=== PATIENT | female | born 1965 | race Caucasian/White ===

== ENCOUNTER 2020-01-22 01:19 | Emergency (ER) | payer MEDICARE, MEDICAID, SELFPAY ==
--- NOTE | 2020-01-22 01:47 | ED_ITS ---
HPI - Abdominal Pain General Chief Complaint: Abdominal Pain Stated Complaint: bowel pain Time Seen by Provider: 01/22/20 01:47 Source: patient Mode of arrival: EMS Limitations: no limitations History of Present Illness HPI narrative: patient with epigastric pain, she is concerned that it is bowel obstruction or acid MD elicited complaint: abdominal pain Onset (ago): hour(s) Pain Consistency: constant Location: epigastric Severity: moderate Quality: cramping and burning Radiation: back Associated symptoms: nausea Related Data Allergies Allergy/AdvReac Type Severity Reaction Status Date / Time ibuprofen Allergy Severe RASH, Verified 01/22/20 01:54 SWELLING, anaphylaxis, swelling Review of Systems Constitutional: Reports no additional constitutional complaints Eyes: Reports no additional eye complaints Denies dizziness Cardiovascular: Reports no additional cardiovascular complaints Respiratory: Reports as per HPI Gastrointestinal: Reports no additional gastrointestinal complaints Genitourinary: Reports no additional female genitourinary complaints Musculoskeletal: Reports no additional musculoskeletal complaints Skin/Breast: Denies rash Reports system reviewed and no additional complaints, except as documented, Denies dizziness and Denies Sensory deficit (Neuro) Psychiatric: Denies anxiety Physical Exam Vital Signs: Vital Signs: Last Vital Signs Temp 97.5 F 01/22/20 01:55 Pulse 62 01/22/20 02:58 Resp 16 01/22/20 02:58 BP 126/67 01/22/20 02:58 Pulse Ox 96 01/22/20 02:58 Body Mass Index 30.2 Const: General: healthy appearing Nutritional Appearance: average body habitus Orientation/consciousness: oriented to person and patient oriented x3 Limitations: no limitations HENMT: Head: Yes normal to inspection Ears: external ears normal General nose exam: Normal external nose present Mouth: Normal oral and palatal mucosa present and oropharynx normal Throat: Yes posterior oropharynx normal Eyes: General: appearance normal, both eyes and all related structures Neck: Other: supple Neck: Yes normal visual inspection Chest: Chest palpation & inspection: normal inspection of the chest Resp: Auscultation: clear to auscultation bilaterally Cardio: Jugular venous distension: no JVD Rate: regular rate Rhythm: regular rhythm Heart sounds: S1 normal heart sound present and S2 normal heart sound present GI: Other: multiple surgical wounds, epigastric pain to palpation Palpation (GI): No hepatosplenomegaly present Auscultation: normal bowel sounds : General: Yes no CVA tenderness Back/Spine/Pelvis: Back: no CVA tenderness Skin: General skin exam: no rashes or lesions noted Neuro: General: oriented to person and patient oriented x3 Cranial nerves: Yes CN's II-XII intact bilaterally Motor exam (neuro): 5/5 motor strength present throughout Sensory Exam: No Sensory deficit (Neuro) Extrem: General: Yes normal to inspection Psych: Appearance: grossly normal Course Course Course Narrative: patient improved no evidence of bowel obstruction MDM - Abdominal Pain MDM Narrative Medical decision making narrative: patient with multiple surgeries no evidence of obstruction on xray, prior visits for gastritis Differential Diagnosis Differential diagnosis: Likely abdominal pain, gastritis, pancreatitis, peptic ulcer disease and small bowel obstruction Medical Records Attestation: I reviewed the patient's medical records. Lab Data Attestation: I reviewed the patient's lab results. Result diagrams: 01/22/20 02:07 01/22/20 02:07 Labs: Lab Results 01/22/20 01/22/20 01/22/20 Range/Units 02:07 02:07 02:07 WBC 8.6 (4.8-10.8) X10*3/uL RBC 4.63 (4.20-5.50) X10*6/uL Hgb 13.6 (12.0-16.0) g/dl Hct 40.5 (37-47) % MCV 87.5 (80-98) fL MCH 29.4 (27.0-33.0) pg MCHC 33.6 (31.0-35.0) g/dl RDW 12.8 (11.0-16.0) % Plt Count 321 (160-400) X10*3/uL MPV 9.7 (9.4-12.3) fL Immature Gran % (Auto) 0.2 (0.0-0.4) % Neut % (Auto) 55.8 (45-73) % Lymph % (Auto) 35.0 (20-40) % [place] % (Auto) 7.4 (2-11) % Eos % (Auto) 1.1 (0-4) % Baso % (Auto) 0.5 (0-2) % Lymph # (Auto) 3.0 (1.2-4.9) X10*3/uL [place] # (Auto) 0.6 (0.1-1.2) X10*3/uL Eos # (Auto) 0.1 (0.0-0.4) X10*3/uL Baso # (Auto) 0.0 (0.0-0.2) X10*3/uL Abs Immat Gran (auto) 0.02 (0.00-0.03) X10*3/uL Absolute Neuts (auto) 4.8 (2.0-8.3) X10*3/uL Absolute Nucleated RBC 0.000 (0.0-0.012) X10*3/uL Nucleated RBC % (auto) 0.0 (0.0-0.2) /100WBC Sodium 138 (135-145) mmol/L Potassium 4.1 (3.3-5.1) mmol/l Chloride 102 (96-108) mmol/L Carbon Dioxide 29 (22-29) mmol/L Anion Gap 11 L (12-20) BUN 11 (9-16) mg/dL Creatinine 0.77 (0.5-1.4) mg/dL Estim Creat Clear Calc 68.4 Estimated GFR > 60 Random Glucose 121 H (60-115) mg/dL Calcium 9.2 (8.4-10.2) mg/dL Total Bilirubin 0.3 (0.0-1.0) mg/dL Direct Bilirubin 0.2 (0.0-0.5) mg/dL AST 16 (5-31) U/L ALT 26 (0-31) U/L Alkaline Phosphatase 98 (39-117) U/L Total Protein 7.0 (6.5-8.0) g/dL Albumin 4.2 (3.5-5.0) g/dL Lipase 32 (8-78) U/L Discharge Plan Discharge Clinical Impression: Gastritis Qualifiers: Gastritis type: unspecified gastritis Chronicity: acute Gastritis bleeding: without bleeding Qualified Code(s): K29.00 - Acute gastritis without bleeding Patient Disposition: Home, Self-Care Instructions: Gastritis (ED) Referrals: Physician,Unknown [Primary Care Provider] - 2 days [facility] Past Medical History Medical History (Updated 01/22/20 @ 03:32 by Ashutosh Avilez MD) Hypertension Pyloric stenosis SBO (small bowel obstruction) Surgical History (Updated 01/22/20 @ 01:59 by Ginna Steen) H/O: hysterectomy History of appendectomy Hx of cholecystectomy Social History Social History Advance Directives: No Advance Directives Information Provided: Yes
[2020-01-22 01:55] VITALS: BP 130/73; PULSE 59; RESP 18; TEMP 36.4; O2SAT 98; BMI 30.2
--- NOTE | 2020-01-22 02:05 | XR_ITS ---
EXAMINATION: ABDOMEN 2 VIEWS CLINICAL INFORMATION: Concern for obstruction. COMPARISON: 04/26/2019. TECHNIQUE: Supine and upright views of the abdomen are provided. FINDINGS: There are no dilated loops of small bowel. There are no air-fluid levels. There is no appendicolith. The visualized lung bases are clear. The osseous structures are stable. Surgical clips are identified within the right upper quadrant. XR/XR abdomen min 2V IMPRESSION: Unremarkable bowel gas pattern.
[2020-01-22 02:13] LABS: Basophils Percent Auto 0.5 % (0-2); Eosinophils Absolute Auto 0.1 X10*3/uL (0.0-0.4); Eosinophils Percent Auto 1.1 % (0-4); Hematocrit 40.5 % (37-47); Hemoglobin 13.6 g/dl (12.0-16.0); Imm Gran Abs Auto 0.02 X10*3/uL (0.00-0.03); Imm Gran Pct Auto 0.2 % (0.0-0.4); MANUAL DIFF FLAG NO; Mean Corpuscular HGB Conc 33.6 g/dl (31.0-35.0); Mean Corpuscular Hemoglobin 29.4 pg (27.0-33.0); Mean Corpuscular Volume 87.5 fL (80-98); Mean Platelet Volume 9.7 fL (9.4-12.3); Monocytes Absolute Auto 0.6 X10*3/uL (0.1-1.2); Monocytes Percent Auto 7.4 % (2-11); Neutrophils Absolute Auto 4.8 X10*3/uL (2.0-8.3); Neutrophils Percent Auto 55.8 % (45-73); Platelet Count 321 X10*3/uL (160-400); Red Blood Count 4.63 X10*6/uL (4.20-5.50); Red Cell Distribution Width 12.8 % (11.0-16.0); White Blood Count 8.6 X10*3/uL (4.8-10.8)
[2020-01-22] MEDS: ondansetron HCL 4 MG/2 ML VIAL IVPUSH (02:42)
[2020-01-22] MEDS: Pantoprazole Sodium 40 MG/10 ML VIAL IVPUSH (02:42)
[2020-01-22] MEDS: Morphine Sulfate 4 MG/ML CARTRIDGE IVPUSH (02:42)
[2020-01-22] MEDS: 0.9 % Sodium Chloride 500 ML 999 ML IVCONT (02:42)
[2020-01-22 02:43] VITALS: BP 126/71; PULSE 70; O2SAT 98
[2020-01-22 02:44] LABS: Anion Gap 11 (12-20); Blood Urea Nitrogen 11 mg/dL (9-16); Calcium 9.2 mg/dL (8.4-10.2); Carbon Dioxide 29 mmol/L (22-29); Chloride 102 mmol/L (96-108); Creatinine Clr Calc Pharmacy 68.4; Estimated Glomerular Filt Rate > 60; Glucose Random 121 mg/dL (60-115); Potassium 4.1 mmol/l (3.3-5.1); Sodium 138 mmol/L (135-145)
[2020-01-22 02:45] LABS: Alanine Aminotransferase 26 U/L (0-31); Albumin Level 4.2 g/dL (3.5-5.0); Alkaline Phosphatase 98 U/L (39-117); Aspartate Amino Transferase 16 U/L (5-31); Bilirubin Direct 0.2 mg/dL (0.0-0.5); Bilirubin Total 0.3 mg/dL (0.0-1.0); Lipase 32 U/L (8-78)
[2020-01-22 02:58] VITALS: BP 126/67; PULSE 62; RESP 16; O2SAT 96
== END 2020-01-22 04:09 | disposition home or self-care (01) ==
PROVIDERS: Emergency Provider Emergency Medicine
DX: K29.00 Acute gastritis without bleeding (principal)
CPT/HCPCS: 36415; 74019; 80048; 80076; 83690; 85025; 96374; 96375; 99283; 99284; J2270; J2405

== ENCOUNTER 2020-01-25 15:16 | Outpatient (REF) | payer MEDICARE, MEDICAID, SELFPAY ==
[2020-01-26 09:36] LABS: CT PCR NOT DETECTED (Not Detect.); NG PCR NOT DETECTED (Not Detect.)
[2020-01-26 13:04] LABS: BV Int Neg Control Negative (Negative); BV Int Pos Control Positive (Positive)
== END 2020-01-25 15:17 | disposition home or self-care (01) ==
LOC: HO.LAB 15:16
PROVIDERS: Visit Provider Obstetrics & Gynecology
DX: B37.3 Candidiasis of vulva and vagina (principal); R32 Unspecified urinary incontinence
CPT/HCPCS: 87480; 87491; 87510; 87591; 87660; 99212

== ENCOUNTER → 2020-03-01 09:27 | Outpatient (BNVA) | payer MEDICARE, MEDICAID, SELFPAY | PROVIDERS: Visit Provider Internal Medicine Gastroenterology | DX: Z13.89 Encounter for screening for other disorder (principal) | CPT/HCPCS: Q3014 ==

== ENCOUNTER 2020-03-25 08:06 | Outpatient (REF) | payer MEDICARE, MEDICAID, SELFPAY ==
--- NOTE | 2020-03-25 08:14 | US_ITS ---
EXAMINATION: US ABDOMEN LIMITED WITH ELASTOGRAPHY CLINICAL INFORMATION: WALKER. COMPARISON: Ultrasound abdomen 04/26/2019. TECHNIQUE: Limited imaging through the upper abdomen was performed. FINDINGS: Visualized body and head of the pancreas is homogeneous in echotexture. The tail of the pancreas is obscured by overlying gas. The pancreatic duct measures 0.2 cm. The liver is normal shape and contour with increased echogenicity. There is anechoic cyst with calcified ferreira and posterior acoustic enhancement in the right lower lobe. It measures 0.6 x 0.5 x 0.6 cm. Previously measured 0.8 x 0.6 x 0.7 cm. No other lesions seen. The right hepatic lobe measures 14.8 cm in length and the left lobe measures 11.6 cm in length. There is normal hepatopedal flow seen in the portal vein on Doppler exam. On Elastography, the median value is 1.68 m/s with IQR/median of 0.40. Gallbladder has been surgically removed. CBD measures 0.5 cm. Right kidney measures 10.3 cm. US/US abdomen martinez w elastography IMPRESSION: Diffusely echogenic liver with small cyst and calcified wall. The size of the cyst is unchanged from previous ultrasound 04/26/2019. The gallbladder has been surgically removed. The right kidney, CBD and visualized pancreas are unremarkable. [id number] fibrosis stage F2-F3.
== END 2020-03-25 08:07 | disposition home or self-care (01) ==
LOC: HO.US 08:06
PROVIDERS: PCP Internal Medicine; Visit Provider Internal Medicine Gastroenterology
DX: K75.81 Nonalcoholic steatohepatitis (NASH) (principal)
CPT/HCPCS: 76705; 76981

== ENCOUNTER 2020-04-04 09:58 | Outpatient (REF) | payer MEDICARE, MEDICAID, SELFPAY | END 2020-04-04 09:59 | disposition home or self-care (01) | LOC: HO.LAB 09:58 | PROVIDERS: Visit Provider Internal Medicine | DX: N39.41 Urge incontinence (principal); Z20.822 Contact with and (suspected) exposure to COVID-19 | CPT/HCPCS: 36415; 51798; 81002; 99202; C9803; U0003 ==

== ENCOUNTER 2020-04-15 08:13 | Outpatient (REF) | payer MEDICARE, MEDICAID, SELFPAY ==
[2020-04-16 08:47] LABS: BV Int Neg Control Negative (Negative); BV Int Pos Control Positive (Positive)
[2020-04-16 19:27] LABS: C. trachomatis RNA TMA NOT DETECTED (NOT DETECTED); N. gonorrhoeae RNA TMA NOT DETECTED (NOT DETECTED)
== END 2020-04-15 08:14 | disposition home or self-care (01) ==
LOC: HO.LAB 08:13
PROVIDERS: Visit Provider Obstetrics & Gynecology
DX: Z01.419 Encounter for gynecological examination (general) (routine) without abnormal findings (principal); Z90.710 Acquired absence of both cervix and uterus
CPT/HCPCS: 87480; 87491; 87510; 87591; 87660

== ENCOUNTER 2020-04-17 19:59 | Emergency (ER) | payer MEDICARE, MEDICAID, SELFPAY ==
--- NOTE | 2020-04-17 | ECG_ITS ---
Test Reason : JAW PAIN Blood Pressure : / mmHG Vent. Rate : 074 BPM Atrial Rate : 074 BPM P-R Int : 140 ms QRS Dur : 076 ms QT Int : 398 ms P-R-T Axes : 064 025 024 degrees QTc Int : 441 ms Normal sinus rhythm Normal ECG When compared with ECG of 26-APR-2019 13:19, No significant change was found Referred By: Generic ED Physician Electronically Signed By:KASSIE ESTEBAN
[2020-04-17 21:08] VITALS: BP 148/67; PULSE 71; RESP 18; TEMP 35.8; O2SAT 95; BMI 31.3
[2020-04-18 00:37] VITALS: BP 123/73
--- NOTE | 2020-04-18 00:53 | ED_ITS ---
HPI - General Adult General Chief complaint: Headache Stated complaint: high bp Time Seen by Provider: 04/18/20 00:32 Source: patient Mode of arrival: ambulatory Limitations: no limitations History of Present Illness HPI narrative: 54-year-old female who presents emergency department for evaluation high blood pressure and headache. Patient states that around 2:00 p.m. she ate a barbecue ribs. She states that shortly after that she developed a headache. She states that the headache came on gradually and was located in the septal region of her head and in her jaw bilaterally. She states that the headache was a constant, pounding sensation which was initially mild and is now 8/10 at its worst. She is also complaining of pain in her left shoulder but denied chest pain, dyspnea on exertion, shortness of breath, diaphoresis, nausea, vomiting, lightheadedness or dizziness. She states she has had similar headaches in the past and she does have a history of migraines. She states she has had to come to the emergency department 2 times in the past and was treated with IV medications. The patient does have a history of hypertension and she is compliant with her medications. She denied fever, chills, cough, abdominal pain, loss of sense of taste or smell, diarrhea. Related Data Home Medications Medication Instructions Recorded Confirmed lorazepam 0.5 mg tablet mg PO 04/04/20 04/04/20 Previous Rx's Medication Instructions Recorded clotrimazole-betamethasone 1 1 applic TOPICAL BID 5 Days #45 g 01/25/20 %-0.05 % topical cream fluconazole 150 mg tablet 150 mg PO ONCE 1 Days #1 tab 01/25/20 oxybutynin chloride 5 mg 5 mg PO DAILY #30 tab 04/04/20 tablet,extended release 24 hr metoclopramide HCl [Reglan] 10 mg PO Q6H PRN #14 tab 04/18/20 Allergies Allergy/AdvReac Type Severity Reaction Status Date / Time ibuprofen Allergy Severe RASH, Verified 04/17/20 21:07 SWELLING, anaphylaxis, swelling Review of Systems Review of Systems: Yes all other systems are reviewed and are negative Neurologic: Reports Abnormal speech present [facility] Past Medical History Medical History Hypertension Pyloric stenosis SBO (small bowel obstruction) Urge incontinence Urgency of micturition Surgical History H/O: hysterectomy History of appendectomy History of endometrial ablation History of tubal ligation Hx of cholecystectomy Family History Family History Father No problems noted. Mother No problems noted. Social History Social History Alcohol intake: never Smoking Status: Never smoker Advance Directives: No Sexual orientation: Straight/Heterosexual Gender identity: female Physical Exam Vital Signs: Vital Signs: Last Vital Signs Temp 98.0 F 04/18/20 02:00 Pulse 70 04/18/20 02:00 Resp 16 04/18/20 02:00 BP 91/54 L 04/18/20 02:00 Pulse Ox 95 04/18/20 02:00 Body Mass Index 31.3 Const: General: cooperative and healthy appearing Orientation/consciou sness: oriented to person and oriented to place Limitations: no limitations HENMT: Head: Yes normal to inspection, Yes normocephalic and Yes atraumatic Ears: external ears normal General nose exam: Normal external nose present Face and sinus: Yes normal facial exam Mouth: Normal oral and palatal mucosa present Throat: Yes posterior oropharynx normal Eyes: Periorbital: periorbital findings normal Eyelids: Yes eyelids normal Conjunctivae: conjunctivae normal Sclerae: sclerae normal Corneas: corneas normal Pupils: Equal, round and reactive pupils present Direct Ophthalmoscopy: normal light reflex Neck: Neck: Yes full ROM, Yes no lymphadenopathy, Yes no meningeal signs, Yes trachea midline and Yes supple Chest: Chest palpation & inspection: normal inspection of the chest and normal palpation of entire chest wall Resp: Effort & Inspection: normal respiratory effort and able to speak in complete sentences Auscultation: clear to auscultation bilaterally Cardio: Rate: regular rate Rhythm: regular rhythm Heart sounds: S1 normal heart sound present, S2 normal heart sound present and no murmurs GI: Inspection: Yes normal to inspection Palpation (GI): Soft to palpation, nontender, no guarding, not rigid and No hepatosplenomegaly present : General: Yes no CVA tenderness Back/Spine/Pelvis: Back: no CVA tenderness Cervical Spine: normal cervical lordosis Thoracic/Lumbar Spine: thoracic and lumbar spine normal to inspection Skin: Lesions: no lesions Rashes: no rashes Wounds: no wounds Neuro: General: oriented to person, oriented to place and no meningeal signs Cranial nerves: Yes CN's II-XII intact bilaterally and Yes Equal, round and reactive pupils present Cognition (Neuro): normal cognition Speech: Abnormal speech present Motor exam (neuro): 5/5 motor strength present throughout Extrem: General: Yes normal to inspection and Yes full ROM Psych: Appearance: well kempt Mental Status: mental status grossly normal Speech and movement: Normal speech and movement present Affect: normal affect Attitude: cooperative Thought process: Normal thought process present Thought content: Normal thought content present Course Course Course Narrative: 54-year-old female who presents emergency department for evaluation of headache which came on gradually at around 2:00 p.m. and is now moderate to severe intensity/10/22. The patient states she had similar headaches in the past. Her examination was unremarkable and a suspect that she is having a migraine headache. Patient was ordered to get Tylenol 975 mg orally, Benadryl 50 mg IV and Reglan 10 mg IV. I will check a 12 lead EKG on this patient as well. 0229: The patient got complete relief of her headache with the above medications. Twelve lead EKG was unremarkable. The patient was discharged home with printed instructions and verbal instructions on migraines. She was advised to take the following regimen every 6 hours as needed for headache: Benadryl 50 mg, extra-strength Tylenol 1000 mg and Reglan 10 mg orally. Medical Decision Making ECG Data Attestation: I personally reviewed and interpreted this ECG as follows: Interpretation: 2113: Normal sinus rhythm with a rate of 74, normal LA, QRS and QTC intervals, small Q-wave in 2, 3 and AVF, inverted T-wave V1, no old EKG for comparison, this is a nonacute EKG with no evidence of ischemia or cardiac injury. Discharge Plan Discharge Clinical Impression: Headache, migraine Patient Disposition: Home, Self-Care Instructions: Acute Headache (ED) Additional Instructions: Your EKG was unremarkable. Your symptoms are consistent with a migraine headache. Your blood pressure improved without any treatment. Take the following medications together every 6 hours as needed for headache: Benadryl 25 mg pills, 2 pills Extra-strength Tylenol 500 mg pills, 2 pills Reglan (metoclopramide) 10 mg pills, 1 pill These medications will make you sleepy. After you take these medications you cannot drive. You should lie down in a dark quiet room and try to fall asleep and this will often break the migraine headache. Follow-up with your doctor in 2 days. Please return to the emergency department if your symptoms get worse or if you develop any symptoms that are concerning to you. Prescriptions: New metoclopramide HCl [Reglan] 10 mg tablet 10 mg PO Q6H PRN (Reason: nausea and vomiting) Qty: 14 RF: 0 No Action fluconazole 150 mg tablet 150 mg PO ONCE 1 Days Qty: 1 RF: 0 clotrimazole-betamethasone 1-0.05 % cream 1 applic topical BID 5 Days Qty: 45 RF: 0 lorazepam 0.5 mg tablet PO RF: 0 oxybutynin chloride 5 mg tablet extended release 24hr 5 mg PO DAILY Qty: 30 RF: 6
[2020-04-18] MEDS: Acetaminophen 325 MG TABLET 975 MG PO (01:18)
[2020-04-18] MEDS: 0.9 % Sodium Chloride 1,000 ML 999 ML IV (01:18)
[2020-04-18] MEDS: diphenhydrAMINE HCL 50 MG/ML VIAL IVPUSH (01:19)
[2020-04-18 02:00] VITALS: BP 91/54; PULSE 70; RESP 16; TEMP 36.7; O2SAT 95
== END 2020-04-18 03:08 | disposition home or self-care (01) ==
PROVIDERS: Emergency Provider Emergency Medicine Emergency Medical Services
DX: G43.909 Migraine, unspecified, not intractable, without status migrainosus (principal); Z79.899 Other long term (current) drug therapy
CPT/HCPCS: 93005; 96361; 96374; 96375; 99284; J1200; J2765

== ENCOUNTER 2020-05-11 20:05 | Emergency (ER) | payer MEDICARE, MEDICAID, SELFPAY ==
--- NOTE | 2020-05-11 20:27 | ECG_ITS ---
Test Reason : ANXIETY/BACK PAIN Blood Pressure : / mmHG Vent. Rate : 071 BPM Atrial Rate : 071 BPM P-R Int : 144 ms QRS Dur : 086 ms QT Int : 414 ms P-R-T Axes : 057 025 015 degrees QTc Int : 449 ms Normal sinus rhythm Normal ECG When compared with ECG of 17-APR-2020 21:14, No significant change was found Referred By: Savannah Pineda Electronically Signed By:KASSIE ESTEBAN
--- NOTE | 2020-05-11 20:28 | ED_ITS ---
HPI - General Adult General Chief complaint: Back Pain/Injury Stated complaint: ANXIETY ATTACK Time Seen by Provider: 05/11/20 20:21 Source: patient Mode of arrival: EMS Limitations: no limitations History of Present Illness HPI narrative: Constitutional : No Weight loss, No Fever, No Chills, No Night Sweats, No Fatigue, No Malaise ENT/Mouth : No Hearing loss, No Ear Pain, No Nasal Congestion, No Sinus Pain, No Hoarseness, No sore throat, No Rhinorrhea, No Swallowing Difficulty Eyes: No Eye Pain, No Swelling, No Redness, No Foreign Body, No Discharge, No Vision Changes Cardiovascular : No Chest Pain, No SOB, No Dyspnea on Exertion, No Orthopnea, No Edema, No Palpitations Respiratory : No Cough, No Sputum, No Wheezing, No Smoke Exposure, No Dyspnea Gastrointestinal : No Nausea, No Vomiting, No Diarrhea, No Constipation, No abdominal Pain, No Hematochezia, No Melena Genitourinary : no irregular bleeding, No Dysuria, No Urinary Frequency, No Hematuria, No Urinary Incontinence, No Urgency, No Flank Pain, No Urinary Flow Changes, No Hesitancy Musculoskeletal : No joint pain, No Myalgias, No Joint Swelling Skin : No Skin Lesions, No rash Neuro : No Weakness, No Numbness, No Paresthesias, No Loss of Consciousness, No Dizziness, No Headache Psych : No Anxiety/Panic, No Depression, No SI/HI/AH/VH, No Social Issues, Heme/Lymph: No Bruising, No Bleeding,No Lymphadenopathy Endocrine : No Polyuria, No Polydipsia, No Temperature Intolerance Patient comes to the emergency room complaining of a panic attack, back pain. Patient states that earlier today, patient took her amlodipine, very soon after she started feeling lightheaded, started feeling very anxious, palpitations, she thought she was going to pass out but did not. Patient's called 911. Patient states she has history of panic attacks, felt similar, but she has not had 1 for multiple years and she does not have any reason why she had a panic attack this time. Patient also complaining of back pain for the last 3 days, right upper back pain, worse with movement Related Data Home Medications Medication Instructions Recorded Confirmed lorazepam 0.5 mg tablet mg PO 04/04/20 04/04/20 Previous Rx's Medication Instructions Recorded clotrimazole-betamethasone 1 1 applic TOPICAL BID 5 Days #45 g 01/25/20 %-0.05 % topical cream fluconazole 150 mg tablet 150 mg PO ONCE 1 Days #1 tab 01/25/20 oxybutynin chloride 5 mg 5 mg PO DAILY #30 tab 04/04/20 tablet,extended release 24 hr metoclopramide HCl [Reglan] 10 mg PO Q6H PRN #14 tab 04/18/20 metronidazole 0.75 % vaginal gel 1 appful VAGINAL BEDTIME 5 Days 04/24/20 #70 g omeprazole 40 mg capsule,delayed 40 mg PO DAILY 30 Days #30 cap 05/10/20 release Allergies Allergy/AdvReac Type Severity Reaction Status Date / Time ibuprofen Allergy Severe RASH, Verified 04/17/20 21:07 SWELLING, anaphylaxis, swelling Review of Systems Review of Systems: Constitutional : No Weight loss, No Fever, No Chills, No Night Sweats, No Fatigue, No Malaise ENT/Mouth : No Hearing loss, No Ear Pain, No Nasal Congestion, No Sinus Pain, No Hoarseness, No sore throat, No Rhinorrhea, No Swallowing Difficulty Eyes: No Eye Pain, No Swelling, No Redness, No Foreign Body, No Discharge, No Vision Changes Cardiovascular : No Chest Pain, No SOB, No Dyspnea on Exertion, No Orthopnea, No Edema, No Palpitations Respiratory : No Cough, No Sputum, No Wheezing, No Smoke Exposure, No Dyspnea Gastrointestinal : No Nausea, No Vomiting, No Diarrhea, No Constipation, No abdominal Pain, No Hematochezia, No Melena Genitourinary : no irregular bleeding, No Dysuria, No Urinary Frequency, No Hematuria, No Urinary Incontinence, No Urgency, No Flank Pain, No Urinary Flow Changes, No Hesitancy Musculoskeletal : Complaining of left upper back pain for 2 days, worse with movement, nonradiating No joint pain, No Myalgias, No Joint Swelling Skin : No Skin Lesions, No rash Neuro : No Weakness, No Numbness, No Paresthesias, No Loss of Consciousness, No Dizziness, No Headache Psych : Feeling anxious, possibly had a panic attack, No Depression, No SI/HI /AH/VH, No Social Issues, Heme/Lymph: No Bruising, No Bleeding,No Lymphadenopathy Endocrine : No Polyuria, No Polydipsia, No Temperature Intolerance [facility] Past Medical History Medical History Hypertension Pyloric stenosis SBO (small bowel obstruction) Urge incontinence Urgency of micturition Surgical History H/O: hysterectomy History of appendectomy History of endometrial ablation History of tubal ligation Hx of cholecystectomy Family History Family History Father No problems noted. Mother No problems noted. Social History Social History Alcohol intake: current Alcohol intake frequency: holidays/special occasions only Smoking Status: Never smoker Smoked in Last 30 Days: No Use of substances other than those prescribed or required for medical reasons: No Advance Directives: No Advance Directives Information Provided: Yes Sexual orientation: Straight/Heterosexual Gender identity: female Physical Exam Vital Signs: Vital Signs: Last Vital Signs Temp 98.5 F 05/11/20 20:52 Pulse 69 05/11/20 21:31 Resp 16 05/12/20 01:20 BP 123/57 L 05/11/20 21:31 Pulse Ox 97 05/11/20 21:31 Body Mass Index 31.3 Appearance: Alert. Oriented X3. No acute distress. Anxious Eyes: Pupils equal, round and reactive to light. ENT: Pharynx normal. Neck: Normal inspection. Neck supple. No lymph nodes noted. No crepitus CVS: Normal heart rate and rhythm. Pulses normal. Normal S1 and S2 Respiratory: No respiratory distress. Breath sounds normal. No Wheezing. No rales Abdomen: Soft and nontender. No rigidity. No distention. Back: Mild to moderate tenderness to palpation with superficial palpation to the left upper back Skin: Skin warm and dry. Normal skin color. Normal skin turgor. Extremities: No lower extremity edema. No lower extremity edema. No Lacerations. No Rash Neuro: Oriented X 3. No motor deficit. No sensory deficit. Moving all extermities. No slurred speech. Course Course Course Narrative: Troponin 2. Is less than the 1st troponin. Patient remains asymptomatic. Patient's discomfort likely secondary to a panic attack. Medical Decision Making Lab Data Result diagrams: 05/11/20 20:49 05/11/20 20:49 Labs: Lab Results 05/11/20 05/11/20 05/11/20 Range/Units 20:49 20:49 20:49 WBC 8.8 (4.8-10.8) X10*3/uL RBC 4.73 (4.20-5.50) X10*6/uL Hgb 14.1 (12.0-16.0) g/dl Hct 40.7 (37-47) % MCV 86.0 (80-98) fL MCH 29.8 (27.0-33.0) pg MCHC 34.6 (31.0-35.0) g/dl RDW 12.4 (11.0-16.0) % Plt Count 339 (160-400) X10*3/uL MPV 9.9 (9.4-12.3) fL Immature Gran % (Auto) 0.2 (0.0-0.4) % Neut % (Auto) 63.2 (45-73) % Lymph % (Auto) 29.2 (20-40) % [place] % (Auto) 6.3 (2-11) % Eos % (Auto) 0.6 (0-4) % Baso % (Auto) 0.5 (0-2) % Lymph # (Auto) 2.6 (1.2-4.9) X10*3/uL [place] # (Auto) 0.6 (0.1-1.2) X10*3/uL Eos # (Auto) 0.1 (0.0-0.4) X10*3/uL Baso # (Auto) 0.0 (0.0-0.2) X10*3/uL Abs Immat Gran (auto) 0.02 (0.00-0.03) X10*3/uL Absolute Neuts (auto) 5.6 (2.0-8.3) X10*3/uL Absolute Nucleated RBC 0.000 (0.0-0.012) X10*3/uL Nucleated RBC % (auto) 0.0 (0.0-0.2) /100WBC Sodium 140 (135-145) mmol/L Potassium 3.5 (3.3-5.1) mmol/L Chloride 105 (96-108) mmol/L Carbon Dioxide 24 (22-29) mmol/L Anion Gap 15 (12-20) BUN 10 (9-16) mg/dL Creatinine 0.72 (0.5-1.4) mg/dL Estim Creat Clear Calc 74.4 Estimated GFR > 60 Random Glucose 111 (60-115) mg/dL Calcium 9.4 (8.4-10.2) mg/dL Troponin I High Sens 6.0 (<3.5-17.0) ng/L 05/12/20 Range/Units 01:06 WBC (4.8-10.8) X10*3/uL RBC (4.20-5.50) X10*6/uL Hgb (12.0-16.0) g/dl Hct (37-47) % MCV (80-98) fL MCH (27.0-33.0) pg MCHC (31.0-35.0) g/dl RDW (11.0-16.0) % Plt Count (160-400) X10*3/uL MPV (9.4-12.3) fL Immature Gran % (Auto) (0.0-0.4) % Neut % (Auto) (45-73) % Lymph % (Auto) (20-40) % [place] % (Auto) (2-11) % Eos % (Auto) (0-4) % Baso % (Auto) (0-2) % Lymph # (Auto) (1.2-4.9) X10*3/uL [place] # (Auto) (0.1-1.2) X10*3/uL Eos # (Auto) (0.0-0.4) X10*3/uL Baso # (Auto) (0.0-0.2) X10*3/uL Abs Immat Gran (auto) (0.00-0.03) X10*3/uL Absolute Neuts (auto) (2.0-8.3) X10*3/uL Absolute Nucleated RBC (0.0-0.012) X10*3/uL Nucleated RBC % (auto) (0.0-0.2) /100WBC Sodium (135-145) mmol/L Potassium (3.3-5.1) mmol/L Chloride (96-108) mmol/L Carbon Dioxide (22-29) mmol/L Anion Gap (12-20) BUN (9-16) mg/dL Creatinine (0.5-1.4) mg/dL Estim Creat Clear Calc Estimated GFR Random Glucose (60-115) mg/dL Calcium (8.4-10.2) mg/dL Troponin I High Sens 5.6 (<3.5-17.0) ng/L ECG Data Attestation: I personally reviewed and interpreted this ECG as follows: (Heart rate 71, QTC 449, no ST segment depressions or elevations, nonspecific T-wave inversion in lead III) Discharge Plan Discharge Clinical Impression: Anxiety Back pain Qualifiers: Back pain location: back pain in unspecified location Chronicity: unspecified Back pain laterality: left Qualified Code(s): M54.9 - Dorsalgia, unspecified Patient Disposition: Home, Self-Care Instructions: Anxiety (ED), Back Pain (ED) Additional Instructions: Please follow-up with your primary care physician tomorrow. If you have any worsening or new symptoms, please return to the emergency room or call 911 Prescriptions: No Action metronidazole [Metrogel Vaginal] 0.75 % gel 1 appful vaginal BEDTIME 5 Days Qty: 70 RF: 0 omeprazole 40 mg capsule,delayed release(DR/EC) 40 mg PO DAILY 30 Days Qty: 30 RF: 2 metoclopramide HCl [Reglan] 10 mg tablet 10 mg PO Q6H PRN (Reason: nausea and vomiting) Qty: 14 RF: 0 fluconazole 150 mg tablet 150 mg PO ONCE 1 Days Qty: 1 RF: 0 clotrimazole-betamethasone 1-0.05 % cream 1 applic topical BID 5 Days Qty: 45 RF: 0 lorazepam 0.5 mg tablet PO RF: 0 oxybutynin chloride 5 mg tablet extended release 24hr 5 mg PO DAILY Qty: 30 RF: 6
[2020-05-11 20:52] VITALS: BP 152/62; PULSE 83; RESP 16; TEMP 36.9; O2SAT 99; BMI 31.3
[2020-05-11 20:54] LABS: MANUAL DIFF FLAG NO
[2020-05-11 20:56] LABS: Basophils Percent Auto 0.5 % (0-2); Eosinophils Absolute Auto 0.1 X10*3/uL (0.0-0.4); Eosinophils Percent Auto 0.6 % (0-4); Hematocrit 40.7 % (37-47); Hemoglobin 14.1 g/dl (12.0-16.0); Imm Gran Abs Auto 0.02 X10*3/uL (0.00-0.03); Imm Gran Pct Auto 0.2 % (0.0-0.4); Lymphocytes Absolute Auto 2.6 X10*3/uL (1.2-4.9); Lymphocytes Percent Auto 29.2 % (20-40); Mean Corpuscular HGB Conc 34.6 g/dl (31.0-35.0); Mean Corpuscular Hemoglobin 29.8 pg (27.0-33.0); Mean Platelet Volume 9.9 fL (9.4-12.3); Monocytes Absolute Auto 0.6 X10*3/uL (0.1-1.2); Monocytes Percent Auto 6.3 % (2-11); Neutrophils Absolute Auto 5.6 X10*3/uL (2.0-8.3); Neutrophils Percent Auto 63.2 % (45-73); Platelet Count 339 X10*3/uL (160-400); Red Blood Count 4.73 X10*6/uL (4.20-5.50); Red Cell Distribution Width 12.4 % (11.0-16.0); White Blood Count 8.8 X10*3/uL (4.8-10.8)
[2020-05-11 21:21] LABS: Anion Gap 15 (12-20); Blood Urea Nitrogen 10 mg/dL (9-16); Calcium 9.4 mg/dL (8.4-10.2); Carbon Dioxide 24 mmol/L (22-29); Chloride 105 mmol/L (96-108); Creatinine Clr Calc Pharmacy 74.4; Estimated Glomerular Filt Rate > 60; Glucose Random 111 mg/dL (60-115); Potassium 3.5 mmol/L (3.3-5.1); Sodium 140 mmol/L (135-145)
[2020-05-11 21:31] VITALS: BP 123/57; PULSE 69; RESP 16; O2SAT 97
[2020-05-12 01:20] VITALS: RESP 16
[2020-05-12 01:41] LABS: Troponin-I High Sensitivity 5.6 ng/L (<3.5-17.0)
== END 2020-05-12 02:13 | disposition home or self-care (01) ==
PROVIDERS: Emergency Provider Emergency Medicine
DX: F41.9 Anxiety disorder, unspecified (principal); M54.9 Dorsalgia, unspecified; I10 Essential (primary) hypertension
CPT/HCPCS: 36415; 80048; 84484; 85025; 93005; 99283; 99285

== ENCOUNTER 2020-05-28 10:38 | Outpatient (REF) | payer MEDICARE, MEDICAID, SELFPAY ==
--- NOTE | ~2020-05-28 | MM_ITS ---
EXAMINATION: MM SCREENING DIGITAL BREAST TOMOSYNTHESIS, BILATERAL CLINICAL INFORMATION: Screening. Asymptomatic. The lifetime risk of breast cancer based on the Tyrer-Cuzick Model is 7%. COMPARISON: Mammography: 05/23/2019, 09/07/2017, 06/01/2016 TECHNIQUE: Digital breast tomosynthesis is performed in both the craniocaudal and mediolateral oblique views along with computer-aided detection (CAD). Synthesized 2D images are generated from the tomosynthesis. FINDINGS: There are scattered areas of fibroglandular density (ACR BI-RADS breast composition Category b). There are no significant masses, abnormal calcifications, or other abnormalities. Parenchymal pattern is similar to prior exams. Small calcifications anterior left breast are similar to prior exam, possibly dermal, residing near skin on tomography. The axilla and skin contours are unremarkable. MM/MM tomosynthesis screening BI IMPRESSION: No significant changes from prior exams. ASSESSMENT: BI-RADS 2: Benign RECOMMENDATION: Routine annual mammography screening. This patient's information was entered into a reminder system with a target due date for their next mammogram.
== END 2020-05-28 10:39 | disposition home or self-care (01) ==
LOC: HO.MAMMO 10:38
DX: Z12.31 Encounter for screening mammogram for malignant neoplasm of breast (principal)
CPT/HCPCS: 77063; 77067

== ENCOUNTER → 2020-06-14 09:09 | Outpatient (BNVA) | payer MEDICARE, MEDICAID, SELFPAY | PROVIDERS: PCP Internal Medicine; Visit Provider Internal Medicine Gastroenterology | DX: K75.81 Nonalcoholic steatohepatitis (NASH) (principal) ==

== ENCOUNTER 2020-07-28 13:58 | Inpatient (IN) | payer MEDICARE, MEDICAID, SELFPAY ==
--- NOTE | ~2020-07-28 | XR_ITS ---
EXAMINATION: XR ABDOMEN WITH DECUBITUS VIEWS CLINICAL INDICATION: Follow-up small bowel obstruction COMPARISON: Previous CT of the abdomen and pelvis 07/28/2020 TECHNIQUE: One view of the chest and supine and upright views of the abdomen and pelvis FINDINGS: Chest: There is a nasogastric tube that projects over the stomach. The cardiac and mediastinal contours are normal. The lung volumes are low. There is subsegmental atelectasis at the lung bases. There is no pleural effusion. There is no evidence of free air. There are degenerative changes of the spine. Abdominal series: There is a nasogastric tube projects over the stomach. There are no dilated loops of bowel or air-fluid levels seen. There is no evidence of free air. There are postsurgical changes from cholecystectomy. There are degenerative changes of the spine and hip joints. XR/XR abdomen w decubitus IMPRESSION: Abdomen: Nasogastric tube in the stomach. No dilated loops of bowel or air fluid levels seen. CHEST: Low lung volumes and atelectasis at the lung bases.
--- NOTE | ~2020-07-28 | CT_ITS ---
EXAMINATION: CT ABDOMEN AND PELVIS WITH CONTRAST CLINICAL INFORMATION: Periumbilical abdominal pain, suspected bowel obstruction. COMPARISON: CT of the abdomen and pelvis done on 02/27/2019. TECHNIQUE: Multidetector volumetric images were obtained from the superior aspect of the liver through the pubic symphysis following administration 85 mL of Omnipaque 350 intravenous contrast. Sagittal and coronal reformatted images were obtained on the technologist's workstation. Oral contrast: No This CT examination was performed using dose optimization techniques as appropriate, variously including the following: *Automated exposure control *Adjustment of mA and/or kV according to patient size (this includes techniques or standardized protocols for targeted exams where dose is matched to indication/reason for exam; i.e. extremities or head) *Use of iterative reconstruction technique DLP: 550.34 mGy-cm FINDINGS: LUNG BASES: The visualized lung bases are unremarkable. LIVER, GALLBLADDER, AND BILIARY TREE: Mild diffuse hepatic hypodensity consistent with hepatic steatosis is present. Superimposed 6 mm hypodense lesion within the right lobe of the liver (image #168 series 4) appear unchanged. No other focal liver lesion, unchanged. The gallbladder is surgically absent. No evidence of any intrahepatic or extrahepatic biliary ductal dilatation. PANCREAS: Unremarkable. SPLEEN: Unremarkable. ADRENAL GLANDS: Unremarkable. KIDNEYS AND URETERS: The kidneys are normal in size, shape, and attenuation. No hydronephrosis, hydroureter, or calculi seen. No perinephric stranding. BLADDER: Unremarkable. GASTROINTESTINAL TRACT: Isolated mid small bowel loops are slightly distended with fluid, and measures between 3.32 maximum diameter of 4.5, seen in the periumbilical region anteriorly (image #349 series 4). There is suggestion of small bowel feces sign present within the most dilated part of the bowel loop. There is no evidence of any definite transition point present. The findings are suspicious for partial/low grade small bowel obstruction. However, when compared to the prior study, the appearance is similar to the study dated 02/27/2019. The remainder of the small bowel loops are ABDOMINAL WALL: No significant hernia is appreciated. LYMPH NODES: Normal. VASCULAR: Unremarkable. PELVIC VISCERA: There is no pelvic mass present. There is no free fluid and/or free air. OSSEOUS STRUCTURES: Moderate diffuse osteopenia and multilevel degenerative spondylosis related changes are noted at lower thoracic and upper lumbar spine. CT/CT abdomen pelvis w con IMPRESSION: Abnormal CT scan of the abdomen and pelvis showing evidence of chronic low-grade mid to distal small bowel obstruction, without any definite transitional point and evidence of an isolated distended small bowel loops seen at the level of the umbilicus measuring 4.5 cm at its maximum dimension, similar to prior study dated 02/27/2019.
[2020-07-28 14:09] VITALS: BP 133/78; PULSE 75; RESP 17; TEMP 37; O2SAT 97; BMI 31.9
[2020-07-28 15:21] LABS: MANUAL DIFF FLAG NO
[2020-07-28 15:22] LABS: Basophils Percent Auto 0.4 % (0-2); Eosinophils Absolute Auto 0.1 X10*3/uL (0.0-0.4); Hematocrit 43.2 % (37-47); Hemoglobin 14.6 g/dl (12.0-16.0); Imm Gran Abs Auto 0.03 X10*3/uL (0.00-0.03); Imm Gran Pct Auto 0.4 % (0.0-0.4); Lymphocytes Absolute Auto 2.2 X10*3/uL (1.2-4.9); Lymphocytes Percent Auto 27.5 % (20-40); Mean Corpuscular HGB Conc 33.8 g/dl (31.0-35.0); Mean Corpuscular Hemoglobin 29.5 pg (27.0-33.0); Mean Corpuscular Volume 87.3 fL (80-98); Mean Platelet Volume 9.8 fL (9.4-12.3); Monocytes Absolute Auto 0.8 X10*3/uL (0.1-1.2); Monocytes Percent Auto 9.5 % (2-11); Neutrophils Absolute Auto 4.9 X10*3/uL (2.0-8.3); Neutrophils Percent Auto 61.2 % (45-73); Platelet Count 347 X10*3/uL (160-400); Red Blood Count 4.95 X10*6/uL (4.20-5.50); Red Cell Distribution Width 12.6 % (11.0-16.0); White Blood Count 7.9 X10*3/uL (4.8-10.8)
[2020-07-28 15:28] LABS: Prothrombin Time 12.1 SEC (10.8-13.0)
--- NOTE | 2020-07-28 15:34 | ED_ITS ---
HPI - Abdominal Pain General Chief Complaint: Abdominal Pain Stated Complaint: ABD PAIN Time Seen by Provider: 07/28/20 14:42 Source: patient Mode of arrival: ambulatory Limitations: no limitations History of Present Illness HPI narrative: 54-year-old female with a past medical history of small-bowel obstructions, hernia repair, non alcoholic steatohepatitis, incontinence of urine, urge incontinence, urgency of micturition, pyloric stenosis and hypertension presenting to the ED with complaints of periumbilical abdominal pain with associated bloating after she ate a whole bunch of sharp iris and banana prior to arrival. Denies any fevers, nausea/vomiting, chest pain, shortness of breath, palpitations, dyspnea exertion, orthopnea, lower extremity edema, diarrhea, constipation, black or bloody stools or any other symptoms complaints or concerns at this time. MD elicited complaint: abdominal pain Pertinent past history: other (Small-bowel obstructions/hernia repair) Onset (ago): hour(s) (1 hour prior to arrival) Pain Consistency: constant Location: periumbilical Severity: moderate Quality: fullness Radiation: none Migration to: no migration Exacerbating factors: eating Relieving factors: nothing Associated symptoms: denies other symptoms Related Data Home Medications Medication Instructions Recorded Confirmed lorazepam 0.5 mg tablet mg PO 04/04/20 04/04/20 amlodipine 5 mg tablet mg PO 06/14/20 Previous Rx's Medication Instructions Recorded clotrimazole-betamethasone 1 1 applic TOPICAL BID 5 Days #45 g 01/25/20 %-0.05 % topical cream fluconazole 150 mg tablet 150 mg PO ONCE 1 Days #1 tab 01/25/20 oxybutynin chloride 5 mg 5 mg PO DAILY #30 tab 04/04/20 tablet,extended release 24 hr metoclopramide HCl [Reglan] 10 mg PO Q6H PRN #14 tab 04/18/20 metronidazole 0.75 % vaginal gel 1 appful VAGINAL BEDTIME 5 Days 04/24/20 #70 g omeprazole 40 mg capsule,delayed 40 mg PO DAILY 30 Days #30 cap 05/10/20 release Allergies Allergy/AdvReac Type Severity Reaction Status Date / Time ibuprofen Allergy Severe RASH, Verified 06/14/20 09:09 SWELLING, anaphylaxis, swelling Review of Systems Review of Systems Constitutional : No Weight loss, No Fever, No Chills, No Night Sweats, No Fatigue, NoMalaise ENT/Mouth: No ear pain, No sore throat, No Difficulty swallowing Cardiovascular : No Chest Pain, No SOB, No Dyspnea on Exertion, No Orthopnea, NoEdema, No Palpitations Respiratory : No Cough, No Sputum, No Wheezing, No Dyspnea Gastrointestinal : Positive abdominal pain, No Nausea, No Vomiting, No Diarrhea, No blood streaked emesis, No coffee-ground emesis, No gross hematemesis, No blood streak stool, No gross hematochezia, No Melena Genitourinary : No irregular bleeding, No Dysuria, No Urinary Frequency, No Hematuria,No Urinary Incontinence, No Urgency, No Flank Pain Musculoskeletal : No joint pain, No Myalgias, No Joint Swelling Skin : No Skin Lesions, No rash Neuro : No Weakness, No Numbness, No Paresthesias, No Loss of Consciousness, NoDizziness, No Headache Psych : No Social Issues, Heme/Lymph: No Bruising, No Bleeding,No Lymphadenopathy Endocrine : No Polyuria, No Polydipsia, No Temperature Intolerance Yes all other systems are reviewed and are negative Physical Exam Vital Signs: Vital Signs: Last Vital Signs Temp 98.6 F 07/28/20 14:09 Pulse 75 07/28/20 14:09 Resp 17 07/28/20 14:09 BP 133/78 07/28/20 14:09 Pulse Ox 97 07/28/20 14:09 Body Mass Index 31.9 vital signs have been reviewed as normal and appeared to be correct. Blood pressure normal. Heart rate normal. Respiration rate normal. Temperature normal. Oxygen saturation normal. Appearance: Alert. Oriented X3. No acute distress. Head: Normal external exam. Normocephalic. Eyes: PERRLA. EOMI. Conjunctiva and sclera normal. Eyelids normal. ENT: Pharynx normal. Uvula midline. Moist mucous membranes. No trismus noted. No drooling noted. No muffled voice noted. Neck: Normal inspection. Neck supple. FROM. No adenopathy. No meningeal signs. CVS: Normal heart rate and rhythm. Heart sound normal. No murmurs noted. Pulses normal throughout. Respiratory: No respiratory distress. Painless inspiration. Breath sounds normal. No wheezes/rales/rhonchi noted. Chest nontender. No accessory muscle usage noted or decreased air movement noted. Abdomen: Soft and moderate tenderness to palpation to periumbilical aspect with guarding. Nondistended. No rigidity. Bowel sounds normal in all 4 quadrants. No distention noted. No organomegaly noted. No visible injury noted. No rebound tenderness. Negative Rovsing sign. Negative obturator's sign. Negative psoas sign. Negative Bailey sign. Back: No CVA tenderness. Full range of motion noted. Skin: Skin warm and dry. Normal skin color. Normal skin turgor. No rashes/lesions/lacerations noted. Extremities: Extremities exhibit normal range of motion. Extremities nontender. Neuro: Oriented X 3. No motor deficit. No sensory deficit. Reflexes normal. Normal steady gait. Course Course Course Narrative: 15pm - labs obtained and all within normal limits. UA revealed 5 ketones otherwise no evidence of UTI. CT scan of abdomen and pelvis revealed chronic low-grade mid to distal small-bowel obstruction without any definite transitional point and evidence of an isolated distended small bowel loops seen at the level of the umbilicus measuring 4.5 cm at its maximum dimension similar to prior study dated 02/27/2019. Therefore consulted with Dr. Wellington at this time for possible admission. MDM - Abdominal Pain MDM Narrative Medical decision making narrative: 14:45pm - 54-year-old female with a past medical history of small-bowel obstructions, hernia repair, non alcoholic steatohepatitis, incontinence of urine, urge incontinence, urgency of micturition, pyloric stenosis and hypertension p resenting to the ED with complaints of periumbilical abdominal pain with associated bloating after she ate a whole bunch of sharp iris and banana prior to arrival. - Plan: Labs, CT scan of abd/pelvis with IV contrast, UA. Provide a L of IV fluids with 4 mg of Zofran and 4 mg of IV morphine then re-evaluate. Medical Records Attestation: I reviewed the patient's medical records. Lab Data Attestation: I reviewed the patient's lab results. Result diagrams: 07/28/20 15:14 07/28/20 15:14 Labs: Lab Results 07/28/20 07/28/20 07/28/20 Range/Units 15:14 15:14 15:14 WBC 7.9 (4.8-10.8) X10*3/uL RBC 4.95 (4.20-5.50) X10*6/uL Hgb 14.6 (12.0-16.0) g/dl Hct 43.2 (37-47) % MCV 87.3 (80-98) fL MCH 29.5 (27.0-33.0) pg MCHC 33.8 (31.0-35.0) g/dl RDW 12.6 (11.0-16.0) % Plt Count 347 (160-400) X10*3/uL MPV 9.8 (9.4-12.3) fL Immature Gran % (Auto) 0.4 (0.0-0.4) % Neut % (Auto) 61.2 (45-73) % Lymph % (Auto) 27.5 (20-40) % [place] % (Auto) 9.5 (2-11) % Eos % (Auto) 1.0 (0-4) % Baso % (Auto) 0.4 (0-2) % Lymph # (Auto) 2.2 (1.2-4.9) X10*3/uL [place] # (Auto) 0.8 (0.1-1.2) X10*3/uL Eos # (Auto) 0.1 (0.0-0.4) X10*3/uL Baso # (Auto) 0.0 (0.0-0.2) X10*3/uL Abs Immat Gran (auto) 0.03 (0.00-0.03) X10*3/uL Absolute Neuts (auto) 4.9 (2.0-8.3) X10*3/uL Absolute Nucleated RBC 0.000 (0.0-0.012) X10*3/uL Nucleated RBC % (auto) 0.0 (0.0-0.2) /100WBC PT 12.1 (10.8-13.0) SEC INR 1.0 (0.9-1.1) Sodium 143 (135-145) mmol/L Potassium 3.9 (3.3-5.1) mmol/L Chloride 105 (96-108) mmol/L Carbon Dioxide 28 (22-29) mmol/L Anion Gap 14 (12-20) BUN 9 (9-16) mg/dL Creatinine 0.77 (0.5-1.4) mg/dL Estim Creat Clear Calc 70.3 Estimated GFR > 60 Random Glucose 107 (60-115) mg/dL Calcium 9.4 (8.4-10.2) mg/dL Magnesium 2.2 (1.6-2.6) mg/dL Total Bilirubin 0.6 (0.0-1.0) mg/dL AST 20 (5-31) U/L ALT 31 (0-31) U/L Alkaline Phosphatase 103 (39-117) U/L Total Protein 7.6 (6.5-8.0) g/dL Albumin 4.4 (3.5-5.0) g/dL Lipase 28 (8-78) U/L Urine Color Urine Appearance Urine pH (5.0-8.0) Ur Specific [place] (1.005-1.025) Urine Protein (NEG-TRACE) MG/DL Urine Glucose (UA) (NEG) MG/DL Urine Ketones (NEG) MG/DL Urine Blood (NEG) Urine Nitrite (NEG) Ur Leukocyte Esterase (NEG) 07/28/20 Range/Units 15:56 WBC (4.8-10.8) X10*3/uL RBC (4.20-5.50) X10*6/uL Hgb (12.0-16.0) g/dl Hct (37-47) % MCV (80-98) fL MCH (27.0-33.0) pg MCHC (31.0-35.0) g/dl RDW (11.0-16.0) % Plt Count (160-400) X10*3/uL MPV (9.4-12.3) fL Immature Gran % (Auto) (0.0-0.4) % Neut % (Auto) (45-73) % Lymph % (Auto) (20-40) % [place] % (Auto) (2-11) % Eos % (Auto) (0-4) % Baso % (Auto) (0-2) % Lymph # (Auto) (1.2-4.9) X10*3/uL [place] # (Auto) (0.1-1.2) X10*3/uL Eos # (Auto) (0.0-0.4) X10*3/uL Baso # (Auto) (0.0-0.2) X10*3/uL Abs Immat Gran (auto) (0.00-0.03) X10*3/uL Absolute Neuts (auto) (2.0-8.3) X10*3/uL Absolute Nucleated RBC (0.0-0.012) X10*3/uL Nucleated RBC % (auto) (0.0-0.2) /100WBC PT (10.8-13.0) SEC INR (0.9-1.1) Sodium (135-145) mmol/L Potassium (3.3-5.1) mmol/L Chloride (96-108) mmol/L Carbon Dioxide (22-29) mmol/L Anion Gap (12-20) BUN (9-16) mg/dL Creatinine (0.5-1.4) mg/dL Estim Creat Clear Calc Estimated GFR Random Glucose (60-115) mg/dL Calcium (8.4-10.2) mg/dL Magnesium (1.6-2.6) mg/dL Total Bilirubin (0.0-1.0) mg/dL AST (5-31) U/L ALT (0-31) U/L Alkaline Phosphatase (39-117) U/L Total Protein (6.5-8.0) g/dL Albumin (3.5-5.0) g/dL Lipase (8-78) U/L Urine Color YELLOW Urine Appearance CLEAR Urine pH 7.5 (5.0-8.0) Ur Specific [place] 1.015 (1.005-1.025) Urine Protein NEG (NEG-TRACE) MG/DL Urine Glucose (UA) NEG (NEG) MG/DL Urine Ketones 5 (NEG) MG/DL Urine Blood NEG (NEG) Urine Nitrite NEG (NEG) Ur Leukocyte Esterase NEG (NEG) Imaging Data CT scan of abdomen pelvis with IV contrast: Attestation: I personally reviewed and interpreted this imaging study as follows: Radiologist's impression: FINDINGS: LUNG BASES: The visualized lung bases are unremarkable. LIVER, GALLBLADDER, AND BILIARY TREE: Mild diffuse hepatic hypodensity consistent with hepatic steatosis is present. Superimposed 6 mm hypodense lesion within the right lobe of the liver (image #168 series 4) appear unchanged. No other focal liver lesion, unchanged. The gallbladder is surgically absent. No evidence of any intrahepatic or extrahepatic biliary ductal dilatation. PANCREAS: Unremarkable. SPLEEN: Unremarkable. ADRENAL GLANDS: Unremarkable. KIDNEYS AND URETERS: The kidneys are normal in size, shape, and attenuation. No hydronephrosis, hydroureter, or calculi seen. No perinephric stranding. BLADDER: Unremarkable. GASTROINTESTINAL TRACT: Isolated mid small bowel loops are slightly distended with fluid, and measures between 3.32 maximum diameter of 4.5, seen in the periumbilical region anteriorly (image #349 series 4). There is suggestion of small bowel feces sign present within the most dilated part of the bowel loop. There is no evidence of any definite transition point present. The findings are suspicious for partial/low grade small bowel obstruction. However, when compared to the prior study, the appearance is similar to the study dated 02/27/2019. The remainder of the small bowel loops are ABDOMINAL WALL: No significant hernia is appreciated. LYMPH NODES: Normal. VASCULAR: Unremarkable. PELVIC VISCERA: There is no pelvic mass present. There is no free fluid and/or free air. OSSEOUS STRUCTURES: Moderate diffuse osteopenia and multilevel degenerative spondylosis related changes are noted at lower thoracic and upper lumbar spine. CT/CT abdomen pelvis w con IMPRESSION: Abnormal CT scan of the abdomen and pelvis showing evidence of chronic low-grade mid to distal small bowel obstruction, without any definite transitional point and evidence of an isolated distended small bowel loops seen at the level of the umbilicus measuring 4.5 cm at its maximum dimension, similar to prior study dated 02/27/2019. Critical Care Time Critical Care Time Critical Care Time: Yes Total Critical Care Time: 60 Attestation: I personally attest to this time spent taking care of the patient Discharge Plan Discharge Clinical Impression: Small bowel obstruction, partial Patient Disposition: Admitted As Inpatient Prescriptions: No Action metronidazole [Metrogel Vaginal] 0.75 % gel 1 appful vaginal BEDTIME 5 Days Qty: 70 RF: 0 omeprazole 40 mg capsule,delayed release(DR/EC) 40 mg PO DAILY 30 Days Qty: 30 RF: 2 metoclopramide HCl [Reglan] 10 mg tablet 10 mg PO Q6H PRN (Reason: nausea and vomiting) Qty: 14 RF: 0 fluconazole 150 mg tablet 150 mg PO ONCE 1 Days Qty: 1 RF: 0 clotrimazole-betamethasone 1-0.05 % cream 1 applic topical BID 5 Days Qty: 45 RF: 0 lorazepam 0.5 mg tablet PO RF: 0 oxybutynin chloride 5 mg tablet extended release 24hr 5 mg PO DAILY Qty: 30 RF: 6 amlodipine 5 mg tablet PO RF: 0 PMFSH Past Medical History Attestation statement: The following information was validated with the patient. Medical History Hypertension Pyloric stenosis SBO (small bowel obstruction) Urge incontinence Urgency of micturition Surgical History H/O colonoscopy H/O: hysterectomy History of appendectomy History of endometrial ablation History of esophagogastroduodenoscopy (EGD) History of tubal ligation Hx of cholecystectomy Family History Family History Father No problems noted. Mother No problems noted. Social History Social History Household Members: Family Alcohol intake: current Alcohol intake frequency: holidays/special occasions only Smoking Status: Never smoker Advance Directives: No Advance Directives Information Provided: Yes Sexual orientation: Straight/Heterosexual Gender identity: female
[2020-07-28] MEDS: ondansetron HCL 4 MG/2 ML VIAL IVPUSH ×2 (15:45→23:49)
[2020-07-28] MEDS: Morphine Sulfate 4 MG/ML CARTRIDGE IVPUSH (15:45)
[2020-07-28] MEDS: 0.9 % Sodium Chloride 1,000 ML 999 ML IVCONT (15:47)
[2020-07-28 15:54] LABS: Alanine Aminotransferase 31 U/L (0-31); Albumin Level 4.4 g/dL (3.5-5.0); Alkaline Phosphatase 103 U/L (39-117); Anion Gap 14 (12-20); Aspartate Amino Transferase 20 U/L (5-31); Bilirubin Total 0.6 mg/dL (0.0-1.0); Blood Urea Nitrogen 9 mg/dL (9-16); Calcium 9.4 mg/dL (8.4-10.2); Carbon Dioxide 28 mmol/L (22-29); Chloride 105 mmol/L (96-108); Creatinine Clr Calc Pharmacy 70.3; Estimated Glomerular Filt Rate > 60; Glucose Random 107 mg/dL (60-115); Lipase 28 U/L (8-78); Magnesium 2.2 mg/dL (1.6-2.6); Potassium 3.9 mmol/L (3.3-5.1); Sodium 143 mmol/L (135-145); Total Protein 7.6 g/dL (6.5-8.0)
[2020-07-28 16:03] LABS: Appearance Urine CLEAR; Color Urine YELLOW; Glucose Urine UA NEG (NEG); Leukocyte Esterase Urine NEG (NEG); Nitrite Urine NEG (NEG); PH 7.5 (5.0-8.0); Specific Gravity - Urine 1.015 (1.005-1.025); Urine Blood NEG (NEG); Urine Ketones 5 MG/DL (NEG); Urine Protein NEG (NEG-TRACE)
[2020-07-28] MEDS: iohexoL 350 MG/ML 100 ML INFUS..BTL IV (16:19)
[2020-07-28] MEDS: LORazepam 2 MG/ML VIAL 0.5 MG IVPUSH (17:19)
[2020-07-28] MEDS: Lidocaine HCl 4 % Laryng-O-Jet 4 ML 1 APPL TOPICAL (18:28)
[2020-07-28 19:05] VITALS: BP 131/70; PULSE 72; RESP 18; TEMP 37.4; O2SAT 95
[2020-07-28 19:16] VITALS: BP 125/72; PULSE 66; RESP 18; TEMP 37.2; O2SAT 95
--- NOTE | 2020-07-28 19:18 | PC.NURSE ---
Pt resting on stretcher in NAD, breathing with ease on RA. Pt aao4 reports abd pain. Pt NG tube placed by Dr Olson in L n[place], draining orange substance. Pt aware and agreeable to plan for admission, is awaiting bed assignment. Stretcher in lowest locked position, rails raised, call skelton within reach.
[2020-07-28 19:26] LABS: COVID-19 Test Negative (Negative); IDNOW Serial# 9DD0AD1C
[2020-07-28] MEDS: Heparin Sodium,Porcine 5,000 UNIT/ML VIAL 5000 UNIT SUBCUT (19:31)
[2020-07-28 19:36] VITALS: RESP 17
[2020-07-28] MEDS: HYDROmorphone HCl 0.5 MG/0.5 ML SYRINGE IVPUSH ×2 (19:36→23:49)
[2020-07-28] MEDS: Dextrose 5 % and Lactated Ring 1,000 ML 125 ML IVCONT (19:38)
[2020-07-28 20:35] VITALS: BP 125/63; PULSE 62; RESP 16; O2SAT 95
--- NOTE | 2020-07-28 22:27 | PC.NURSE ---
This RN notes ~300mL of orange drainage from NG tube
[2020-07-29] VITALS: BP 120/61; PULSE 65; RESP 16; TEMP 36.4; O2SAT 96
[2020-07-29] MEDS: Dextrose 5 % and Lactated Ring 1,000 ML 125 ML IVCONT ×3 (03:48→23:09)
[2020-07-29 04:00] VITALS: BP 117/69; PULSE 63; RESP 17; TEMP 36.7; O2SAT 97
[2020-07-29] MEDS: HYDROmorphone HCl 0.5 MG/0.5 ML SYRINGE IVPUSH ×6 (05:20→23:09)
[2020-07-29 06:28] LABS: MANUAL DIFF FLAG NO
[2020-07-29 06:54] LABS: Basophils Percent Auto 0.3 % (0-2); Eosinophils Absolute Auto 0.1 X10*3/uL (0.0-0.4); Eosinophils Percent Auto 1.5 % (0-4); Hemoglobin 12.9 g/dl (12.0-16.0); Imm Gran Abs Auto 0.03 X10*3/uL (0.00-0.03); Imm Gran Pct Auto 0.3 % (0.0-0.4); Lymphocytes Absolute Auto 1.8 X10*3/uL (1.2-4.9); Lymphocytes Percent Auto 19.9 % (20-40); Mean Corpuscular HGB Conc 33.1 g/dl (31.0-35.0); Mean Corpuscular Hemoglobin 29.5 pg (27.0-33.0); Mean Platelet Volume 10.1 fL (9.4-12.3); Monocytes Absolute Auto 0.8 X10*3/uL (0.1-1.2); Monocytes Percent Auto 8.5 % (2-11); Neutrophils Absolute Auto 6.2 X10*3/uL (2.0-8.3); Neutrophils Percent Auto 69.5 % (45-73); Platelet Count 306 X10*3/uL (160-400); Red Blood Count 4.38 X10*6/uL (4.20-5.50); Red Cell Distribution Width 12.7 % (11.0-16.0); White Blood Count 8.9 X10*3/uL (4.8-10.8)
[2020-07-29 07:05] LABS: Anion Gap 11 (12-20); Blood Urea Nitrogen 7 mg/dL (9-16); Calcium 8.9 mg/dL (8.4-10.2); Carbon Dioxide 29 mmol/L (22-29); Chloride 105 mmol/L (96-108); Creatinine Clr Calc Pharmacy 79.6; Estimated Glomerular Filt Rate > 60; Glucose Random 135 mg/dL (60-115); Potassium 4.3 mmol/L (3.3-5.1); Sodium 141 mmol/L (135-145)
[2020-07-29 07:14] VITALS: BP 121/66; PULSE 73; RESP 18; TEMP 36.6; O2SAT 95
[2020-07-29] MEDS: ondansetron HCL 4 MG/2 ML VIAL IVPUSH ×2 (07:19→15:34)
[2020-07-29] MEDS: Heparin Sodium,Porcine 5,000 UNIT/ML VIAL 5000 UNIT SUBCUT ×2 (07:19→20:31)
[2020-07-29] MEDS: 0.9 % Sodium Chloride Flush 3 ML SYRINGE IVFLUSH (07:19)
--- NOTE | 2020-07-29 10:35 | PM.HPGS ---
History of Present Illness History of Present Illness Date of Service: 07/29/20 Chief complaint: Small bowel obstruction Narrative: Darlyn Villarreal is a 54 year old female presenting with complaints of abdominal pain, distension nausea and vomiting found to have a small-bowel obstruction. She reports a history of numerous abdominal procedures including cholecystectomy, appendectomy, pyloric stenosis repair and has had previous history is of small-bowel obstructions. She reports these usually resolve with nasogastric tube decompression after several days. Current episode began approximately 2 days ago and has persisted necessitating a visit to the emergency department. Workup in the ED with CT of the abdomen and pelvis confirmed multiple loops of proximal small bowel which were dilated with air-fluid level suggestive of a small-bowel obstruction. A nasogastric tube was placed with production of bilious and feculent material. She does report somewhat improved this morning. Review of Systems Constitutional: Constitutional: Denies chills, Denies fever(s), Denies headache(s) and Reports poor appetite ENT: Denies dizziness and Denies headache(s) Cardiovascular: Cardiovascular: Denies chest pain, Denies rapid heart rate, Denies palpitations and Denies slow heart rate Respiratory: Respiratory: Denies chest congestion, Denies cough, Denies pain on inspiration and Denies wheezing Gastrointestinal: Gastrointestinal: Reports abdominal pain, Reports bloating, Reports change in stool character, Reports constipation, Denies diarrhea, Reports nausea, Reports vomiting and Denies hematemesis Musculoskeletal: Musculoskeletal: Denies back pain, Denies arthralgias, Denies joint swelling and Denies numbness Integumentary/Breasts: Skin/Breast: Denies change in pigmentation, Denies erythema and Denies rash Neurologic: Denies dizziness, Denies headache(s) and Denies numbness Psychiatric: Psychiatric: Denies anxiety and Denies depression Endocrine: Endocrine: Denies palpitations Hematologic/Lymphatic: Hematologic/Lymphatic: Denies easy bleeding, Denies easy bruising and Denies lymphadenopathy Allergic/Immunologic: Allergic/Immunologic: Denies wheezing PMFSH Past Medical History Medical History Hypertension Pyloric stenosis SBO (small bowel obstruction) Urge incontinence Urgency of micturition Family History Family History Father No problems noted. Mother No problems noted. Surgical History Surgical History H/O colonoscopy H/O: hysterectomy History of appendectomy History of endometrial ablation History of esophagogastroduodenoscopy (EGD) History of tubal ligation Hx of cholecystectomy Social History Social History Household Members: Family Housing: Apartment Do you presently have visiting nurse or other home services: Yes (classifier) Alcohol intake: never Smoking Status: Never smoker Second Hand Smoke Exposure: No Use of substances other than those prescribed or required for medical reasons: No Currently Displaying Signs/Symptoms of Drug Intoxication Withdrawal: No Have you been hit, kicked, punched, or otherwise hurt by someone within the past year? If so, by whom?: No Do you feel safe in your current relationship?: Yes Is there a partner from a previous relationship who is making you feel unsafe now?: No Are you made to feel afraid or neglected: No Advance Directives: No Advance Directives Information Provided: Yes Do you have thoughts of harming others: None Do you have a plan to hurt others: No Plan Recently lost weight without trying: No Nutrition Risks: No Nutritional Risk Sexual orientation: Straight/Heterosexual Gender identity: female Meds Allergies Allergy/AdvReac Type Severity Reaction Status Date / Time ibuprofen Allergy Severe RASH, Verified 06/14/20 09:09 SWELLING, anaphylaxis, swelling Active Medications: Current Medications Generic Name Dose Route Start Last Admin Trade Name Freq PRN Reason Stop Dose Admin Acetaminophen 650 mg 07/28/20 19:18 Acetaminophen 325 Mg Tablet PO Q6H PRN Pain, Mild (Pain Scale 1-3) Amlodipine Besylate 5 mg 07/29/20 09:00 07/29/20 07:31 Amlodipine Besylate 5 Mg Tablet PO Not Given DAILY [facility] Protocol Heparin Sodium (Porcine) 5,000 unit 07/28/20 19:18 07/29/20 07:19 Heparin Sodium,Porcine 5,000 Unit/Ml Vial SUBCUT 5,000 unit Q12H [facility] Administration Hydromorphone HCl 0.5 mg 07/28/20 19:18 07/29/20 09:08 Hydromorphone Hcl 0.5 Mg/0.5 Ml Syringe IVPUSH 0.5 mg Q3H PRN Administration Pain, Severe (Pain Scale 7-10) Dextrose/Lactated Ringer's 1,000 mls @ 125 mls/hr 07/28/20 19:18 07/29/20 03:48 D5lr IVCONT 125 mls/hr .Q8H [facility] Administration Lorazepam 0.5 mg 07/28/20 22:40 Lorazepam 0.5 Mg Tablet PO BID PRN Anxiety Omeprazole 40 mg 07/29/20 06:30 07/29/20 07:09 Omeprazole 40 Mg Capsule.Dr PO Not Given DAILY@0630 [facility] Ondansetron HCl 4 mg 07/28/20 19:18 07/29/20 07:19 Ondansetron Hcl 4 Mg/2 Ml Vial IVPUSH 4 mg Q8H PRN Administration Nausea and Vomiting Oxycodone HCl 5 mg 07/28/20 19:18 Oxycodone Hcl Immed Release 5 Mg Tablet PO Q6H PRN Pain, Moderate (Pain Scale 4-6 Sodium Chloride 3 ml 07/29/20 00:00 07/29/20 07:19 0.9 % Sodium Chloride Flush 3 Ml Syringe IVFLUSH 3 ml QSHIFT [facility] Administration Zolpidem Tartrate 5 mg 07/28/20 19:18 Zolpidem Tartrate 5 Mg Tablet PO BEDTIME PRN Insomnia Home Medications Medication Instructions Recorded Confirmed Last Taken Type lorazepam 0.5 mg tablet 0.5 mg PO BID PRN 04/04/20 07/28/20 Unknown History amlodipine 5 mg tablet 5 mg PO DAILY 06/14/20 07/28/20 Unknown History Physical Exam Vital Signs: Vital Signs: Last Vital Signs Temp 98 F 07/29/20 07:14 Pulse 73 07/29/20 07:14 Resp 18 07/29/20 07:14 BP 121/66 07/29/20 07:14 Pulse Ox 95 07/29/20 07:14 Body Mass Index 31.9 Const: General: cooperative, comfortable and well developed Nutritional Appearance: well nourished Orientation/consciousness: patient oriented x3 Eyes: Sclerae: sclerae normal EOM: EOMs intact bilaterally Neck: Neck: Yes normal visual inspection Resp: Effort & Inspection: normal respiratory effort, no cough, no respiratory distress and no stridor Cardio: Jugular venous distension: no JVD GI: Inspection: Yes normal to inspection Palpation (GI): Soft to palpation, Tenderness to palpation present (GI), no guarding and not rigid Percussion: Yes dullness to percussion Auscultation: normal bowel sounds Skin: General skin exam: dry skin Rashes: no rashes Neuro: General: patient oriented x3 and no focal motor deficits Extrem: General: Yes full ROM and Yes no clubbing, cyanosis or edema Psych: Appearance: grossly normal Results Results Labs: Short CBC 07/28/20 07/29/20 Range/Units 15:14 05:56 WBC 7.9 8.9 (4.8-10.8) X10*3/uL Hgb 14.6 12.9 (12.0-16.0) g/dl Hct 43.2 39.0 (37-47) % Plt Count 347 306 (160-400) X10*3/uL BMP 07/28/20 07/29/20 15:14 05:56 Sodium 143 141 Potassium 3.9 4.3 Chloride 105 105 Carbon Dioxide 28 29 BUN 9 7 L Creatinine 0.77 0.68 Calcium 9.4 8.9 Liver Function 07/28/20 Range/Units 15:14 Total Bilirubin 0.6 (0.0-1.0) mg/dL AST 20 (5-31) U/L ALT 31 (0-31) U/L Alkaline Phosphatase 103 (39-117) U/L Albumin 4.4 (3.5-5.0) g/dL Urine 07/28/20 Range/Units 15:56 Urine Color YELLOW Urine Appearance CLEAR Urine pH 7.5 (5.0-8.0) Ur Specific [place] 1.015 (1.005-1.025) Urine Protein NEG (NEG-TRACE) MG/DL Urine Glucose (UA) NEG (NEG) MG/DL [address] [id number] Scan ReportSigned Patient: Darlyn VillarrealMR#: [id number]: [id number]:[id number]/Sex: 54 / FADM Date: 07/28/20Loc: Amy Dr: Ordering Physician: HUNG DAVEY Date of Service: 07/28/20 Procedure(s): CT abdomen pelvis w con Accession Number(s): [id number] cc: HUNG DAVEY~ EXAMINATION: CT ABDOMEN AND PELVIS WITH CONTRAST CLINICAL INFORMATION: Periumbilical abdominal pain, suspected bowel obstruction. COMPARISON: CT of the abdomen and pelvis done on 02/27/2019. TECHNIQUE: Multidetector volumetric images were obtained from the superior aspect of the liver through the pubic symphysis following administration 85 mL of Omnipaque 350 intravenous contrast. Sagittal and coronal reformatted images were obtained on the technologist's workstation. Oral contrast: No This CT examination was performed using dose optimization techniques as appropriate, variously including the following: *Automated exposure control *Adjustment of mA and/or kV according to patient size (this includes techniques or standardized protocols for targeted exams where dose is matched to indication/reason for exam; i.e. extremities or head) *Use of iterative reconstruction technique DLP: 550.34 mGy-cm FINDINGS: LUNG BASES: The visualized lung bases are unremarkable. LIVER, GALLBLADDER, AND BILIARY TREE: Mild diffuse hepatic hypodensity consistent with hepatic steatosis is present. Superimposed 6 mm hypodense lesion within the right lobe of the liver (image #168 series 4) appear unchanged. No other focal liver lesion, unchanged. The gallbladder is surgically absent. No evidence of any intrahepatic or extrahepatic biliary ductal dilatation. PANCREAS: Unremarkable. SPLEEN: Unremarkable. ADRENAL GLANDS: Unremarkable. KIDNEYS AND URETERS: The kidneys are normal in size, shape, and attenuation. No hydronephrosis, hydroureter, or calculi seen. No perinephric stranding. BLADDER: Unremarkable. GASTROINTESTINAL TRACT: Isolated mid small bowel loops are slightly distended with fluid, and measures between 3.32 maximum diameter of 4.5, seen in the periumbilical region anteriorly (image #349 series 4). There is suggestion of small bowel feces sign present within the most dilated part of the bowel loop. There is no evidence of any definite transition point present. The findings are suspicious for partial/low grade small bowel obstruction. However, when compared to the prior study, the appearance is similar to the study dated 02/27/2019. The remainder of the small bowel loops are ABDOMINAL WALL: No significant hernia is appreciated. LYMPH NODES: Normal. VASCULAR: Unremarkable. PELVIC VISCERA: There is no pelvic mass present. There is no free fluid and/or free air. OSSEOUS STRUCTURES: Moderate diffuse osteopenia and multilevel degenerative spondylosis related changes are noted at lower thoracic and upper lumbar spine. CT/CT abdomen pelvis w con IMPRESSION: Abnormal CT scan of the abdomen and pelvis showing evidence of chronic low-grade mid to distal small bowel obstruction, without any definite transitional point and evidence of an isolated distended small bowel loops seen at the level of the umbilicus measuring 4.5 cm at its maximum dimension, similar to prior study dated 02/27/2019. Dictated By:ROSALVA BULLARD MDSigned By:<Electronically signed by ROSALVA BULLARD MD in OV>07/28/20 1770 Assessment and Plan (1) Small bowel obstruction, partial: Status: Acute 54-year-old female patient with a previous history of multiple abdominal surgeries presenting with abdominal distension nausea and vomiting, found to have a recurrence small-bowel obstruction. Examination today reveals her abdomen to be slightly distended but not tympanitic. She does feel improved with minimal abdominal pain but no flatus or BM as of yet. She is comfortable with continuing nasogastric tube decompression and watchful waiting. Patient is encouraged to ambulate today. She expressed understanding and agrees with the plan. Procedures Date of Service Date of Service: 07/29/20
[2020-07-29 10:58] VITALS: BP 107/65; PULSE 59; RESP 18; TEMP 36.1; O2SAT 96
--- NOTE | 2020-07-29 13:50 | MHC.CM.NN ---
NURSE MACHINE SET UP OPERATOR PAPER GOODS NOTE ELECTRONIC MEDICAL RECORD REVIEWED ALONG WITH CASE DISCUSSED WITH LEESA FIELDS AND THE HOSPITALIST, MET WITH PATIENT SHE REPORTED SHE LIVES WITH HER GRANDSON , WHOM HER EX IS CARING FOR WHILE SHE IS IN THE HOSPITLA , PATIENT IS ACTIVE AT HER OWN PACE [facility] HAS A ORTHODONTIC ASSISTANT TO HELP WITH SOME OF HER ADLS AND HOUSEKEEPING ,HER BROTHER NICHOL JENSEN [phone] SHE REPORTS SHE HAS NO VNA NO DME SERVICES IN THE HOME , EDUCATED ABOUT THE IMPORTANCE OF HAVING A HEALTH CARE PROXY SHE WAS ADMITTED INPATIENT WITH DIAGNOSIS OF SMALL BOWEL OBSTRUCTION , CURRENTLY SHE IS NPO ON IV FLIUIDS SHE HAS A NG-TUBE IN PLACE DISCHARGE PLAN HOME WITH SELF RESUMPTION OF HER MENTAL HEALTH COUNSELING AT [facility], SELF RESUMPTION OF HER SERVICES WITH HER ORTHODONTIC ASSISTANT PCP WALE CABALLERO PATIENT TO CALL FOR POST HOSPITAL DISCHARGE FOLLOW UP TRANSPORTATION FAMILY
[2020-07-29 15:57] VITALS: BP 125/60; PULSE 59; RESP 20; TEMP 36.2; O2SAT 96
[2020-07-29 20:00] VITALS: BP 125/69; PULSE 62; RESP 12; TEMP 37.1; O2SAT 97
[2020-07-30] VITALS (8 sets, daily range): BP systolic 118–146; BP diastolic 52–73; PULSE 56–66; RESP 16–19; TEMP 36.1–36.8; O2SAT 91–95
[2020-07-30] MEDS: HYDROmorphone HCl 0.5 MG/0.5 ML SYRINGE IVPUSH ×5 (02:24→16:50)
[2020-07-30] MEDS: Heparin Sodium,Porcine 5,000 UNIT/ML VIAL 5000 UNIT SUBCUT ×2 (06:13→20:17)
[2020-07-30] MEDS: Dextrose 5 % and Lactated Ring 1,000 ML 125 ML IVCONT ×2 (06:14→16:42)
--- NOTE | 2020-07-30 08:43 | P.PNGS_ITS ---
Subjective Subjective Date of Service: 07/30/20 Interval history: Patient reports continued improvement in her pain. Nasogastric tube continued to produce bilious fluid. She denies flatus or BM. Physical Exam Vital Signs: Vital Signs: Last Vital Signs Temp 97.6 F 07/30/20 07:44 Pulse 60 07/30/20 07:44 Resp 19 07/30/20 07:44 BP 127/67 07/30/20 07:44 Pulse Ox 95 07/30/20 07:44 Body Mass Index 31.9 Const: General: cooperative, comfortable and no acute distress Resp: Effort & Inspection: normal respiratory effort GI: Other: Soft, nondistended, mild tenderness in the lower abdomen. No rebound guarding or rigidity. No tympany to percussion Skin: Other: Warm, dry, no rash Extrem: Other: No edema, normal capillary refill Progress Note: A&P Assessment and plan (1) Small bowel obstruction, partial: Status: Acute Assessment and Plan: Patient with recurrence small-bowel obstruction due to adhesions from numerous previous abdominal surgeries. She continues to have a high nasogastric tube output which appears to be thick bile. No flatus or BM is reported as of yet. I will check an abdominal series today, continue NPO IV fluids and bowel rest. Fall Risk Details Current Medications: Current Medications Generic Name Dose Route Start Last Admin Trade Name Freq PRN Reason Stop Dose Admin Acetaminophen 650 mg 07/28/20 19:18 Acetaminophen 325 Mg Tablet PO Q6H PRN Pain, Mild (Pain Scale 1-3) Amlodipine Besylate 5 mg 07/29/20 09:00 07/30/20 08:24 Amlodipine Besylate 5 Mg Tablet PO Not Given DAILY [facility] Protocol Heparin Sodium (Porcine) 5,000 unit 07/28/20 19:18 07/30/20 06:13 Heparin Sodium,Porcine 5,000 Unit/Ml Vial SUBCUT 5,000 unit Q12H [facility] Administration Hydromorphone HCl 0.5 mg 07/28/20 19:18 07/30/20 06:13 Hydromorphone Hcl 0.5 Mg/0.5 Ml Syringe IVPUSH 0.5 mg Q3H PRN Administration Pain, Severe (Pain Scale 7-10) Dextrose/Lactated Ringer's 1,000 mls @ 80 mls/hr 07/28/20 19:18 07/30/20 06:14 D5lr IVCONT 125 mls/hr .[id number] [facility] Administration Lorazepam 0.5 mg 07/28/20 22:40 Lorazepam 0.5 Mg Tablet PO BID PRN Anxiety Omeprazole 40 mg 07/29/20 06:30 07/30/20 06:11 Omeprazole 40 Mg Capsule.Dr PO Not Given DAILY@0630 [facility] Ondansetron HCl 4 mg 07/28/20 19:18 07/29/20 15:34 Ondansetron Hcl 4 Mg/2 Ml Vial IVPUSH 4 mg Q8H PRN Administration Nausea and Vomiting Oxycodone HCl 5 mg 07/28/20 19:18 Oxycodone Hcl Immed Release 5 Mg Tablet PO Q6H PRN Pain, Moderate (Pain Scale 4-6 Sodium Chloride 3 ml 07/29/20 00:00 07/30/20 08:24 0.9 % Sodium Chloride Flush 3 Ml Syringe IVFLUSH Not Given QSHIFT [facility] Zolpidem Tartrate 5 mg 07/28/20 19:18 Zolpidem Tartrate 5 Mg Tablet PO BEDTIME PRN Insomnia Time Spent With Patient Time: Total time spent is greater than 50% in coordination of care (as documented) at patient's floor/unit and/or counseling patient: Time with patient: 15 - 24 minutes Procedures Date of Service Date of Service: 07/30/20
--- NOTE | 2020-07-30 13:31 | MHC.CM.PN ---
NURSE FINISHING MANAGER NOTE ELECTRONIC MEDICAL RECORD REVIEWED ALONG WITH CASE DISCUSSED WITH STAFF NURSE AND ON MULTIPLE DISCIPLIANRY ROUNDS, PER DOCUMENTATION PATIENT WITH RECURRENCE SMALL BOWEL OBSTRUCTION FROM NURMEROUS PREVIOUS ABDOMINAL SURGERIES. MET WITH PATIENT STILL DRAINING LARGE AMOUNT OF FLUID FROM NG-TUBE , PATIENT REPORTED FEELING BETTER TODAY AND HAS BEEN UP OUT OF BED TO BATHROOM, SHE CONITNUES TO BE ON IV FLUIDS, IV ANALGEICS WITH TRANSITION TO ORALS, SHE HAS NOT PASSED ANY FLATUS OR HAD A BOWEL MOVEMENT DISCHARGE PLAN RETUNR HOME RESUMPTION OF CARE GIVERS REUSMPITON OF HER LABORATORY IMMUNOLOGIST
[2020-07-30] MEDS: ondansetron HCL 4 MG/2 ML VIAL IVPUSH (13:46)
[2020-07-30] MEDS: 0.9 % Sodium Chloride Flush 3 ML SYRINGE IVFLUSH (20:19)
[2020-07-31] MEDS: Dextrose 5 % and Lactated Ring 1,000 ML 125 ML IVCONT ×3 (01:07→20:46)
[2020-07-31] MEDS: HYDROmorphone HCl 0.5 MG/0.5 ML SYRINGE IVPUSH ×2 (01:12→20:43)
[2020-07-31] MEDS: ondansetron HCL 4 MG/2 ML VIAL IVPUSH ×2 (01:12→20:43)
[2020-07-31 03:41] VITALS: BP 120/63; PULSE 60; RESP 18; TEMP 37; O2SAT 92
[2020-07-31] MEDS: Heparin Sodium,Porcine 5,000 UNIT/ML VIAL 5000 UNIT SUBCUT ×2 (06:20→20:43)
[2020-07-31 08:00] VITALS: BP 135/69; PULSE 67; RESP 19; TEMP 36.4; O2SAT 92
[2020-07-31 11:48] VITALS: BP 133/68; PULSE 65; RESP 15; TEMP 36.1; O2SAT 95
[2020-07-31 15:17] VITALS: BP 151/67; PULSE 65; RESP 18; TEMP 36.6; O2SAT 95
--- NOTE | 2020-07-31 16:21 | MHC.CM.PN ---
NURSE BUSINESS ANALYSIS ANALYST NOTE ELECTRONIC MEDICAL RECORD REVIEWED ALONG WITH CASE DISCUSSED WITH STAFF NRUSE AND HOSPITALIST AND SURGEON . MET WITH PATIWNT SHE IS STILL HAVING SOME PAIN NG TUBE REMOVED AND STARTED ON CLEAR LIQUIDS. PATIENT IS CONTINUING ON IV FLUIDS AND IV ANALGEICS TRYING TO CONVERT TO ALL ORAL , IV ANTIEMETIC , MONITORING FEEDING ADVANCEMENT AND MONITORING ALL LABS DISCHARGE PLAN HOME WITH SELF RESUMPTION OF HER MENTAL HEALTH COUNSELING AT [facility] SELF RESUMPTION OF HER SERVICES FOR HER BRUSH FILLER HAND PCP DR WALE [facility]WS [facility] F
--- NOTE | 2020-07-31 16:24 | P.PNGS_ITS ---
Subjective Subjective Date of Service: 07/31/20 Interval history: Patient feels improved, passing flatus. Abdominal xray from yesterday looks improved as well. Physical Exam Vital Signs: Vital Signs: Last Vital Signs Temp 98 F 07/31/20 15:17 Pulse 65 07/31/20 15:17 Resp 18 07/31/20 15:17 BP 151/67 H 07/31/20 15:17 Pulse Ox 95 07/31/20 15:17 Body Mass Index 31.9 Const: General: cooperative Resp: Effort & Inspection: normal respiratory effort GI: Inspection: Yes normal to inspection Palpation (GI): Soft to palpation, nontender and no guarding Percussion: Yes normal to percussion Extrem: General: Yes normal to inspection and Yes no clubbing, cyanosis or edema Progress Note: A&P Assessment and plan (1) Small bowel obstruction, partial: Status: Acute Assessment and Plan: Patient is much improved with resolving SBO symptoms. Will remove the NGT and start on clear liquids, advance if tolerated. Patient expressed understanding and agrees with the plan. Fall Risk Details Current Medications: Current Medications Generic Name Dose Route Start Last Admin Trade Name Freq PRN Reason Stop Dose Admin Acetaminophen 650 mg 07/28/20 19:18 Acetaminophen 325 Mg Tablet PO Q6H PRN Pain, Mild (Pain Scale 1-3) Amlodipine Besylate 5 mg 07/29/20 09:00 07/31/20 08:54 Amlodipine Besylate 5 Mg Tablet PO Not Given DAILY [facility] Protocol Heparin Sodium (Porcine) 5,000 unit 07/28/20 19:18 07/31/20 06:20 Heparin Sodium,Porcine 5,000 Unit/Ml Vial SUBCUT 5,000 unit Q12H [facility] Administration Hydromorphone HCl 0.5 mg 07/28/20 19:18 07/31/20 01:12 Hydromorphone Hcl 0.5 Mg/0.5 Ml Syringe IVPUSH 0.5 mg Q3H PRN Administration Pain, Severe (Pain Scale 7-10) Dextrose/Lactated Ringer's 1,000 mls @ 80 mls/hr 07/28/20 19:18 07/31/20 08:52 D5lr IVCONT 125 mls/hr .[id number] [facility] Administration Lorazepam 0.5 mg 07/28/20 22:40 Lorazepam 0.5 Mg Tablet PO BID PRN Anxiety Omeprazole 40 mg 07/29/20 06:30 07/31/20 06:15 Omeprazole 40 Mg Capsule.Dr PO Not Given DAILY@0630 [facility] Ondansetron HCl 4 mg 07/28/20 19:18 07/31/20 01:12 Ondansetron Hcl 4 Mg/2 Ml Vial IVPUSH 4 mg Q8H PRN Administration Nausea and Vomiting Oxycodone HCl 5 mg 07/28/20 19:18 Oxycodone Hcl Immed Release 5 Mg Tablet PO Q6H PRN Pain, Moderate (Pain Scale 4-6 Sodium Chloride 3 ml 07/29/20 00:00 07/31/20 08:56 0.9 % Sodium Chloride Flush 3 Ml Syringe IVFLUSH Not Given QSHIFT [facility] Zolpidem Tartrate 5 mg 07/28/20 19:18 Zolpidem Tartrate 5 Mg Tablet PO BEDTIME PRN Insomnia Time Spent With Patient Time: Total time spent is greater than 50% in coordination of care (as documented) at patient's floor/unit and/or counseling patient: Time with patient: 15 - 24 minutes Procedures Date of Service Date of Service: 07/31/20
[2020-07-31 19:55] VITALS: BP 167/82; PULSE 74; RESP 18; TEMP 36.9; O2SAT 96
[2020-08-01] VITALS (7 sets, daily range): BP systolic 113–133; BP diastolic 56–71; PULSE 57–76; RESP 16–18; TEMP 36.4–37.8; O2SAT 93–97
[2020-08-01] MEDS: Omeprazole 40 MG CAPSULE.DR PO (06:02)
[2020-08-01] MEDS: Dextrose 5 % and Lactated Ring 1,000 ML 125 ML IVCONT ×2 (06:03→14:28)
[2020-08-01] MEDS: Heparin Sodium,Porcine 5,000 UNIT/ML VIAL 5000 UNIT SUBCUT ×2 (06:04→19:54)
[2020-08-01] MEDS: amLODIPine Besylate 5 MG TABLET PO (07:53)
--- NOTE | 2020-08-01 08:12 | P.PNGS_ITS ---
Subjective Subjective Date of Service: 08/01/20 Interval history: Patient feels improved today with no abdominal pain and a liquid bowel movement yesterday. She tolerated the clear liquid diet without nausea or vomiting. She feels ready for a regular diet today. Physical Exam Vital Signs: Vital Signs: Last Vital Signs Temp 97.8 F 08/01/20 07:40 Pulse 57 08/01/20 07:40 Resp 18 08/01/20 07:40 BP 122/61 08/01/20 07:40 Pulse Ox 93 08/01/20 07:40 Body Mass Index 31.9 Const: General: cooperative, comfortable and no acute distress Resp: Effort & Inspection: normal respiratory effort, no audible wheezes, no cough, no stridor and not tachypneic GI: Inspection: Yes normal to inspection Palpation (GI): Soft to palpation, nontender, no guarding and not rigid Percussion: Yes normal to percussion Skin: General skin exam: no rashes or lesions noted Extrem: General: Yes no clubbing, cyanosis or edema Progress Note: A&P Assessment and plan (1) Small bowel obstruction, partial: Status: Acute Assessment and Plan: Patient continues to improve with bowel rest, now passing liquid stool. I will advance her to a regular diet today observed over the next 24 hours. If she tolerates is regular diet will plan on discharge tomorrow morning. Patient expressed understanding and agrees with the plan. Fall Risk Details Current Medications: Current Medications Generic Name Dose Route Start Last Admin Trade Name Freq PRN Reason Stop Dose Admin Acetaminophen 650 mg 07/28/20 19:18 Acetaminophen 325 Mg Tablet PO Q6H PRN Pain, Mild (Pain Scale 1-3) Amlodipine Besylate 5 mg 07/29/20 09:00 08/01/20 07:53 Amlodipine Besylate 5 Mg Tablet PO 5 mg DAILY [facility] Administration Protocol Heparin Sodium (Porcine) 5,000 unit 07/28/20 19:18 08/01/20 06:04 Heparin Sodium,Porcine 5,000 Unit/Ml Vial SUBCUT 5,000 unit Q12H [facility] Administration Hydromorphone HCl 0.5 mg 07/28/20 19:18 07/31/20 20:43 Hydromorphone Hcl 0.5 Mg/0.5 Ml Syringe IVPUSH 0.5 mg Q3H PRN Administration Pain, Severe (Pain Scale 7-10) Dextrose/Lactated Ringer's 1,000 mls @ 80 mls/hr 07/28/20 19:18 08/01/20 06:03 D5lr IVCONT 125 mls/hr .[id number] [facility] Administration Lorazepam 0.5 mg 07/28/20 22:40 Lorazepam 0.5 Mg Tablet PO BID PRN Anxiety Omeprazole 40 mg 07/29/20 06:30 08/01/20 06:02 Omeprazole 40 Mg Capsule.Dr PO 40 mg DAILY@0630 [facility] Administration Ondansetron HCl 4 mg 07/28/20 19:18 07/31/20 20:43 Ondansetron Hcl 4 Mg/2 Ml Vial IVPUSH 4 mg Q8H PRN Administration Nausea and Vomiting Oxycodone HCl 5 mg 07/28/20 19:18 Oxycodone Hcl Immed Release 5 Mg Tablet PO Q6H PRN Pain, Moderate (Pain Scale 4-6 Sodium Chloride 3 ml 07/29/20 00:00 08/01/20 07:53 0.9 % Sodium Chloride Flush 3 Ml Syringe IVFLUSH Not Given QSHIFT [facility] Zolpidem Tartrate 5 mg 07/28/20 19:18 Zolpidem Tartrate 5 Mg Tablet PO BEDTIME PRN Insomnia Time Spent With Patient Time: Total time spent is greater than 50% in coordination of care (as documented) at patient's floor/unit and/or counseling patient: Time with patient: 15 - 24 minutes Procedures Date of Service Date of Service: 08/01/20
[2020-08-01] MEDS: ondansetron HCL 4 MG/2 ML VIAL IVPUSH (18:37)
[2020-08-01] MEDS: HYDROmorphone HCl 0.5 MG/0.5 ML SYRINGE IVPUSH (18:37)
[2020-08-01] MEDS: 0.9 % Sodium Chloride Flush 3 ML SYRINGE IVFLUSH (19:57)
[2020-08-02 03:53] VITALS: BP 119/61; PULSE 63; RESP 14; TEMP 36; O2SAT 95
[2020-08-02] MEDS: Heparin Sodium,Porcine 5,000 UNIT/ML VIAL 5000 UNIT SUBCUT (05:56)
[2020-08-02] MEDS: Omeprazole 40 MG CAPSULE.DR PO (05:56)
[2020-08-02 07:06] VITALS: BP 115/66; PULSE 62; RESP 18; TEMP 36; O2SAT 95
[2020-08-02] MEDS: Dextrose 5 % and Lactated Ring 1,000 ML 80 ML IVCONT (07:07)
[2020-08-02 08:03] VITALS: BP 115/66; PULSE 62
[2020-08-02] MEDS: amLODIPine Besylate 5 MG TABLET PO (08:03)
--- NOTE | 2020-08-02 08:24 | PM.PNGS ---
Subjective Subjective Date of Service: 08/02/20 Interval history: Patient feels great, denies any abdominal pain, nausea or vomiting; she is tolerating a regular diet x 24 hours Physical Exam Vital Signs: Vital Signs: Last Vital Signs Temp 96.8 F 08/02/20 07:06 Pulse 62 08/02/20 08:03 Resp 18 08/02/20 07:06 BP 115/66 08/02/20 08:03 Pulse Ox 95 08/02/20 07:06 Body Mass Index 31.9 Const: General: cooperative, healthy appearing, comfortable and no acute distress Resp: Effort & Inspection: normal respiratory effort GI: Palpation (GI): Soft to palpation, nontender, no guarding, not rigid, no hepatosplenomegaly and No Rebound tenderness present Skin: General skin exam: no rashes or lesions noted and dry skin Extrem: General: Yes no clubbing, cyanosis or edema Progress Note: A&P Assessment and plan (1) Small bowel obstruction, partial: Status: Acute Assessment and Plan: Small bowel obstruction is now resolved with no further nausea or vomiting. She reports several BMs which were normal. She feels great and is ready for discharge to home. Fall Risk Details Current Medications: Current Medications Generic Name Dose Route Start Last Admin Trade Name Freq PRN Reason Stop Dose Admin Acetaminophen 650 mg 07/28/20 19:18 Acetaminophen 325 Mg Tablet PO Q6H PRN Pain, Mild (Pain Scale 1-3) Amlodipine Besylate 5 mg 07/29/20 09:00 08/02/20 08:03 Amlodipine Besylate 5 Mg Tablet PO 5 mg DAILY OMARI Administration Protocol Heparin Sodium (Porcine) 5,000 unit 07/28/20 19:18 08/02/20 05:56 Heparin Sodium,Porcine 5,000 Unit/Ml Vial SUBCUT 5,000 unit Q12H OMARI Administration Hydromorphone HCl 0.5 mg 07/28/20 19:18 08/01/20 18:37 Hydromorphone Hcl 0.5 Mg/0.5 Ml Syringe IVPUSH 0.5 mg Q3H PRN Administration Pain, Severe (Pain Scale 7-10) Dextrose/Lactated Ringer's 1,000 mls @ 80 mls/hr 07/28/20 19:18 08/02/20 07:07 D5lr IVCONT 80 mls/hr .[id number] OMARI Administration Lorazepam 0.5 mg 07/28/20 22:40 Lorazepam 0.5 Mg Tablet PO BID PRN Anxiety Omeprazole 40 mg 07/29/20 06:30 08/02/20 05:56 Omeprazole 40 Mg Capsule.Dr PO 40 mg DAILY@0630 OMARI Administration Ondansetron HCl 4 mg 07/28/20 19:18 08/01/20 18:37 Ondansetron Hcl 4 Mg/2 Ml Vial IVPUSH 4 mg Q8H PRN Administration Nausea and Vomiting Oxycodone HCl 5 mg 07/28/20 19:18 Oxycodone Hcl Immed Release 5 Mg Tablet PO Q6H PRN Pain, Moderate (Pain Scale 4-6 Sodium Chloride 3 ml 07/29/20 00:00 08/02/20 07:06 0.9 % Sodium Chloride Flush 3 Ml Syringe IVFLUSH Not Given [facility]SHIFT [facility] Zolpidem Tartrate 5 mg 07/28/20 19:18 Zolpidem Tartrate 5 Mg Tablet PO BEDTIME PRN Insomnia Time Spent With Patient Time: Total time spent is greater than 50% in coordination of care (as documented) at patient's floor/unit and/or counseling patient: Time with patient: 15 - 24 minutes Procedures Date of Service Date of Service: 08/02/20
--- NOTE | 2020-08-02 08:27 | PM.DS ---
DS: Providers Provider Date of Service: 08/02/20 Date of admission: 07/28/20 17:21 Primary care physician: Shiloh Hyatt MD Admitting clinician: Pilo Wellington Discharging clinician: Pilo Wellington DS: Diagnosis Discharge Diagnosis (1) Small bowel obstruction, partial: Status: Acute DS: Medications Discharge Medications Home Medications: Home Medications Medication Instructions Recorded Confirmed lorazepam 0.5 mg tablet 0.5 mg PO BID PRN 04/04/20 07/28/20 amlodipine 5 mg tablet 5 mg PO DAILY 06/14/20 07/28/20 Previous Rx's Medication Instructions Recorded omeprazole 40 mg capsule,delayed 40 mg PO DAILY 30 Days #30 cap 05/10/20 release DS: Summary Hospital Course Hospital Course: Darlyn Villarreal is a 54 year old female presenting with complaints of abdominal pain, distension nausea and vomiting found to have a small-bowel obstruction. She reports a history of numerous abdominal procedures including cholecystectomy, appendectomy, pyloric stenosis repair and has had previous history is of small-bowel obstructions. She reports these usually resolve with nasogastric tube decompression after several days. Current episode began approximately 2 days prior to presentation and has persisted necessitating a visit to the emergency department. Workup in the ED with CT of the abdomen and pelvis confirmed multiple loops of proximal small bowel which were dilated with air-fluid level suggestive of a small-bowel obstruction. A nasogastric tube was placed with production of bilious and feculent material. Over the next two days, patient made slow improvement with decreased abdominal pain, and no further nausea or vomiting. An abdominal x-ray obtained on HD 3 revealed a decrease in distended bowel loops. The NGT was removed and she was started on clear liquids. This was tolerated and after 24 hours she reported liquid BMs. She was advanced to a regular low residue diet and tolerated this well. Her BMs became more solid and normal consistency. On examination, she was soft, non distended, and nontender. She is discharged to home and will follow up in the office in 2 weeks. She should call for increased abdominal pain, nausea, vomiting. Time Spent with Patient Time attestation: Total time spent providing and/or coordinating discharge services: Discharge coordination time: Less than 30 minutes Quality: Stroke Does the patient have a stroke diagnosis?: No Physical Exam Vital Signs: Vital Signs: Last Vital Signs Temp 96.8 F 08/02/20 07:06 Pulse 62 08/02/20 08:03 Resp 18 08/02/20 07:06 BP 115/66 08/02/20 08:03 Pulse Ox 95 08/02/20 07:06 Body Mass Index 31.9 Discharge Plan Discharge Patient Disposition: Home, Self-Care Discharge Diagnosis: Small bowel obstruction Referrals: Shiloh Hyatt MD [Primary Care Provider] - 1 Week Pilo Wellington MD [Physician] - 2 Weeks Discharge Medications: Continued omeprazole 40 mg capsule,delayed release(DR/EC) 40 mg PO DAILY 30 Days Qty: 30 RF: 2 lorazepam 0.5 mg tablet 0.5 mg PO BID PRN (Reason: Anxiety) RF: 0 amlodipine 5 mg tablet 5 mg PO DAILY RF: 0 Discharge Orders: Discharge Order (Routine); Ordered 08/02/20 Ordered By: Pilo Wellington Diet: advance to usual diet Activity on Discharge: As tolerated Stand Alone Forms: Patient Portal Discharge page Care Plan Goals: Return to normal diet and activity Health Concerns: Partial small bowel obstruction Plan of Treatment: Bowel rest, NGT decompression, IVFs Assessment: Small bowel obstruction, partial due to adhesions
--- NOTE | 2020-08-02 09:14 | MHC.CM.PN ---
nurse care ,manager search note electronic medical record reviewed along with case discussed with staff nurse . patient is aware that she will be dis harged home today she lives with her brother , and grandson under [facility] (foster program) self resumption of her services with the [facility] counseling pcp PCP-dr nicky chung transportation -famil;y medicare imm updated
== END 2020-08-02 10:47 | disposition home or self-care (01) | DRG 390 ==
LOC: HO.ED 17:04 → HO.EDOVER 17:48 → HO.S3 21:54
PROVIDERS: Physician Assistant Medical; Admitting Provider Surgery; Emergency Provider Emergency Medicine; PCP Internal Medicine; Visit Provider Surgery
DX: K56.51 Intestinal adhesions [bands], with partial obstruction (principal); Z88.6 Allergy status to analgesic agent; Z20.822 Contact with and (suspected) exposure to COVID-19; Z79.899 Other long term (current) drug therapy
CPT/HCPCS: 36415; 74021; 74177; 80048; 80053; 81003; 83690; 83735; 85025; 85610; 87635; 96374; 96375; 99285; 99291; J1170; J2060; J2270; J2405; Q9967

== ENCOUNTER → 2020-10-18 09:43 | Outpatient (BNVA) | payer MEDICARE, MEDICAID, SELFPAY | PROVIDERS: Visit Provider Internal Medicine Gastroenterology | DX: K75.81 Nonalcoholic steatohepatitis (NASH) (principal) | CPT/HCPCS: Q3014 ==

== ENCOUNTER 2020-12-19 16:44 | Emergency (ER) | payer MEDICARE, MEDICAID, SELFPAY ==
--- NOTE | ~2020-12-19 | XR_ITS ---
EXAMINATION: XR CHEST CLINICAL INFORMATION: Shortness of breath. COMPARISON: Chest radiograph dated from 04/26/2019. TECHNIQUE: PA view of the chest was obtained. FINDINGS: Normal appearance of the cardiomediastinal silhouette. Clear lungs. No pleural effusion or pneumothorax. Right upper quadrant surgical clips. No acute osseous findings. XR/XR chest 1V IMPRESSION: No acute cardiopulmonary findings.
[2020-12-19 17:06] VITALS: BP 147/76; PULSE 70; RESP 18; TEMP 36.8; O2SAT 97; BMI 30.2
[2020-12-19 17:39] LABS: IDNOW Serial# 08D9AD1C; Strep A Nucleic Acid Negative (Negative)
[2020-12-19 17:42] LABS: COVID-19 Test Negative (Negative)
--- NOTE | 2020-12-19 18:12 | ED.URI ---
HPI - URI/Sore Throat General Chief Complaint: Upper Respiratory Symptoms Stated Complaint: lungs hurt, throat feels like closing Source: patient Mode of arrival: ambulatory Limitations: no limitations History of Present Illness HPI Narrative: 55-year-old female presents with upper respiratory symptoms that occurred after cleaning her bathroom. Stated that she used Mr. sinha, and started to feel mild lung burning, sore throat and shortness of breath. She reports taking her 's Amy which alleviated her symptoms. MD elicited complaint: sore throat and nasal congestion Pertinent past history: seasonal allergies Onset (ago): hour(s) (Few hours prior to arrival) Consistency: now resolved Severity: mild Description of mucous: clear and watery Able to tolerate fluids by mouth: Yes Exacerbating factors: nothing Relieving factors: other (Allergy medication) Associated symptoms: nasal congestion, sore throat and shortness of breath Treatments prior to arrival: other (Allergy medication) Related Data Home Medications Medication Instructions Recorded Confirmed lorazepam 0.5 mg tablet 0.5 mg PO BID PRN 04/04/20 07/28/20 amlodipine 5 mg tablet 5 mg PO DAILY 06/14/20 07/28/20 Previous Rx's Medication Instructions Recorded omeprazole 40 mg capsule,delayed 40 mg PO DAILY 30 Days #30 cap 10/30/20 release Allergies Allergy/AdvReac Type Severity Reaction Status Date / Time ibuprofen Allergy Severe RASH, Verified 12/19/20 17:06 SWELLING, anaphylaxis, swelling Review of Systems Review of Systems: Constitutional: No Fever, No Chills ENT/Mouth: No Ear Pain, No Hoarseness, positive sore throat Eyes: No Eye Pain, No Swelling, No Redness, No Foreign Body Cardiovascular: No Chest Pain, positive SOB Respiratory: No Cough, No Dyspnea Gastrointestinal: No Nausea, No Vomiting, No Diarrhea, No abdominal Pain Genitourinary: No Dysuria, No Hematuria Musculoskeletal: positive joint pain, No Myalgias, No Joint Swelling Skin: No Skin lacerations, No rash Neuro: No Weakness, No Numbness, No Paresthesias, No Loss of Consciousness, No Dizziness, No Headache Psych: No Anxiety/Panic, No Depression Heme/Lymph: no easy bruising, no Lymphadenopathy Endocrine: No Polyuria, No Polydipsia Yes all other systems are reviewed and are negative [facility] Past Medical History Attestation statement: The following information was validated with the patient. Source: old records reviewed Medical History Hypertension Pyloric stenosis SBO (small bowel obstruction) Urge incontinence Urgency of micturition Surgical History H/O colonoscopy H/O: hysterectomy History of appendectomy History of endometrial ablation History of esophagogastroduodenoscopy (EGD) History of tubal ligation Hx of cholecystectomy Family History Family History Father No problems noted. Mother No problems noted. 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 Oriented X3. No acute distress. Eyes: Pupils equal, round and reactive to light. Sclera nonicteric. ENT: Pharynx normal. Moist mucous membranes. No tracheal stridor noted. Neck: Normal inspection. Neck supple. Range of motion within normal limits. CVS: Normal heart rate and rhythm. Pulses normal. Respiratory: No respiratory distress. Lung sounds clear to auscultation all lobes. Even unlabored respirations. Abdomen: Soft and nontender. Skin: Skin warm and dry. Normal skin color. Normal skin turgor. Extremities: No lower extremity edema. Gait well balanced well coordinated. Neuro: No motor deficit. No sensory deficit. Cranial nerves 2-12 intact. Course Course Course Narrative: 55-year-old patient presents with upper respiratory symptoms after chemical exposure. Patient appears nontoxic, afebrile, O2 sat 97% on room air, even unlabored respirations, no tracheal stridor or pharyngeal edema noted. Lung sounds clear to auscultation all lobes. COVID, strep, and chest x-ray are all negative for acute findings requiring emergent intervention. Chemical exposure prophylaxis discussed in detail with patient. Patient verbalized understanding of and agrees to plan of care discharge home. MDM - URI/Sore Throat Differential Diagnosis Differential diagnosis: Likely upper respiratory infection, otitis media, sinusitis, viral infection, bronchitis, influenza and pharyngitis Medical Records Attestation: I reviewed the patient's medical records. Lab Data Attestation: I reviewed the patient's lab results. Labs: Lab Results 12/19/20 12/19/20 Range/Units 17:14 17:14 COVID-19 (BETO) Negative (Negative) COVID-19 Clin Com See Note S. pyogenes GrpA NICHOL Negative (Negative) Imaging Data Chest x-ray: Attestation: I personally reviewed and interpreted this imaging study as follows: Radiologist's impression: EXAMINATION: XR CHEST CLINICAL INFORMATION: Shortness of breath. COMPARISON: Chest radiograph dated from 04/26/2019. TECHNIQUE: PA view of the chest was obtained. FINDINGS: Normal appearance of the cardiomediastinal silhouette. Clear lungs. No pleural effusion or pneumothorax. Right upper quadrant surgical clips. No acute osseous findings. XR/XR chest 1V IMPRESSION: No acute cardiopulmonary findings. Discharge Plan Discharge Clinical Impression: Exposure to chemical inhalation, Viral infection Patient Disposition: Home, Self-Care Instructions: Viral Syndrome (ED) Additional Instructions: You were evaluated for upper respiratory symptoms after chemical exposure. Please open windows, and wear a mask while using cleaning products. Your COVID test is negative, strep test is negative, and chest x-ray are negative for acute findings requiring emergent intervention. Thank you for choosing this emergency department for evaluation. Please follow-up with primary care physician as needed. Return to the emergency department for any new, concerning, or worsening symptoms. Prescriptions: No Action omeprazole 40 mg capsule,delayed release(DR/EC) 40 mg PO DAILY 30 Days Qty: 30 RF: 2 lorazepam 0.5 mg tablet 0.5 mg PO BID PRN (Reason: Anxiety) RF: 0 amlodipine 5 mg tablet 5 mg PO DAILY RF: 0
== END 2020-12-19 18:53 | disposition home or self-care (01) ==
PROVIDERS: Emergency Provider Emergency Medicine; PCP Internal Medicine
DX: B34.9 Viral infection, unspecified (principal); I10 Essential (primary) hypertension; Z77.098 Contact with and (suspected) exposure to other hazardous, chiefly nonmedicinal, chemicals; Z20.822 Contact with and (suspected) exposure to COVID-19
CPT/HCPCS: 36415; 71045; 87635; 87651; 99283

== ENCOUNTER 2021-01-30 13:34 | Outpatient (REF) | payer MEDICARE, MEDICAID, SELFPAY ==
[2021-01-31 08:42] LABS: BV Int Neg Control Negative (Negative); BV Int Pos Control Positive (Positive)
== END 2021-01-30 13:35 | disposition home or self-care (01) ==
LOC: HO.LAB 13:34
PROVIDERS: Visit Provider Physician Assistant Medical
DX: N76.0 Acute vaginitis (principal)
CPT/HCPCS: 87086; 87480; 87510; 87660

== ENCOUNTER 2021-02-15 11:25 | Emergency (ER) | payer MEDICARE, MEDICAID, SELFPAY ==
--- NOTE | ~2021-02-15 | XR_ITS ---
EXAMINATION: XR CHEST CLINICAL INFORMATION: Shortness of breath COMPARISON: December 19, 2020 TECHNIQUE: AP portable view of the chest was obtained. FINDINGS: No significant abnormality is noted involving the heart, lungs, mediastinum, bony thorax or soft tissues. XR/XR chest 1V IMPRESSION: No acute disease.
[2021-02-15 12:04] VITALS: BP 136/66; PULSE 71; RESP 16; TEMP 36.8; O2SAT 99; BMI 30.2
[2021-02-15 12:35] LABS: COVID-19 Test Positive (Negative)
--- NOTE | 2021-02-15 13:02 | ED.URI ---
HPI - URI/Sore Throat General Chief Complaint: Upper Respiratory Symptoms Stated Complaint: Coughing Bodyaches Sore Throat Esxposed to COVID Time Seen by Provider: 02/15/21 13:02 Source: patient Mode of arrival: ambulatory Limitations: no limitations History of Present Illness HPI Narrative: 55-year-old female past medical history significant for hypertension, pyloric stenosis, non alcoholic steatohepatitis presenting to the emergency department with complaints of sore throat, cough, fevers, chills times 3 days progressively worsening. Patient tells me it feels like her throat becerra, and is scratchy. She tells me that her cough has a little bit of sputum. She also reports associated shortness of breath worse with exertion. She reports subjective fevers, and reports chills that are intermittent in nature. She tells me she has body aches from head to toes. She also reports her son is COVID positive who she has been around. She is not currently vaccinated against COVID-19. MD elicited complaint: fever, cough, sore throat and other (body aches ) Onset (ago): day(s) (3) Consistency: constant Severity: moderate Description of mucous: clear Able to tolerate fluids by mouth: Yes Exacerbating factors: nothing Relieving factors: nothing Context: sick contacts (son is sick ) Associated symptoms: fever (subjective ), chills, sore throat, cough and shortness of breath (on exertion ) Treatments prior to arrival: none Related Data Home Medications Medication Instructions Recorded Confirmed lorazepam 0.5 mg tablet 0.5 mg PO BID PRN 04/04/20 07/28/20 amlodipine 5 mg tablet 5 mg PO DAILY 06/14/20 07/28/20 Previous Rx's Medication Instructions Recorded omeprazole 40 mg capsule,delayed 40 mg PO DAILY 30 Days #30 cap 10/30/20 release fluconazole 150 mg tablet 150 mg PO DAILY #2 tab 01/30/21 (Diflucan) metronidazole 0.75 % vaginal gel 1 appful VAGINAL DAILY 5 Days #70 g 01/31/21 (Metrogel Vaginal) benzonatate 100 mg capsule 100 mg PO Q6H PRN #14 cap 02/15/21 Allergies Allergy/AdvReac Type Severity Reaction Status Date / Time ibuprofen Allergy Severe RASH, Verified 02/15/21 12:04 SWELLING, anaphylaxis, swelling Review of Systems Review of Systems: Constitutional : No Weight loss, + Fever, + Chills, + Fatigue, + Malaise ENT/Mouth : + sore throat, No Rhinorrhea Eyes: No Eye Pain, No Swelling, No Redness Cardiovascular : No Chest Pain, + SOB, + Dyspnea on Exertion, No Orthopnea, No Edema, No Palpitations Respiratory : + Cough, + Sputum, No Wheezing Gastrointestinal : No Nausea, No Vomiting, No Diarrhea, No Constipation, No abdominal Pain, No Hematochezia, No Melena Genitourinary : No Dysuria, No Urinary Frequency, No Hematuria, Musculoskeletal : No joint pain, + Myalgias, No Joint Swelling Skin : No Skin Lesions, No rash Neuro : No Weakness, No Numbness, No Dizziness, No Headache All other systems reviewed and are negative [facility] Past Medical History Attestation statement: The following information was validated with the patient. Source: old records reviewed and nursing notes reviewed Medical History Hypertension Pyloric stenosis SBO (small bowel obstruction) Urge incontinence Urgency of micturition Surgical History H/O colonoscopy H/O: hysterectomy History of appendectomy History of endometrial ablation History of esophagogastroduodenoscopy (EGD) History of tubal ligation Hx of cholecystectomy Family History Family History Father No problems noted. Mother No problems noted. 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 Oriented X3.? No acute distress.? Head: Normocephalic, atraumatic, no step-offs or deformities Eyes: Pupils equal, round and reactive to light.? ENT: Pharynx normal.? No erythema or exudates. Neck: Normal inspection.? Neck supple.? CVS: Normal heart rate and rhythm.? Pulses normal.? Respiratory: No respiratory distress.? Breath sounds normal.? Abdomen: Soft and nontender.? Skin: Skin warm and dry.? Normal skin color.? Normal skin turgor.? Extremities: No lower extremity edema.? No calf ttp. 5/5 strength to bilateral upper and lower extremities Back: No midline tenderness, no C-spine tenderness, full range of motion Neuro: Oriented X 3.? No motor deficit.? No sensory deficit. Course Reevaluation(s) Reevaluation #1: Patient noted to be COVID positive however she is saturating well on room air, normal respiratory rate, and pulse. Unlikley that this is a PE. PERC 1- due to age however I do not suspect PE. Time: 13:10 Reevaluation #2: Patient's ambulatory O2 98%. Patient saturating well on room air, x-ray negative. Patient is safe for discharge home with PCP follow-up. Has been given strict return precautions. Time: 15:01 MDM - URI/Sore Throat MDM Narrative Medical decision making narrative: 1305 55 yo F pmhx htn, pyloric stenosis and WALKER presents to the ED with productive cough, body aches, dyspnea on exertion, subjective fevers, chills and sore throat X3 days. Son is covid +. She is not vaccinated Physical examination is benign. Vital signs are stable. Patient saturating 99% on room air. In no acute distress. Lungs are clear. Plan at this time is to obtain COVID, a chest x-ray to rule out pneumonia as patient is reporting a productive cough. I will also obtain a strep test. And I will do an ambulatory pulse oximetry to ensure that patient is not desaturating, to ensure she is safe for discharge home. Medical Records Attestation: I reviewed the patient's medical records. Lab Data Attestation: I reviewed the patient's lab results. Labs: Lab Results 02/15/21 02/15/21 Range/Units 12:08 13:18 COVID-19 (BETO) Positive A (Negative) COVID-19 Clin Com See Note S. pyogenes GrpA NICHOL Negative (Negative) Imaging Data Chest x-ray: Attestation: I personally reviewed and interpreted this imaging study as follows: Radiologist's impression: FINDINGS: No significant abnormality is noted involving the heart, lungs, mediastinum, bony thorax or soft tissues. XR/XR chest 1V IMPRESSION: No acute disease. Critical Care Time Critical Care Time Critical Care Time: No Discharge Plan Discharge Clinical Impression: COVID-19 Patient Disposition: Home, Self-Care Instructions: COVID-19 (Coronavirus Disease 2019) (ED) Additional Instructions: Take your medications as prescribed. Today you tested positive for COVID-19. Take Ibuprofen or Tylenol as needed for fevers or body aches. Quarantine for 14 days if you are not vaccinated or for 10 days if you are vaccinated. Drink plenty of fluids. Tessalon pears were sent to your pharmacy for cough. Follow-up with your primary care provider this week. Return to the emergency department with new or worsening symptoms. In case of emergency call 911 You can purchase a pulse oximeter which is a device that will measure oxygen saturation, if your oxygen goes below 95 it is important that you return to the emergency department. Prescriptions: New benzonatate 100 mg capsule 100 mg PO Q6H PRN (Reason: cough) Qty: 14 RF: 0 No Action omeprazole 40 mg capsule,delayed release(DR/EC) 40 mg PO DAILY 30 Days Qty: 30 RF: 2 metronidazole [Metrogel Vaginal] 0.75 % gel 1 appful vaginal DAILY 5 Days Qty: 70 RF: 0 fluconazole [Diflucan] 150 mg tablet 150 mg PO DAILY Qty: 2 RF: 0 lorazepam 0.5 mg tablet 0.5 mg PO BID PRN (Reason: Anxiety) RF: 0 amlodipine 5 mg tablet 5 mg PO DAILY RF: 0 Referrals: Shiloh Hyatt MD [Primary Care Provider] - 2 days Stand Alone Forms: Work/School Release
[2021-02-15 13:29] LABS: IDNOW Serial# 9DD0AD1C; Strep A Nucleic Acid Negative (Negative)
== END 2021-02-15 15:40 | disposition home or self-care (01) ==
PROVIDERS: Physician Assistant; Emergency Provider Emergency Medicine; PCP Internal Medicine
DX: U07.1 COVID-19 (principal); I10 Essential (primary) hypertension
CPT/HCPCS: 36415; 71045; 87635; 87651; 99283

== ENCOUNTER 2021-03-08 04:32 | Emergency (ER) | payer MEDICARE, MEDICAID, SELFPAY ==
--- NOTE | ~2021-03-08 | XR_ITS ---
EXAMINATION: XR WRIST, LEFT CLINICAL INFORMATION: Left wrist pain and swelling. COMPARISON: None TECHNIQUE: PA, lateral, and oblique views of the left wrist. FINDINGS: Images are obtained with a marker referencing the radial aspect of the wrist. No fractures or definitive soft tissue inflammatory changes are identified. No dystrophic soft tissue calcifications visualized. No gross arthropathic changes. Minimal ulnar variance. Minimal subchondral sclerosis and osteophytosis of the first carpometacarpal joint. Intact scaphoid. XR/XR wrist LT min 3V IMPRESSION: *No acute abnormalities identified. *Mild osteoarthritis of the first carpometacarpal joint.
[2021-03-08 05:34] VITALS: BP 119/69; PULSE 67; RESP 16; TEMP 36.8; O2SAT 98; BMI 28.3
--- NOTE | 2021-03-08 07:02 | ED_ITS ---
HPI - Extremity Problem General Chief complaint: Extremity Injury, Upper Stated complaint: L wrist swollen & in pain Time Seen by Provider: 03/08/21 06:47 Source: patient Mode of arrival: ambulatory Limitations: no limitations History of Present Illness HPI Narrative: 55-year-old female who presents emergency department for evaluation of swelling and pain of her left wrist. The patient states that the symptoms came on gradually yesterday but got progressively worse. She states that she now has swelling of her left wrist with pain at rest and with active movement of the wrist. She states the pain is a constant, sharp pain which is 10/10 at its worse and is significantly worse if she tries to move her wrist. She denied any injury to the wrist. She states that she has had swelling in her left knee multiple times in the past and she is a gets it once a year. She states that they have drain fluid from the knee in the past but she has not been told that she has gout. She denied fever, chills, chest pain, shortness of breath, nausea, vomiting, abdominal pain, frequency, urgency or dysuria. The patient states that she is not vaccinated for COVID-19 but she got a COVID- 19 infection on 02/15/2021. She states she was only sick for 3 days and has no symptoms at this time. Related Data Home Medications Medication Instructions Recorded Confirmed lorazepam 0.5 mg tablet 0.5 mg PO BID PRN 04/04/20 07/28/20 amlodipine 5 mg tablet 5 mg PO DAILY 06/14/20 07/28/20 Previous Rx's Medication Instructions Recorded omeprazole 40 mg capsule,delayed 40 mg PO DAILY 30 Days #30 cap 10/30/20 release fluconazole 150 mg tablet 150 mg PO DAILY #2 tab 01/30/21 (Diflucan) metronidazole 0.75 % vaginal gel 1 appful VAGINAL DAILY 5 Days #70 g 01/31/21 (Metrogel Vaginal) benzonatate 100 mg capsule 100 mg PO Q6H PRN #14 cap 02/15/21 ondansetron 4 mg disintegrating 4 mg PO Q6-8H PRN #14 tab 03/08/21 tablet oxycodone 5 mg tablet 5 mg PO Q4H PRN #10 tab 03/08/21 prednisone 20 mg tablet 60 mg PO DAILY 5 Days #15 tab 03/08/21 Allergies Allergy/AdvReac Type Severity Reaction Status Date / Time ibuprofen Allergy Severe RASH, Verified 02/15/21 12:04 SWELLING, anaphylaxis, swelling Review of Systems Review of Systems: Yes all other systems are reviewed and are negative [facility] Past Medical History [facility] Narrative: Social history: She denies tobacco, alcohol and drug use. Medical History Hypertension Pyloric stenosis SBO (small bowel obstruction) Urge incontinence Urgency of micturition Surgical History H/O colonoscopy H/O: hysterectomy History of appendectomy History of endometrial ablation History of esophagogastroduodenoscopy (EGD) History of tubal ligation Hx of cholecystectomy Family History Family History Father No problems noted. Mother No problems noted. 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) Alcohol intake: never Patient Tobacco Use Status: Former Tobacco user Second Hand Smoke Exposure: No Advance Directives: No Advance Directives Information Provided: No Patient : No service: No Current occupational status: unemployed Sexual orientation: Straight/Heterosexual Gender identity: Female Physical Exam Vital Signs: Vital Signs: Last Vital Signs Temp 98.2 F 03/08/21 05:34 Pulse 67 03/08/21 05:34 Resp 16 03/08/21 05:34 BP 119/69 03/08/21 05:34 Pulse Ox 98 03/08/21 05:34 BMI result Body Mass Index 28.3 Const: General: cooperative and no acute distress Orientation/consciousness: oriented to person and oriented to place Limitations: no limitations HENMT: Head: Yes normal to inspection, Yes normocephalic and Yes atraumatic Ears: external ears normal General nose exam: Normal external nose present Face and sinus: Yes normal facial exam Mouth: Normal oral and palatal mucosa present Throat: Yes posterior oropharynx normal Eyes: General: appearance normal, both eyes and all related structures Pupils: Equal, round and reactive pupils present Neck: Neck: Yes normal visual inspection, Yes no lymphadenopathy, Yes trachea midline and Yes supple Chest: Chest palpation & inspection: normal inspection of the chest and normal palpation of entire chest wall Resp: Effort & Inspection: normal respiratory effort and able to speak in complete sentences Auscultation: clear to auscultation bilaterally Cardio: Rate: regular rate Rhythm: regular rhythm Heart sounds: S1 normal heart sound present, S2 normal heart sound present and no murmurs GI: Inspection: Yes normal to inspection Palpation (GI): Soft to palpation, nontender and no guarding Auscultation: normal bowel sounds : General: Yes no CVA tenderness Back/Spine/Pelvis: Back: no CVA tenderness Skin: General skin exam: no rashes or lesions noted Neuro: General: oriented to person and oriented to place Cranial nerves: Yes CN's II-XII intact bilaterally and Yes Equal, round and reactive pupils present Cognition (Neuro): normal cognition Motor exam (neuro): 5/5 motor strength present throughout Extrem: Other: Left wrist exam: The patient has soft tissue swelling and possible joint effusion over the radial aspect of the wrist with significant tenderness with palpation of this area as well as increased pain with movement of the wrist. Her extremity is neurovascular intact. There is no increased warmth or erythema over the wrist joint. The other large joints of her extremities are unremarkable with no increased warmth, inflammation or erythema. Psych: Appearance: grossly normal Speech and movement: Normal speech and movement present Affect: normal affect Attitude: cooperative Thought process: Normal thought process present Thought content: Normal thought content present Course Course Course Narrative: 55-year-old female who presents emergency department for evaluation of left wrist pain x2 days. She does not have any known injury. Her examination did reveal soft tissue swelling and possibly joint effusion over the radial aspect of her left wrist with increased tenderness with palpation of this area. There is no increased warmth or erythema noted. X-rays were obtained and the patient has no acute fracture. 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 The differential includes was not limited to gout, pseudogout, inflammatory arthritis, septic joint. Given the fact that she has had swelling in her left knee once a year I suspect that she has undiagnosed gout but she may also have inflammatory arthritis. I do not think that she has a septic joint at this time. The patient cannot take NSAID since this causes throat swelling and tongue swelling. She was prescribed prednisone 60 mg once a day for 7 days. She was given her 1st dose here in the emergency department. She states that prednisone does make her nauseous so she was also given Zofran 4 mg orally. She was also given Tylenol 975 mg orally. Patient will be prescribed prednisone, Zofran and and oxycodone for pain not relieved by these 2 medications. Patient does have significant pain with moving her wrist therefore she was also given a wrist splint. She was given printed and verbal instructions and discharged home. Discharge Plan Discharge Clinical Impression: Inflammatory arthritis, Wrist pain, left Patient Disposition: Home, Self-Care Additional Instructions: Your examination is consistent with inflammation of your left wrist joint, this can be caused by gout, pseudogout or degenerative arthritis. At this time I do not think that you have an infection of the joint. The x-rays of your wrist did reveal some very mild arthritis but no broken bones/fractures. I am going to treat you for an inflammatory arthritis with the following medications: Take prednisone 20 mg pills, 3 pills once a day for 5 days. Take Tylenol (acetaminophen) 500 mg pills, 2 pills every 6 hours as needed for pain. For pain not relieved by ibuprofen or Tylenol take oxycodone 5 mg pills, 1 pill every 4 hours as needed for pain. Do not drive or work while taking this medication since they can cause sleepiness. Oxycodone is a narcotic medication that can be addicting. If you are concerned about addiction you can ask the pharmacist for less pills or do not get this prescription filled. Wear the wrist splint for 3-7 days. You can stop wearing this once the pain is improved. Apply ice for 15 minutes 4 to 6 times a day for the next 2-3 days to help reduce the swelling in your joint. Watch for signs of infection which would include redness, red streaks going away from the wrist up your arm, increased warmth of the wrist, fever, chills, weakness, fatigue. Follow-up with your doctor in 2 days. Please return to the emergency department if your symptoms get worse or if you develop any symptoms that are concerning to you. Prescriptions: New prednisone 20 mg tablet 60 mg PO DAILY 5 Days Qty: 15 RF: 0 ondansetron 4 mg tablet,disintegrating 4 mg PO Q6-8H PRN (Reason: nausea and vomiting) Qty: 14 RF: 0 oxycodone 5 mg tablet 5 mg PO Q4H PRN (Reason: pain) Qty: 10 RF: 0 No Action omeprazole 40 mg capsule,delayed release(DR/EC) 40 mg PO DAILY 30 Days Qty: 30 RF: 2 metronidazole [Metrogel Vaginal] 0.75 % gel 1 appful vaginal DAILY 5 Days Qty: 70 RF: 0 benzonatate 100 mg capsule 100 mg PO Q6H PRN (Reason: cough) Qty: 14 RF: 0 fluconazole [Diflucan] 150 mg tablet 150 mg PO DAILY Qty: 2 RF: 0 lorazepam 0.5 mg tablet 0.5 mg PO BID PRN (Reason: Anxiety) RF: 0 amlodipine 5 mg tablet 5 mg PO DAILY RF: 0
[2021-03-08] MEDS: predniSONE 20 MG TABLET 60 MG PO (07:39)
[2021-03-08] MEDS: Ondansetron ODT 4 MG TAB.RAPDIS TRANSLINGU (07:39)
[2021-03-08] MEDS: Acetaminophen 325 MG TABLET 975 MG PO (07:40)
== END 2021-03-08 08:40 | disposition home or self-care (01) ==
PROVIDERS: Emergency Provider Emergency Medicine Emergency Medical Services; PCP Internal Medicine
DX: M19.032 Primary osteoarthritis, left wrist (principal); I10 Essential (primary) hypertension
CPT/HCPCS: 73110; 99283; 99284

== ENCOUNTER → 2021-04-14 09:54 | Outpatient (BNVA) | payer MEDICARE, MEDICAID, SELFPAY | PROVIDERS: PCP Internal Medicine; Visit Provider Internal Medicine Gastroenterology | DX: K75.81 Nonalcoholic steatohepatitis (NASH) (principal) | CPT/HCPCS: Q3014 ==

== ENCOUNTER → 2021-04-18 08:37 | Outpatient (BNVA) | payer MEDICARE, MEDICAID, SELFPAY | PROVIDERS: PCP Internal Medicine; Visit Provider Advanced Practice Midwife | DX: Z13.89 Encounter for screening for other disorder (principal) ==

== ENCOUNTER 2021-07-06 06:55 | Inpatient (IN) | payer MEDICARE, SELFPAY ==
--- NOTE | ~2021-07-06 | CT_ITS ---
EXAMINATION: CT ABDOMEN AND PELVIS WITH CONTRAST CLINICAL INFORMATION: Small bowel obstruction. COMPARISON: Previous CT July 2020. TECHNIQUE: Multidetector volumetric images were obtained from the superior aspect of the liver through the pubic symphysis following administration 85 mL of Omnipaque 350 intravenous contrast. Sagittal and coronal reformatted images were obtained on the technologist's workstation. Oral contrast: Yes. This CT examination was performed using dose optimization techniques as appropriate, variously including the following: *Automated exposure control *Adjustment of mA and/or kV according to patient size (this includes techniques or standardized protocols for targeted exams where dose is matched to indication/reason for exam; i.e. extremities or head) *Use of iterative reconstruction technique DLP: 680 mGy-cm FINDINGS: LUNG BASES: The visualized lung bases are unremarkable. LIVER, GALLBLADDER, AND BILIARY TREE: The liver is upper normal in size. There are several small low-attenuation liver lesions that are stable. Largest measures 5 mm in the right lobe of the liver. Stable appearance suggests a benign etiology. The gallbladder has been removed. There is no biliary duct dilatation. PANCREAS: Unremarkable. SPLEEN: Unremarkable. ADRENAL GLANDS: Unremarkable. KIDNEYS AND URETERS: The kidneys are normal in size, shape, and attenuation. No hydronephrosis, hydroureter, or calculi seen. No perinephric stranding. BLADDER: Unremarkable. GASTROINTESTINAL TRACT: There is a focal dilated loop of small bowel seen in the mid abdomen. This measures up to 3.8 cm in diameter axial image 47 series 3. The small bowel is otherwise normal. The terminal ileum is underdistended and difficult to evaluate. There is a saccular appearance to the colon, particularly the transverse colon. The left colon and left colon is undistended. It is difficult to exclude mild colitis. The large bowel is otherwise unremarkable. The appendix is not seen. ABDOMINAL WALL: No significant hernia is appreciated. LYMPH NODES: Normal. VASCULAR: Unremarkable. PELVIC VISCERA: Unremarkable. OSSEOUS STRUCTURES: Unremarkable. CT/CT abdomen pelvis w con IMPRESSION: Short segment dilated loop of small bowel in the mid abdomen measuring up to 3.8 cm. Ileus and partial obstruction should be considered. The small bowel is otherwise normal. Increased sacculations in the colon, particularly the transverse colon. Underdistended left colon and sigmoid colon. It is difficult to exclude mild colitis. Fleischner guidelines were followed.
[2021-07-06 07:09] VITALS: BP 131/67; PULSE 65; RESP 12; TEMP 36.9; O2SAT 96; BMI 30.2
--- NOTE | 2021-07-06 07:11 | ED.ABDPAIN ---
HPI - Abdominal Pain General Chief Complaint: Abdominal Pain Stated Complaint: Abd Pain Time Seen by Provider: 07/06/21 07:06 Source: patient Mode of arrival: EMS Limitations: no limitations History of Present Illness HPI narrative: This is a 55 years old of female with history of bowel obstruction, presented to the ED with chief complaint of nausea vomiting abdominal pain and diarrhea since 02:00 o'clock in the morning. She states that she has some history of recurrent SBO she had abdominal surgery as a child for repair of pyloric stenosis, she had an appendectomy and a cholecystectomy in the past. MD elicited complaint: abdominal pain Pertinent past history: none Onset (ago): hour(s) (5) Pain Consistency: constant Location: diffuse Severity: moderate Quality: cramping Radiation: none Migration to: no migration Exacerbating factors: nothing Associated symptoms: nausea, vomiting and diarrhea Related Data Home Medications Medication Instructions Recorded Confirmed lorazepam 0.5 mg tablet 0.5 mg PO BID PRN 04/04/20 07/28/20 amlodipine 5 mg tablet 5 mg PO DAILY 06/14/20 07/28/20 Previous Rx's Medication Instructions Recorded fluconazole 150 mg tablet 150 mg PO DAILY #2 tab 01/30/21 (Diflucan) metronidazole 0.75 % vaginal gel 1 appful VAGINAL DAILY 5 Days #70 g 01/31/21 (Metrogel Vaginal) benzonatate 100 mg capsule 100 mg PO Q6H PRN #14 cap 02/15/21 ondansetron 4 mg disintegrating 4 mg PO Q6-8H PRN #14 tab 03/08/21 tablet oxycodone 5 mg tablet 5 mg PO Q4H PRN #10 tab 03/08/21 prednisone 20 mg tablet 60 mg PO DAILY 5 Days #15 tab 03/08/21 omeprazole 20 mg capsule,delayed 20 mg PO DAILY #30 cap 04/14/21 release Allergies Allergy/AdvReac Type Severity Reaction Status Date / Time ibuprofen Allergy Severe RASH, Verified 04/18/21 08:53 SWELLING, anaphylaxis, swelling Review of Systems Review of Systems Yes all other systems are reviewed and are negative Constitutional: Reports no additional constitutional complaints Cardiovascular: Reports no additional cardiovascular complaints Gastrointestinal: Reports abdominal pain Reports system reviewed and no additional complaints, except as documented Psychiatric: Reports no additional psychiatric complaints PMFSH Past Medical History Medical History Hypertension Pyloric stenosis SBO (small bowel obstruction) Urge incontinence Urgency of micturition Surgical History H/O colonoscopy H/O: hysterectomy History of appendectomy History of endometrial ablation History of esophagogastroduodenoscopy (EGD) History of tubal ligation Hx of cholecystectomy Family History Family History Father No problems noted. Mother No problems noted. 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) Alcohol intake: never Patient Tobacco Use Status: Former Tobacco user Second Hand Smoke Exposure: No Advance Directives: No Advance Directives Information Provided: No service: No Current occupational status: unemployed Sexual orientation: Straight/Heterosexual Gender identity: Female Physical Exam ED Vital Signs: Vital Signs - 24 hr 07/06/21 07:09 07/06/21 09:44 Temperature 98.5 F 98.5 F Pulse Rate 65 74 Respiratory Rate 12 18 Blood Pressure 131/67 108/48 L Pulse Oximetry 96 95 BMI result Body Mass Index 30.2 Const General: cooperative, well developed, alert, awake and Physically active [facility] Head: Yes normal to inspection General nose exam: Normal external nose present Face and sinus: Yes normal facial exam Mouth: Normal oral and palatal mucosa present Throat: Yes posterior oropharynx normal Neck Neck: Yes normal visual inspection and Yes full ROM Chest Chest palpation & inspection: normal inspection of the chest Resp Effort & Inspection: normal respiratory effort and able to speak in complete sentences Auscultation: clear to auscultation bilaterally Cardio Jugular venous distension: no JVD Rate: regular rate Rhythm: regular rhythm GI Inspection: Yes normal to inspection and Yes scar Palpation (GI): Soft to palpation and Tenderness to palpation present (GI) (mid abdomen) Skin General skin exam: no rashes or lesions noted Procedures EJ/Peripheral Line Arm L: Time Out Performed: Yes Skin Cleansed in Sterile Fashion: Yes Size (gauge): 20 IV Secured and Dressing Applied: Yes Patient Tolerated Procedure: well Additional Comments: Difficult IV acccess I was asked by RN to place IV line. Under US guided linear probe cannulated cephalic vein left arm with 20 samuel long catheter 1 3/4 Inch. good blood return good flash,lab obtained Course Reevaluation(s) Reevaluation #1: She is feeling much better at time a CT scan reviewed and discussed with the surgeon on-call Dr Sena unlikely small bowel obstruction because actually passing gas and having diarrhea.Her abdomen at this time is soft she is feeliong better MDM - Abdominal Pain MDM Narrative Medical decision making narrative: This is a 55 years old the female with history of small-bowel obstruction we are going to get the labs antiemetic and analgesia CT scan and reassess Lab Data Result diagrams: 07/06/21 07:58 07/06/21 07:25 Labs: Lab Results 07/06/21 07/06/21 Range/Units 07:25 07:58 WBC 19.3 H (4.8-10.8) X10*3/uL RBC 5.54 H (4.20-5.50) X10*6/uL Hgb 16.3 H (12.0-16.0) g/dl Hct 48.1 H (37.0-47.0) % MCV 86.8 (80.0-98.0) fL MCH 29.4 (27.0-33.0) pg MCHC 33.9 (31.0-35.0) g/dl RDW 13.0 (11.0-16.0) % Plt Count 298 (160-400) X10*3/uL MPV 10.0 (9.4-12.3) fL Immature Gran % (Auto) 0.4 (0.0-0.4) % Neut % (Auto) 89.1 H (45-73) % Lymph % (Auto) 4.6 L (20-40) % [place] % (Auto) 5.3 (2-11) % Eos % (Auto) 0.3 (0-4) % Baso % (Auto) 0.3 (0-2) % Lymph # (Auto) 0.9 L (1.2-4.9) X10*3/uL [place] # (Auto) 1.0 (0.1-1.2) X10*3/uL Eos # (Auto) 0.1 (0.0-0.4) X10*3/uL Baso # (Auto) 0.1 (0.0-0.2) X10*3/uL Abs Immat Gran (auto) 0.08 H (0.00-0.03) X10*3/uL Absolute Neuts (auto) 17.2 H (2.0-8.3) x10*3/uL Absolute Nucleated RBC 0.000 (0.0-0.012) X10*3/uL Nucleated RBC % (auto) 0.0 (0.0-0.2) /100WBC Sodium 140 (135-145) mmol/L Potassium 4.2 (3.3-5.1) mmol/L Chloride 107 (96-108) mmol/L Carbon Dioxide 24 (22-29) mmol/L Anion Gap 13 (12-20) BUN 11 (9-16) mg/dL Creatinine 0.68 (0.5-1.4) mg/dL Estim Creat Clear Calc 76.5 Estimated GFR > 60 Random Glucose 132 H (60-115) mg/dL Calcium 9.0 (8.4-10.2) mg/dL Total Bilirubin 0.7 (0.0-1.0) mg/dL AST 39 H D (5-31) U/L ALT 39 H (0-31) U/L Alkaline Phosphatase 98 (39-117) U/L Total Protein 7.3 (6.5-8.0) g/dL Albumin 4.0 (3.5-5.0) g/dL Lipase 31 (8-78) U/L Imaging Data ct abdomen: Radiologist's impression: None TECHNIQUE: Contiguous axial imaging was performed from the skull base to vertex without intravenous administration of contrast. This CT examination was performed using dose optimization techniques as appropriate, variously including the following: *Automated exposure control *Adjustment of mA and/or kV according to patient size (this includes techniques or standardized protocols for targeted exams where dose is matched to indication/reason for exam; i.e. extremities or head) *Use of iterative reconstruction technique DLP: 738 mGy-cm FINDINGS: There is no evidence of acute intracranial hemorrhage or territorial infarction. No abnormal mass effect or midline shift is seen. Pringle to white matter differentiation is well preserved. No extra-axial fluid collections are identified. The ventricles are normal in size. There is no abnormal attenuation within the brain parenchyma. The osseous structures and soft tissues are normal. The mastoid air cells and visualized portions of the paranasal sinuses are well aerated. ? CT/CT head/brain wo con IMPRESSION: Unremarkable exam. Dictated By: Nicole Villalobos Discharge Plan Discharge Clinical Impression: Vomiting, Abdominal pain Prescriptions: No Action metronidazole [Metrogel Vaginal] 0.75 % gel 1 appful vaginal DAILY 5 Days Qty: 70 0RF benzonatate 100 mg capsule 100 mg PO Q6H PRN (Reason: cough) Qty: 14 0RF prednisone 20 mg tablet 60 mg PO DAILY 5 Days Qty: 15 0RF ondansetron 4 mg tablet,disintegrating 4 mg PO Q6-8H PRN (Reason: nausea and vomiting) Qty: 14 0RF oxycodone 5 mg tablet 5 mg PO Q4H PRN (Reason: pain) Qty: 10 0RF Rx Instructions: Patient may request partial fill fluconazole [Diflucan] 150 mg tablet 150 mg PO DAILY Qty: 2 0RF Rx Instructions: may repeat in 3 days if symptoms persist lorazepam 0.5 mg tablet 0.5 mg PO BID PRN (Reason: Anxiety) 0RF amlodipine 5 mg tablet 5 mg PO DAILY 0RF omeprazole 20 mg capsule,delayed release(DR/EC) 20 mg PO DAILY Qty: 30 2RF
[2021-07-06] MEDS: HYDROmorphone HCl 0.5 MG/0.5 ML SYRINGE IVPUSH (08:00)
[2021-07-06] MEDS: ondansetron HCL 4 MG/2 ML VIAL IVPUSH ×2 (08:00→14:49)
[2021-07-06] MEDS: 0.9 % Sodium Chloride 1,000 ML 999 ML IVCONT (08:08)
[2021-07-06 08:28] LABS: Alanine Aminotransferase 39 U/L (0-31); Alkaline Phosphatase 98 U/L (39-117); Anion Gap 13 (12-20); Aspartate Amino Transferase 39 U/L (5-31); Bilirubin Total 0.7 mg/dL (0.0-1.0); Blood Urea Nitrogen 11 mg/dL (9-16); Carbon Dioxide 24 mmol/L (22-29); Chloride 107 mmol/L (96-108); Creatinine Clr Calc Pharmacy 76.5; Estimated Glomerular Filt Rate > 60; Glucose Random 132 mg/dL (60-115); Lipase 31 U/L (8-78); Potassium 4.2 mmol/L (3.3-5.1); Sodium 140 mmol/L (135-145); Total Protein 7.3 g/dL (6.5-8.0)
[2021-07-06 08:28] LABS: Basophils Absolute Auto 0.1 X10*3/uL (0.0-0.2); Basophils Percent Auto 0.3 % (0-2); Eosinophils Absolute Auto 0.1 X10*3/uL (0.0-0.4); Eosinophils Percent Auto 0.3 % (0-4); Hematocrit 48.1 % (37.0-47.0); Hemoglobin 16.3 g/dl (12.0-16.0); Imm Gran Abs Auto 0.08 X10*3/uL (0.00-0.03); Imm Gran Pct Auto 0.4 % (0.0-0.4); Lymphocytes Absolute Auto 0.9 X10*3/uL (1.2-4.9); Lymphocytes Percent Auto 4.6 % (20-40); Mean Corpuscular HGB Conc 33.9 g/dl (31.0-35.0); Mean Corpuscular Hemoglobin 29.4 pg (27.0-33.0); Mean Corpuscular Volume 86.8 fL (80.0-98.0); Monocytes Percent Auto 5.3 % (2-11); Neutrophils Absolute Auto 17.2 x10*3/uL (2.0-8.3); Neutrophils Percent Auto 89.1 % (45-73); Platelet Count 298 X10*3/uL (160-400); Red Blood Count 5.54 X10*6/uL (4.20-5.50); White Blood Count 19.3 X10*3/uL (4.8-10.8)
[2021-07-06 08:30] LABS: MANUAL DIFF FLAG NO
[2021-07-06] MEDS: iohexoL 350 MG/ML 100 ML INFUS..BTL IV (08:52)
[2021-07-06 09:44] VITALS: BP 108/48; PULSE 74; RESP 18; TEMP 36.9; O2SAT 95
[2021-07-06] MEDS: Magnesium Hydrox/Alum Hydrox 30 ML ORAL.SUSP PO (10:26)
--- NOTE | 2021-07-06 11:00 | PC.NURSE ---
pt reported that at around 0300 she started experiencing n/v/d and severe abdominal pain. she did. abd CT positive for SBO. 20g iv placed via US, labs drawn, meds given as documented.
--- NOTE | 2021-07-06 11:23 | P.HPHOSP_ITS ---
History of Present Illness Date of Service: 07/06/21 Attending physician on admission: Aury Solis Chief Complaint: abdominal pain This is a 55-year-old female who presents to the emergency department today with complaints of abdominal pain. She was in her usual state of health yesterday and had sudden onset of abdominal pain at 03:00 this morning. She reports primarily mid abdominal pain with associated nausea and vomiting as well as increased acidity. She has had multiple bouts of non-bloody diarrhea. she denies any recent overseas travel. She ordered take out pizza 2 days ago but had no GI upset yesterday. she denies any recent sick contacts. In the emergency department she underwent a CT scan of the abdomen which showed concern over ileus versus partial small-bowel obstruction. she has remained afebrile, lab work was significant for leukocytosis of 19.3, AST 39, ALT 39. She was treated with IV fluid, pain medication antiemetics. Her abdominal pain has persisted and the decision was made to admit her to the hospital for further management. Review of Systems Review of Systems: Yes all other systems are reviewed and are negative Constitutional: Constitutional: Denies chills and Denies fever(s) Cardiovascular: Cardiovascular: Denies chest pain, Denies palpitations and Denies dyspnea Respiratory: Respiratory: Denies cough and Denies dyspnea Gastrointestinal: Gastrointestinal: Reports abdominal pain, Reports dyspepsia, Reports diarrhea, Reports nausea and Reports vomiting Genitourinary: Genitourinary: Denies dysuria Endocrine: Endocrine: Denies palpitations [facility] Medical History (Updated 07/06/21 @ 11:31 by ED Aponte) Fibromyalgia Hypertension Nonalcoholic steatohepatitis (BUCKLEY) Pyloric stenosis SBO (small bowel obstruction) Urge incontinence Urgency of micturition Functional capacity: independent ambulation Family History Father No problems noted. Mother No problems noted. 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) Alcohol intake: never Patient Tobacco Use Status: Former Tobacco user Second Hand Smoke Exposure: No Advance Directives: No Advance Directives Information Provided: No service: No Current occupational status: unemployed Sexual orientation: Straight/Heterosexual Gender identity: Female Meds Allergies Allergy/AdvReac Type Severity Reaction Status Date / Time ibuprofen Allergy Severe RASH, Verified 04/18/21 08:53 SWELLING, anaphylaxis, swelling Active Medications: Current Medications Acetaminophen (Acetaminophen 325 Mg Tablet) 650 mg PO Q6H PRN PRN Reason: Pain, Mild (Pain Scale 1-3) Famotidine (Famotidine/Pf 20 Mg/2 Ml Vial) 20 mg IVPUSH ONCE ONE Stop: 07/06/21 11:19 Heparin Sodium (Porcine) (Heparin Sodium,Porcine 5,000 Unit/Ml Vial) 5,000 unit SUBCUT Q12H OMARI Lactated Ringer's (Lr) 1,000 mls @ 125 mls/hr IVCONT .Q8H OMARI Morphine Sulfate (Morphine Sulfate 4 Mg/Ml Cartridge) 2 mg IVPUSH Q4H PRN; Protocol PRN Reason: Pain, Severe (Pain Scale 7-10) Ondansetron HCl (Ondansetron Hcl 4 Mg/2 Ml Vial) 4 mg IVPUSH Q8H PRN PRN Reason: Nausea and Vomiting Pharmacy Consult (Consult Rx Perform Med Rec) 1 each MISCELLANE ONCE PRN PRN Reason: Consult order Sodium Chloride (0.9 % Sodium Chloride Flush 3 Ml Syringe) 3 ml IVFLUSH QSHIFT [facility] Home Medications Medication Instructions Recorded Confirmed Last Taken Type amlodipine 5 mg tablet 5 mg PO DAILY 06/14/20 07/06/21 07/04/21 History ascorbic acid (vitamin C) 1,000 mg 1,000 mg PO DAILY 07/06/21 07/06/21 Unknown History tablet (Vitamin C) cholecalciferol (vitamin D3) 25 25 mcg PO DAILY 07/06/21 07/06/21 Unknown History mcg (1,000 unit) tablet (Vitamin D3) omeprazole 20 mg capsule,delayed 20 mg PO DAILY PRN 07/06/21 07/06/21 Unknown History release Physical Exam Vital Signs and Narrative: Vital Signs: Last Vital Signs Temp 98.5 F 07/06/21 09:44 Pulse 74 07/06/21 09:44 Resp 18 07/06/21 09:44 BP 108/48 L 07/06/21 09:44 Pulse Ox 95 07/06/21 09:44 BMI result Body Mass Index 30.2 Const: General: cooperative, alert and awake Nutritional Appearance: overweight Orientation/consciousness: patient oriented x3 Eyes: Pupils: Equal, round and reactive pupils present EOM: EOMs intact bilaterally Resp: Effort & Inspection: normal respiratory effort and able to speak in complete sentences Auscultation: clear to auscultation bilaterally Cardio: Rate: regular rate Heart sounds: S1 normal heart sound present and S2 normal heart sound present GI: Other: soft, non-distended, tender primarily mid-abdomen; +BS Neuro: General: patient oriented x3 Cranial nerves: Yes Equal, round and reactive pupils present Extrem: General: Yes no pedal edema Results Labs CBC and Chem 7: 07/06/21 07:58 07/06/21 07:25 Labs: Laboratory Results - last 24 hr 07/06/21 07/06/21 07:25 07:58 MCV 86.8 MCH 29.4 MCHC 33.9 RDW 13.0 Plt Count 298 MPV 10.0 Immature Gran % (Auto) 0.4 Neut % (Auto) 89.1 H Lymph % (Auto) 4.6 L [place] % (Auto) 5.3 Eos % (Auto) 0.3 Baso % (Auto) 0.3 Lymph # (Auto) 0.9 L [place] # (Auto) 1.0 Eos # (Auto) 0.1 Baso # (Auto) 0.1 Abs Immat Gran (auto) 0.08 H Absolute Neuts (auto) 17.2 H Absolute Nucleated RBC 0.000 Nucleated RBC % (auto) 0.0 Anion Gap 13 Estim Creat Clear Calc 76.5 Estimated GFR > 60 Random Glucose 132 H Calcium 9.0 Total Bilirubin 0.7 AST 39 H D ALT 39 H Alkaline Phosphatase 98 Total Protein 7.3 Albumin 4.0 Lipase 31 Imaging Radiologist's Impressions: Impressions Abdomen/Pelvis CT 07/06/21 08:50 IMPRESSION: Short segment dilated loop of small bowel in the mid abdomen measuring up to 3.8 cm. Ileus and partial obstruction should be considered. The small bowel is otherwise normal. Increased sacculations in the colon, particularly the transverse colon. Underdistended left colon and sigmoid colon. It is difficult to exclude mild colitis. Fleischner guidelines were followed. Assessment and Plan (1) Abdominal pain: Status: Acute Plan This is a 55-year-old female with history of hypertension, GERD, fibromyalgia, Buckley, history of SBO secondary to multiple abdominal surgeries who presents to the emergency department with abdominal pain, nausea, vomiting, diarrhea found to have partial small-bowel obstruction abdominal pain CT scan showing partial small bowel obstruction/ileus NPO, IVF, antiemetics and IV analgesia IV levaquin for possible colitis surgical consult monitor abdominal exam check stool studies Mild tranamitnitis likely secondary to BUCKLEY HTN BP soft will hold norvasc follow BP DVt ppx - heparin code status - full code attending - dr. gonzales requires 2 midnight stay in hospital due to evaluation for possible sbo and colitis; IV abx and bowel rest Quality Stroke Does the patient have a stroke diagnosis?: No VTE Prior VTE?: No VTE Risk Level:: Medical - moderate - high VTE Device Contraindication: N/A - Device Ordered VTE Drug Contraindication: N/A - Med Ordered
--- NOTE | 2021-07-06 11:32 | PHA.MEDREC ---
MED REC COMPLETE, NO ISSUES Pharmacy Consult ? Medication Reconciliation Pharmacy has completed the medication reconciliation.
[2021-07-06 11:49] LABS: COVID-19 Test Negative (Negative)
[2021-07-06] MEDS: Lactated Ringers 1,000 ML 125 ML IVCONT ×2 (13:30→20:57)
--- NOTE | 2021-07-06 14:25 | MHC.CM.PN ---
IMM 07/06/21, EMR REVIEWED, PT ADMITTED W/ABD PAIN, CM ME W/PT WHO IS A&O, PT REPORTS SHE LIVES ALONE, USES [employer]UTCHES/WALKER AND DENIES ANY OTHER DME, PT DENIES HAVING HOME SERVICES AT THIS TIME AND REPORTS A [facility] NURSE IS COMING TO HER APT THIS WEDNESDAY TO ASSESS HER FOR A SOLE INKER PT REPORTS SHE USED TO HAVE A SOLE INKER HOWEVER WHEN SHE CHANGED INSURANCE HER SOLE INKER HRS WERE CANCELLED, PT REPORTING SHE HAS OCCASIONAL INCONTINENCE AND IS REQUESTING SCRIPTS FOR BED PAD HOWEVER PT INFORMED SHE WOULD NEED TO GO THROUGH HER PCP, PT IS OPEN TO VNA SERVICES IF RECOMMENDED ON D/C. PT VERIFIES PCP DR WALE MATTHEWS AT [facility] IN [facility], PT REPORTS SHE IS NOT VACCINATED FOR COVID 19, PT DENIES HAVING A HCP, EDUCATION PROVIDED AND PT WILL CONSIDER COMPLETING ONE PRIOR TO D/C. D/C PLAN: HOME VS HOME W/NEW VNA, PT WILL ARRANGE HER OWN TRANPSORT
[2021-07-06] MEDS: Famotidine/PF 20 MG/2 ML VIAL IVPUSH (14:49)
[2021-07-06] MEDS: Heparin Sodium,Porcine 5,000 UNIT/ML VIAL 5000 UNIT SUBCUT (14:49)
[2021-07-06] MEDS: Morphine Sulfate 2 MG/ML CARTRIDGE IVPUSH ×2 (14:50→20:56)
[2021-07-06] MEDS: levoFLOXacin/D5W 750 MG/150 ML PIGGYBACK 100 MG IV (14:50)
[2021-07-06 16:00] VITALS: BP 117/54; PULSE 64; RESP 16; TEMP 36.9; O2SAT 95
[2021-07-06] MEDS: 0.9 % Sodium Chloride Flush 3 ML SYRINGE IVFLUSH (17:12)
[2021-07-06 18:00] VITALS: BP 127/49; PULSE 65; RESP 16; TEMP 37.2; O2SAT 96
[2021-07-06 19:32] LABS: Appearance Urine CLEAR; Color Urine YELLOW; Glucose Urine UA NEG (NEG); Leukocyte Esterase Urine NEG (NEG); Nitrite Urine NEG (NEG); Specific Gravity - Urine >= 1.030 (1.005-1.025); Urine Blood NEG (NEG); Urine Ketones NEG (NEG); Urine Protein NEG (NEG-TRACE)
[2021-07-06 20:34] LABS: Bacteria Urine 1+ /LPF; Squamous Epithelial Cell Urine 1+ /LPF; WBC Urine 0-2 /HPF (0-4)
[2021-07-06 21:03] VITALS: BP 131/42; PULSE 66; RESP 18; TEMP 37.1; O2SAT 97
[2021-07-06 21:58] LABS: CDiff Gene PCR NEGATIVE (Negative)
[2021-07-06 22:17] LABS: Leukocytes Stool Qualitative NEGATIVE (NEGATIVE)
--- NOTE | 2021-07-06 22:32 | P.CONGS_ITS ---
History of Present Illness Consult details Consult date: 07/06/21 Requesting physician: Kandy Michelle Narrative: The pt is a 55 year old female who has had multiple previous surgeries, pyloric stenosis, appendectomy and cholecystectomy and has been admitted for partial small bowel obstruction. She comes in now complaining of abdo pain and nausea nd vomiting adn diarrhea yesterday - passing gas and stool. no sick contacts. wbc elevated and ct scan showing one mildly dialted small bowel loop. Review of Systems Review of Systems: Yes all other systems are reviewed and are negative [facility] Past Medical History Medical History (Updated 07/06/21 @ 11:31 by ED Aponte) Fibromyalgia Hypertension Nonalcoholic steatohepatitis (WALKER) Pyloric stenosis SBO (small bowel obstruction) Urge incontinence Urgency of micturition Family History Family History Father No problems noted. Mother No problems noted. 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) Alcohol intake: never Patient Tobacco Use Status: Former Tobacco user Second Hand Smoke Exposure: No Use of substances other than those prescribed or required for medical reasons: No Advance Directives: No Advance Directives Information Provided: No service: No Current occupational status: unemployed Sexual orientation: Straight/Heterosexual Gender identity: Female Meds Allergies Allergy/AdvReac Type Severity Reaction Status Date / Time ibuprofen Allergy Severe RASH, Verified 04/18/21 08:53 SWELLING, anaphylaxis, swelling Active Medications: Current Medications Acetaminophen (Acetaminophen 325 Mg Tablet) 650 mg PO Q6H PRN PRN Reason: Pain, Mild (Pain Scale 1-3) Heparin Sodium (Porcine) (Heparin Sodium,Porcine 5,000 Unit/Ml Vial) 5,000 unit SUBCUT Q12H OMARI Last Admin: 07/06/21 14:49 Dose: 5,000 unit Documented by: Lactated Ringer's (Lr) 1,000 mls @ 125 mls/hr IVCONT .Q8H [facility] Last Admin: 07/06/21 20:57 Dose: 125 mls/hr Documented by: Levofloxacin (Levaquin) 750 mg in 150 mls @ 100 mls/hr IV Q24H [facility] Last Infusion: 07/06/21 17:10 Dose: Infused Documented by: Morphine Sulfate (Morphine Sulfate 2 Mg/Ml Cartridge) 2 mg IVPUSH Q4H PRN; Protocol PRN Reason: Pain, Severe (Pain Scale 7-10) Last Admin: 07/06/21 20:56 Dose: 2 mg Documented by: Ondansetron HCl (Ondansetron Hcl 4 Mg/2 Ml Vial) 4 mg IVPUSH Q8H PRN PRN Reason: Nausea and Vomiting Last Admin: 07/06/21 14:49 Dose: 4 mg Documented by: Pharmacy Consult (Consult Rx Perform Med Rec) 1 each MISCELLANE ONCE PRN PRN Reason: Consult order Sodium Chloride (0.9 % Sodium Chloride Flush 3 Ml Syringe) 3 ml IVFLUSH QSHIFT [facility] Last Admin: 07/06/21 17:12 Dose: 3 ml Documented by: Home Medications Medication Instructions Recorded Confirmed Last Taken Type amlodipine 5 mg tablet 5 mg PO DAILY 06/14/20 07/06/21 07/04/21 History ascorbic acid (vitamin C) 1,000 mg 1,000 mg PO DAILY 07/06/21 07/06/21 07/04/21 History tablet (Vitamin C) cholecalciferol (vitamin D3) 25 25 mcg PO DAILY 07/06/21 07/06/21 07/04/21 History mcg (1,000 unit) tablet (Vitamin D3) omeprazole 20 mg capsule,delayed 20 mg PO DAILY PRN 07/06/21 07/06/21 07/02/21 History release Physical Exam Vital Signs: Vital Signs: Last Vital Signs Temp 98.8 F 07/06/21 21:03 Pulse 66 07/06/21 21:03 Resp 18 07/06/21 21:03 BP 131/42 L 07/06/21 21:03 Pulse Ox 97 07/06/21 21:03 BMI result Body Mass Index 30.2 Const: Orientation/consciousness: oriented to person, oriented to place and oriented to time HEENT: Head: Yes normal to inspection Resp: Effort & Inspection: normal respiratory effort Auscultation: clear to auscultation bilaterally Cardio: Rate: regular rate Rhythm: regular rhythm GI: Other: soft mild tenderness mid abdomen no guarding or rebound or peritoneal signs Inspection: Yes normal to inspection Percussion: No tympanic to percussion Auscultation: normal bowel sounds Skin: General skin exam: no rashes or lesions noted Neuro: General: oriented to person, oriented to place and oriented to time Results Labs Result diagrams: 07/06/21 07:58 07/06/21 07:25 Labs: Abnormal lab results 07/06/21 07/06/21 07/06/21 Range/Units 07:25 07:58 19:26 WBC 19.3 H (4.8-10.8) X10*3/uL RBC 5.54 H (4.20-5.50) X10*6/uL Hgb 16.3 H (12.0-16.0) g/dl Hct 48.1 H (37.0-47.0) % Neut % (Auto) 89.1 H (45-73) % Lymph % (Auto) 4.6 L (20-40) % Lymph # (Auto) 0.9 L (1.2-4.9) X10*3/uL Abs Immat Gran (auto) 0.08 H (0.00-0.03) X10*3/uL Absolute Neuts (auto) 17.2 H (2.0-8.3) x10*3/uL Random Glucose 132 H (60-115) mg/dL AST 39 H D (5-31) U/L ALT 39 H (0-31) U/L Ur Specific [place] >= 1.030 H (1.005-1.025) Short CBC 07/06/21 Range/Units 07:58 WBC 19.3 H (4.8-10.8) X10*3/uL Hgb 16.3 H (12.0-16.0) g/dl Hct 48.1 H (37.0-47.0) % Plt Count 298 (160-400) X10*3/uL BMP 07/06/21 07:25 Sodium 140 Potassium 4.2 Chloride 107 Carbon Dioxide 24 BUN 11 Creatinine 0.68 Calcium 9.0 Liver Function 07/06/21 Range/Units 07:25 Total Bilirubin 0.7 (0.0-1.0) mg/dL AST 39 H D (5-31) U/L ALT 39 H (0-31) U/L Alkaline Phosphatase 98 (39-117) U/L Albumin 4.0 (3.5-5.0) g/dL Urine 07/06/21 Range/Units 19:26 Urine Color YELLOW Urine Appearance CLEAR Urine pH 6.0 (5.0-8.0) Ur Specific [place] >= 1.030 H (1.005-1.025) Urine Protein NEG (NEG-TRACE) MG/DL Urine Glucose (UA) NEG (NEG) MG/DL All other labs normal. Imaging Abdomen CT scan report/results: report reviewed and image reviewed CT scan - pelvis: report reviewed and image reviewed Assessment and Plan (1) Abdominal pain: Status: Acute Plan 55 year old female with previous history of sbo due to adhesions from previous abdo surgeries now with abdo pain, nausea and vomiting and diarrhea and elevated wbc and ct scan not specific for sbo and physical exam also not - ?gastroenteritis - ct scan findings different than previous if not improved by tomorrow consider small bowel follow through. Procedures Date of Service Date of Service: 07/06/21
[2021-07-07 00:34] VITALS: BP 102/38; PULSE 63; RESP 14; O2SAT 96
[2021-07-07] MEDS: Heparin Sodium,Porcine 5,000 UNIT/ML VIAL 5000 UNIT SUBCUT ×2 (00:35→12:19)
[2021-07-07] MEDS: 0.9 % Sodium Chloride Flush 3 ML SYRINGE IVFLUSH (00:36)
[2021-07-07] MEDS: Lactated Ringers 1,000 ML 125 ML IVCONT ×3 (02:30→20:00)
[2021-07-07 04:43] VITALS: BP 102/41; PULSE 61; RESP 20; O2SAT 95
[2021-07-07 06:35] LABS: Hematocrit 36.2 % (37.0-47.0); Hemoglobin 12.2 g/dl (12.0-16.0); Mean Corpuscular HGB Conc 33.7 g/dl (31.0-35.0); Mean Corpuscular Hemoglobin 30.1 pg (27.0-33.0); Mean Corpuscular Volume 89.4 fL (80.0-98.0); Mean Platelet Volume 10.2 fL (9.4-12.3); Platelet Count 206 X10*3/uL (160-400); Red Blood Count 4.05 X10*6/uL (4.20-5.50); Red Cell Distribution Width 13.2 % (11.0-16.0); White Blood Count 5.6 X10*3/uL (4.8-10.8)
[2021-07-07 06:51] LABS: Anion Gap 9 (12-20); Blood Urea Nitrogen 10 mg/dL (9-16); Calcium 8.3 mg/dL (8.4-10.2); Carbon Dioxide 29 mmol/L (22-29); Chloride 105 mmol/L (96-108); Creatinine Clr Calc Pharmacy 73.3; Estimated Glomerular Filt Rate > 60; Glucose Random 106 mg/dL (60-115); Potassium 3.9 mmol/L (3.3-5.1); Sodium 139 mmol/L (135-145)
--- NOTE | 2021-07-07 08:20 | PM.PNGS ---
Subjective Subjective Date of Service: 07/07/21 Interval history: Feels much better Denies abdominal pain Passing flatus Says she is hungry Physical Exam Vital Signs: Vital Signs: Last Vital Signs Temp 98.8 F 07/06/21 21:03 Pulse 61 07/07/21 04:43 Resp 20 07/07/21 04:43 BP 102/41 L 07/07/21 04:43 Pulse Ox 95 07/07/21 04:43 BMI result Body Mass Index 30.2 Const: General: comfortable and no acute distress Resp: Effort & Inspection: normal respiratory effort Cardio: Rate: regular rate GI: Inspection: No distended Palpation (GI): Soft to palpation, not firm, nontender and no guarding Objective Data Active Medications Acetaminophen (Acetaminophen 325 Mg Tablet) 650 mg PO Q6H PRN PRN Reason: Pain, Mild (Pain Scale 1-3) Heparin Sodium (Porcine) (Heparin Sodium,Porcine 5,000 Unit/Ml Vial) 5,000 unit SUBCUT Q12H [facility] Last Admin: 07/07/21 00:35 Dose: 5,000 unit Documented by: JONNIE Lactated Ringer's (Lr) 1,000 mls @ 125 mls/hr IVCONT .Q8H [facility] Last Admin: 07/07/21 02:30 Dose: 125 mls/hr Documented by: JONNIE Levofloxacin (Levaquin) 750 mg in 150 mls @ 100 mls/hr IV Q24H [facility] Last Infusion: 07/06/21 17:10 Dose: 0 mls/hr Documented by: PRETTY Morphine Sulfate (Morphine Sulfate 2 Mg/Ml Cartridge) 2 mg IVPUSH Q4H PRN; Protocol PRN Reason: Pain, Severe (Pain Scale 7-10) Last Admin: 07/06/21 20:56 Dose: 2 mg Documented by: JONNIE Ondansetron HCl (Ondansetron Hcl 4 Mg/2 Ml Vial) 4 mg IVPUSH Q8H PRN PRN Reason: Nausea and Vomiting Last Admin: 07/06/21 14:49 Dose: 4 mg Documented by: PRETTY Pharmacy Consult (Consult Rx Perform Med Rec) 1 each MISCELLANE ONCE PRN PRN Reason: Consult order Sodium Chloride (0.9 % Sodium Chloride Flush 3 Ml Syringe) 3 ml IVFLUSH QSHIFT [facility] Last Admin: 07/07/21 00:36 Dose: 3 ml Documented by: JONNIE Labs CBC & Chem 7: 07/07/21 06:28 07/07/21 06:28 Labs: Laboratory Results - last 24 hr 07/06/21 07/06/21 07/06/21 07:25 07:58 11:20 MCV 86.8 MCH 29.4 MCHC 33.9 RDW 13.0 Plt Count 298 MPV 10.0 Immature Gran % (Auto) 0.4 Neut % (Auto) 89.1 H Lymph % (Auto) 4.6 L [place] % (Auto) 5.3 Eos % (Auto) 0.3 Baso % (Auto) 0.3 Lymph # (Auto) 0.9 L [place] # (Auto) 1.0 Eos # (Auto) 0.1 Baso # (Auto) 0.1 Abs Immat Gran (auto) 0.08 H Absolute Neuts (auto) 17.2 H Absolute Nucleated RBC 0.000 Nucleated RBC % (auto) 0.0 Anion Gap 13 Estim Creat Clear Calc 76.5 Estimated GFR > 60 Random Glucose 132 H Calcium 9.0 Total Bilirubin 0.7 AST 39 H D ALT 39 H Alkaline Phosphatase 98 Total Protein 7.3 Albumin 4.0 Lipase 31 Urine Color Urine Appearance Urine pH Ur Specific [place] Urine Protein Urine Glucose (UA) Urine Ketones Urine Blood Urine Nitrite Ur Leukocyte Esterase Urine RBC Urine WBC Ur Squamous Epith Cells Urine Bacteria Stool Leukocytes, Qual C. difficile Tox B Gene COVID-19 (BETO) Negative COVID-19 Clin Com See Note 07/06/21 07/06/21 07/06/21 19:26 20:44 20:44 MCV MCH MCHC RDW Plt Count MPV Immature Gran % (Auto) Neut % (Auto) Lymph % (Auto) [place] % (Auto) Eos % (Auto) Baso % (Auto) Lymph # (Auto) [place] # (Auto) Eos # (Auto) Baso # (Auto) Abs Immat Gran (auto) Absolute Neuts (auto) Absolute Nucleated RBC Nucleated RBC % (auto) Anion Gap Estim Creat Clear Calc Estimated GFR Random Glucose Calcium Total Bilirubin AST ALT Alkaline Phosphatase Total Protein Albumin Lipase Urine Color YELLOW Urine Appearance CLEAR Urine pH 6.0 Ur Specific [place] >= 1.030 H Urine Protein NEG Urine Glucose (UA) NEG Urine Ketones NEG Urine Blood NEG Urine Nitrite NEG Ur Leukocyte Esterase NEG Urine RBC 1-4 Urine WBC 0-2 Ur Squamous Epith Cells 1+ Urine Bacteria 1+ Stool Leukocytes, Qual NEGATIVE C. difficile Tox B Gene NEGATIVE COVID-19 (BETO) COVID-19 [employer] 07/07/21 07/07/21 06:28 06:28 MCV 89.4 MCH 30.1 MCHC 33.7 RDW 13.2 Plt Count 206 D MPV 10.2 Immature Gran % (Auto) Neut % (Auto) Lymph % (Auto) [place] % (Auto) Eos % (Auto) Baso % (Auto) Lymph # (Auto) [place] # (Auto) Eos # (Auto) Baso # (Auto) Abs Immat Gran (auto) Absolute Neuts (auto) Absolute Nucleated RBC 0.000 Nucleated RBC % (auto) 0.0 Anion Gap 9 L Estim Creat Clear Calc 73.3 Estimated GFR > 60 Random Glucose 106 Calcium 8.3 L D Total Bilirubin AST ALT Alkaline Phosphatase Total Protein Albumin Lipase Urine Color Urine Appearance Urine pH Ur Specific [place] Urine Protein Urine Glucose (UA) Urine Ketones Urine Blood Urine Nitrite Ur Leukocyte Esterase Urine RBC Urine WBC Ur Squamous Epith Cells Urine Bacteria Stool Leukocytes, Qual C. difficile Tox B Gene COVID-19 (BETO) COVID-19 Clin Com Procedures Date of Service Date of Service: 07/07/21 Progress Note: A&P Assessment and plan (1) Abdominal pain: Status: Acute Assessment and Plan: Symptoms completely resolved Abdominal pain or tenderness Start clear liquids Plan advance diet as tolerated Clinically not obstructed Looks well and comfortable Fall Risk Details Current Medications: Current Medications Acetaminophen (Acetaminophen 325 Mg Tablet) 650 mg PO Q6H PRN PRN Reason: Pain, Mild (Pain Scale 1-3) Heparin Sodium (Porcine) (Heparin Sodium,Porcine 5,000 Unit/Ml Vial) 5,000 unit SUBCUT Q12H [facility] Last Admin: 07/07/21 00:35 Dose: 5,000 unit Documented by: Lactated Ringer's (Lr) 1,000 mls @ 125 mls/hr IVCONT .Q8H [facility] Last Admin: 07/07/21 02:30 Dose: 125 mls/hr Documented by: Levofloxacin (Levaquin) 750 mg in 150 mls @ 100 mls/hr IV Q24H [facility] Last Infusion: 07/06/21 17:10 Dose: Infused Documented by: Morphine Sulfate (Morphine Sulfate 2 Mg/Ml Cartridge) 2 mg IVPUSH Q4H PRN; Protocol PRN Reason: Pain, Severe (Pain Scale 7-10) Last Admin: 07/06/21 20:56 Dose: 2 mg Documented by: Ondansetron HCl (Ondansetron Hcl 4 Mg/2 Ml Vial) 4 mg IVPUSH Q8H PRN PRN Reason: Nausea and Vomiting Last Admin: 07/06/21 14:49 Dose: 4 mg Documented by: Pharmacy Consult (Consult Rx Perform Med Rec) 1 each MISCELLANE ONCE PRN PRN Reason: Consult order Sodium Chloride (0.9 % Sodium Chloride Flush 3 Ml Syringe) 3 ml IVFLUSH [facility] Last Admin: 07/07/21 00:36 Dose: 3 ml Documented by: Time Spent With Patient Time: Total time spent is greater than 50% in coordination of care (as documented) at patient's floor/unit and/or counseling patient: Quality Stroke Does the patient have a stroke diagnosis?: No VTE Prior VTE?: No VTE Risk Level:: Medical - moderate - high VTE Device Contraindication: N/A - Device Ordered VTE Drug Contraindication: N/A - Med Ordered
--- NOTE | 2021-07-07 09:30 | MHC.CM.PN ---
PT STATUS CHANGED FROM OBSERVATION TO INPATIENT PT INFORMED AND IMM DELIVERED. COPY SENT TO MEDICAL RECORDS, ORIGINAL TO PT
[2021-07-07 09:36] LABS: C Reactive Protein 2.95 mg/dL (< or = 0.50)
--- NOTE | 2021-07-07 11:15 | PC.NURSE ---
patient moved to overflow area at this time, no apparent distress. patient settled into bed and provide update on plan of care. patient denies any needs at this time.
[2021-07-07 12:27] VITALS: BP 121/45; PULSE 67; RESP 19; TEMP 36.6; O2SAT 97
[2021-07-07] MEDS: levoFLOXacin/D5W 750 MG/150 ML PIGGYBACK 100 MG IV (13:13)
--- NOTE | 2021-07-07 13:22 | P.PNIM_ITS ---
Subjective Subjective Date of Service: 07/07/21 Interval History: Abd pain improved, passing gas + small amount liquid stool. Review of Systems Review of Systems: Yes all other systems are reviewed and are negative Physical Exam Vital Signs: Vital Signs: Last Vital Signs Temp 97.8 F 07/07/21 12:27 Pulse 67 07/07/21 12:27 Resp 19 07/07/21 12:27 BP 121/45 L 07/07/21 12:27 Pulse Ox 97 07/07/21 12:27 BMI result Body Mass Index 30.2 Gen: in no acute distress HEENT: sclera anicteric, moist mucus membranes Neck: supple Lungs: clear to auscultation bilaterally Heart: regular rate and rhythm, no murmurs Abd: soft, non-tender, non-distended Ext: no edema Skin: warm/well-perfused Neuro: alert and oriented x3, no focal findings Psych: appropriate affect Objective Data Active Medications Acetaminophen (Acetaminophen 325 Mg Tablet) 650 mg PO Q6H PRN PRN Reason: Pain, Mild (Pain Scale 1-3) Heparin Sodium (Porcine) (Heparin Sodium,Porcine 5,000 Unit/Ml Vial) 5,000 unit SUBCUT Q12H [facility] Last Admin: 07/07/21 12:19 Dose: 5,000 unit Documented by: SAMMI Lactated Ringer's (Lr) 1,000 mls @ 125 mls/hr IVCONT .Q8H [facility] Last Admin: 07/07/21 11:00 Dose: 125 mls/hr Documented by: LUZ MARINA Levofloxacin (Levaquin) 750 mg in 150 mls @ 100 mls/hr IV Q24H [facility] [place] Last Admin: 07/07/21 13:13 Dose: 100 mls/hr Documented by: SAMMI Morphine Sulfate (Morphine Sulfate 2 Mg/Ml Cartridge) 2 mg IVPUSH Q4H PRN; Protocol PRN Reason: Pain, Severe (Pain Scale 7-10) Last Admin: 07/06/21 20:56 Dose: 2 mg Documented by: JONNIE Ondansetron HCl (Ondansetron Hcl 4 Mg/2 Ml Vial) 4 mg IVPUSH Q8H PRN PRN Reason: Nausea and Vomiting Last Admin: 07/06/21 14:49 Dose: 4 mg Documented by: PRETTY Pharmacy Consult (Consult Rx Perform Med Rec) 1 each MISCELLANE ONCE PRN PRN Reason: Consult order Sodium Chloride (0.9 % Sodium Chloride Flush 3 Ml Syringe) 3 ml IVFLUSH QSHIFT [facility] [place] Last Admin: 07/07/21 09:08 Dose: Not Given Documented by: LUZ MARINA Non-Admin Reason: IV Running Labs CBC & Chem 7: 07/07/21 06:28 07/07/21 06:28 Labs: Laboratory Results - last 24 hr 07/06/21 07/06/21 07/06/21 19:26 20:44 20:44 MCV MCH MCHC RDW Plt Count MPV Absolute Nucleated RBC Nucleated RBC % (auto) Anion Gap Estim Creat Clear Calc Estimated GFR Random Glucose Calcium C-Reactive Protein Urine Color YELLOW Urine Appearance CLEAR Urine pH 6.0 Ur Specific [place] >= 1.030 H Urine Protein NEG Urine Glucose (UA) NEG Urine Ketones NEG Urine Blood NEG Urine Nitrite NEG Ur Leukocyte Esterase NEG Urine RBC 1-4 Urine WBC 0-2 Ur Squamous Epith Cells 1+ Urine Bacteria 1+ Stool Leukocytes, Qual NEGATIVE C. difficile Tox B Gene NEGATIVE 07/07/21 07/07/21 06:28 06:28 MCV 89.4 MCH 30.1 MCHC 33.7 RDW 13.2 Plt Count 206 D MPV 10.2 Absolute Nucleated RBC 0.000 Nucleated RBC % (auto) 0.0 Anion Gap 9 L Estim Creat Clear Calc 73.3 Estimated GFR > 60 Random Glucose 106 Calcium 8.3 L D C-Reactive Protein 2.95 H Urine Color Urine Appearance Urine pH Ur Specific [place] Urine Protein Urine Glucose (UA) Urine Ketones Urine Blood Urine Nitrite Ur Leukocyte Esterase Urine RBC Urine WBC Ur Squamous Epith Cells Urine Bacteria Stool Leukocytes, Qual C. difficile Tox B Gene Microbiology Microbiology Results: Microbiology 07/06/21 20:44 Stool Culture - Preliminary Stool Culture in progress. Assessment and Plan (1) SBO (small bowel obstruction): Status: Acute Plan hospital d#2 55yo F with HTN, GERD, FM, WALKER, hx SBO 2/2 multiple abd surgeries p/w abd pain/N/V/D, admitted for pSBO # pSBO - resolving clinically, advance to [facility]D per Gen Surg - levofloxacin d#2 for possible colitis, follow stool studies - IV fluid hydration # transaminasemia - mild, reactive + underlying WALKER # HTN - hold amlodipine for soft BP # VTE ppx - UFH # dispo - home once tolerating solid diet In my clinical judgment, the patient requires continued hospitalization for the following reasons: IV fluids, bowel rest Quality Stroke Does the patient have a stroke diagnosis?: No VTE Prior VTE?: No VTE Risk Level:: Medical - moderate - high VTE Device Contraindication: N/A - Device Ordered VTE Drug Contraindication: N/A - Med Ordered
--- NOTE | 2021-07-07 14:04 | PM.EVENT ---
Event Note Date of Service: 07/07/21 Event Note: Continues to feel well Denies abdominal pain Tolerating liquids Abdomen soft and nontender Will advance to regular food Possible discharge tomorrow
[2021-07-07 14:06] LABS: Alanine Aminotransferase 293 U/L (0-31); Albumin Level 3.4 g/dL (3.5-5.0); Alkaline Phosphatase 102 U/L (39-117); Aspartate Amino Transferase 185 U/L (5-31); Bilirubin Direct 0.5 mg/dL (0.0-0.5); Bilirubin Total 1.2 mg/dL (0.0-1.0); Total Protein 5.6 g/dL (6.5-8.0)
[2021-07-07 16:00] VITALS: BP 149/79; PULSE 63; RESP 18; TEMP 37.1; O2SAT 96
[2021-07-08] VITALS: BP 141/71; PULSE 65; RESP 14; TEMP 36.7; O2SAT 96
[2021-07-08] MEDS: Morphine Sulfate 2 MG/ML CARTRIDGE IVPUSH ×2 (00:34→10:37)
[2021-07-08] MEDS: ondansetron HCL 4 MG/2 ML VIAL IVPUSH ×2 (00:39→10:34)
[2021-07-08] MEDS: Heparin Sodium,Porcine 5,000 UNIT/ML VIAL 5000 UNIT SUBCUT ×3 (00:50→23:34)
[2021-07-08] MEDS: Lactated Ringers 1,000 ML 125 ML IVCONT ×3 (04:35→20:35)
[2021-07-08 07:51] VITALS: BP 132/63; PULSE 58; RESP 18; TEMP 36.8; O2SAT 93
[2021-07-08 09:30] LABS: Alanine Aminotransferase 254 U/L (0-31); Albumin Level 3.7 g/dL (3.5-5.0); Alkaline Phosphatase 133 U/L (39-117); Anion Gap 10 (12-20); Aspartate Amino Transferase 115 U/L (5-31); Bilirubin Total 0.7 mg/dL (0.0-1.0); Blood Urea Nitrogen 7 mg/dL (9-16); Calcium 8.8 mg/dL (8.4-10.2); Carbon Dioxide 28 mmol/L (22-29); Chloride 107 mmol/L (96-108); Creatinine Clr Calc Pharmacy 65.9; Estimated Glomerular Filt Rate > 60; Glucose Random 95 mg/dL (60-115); Sodium 141 mmol/L (135-145); Total Protein 6.5 g/dL (6.5-8.0)
[2021-07-08 09:44] LABS: HBS Num1 100.78 mIU/mL (0-7.99); HBc Num1 0.15 S/CO (0.00-0.79); HBsAGNum1 0.23 S/CO (0.00-0.99); Hepatitis B Core Antibody Nonreactive (Nonreactive); Hepatitis B Surface Antigen Negative (Negative); ~HepC Num1 0.15 S/CO (0.00-0.79); ~Hepatitis B Surface Antibody REACTIVE (Nonreactive); ~Hepatitis C Antibody Nonreactive (Nonreactive)
--- NOTE | 2021-07-08 09:45 | PM.PNGS ---
Subjective Subjective Date of Service: 07/08/21 Interval history: c/o diarrhea now says she has burning around her buttocks because of diarrhea no vomiting Physical Exam Vital Signs: Vital Signs: Last Vital Signs Temp 98.3 F 07/08/21 07:51 Pulse 58 07/08/21 07:51 Resp 18 07/08/21 07:51 BP 132/63 07/08/21 07:51 Pulse Ox 93 07/08/21 07:51 BMI result Body Mass Index 30.2 Const: General: comfortable and no acute distress Resp: Effort & Inspection: normal respiratory effort Cardio: Rate: regular rate GI: Palpation (GI): Soft to palpation, not firm, nontender and no guarding Objective Data Active Medications Acetaminophen (Acetaminophen 325 Mg Tablet) 650 mg PO Q6H PRN PRN Reason: Pain, Mild (Pain Scale 1-3) Heparin Sodium (Porcine) (Heparin Sodium,Porcine 5,000 Unit/Ml Vial) 5,000 unit SUBCUT Q12H [facility] Last Admin: 07/08/21 00:50 Dose: 5,000 unit Documented by: RUBY Lactated Ringer's (Lr) 1,000 mls @ 125 mls/hr IVCONT .Q8H [facility] Last Admin: 07/08/21 04:35 Dose: 125 mls/hr Documented by: RUBY Morphine Sulfate (Morphine Sulfate 2 Mg/Ml Cartridge) 2 mg IVPUSH Q4H PRN; Protocol PRN Reason: Pain, Severe (Pain Scale 7-10) Last Admin: 07/08/21 00:34 Dose: 2 mg Documented by: RUBY Ondansetron HCl (Ondansetron Hcl 4 Mg/2 Ml Vial) 4 mg IVPUSH Q8H PRN PRN Reason: Nausea and Vomiting Last Admin: 07/08/21 00:39 Dose: 4 mg Documented by: RUBY Pharmacy Consult (Consult Rx Perform Med Rec) 1 each MISCELLANE ONCE PRN PRN Reason: Consult order Sodium Chloride (0.9 % Sodium Chloride Flush 3 Ml Syringe) 3 ml IVFLUSH QSHIFT [facility] Last Admin: 07/08/21 00:00 Dose: Not Given Documented by: RUBY Non-Admin Reason: IV Running Labs CBC & Chem 7: 07/07/21 06:28 07/08/21 08:23 Labs: Laboratory Results - last 24 hr 07/07/21 07/08/21 06:28 08:23 Anion Gap 10 L Estim Creat Clear Calc 65.9 Estimated GFR > 60 Random Glucose 95 Calcium 8.8 D Total Bilirubin 1.2 H 0.7 Direct Bilirubin 0.5 AST 185 H 115 H ALT 293 H 254 H Alkaline Phosphatase 102 133 H D Total Protein 5.6 L D 6.5 Albumin 3.4 L 3.7 Microbiology Microbiology Results: Microbiology 07/06/21 20:44 Stool Culture - Preliminary Stool Culture in progress. Procedures Date of Service Date of Service: 07/08/21 Progress Note: A&P Assessment and plan (1) Abdominal pain: Status: Acute Assessment and Plan: clinically not obstructed now has diarrhea check stools for C diff diet as tolerated abdominal exam remains benign Time Spent With Patient Time: Total time spent is greater than 50% in coordination of care (as documented) at patient's floor/unit and/or counseling patient: Quality Stroke Does the patient have a stroke diagnosis?: No VTE Prior VTE?: No VTE Risk Level:: Medical - moderate - high VTE Device Contraindication: N/A - Device Ordered VTE Drug Contraindication: N/A - Med Ordered
--- NOTE | 2021-07-08 11:00 | HO.PM.IMPN ---
Subjective Subjective Date of Service: 07/08/21 Interval History: C/o worsening abd pain and watery diarrhea + perianal irritation. Nauseous Review of Systems Review of Systems: Yes all other systems are reviewed and are negative Physical Exam Vital Signs: Vital Signs: Last Vital Signs Temp 98.3 F 07/08/21 07:51 Pulse 58 07/08/21 07:51 Resp 18 07/08/21 07:51 BP 132/63 07/08/21 07:51 Pulse Ox 93 07/08/21 07:51 BMI result Body Mass Index 30.2 Gen: in no acute distress HEENT: sclera anicteric, moist mucus membranes Neck: supple Lungs: clear to auscultation bilaterally Heart: regular rate and rhythm, no murmurs Abd: soft, non-tender, non-distended Ext: no edema Skin: warm/well-perfused Neuro: alert and oriented x3, no focal findings Psych: appropriate affect Objective Data Active Medications Acetaminophen (Acetaminophen 325 Mg Tablet) 650 mg PO Q6H PRN PRN Reason: Pain, Mild (Pain Scale 1-3) Heparin Sodium (Porcine) (Heparin Sodium,Porcine 5,000 Unit/Ml Vial) 5,000 unit SUBCUT Q12H [facility] Last Admin: 07/08/21 00:50 Dose: 5,000 unit Documented by: RUBY Lactated Ringer's (Lr) 1,000 mls @ 125 mls/hr IVCONT .Q8H [facility] Last Admin: 07/08/21 04:35 Dose: 125 mls/hr Documented by: RUBY Morphine Sulfate (Morphine Sulfate 2 Mg/Ml Cartridge) 2 mg IVPUSH Q4H PRN; Protocol PRN Reason: Pain, Severe (Pain Scale 7-10) Last Admin: 07/08/21 10:37 Dose: 2 mg Documented by: MARIANNE Ondansetron HCl (Ondansetron Hcl 4 Mg/2 Ml Vial) 4 mg IVPUSH Q8H PRN PRN Reason: Nausea and Vomiting Last Admin: 07/08/21 10:34 Dose: 4 mg Documented by: MARIANNE Pharmacy Consult (Consult Rx Perform Med Rec) 1 each MISCELLANE ONCE PRN PRN Reason: Consult order Pramoxine HCl (Pramoxine Hcl 1 % Rectal Foam 15 Gm) 1 appl ID TID [facility] Sodium Chloride (0.9 % Sodium Chloride Flush 3 Ml Syringe) 3 ml IVFLUSH QSHIFT [facility] Last Admin: 07/08/21 10:06 Dose: Not Given Documented by: MARIANNE Non-Admin Reason: IV Running Labs CBC & Chem 7: 07/07/21 06:28 07/08/21 08:23 Labs: Laboratory Results - last 24 hr 07/07/21 07/08/21 07/08/21 06:28 08:23 08:23 Anion Gap 10 L Estim Creat Clear Calc 65.9 Estimated GFR > 60 Random Glucose 95 Calcium 8.8 D Total Bilirubin 1.2 H 0.7 Direct Bilirubin 0.5 AST 185 H 115 H ALT 293 H 254 H Alkaline Phosphatase 102 133 H D Total Protein 5.6 L D 6.5 Albumin 3.4 L 3.7 Hep Bs Antigen Negative Hep Bs Antibody REACTIVE Hep B Core Total Ab Nonreactive Hepatitis C Ab (EIA) Nonreactive Microbiology Microbiology Results: Microbiology 07/06/21 20:44 Stool Culture - Preliminary Stool Culture in progress. Assessment and Plan (1) SBO (small bowel obstruction): Status: Acute Plan hospital d#3 55yo F with HTN, GERD, FM, WALKER, hx SBO 2/2 multiple abd surgeries p/w abd pain/N/V/D, admitted for pSBO # pSBO - resolved clinically # gastroenteritis - d/c levofloxacin, unlikely bacterial infection - Cdiff + stool WBCs neg, stool Cx pending - continue IV fluid hydration + antiemetic # transaminasemia - likely due to gastroenteritis; HBV immune + HCV negative; recheck LFTs in am # HTN - held amlodipine for soft BP # VTE ppx - UFH # dispo - home once tolerating solid diet In my clinical judgment, the patient requires continued hospitalization for the following reasons: IV fluids, bowel rest Quality Stroke Does the patient have a stroke diagnosis?: No VTE Prior VTE?: No VTE Risk Level:: Medical - moderate - high VTE Device Contraindication: N/A - Device Ordered VTE Drug Contraindication: N/A - Med Ordered
[2021-07-08] MEDS: Pramoxine HCl 1 % Rectal Foam 15 GM 1 APPL PR ×3 (13:02→20:34)
--- NOTE | 2021-07-08 14:06 | MHC.CM.PN ---
PATIENT CURRENTLY ON CLEARS. PLAN IS TO ADVANCE DIET AND DC HOME ON WEDNESDAY PATIENT AWARE AND IN AGREEMENT WITH PLAN.
[2021-07-08 15:18] VITALS: BP 131/72; PULSE 64; RESP 18; TEMP 36.7; O2SAT 96
[2021-07-08 19:16] VITALS: BP 137/70; PULSE 62; RESP 18; TEMP 36.8; O2SAT 97
[2021-07-08] MEDS: 0.9 % Sodium Chloride Flush 3 ML SYRINGE IVFLUSH (20:38)
[2021-07-08 23:42] VITALS: BP 126/54; PULSE 57; RESP 16; TEMP 36.9; O2SAT 95
[2021-07-09] MEDS: Lactated Ringers 1,000 ML 125 ML IVCONT ×3 (04:13→21:45)
[2021-07-09 07:01] LABS: Alanine Aminotransferase 170 U/L (0-31); Albumin Level 3.3 g/dL (3.5-5.0); Alkaline Phosphatase 120 U/L (39-117); Anion Gap 10 (12-20); Aspartate Amino Transferase 64 U/L (5-31); Bilirubin Total 0.7 mg/dL (0.0-1.0); Blood Urea Nitrogen 5 mg/dL (9-16); C Reactive Protein 1.04 mg/dL (< or = 0.50); Calcium 8.9 mg/dL (8.4-10.2); Carbon Dioxide 27 mmol/L (22-29); Chloride 108 mmol/L (96-108); Creatinine Clr Calc Pharmacy 72.3; Estimated Glomerular Filt Rate > 60; Glucose Random 100 mg/dL (60-115); Potassium 3.8 mmol/L (3.3-5.1); Sodium 141 mmol/L (135-145); Total Protein 5.7 g/dL (6.5-8.0)
[2021-07-09 07:41] VITALS: BP 135/58; PULSE 56; RESP 20; TEMP 36.5; O2SAT 96
--- NOTE | 2021-07-09 07:52 | P.PNGS_ITS ---
Subjective Subjective Date of Service: 07/09/21 Interval history: diarrhea resolved feels well this AM Physical Exam Vital Signs: Vital Signs: Last Vital Signs Temp 97.7 F 07/09/21 07:41 Pulse 56 07/09/21 07:41 Resp 20 07/09/21 07:41 BP 135/58 L 07/09/21 07:41 Pulse Ox 96 07/09/21 07:41 BMI result Body Mass Index 30.2 Const: General: comfortable and no acute distress Resp: Effort & Inspection: normal respiratory effort Cardio: Rate: regular rate GI: Palpation (GI): Soft to palpation, not firm, nontender and no guarding Objective Data Active Medications Acetaminophen (Acetaminophen 325 Mg Tablet) 650 mg PO Q6H PRN PRN Reason: Pain, Mild (Pain Scale 1-3) Heparin Sodium (Porcine) (Heparin Sodium,Porcine 5,000 Unit/Ml Vial) 5,000 unit SUBCUT Q12H [facility] Last Admin: 07/08/21 23:34 Dose: 5,000 unit Documented by: KENNEDY Lactated Ringer's (Lr) 1,000 mls @ 125 mls/hr IVCONT .Q8H [facility] Last Admin: 07/09/21 04:13 Dose: 125 mls/hr Documented by: KENNEDY Morphine Sulfate (Morphine Sulfate 2 Mg/Ml Cartridge) 2 mg IVPUSH Q4H PRN; Protocol PRN Reason: Pain, Severe (Pain Scale 7-10) Last Admin: 07/08/21 10:37 Dose: 2 mg Documented by: MARIANNE Ondansetron HCl (Ondansetron Hcl 4 Mg/2 Ml Vial) 4 mg IVPUSH Q8H PRN PRN Reason: Nausea and Vomiting Last Admin: 07/08/21 10:34 Dose: 4 mg Documented by: MARIANNE Pharmacy Consult (Consult Rx Perform Med Rec) 1 each MISCELLANE ONCE PRN PRN Reason: Consult order Pramoxine HCl (Pramoxine Hcl 1 % Rectal Foam 15 Gm) 1 appl CO TID [facility] Last Admin: 07/08/21 20:34 Dose: 1 appl Documented by: KENNEDY Sodium Chloride (0.9 % Sodium Chloride Flush 3 Ml Syringe) 3 ml IVFLUSH QSHIFT [facility] Last Admin: 07/08/21 20:38 Dose: 3 ml Documented by: KENNEDY Labs CBC & Chem 7: 07/07/21 06:28 07/09/21 05:57 Labs: Laboratory Results - last 24 hr 07/08/21 07/08/21 07/09/21 08:23 08:23 05:57 Anion Gap 10 L 10 L Estim Creat Clear Calc 65.9 72.3 Estimated GFR > 60 > 60 Random Glucose 95 100 Calcium 8.8 D 8.9 Total Bilirubin 0.7 0.7 AST 115 H 64 H ALT 254 H 170 H Alkaline Phosphatase 133 H D 120 H C-Reactive Protein 1.04 H Total Protein 6.5 5.7 L Albumin 3.7 3.3 L Hep Bs Antigen Negative Hep Bs Antibody REACTIVE Hep B Core Total Ab Nonreactive Hepatitis C Ab (EIA) Nonreactive Microbiology Microbiology Results: Microbiology 07/06/21 20:44 Stool Culture - Preliminary Stool Culture in progress. Procedures Date of Service Date of Service: 07/09/21 Progress Note: A&P Assessment and plan (1) Abdominal pain: Status: Acute Assessment and Plan: resolved not obstructed clinically likely gastroenteritis diet as tolerated looks ready to be discharged Time Spent With Patient Time: Total time spent is greater than 50% in coordination of care (as documented) at patient's floor/unit and/or counseling patient: Quality Stroke Does the patient have a stroke diagnosis?: No VTE Prior VTE?: No VTE Risk Level:: Medical - moderate - high VTE Device Contraindication: N/A - Device Ordered VTE Drug Contraindication: N/A - Med Ordered
[2021-07-09] MEDS: Pramoxine HCl 1 % Rectal Foam 15 GM 1 APPL PR ×2 (09:01→21:44)
--- NOTE | 2021-07-09 14:05 | P.PNIM_ITS ---
Subjective Subjective Date of Service: 07/09/21 Interval History: Diarrhea resolved Still having abd pain Nausea improved Review of Systems Review of Systems: Yes all other systems are reviewed and are negative Physical Exam Vital Signs: Vital Signs: Last Vital Signs Temp 97.7 F 07/09/21 07:41 Pulse 56 07/09/21 07:41 Resp 20 07/09/21 07:41 BP 135/58 L 07/09/21 07:41 Pulse Ox 96 07/09/21 07:41 BMI result Body Mass Index 30.2 Gen: in no acute distress HEENT: sclera anicteric, moist mucus membranes Neck: supple Lungs: clear to auscultation bilaterally Heart: regular rate and rhythm, no murmurs Abd: soft, non-tender, non-distended Ext: no edema Skin: warm/well-perfused Neuro: alert and oriented x3, no focal findings Psych: appropriate affect Objective Data Active Medications Acetaminophen (Acetaminophen 325 Mg Tablet) 650 mg PO Q6H PRN PRN Reason: Pain, Mild (Pain Scale 1-3) Heparin Sodium (Porcine) (Heparin Sodium,Porcine 5,000 Unit/Ml Vial) 5,000 unit SUBCUT Q12H [facility] Last Admin: 07/08/21 23:34 Dose: 5,000 unit Documented by: KENNEDY Lactated Ringer's (Lr) 1,000 mls @ 125 mls/hr IVCONT .Q8H [facility] Last Admin: 07/09/21 04:13 Dose: 125 mls/hr Documented by: KENNEDY Morphine Sulfate (Morphine Sulfate 2 Mg/Ml Cartridge) 2 mg IVPUSH Q4H PRN; Protocol PRN Reason: Pain, Severe (Pain Scale 7-10) Last Admin: 07/08/21 10:37 Dose: 2 mg Documented by: MARIANNE Ondansetron HCl (Ondansetron Hcl 4 Mg/2 Ml Vial) 4 mg IVPUSH Q8H PRN PRN Reason: Nausea and Vomiting Last Admin: 07/08/21 10:34 Dose: 4 mg Documented by: MARIANNE Pharmacy Consult (Consult Rx Perform Med Rec) 1 each MISCELLANE ONCE PRN PRN Reason: Consult order Pramoxine HCl (Pramoxine Hcl 1 % Rectal Foam 15 Gm) 1 appl NM TID [facility] Last Admin: 07/09/21 09:01 Dose: 1 appl Documented by: YELENA Sodium Chloride (0.9 % Sodium Chloride Flush 3 Ml Syringe) 3 ml IVFLUSH QSHIFT [facility] Last Admin: 07/09/21 09:03 Dose: Not Given Documented by: YELENA Non-Admin Reason: IV Running Labs CBC & Chem 7: 07/07/21 06:28 07/09/21 05:57 Labs: Laboratory Results - last 24 hr 07/09/21 05:57 Anion Gap 10 L Estim Creat Clear Calc 72.3 Estimated GFR > 60 Random Glucose 100 Calcium 8.9 Total Bilirubin 0.7 AST 64 H ALT 170 H Alkaline Phosphatase 120 H C-Reactive Protein 1.04 H Total Protein 5.7 L Albumin 3.3 L Microbiology Microbiology Results: Microbiology 07/06/21 20:44 Stool Culture - Preliminary Stool Normal so far. Assessment and Plan (1) SBO (small bowel obstruction): Status: Acute Plan hospital d#4 55yo F with HTN, GERD, FM, WALKER, hx SBO 2/2 multiple abd surgeries p/w abd pain/N/V/D, admitted for pSBO # pSBO - resolved clinically # gastroenteritis - d/c'ed levofloxacin, unlikely bacterial infection - Cdiff + stool WBCs neg, stool Cx normal - continue IV fluid hydration + antiemetic # transaminasemia - likely due to gastroenteritis; HBV immune + HCV negative; LFTs improved; recheck in 1 wk; HBV immune, HCV negative # HTN - held amlodipine for soft BP # VTE ppx - UFH # dispo - home once tolerating solid diet In my clinical judgment, the patient requires continued hospitalization for the following reasons: IV fluids, IV pain control Quality Stroke Does the patient have a stroke diagnosis?: No VTE Prior VTE?: No VTE Risk Level:: Medical - moderate - high VTE Device Contraindication: N/A - Device Ordered VTE Drug Contraindication: N/A - Med Ordered
[2021-07-09] MEDS: Heparin Sodium,Porcine 5,000 UNIT/ML VIAL 5000 UNIT SUBCUT ×2 (14:26→23:41)
[2021-07-09 15:44] VITALS: BP 137/57; PULSE 60; RESP 18; TEMP 36.6; O2SAT 97
[2021-07-09] MEDS: 0.9 % Sodium Chloride Flush 3 ML SYRINGE IVFLUSH (23:43)
[2021-07-10] VITALS: BP 112/66; PULSE 61; RESP 18; TEMP 36.6; O2SAT 97
[2021-07-10] MEDS: Lactated Ringers 1,000 ML 125 ML IVCONT (06:06)
[2021-07-10 07:51] VITALS: BP 135/73; PULSE 57; RESP 18; TEMP 36.2; O2SAT 97
[2021-07-10] MEDS: Pramoxine HCl 1 % Rectal Foam 15 GM 1 APPL PR (08:16)
--- NOTE | 2021-07-10 11:35 | P.DS_ITS ---
DS: Providers Provider Date of Service: 07/10/21 Date of admission: 07/06/21 11:18 Date of discharge: 07/10/21 Primary care physician: Shiloh Hyatt MD Consults: 07/06/21 11:18 Consult to General Surgery Routine Consulting Provider: Sima Marks Reason for consultation: partial SBO/ileus Has provider been notified: No DS: Diagnosis Discharge Diagnosis (1) SBO (small bowel obstruction): Status: Acute (2) Gastroenteritis: Status: Acute (3) Transaminitis: Status: Acute DS: Summary Hospital Course Hospital Course: from admission H+P by hospitalist ED Michelle, 07/06/21: This is a 55-year-old female who presents to the emergency department today with complaints of abdominal pain.? She was in her usual state of health yesterday and had sudden onset of abdominal pain at 03:00 this morning. ? She reports primarily mid abdominal pain with associated nausea and vomiting as well as increased acidity.? She has had multiple bouts of non-bloody diarrhea.? she denies any recent overseas travel.? She ordered take out pizza 2 days ago but had no GI upset yesterday.? she denies any recent sick contacts. ? In the emergency department she underwent a CT scan of the abdomen which showed concern over ileus versus partial small-bowel obstruction.? ? she has remained afebrile, lab work was significant for leukocytosis of 19.3,? AST 39, ALT 39.? She was treated with IV fluid, pain medication antiemetics. ? Her abdominal pain has persisted and the decision was made to admit her to the hospital for further management. This 55yo F with HTN, GERD, FM, WALKER, and hx SBO 2/2 multiple abd surgeries presented with abd pain/N/V/D and was admitted for pSBO. SBO resolved quickly. She developed diarrhea. Stool studies negative for C.diff or other inflammatory/infectious cause. Levofloxacin was discontinued. Diet was gradually advanced. She developed transaminasemia that improved; she was immune to HBV and HCV-engative. Repeat LFTs in 1 week should be done. She was discharged home with instructions to follow up with Primary Care in 1-2 weeks. Time Spent with Patient Time attestation: Total time spent providing and/or coordinating discharge services: Discharge coordination time: Greater than 30 minutes Quality: Safe Use of Opioids Does Pt have an Active Cancer Diagnosis on the Problem List?: No Quality: Stroke Does the patient have a stroke diagnosis?: No Physical Exam Vital Signs: Vital Signs: Last Vital Signs Temp 97.2 F 07/10/21 07:51 Pulse 57 07/10/21 07:51 Resp 18 07/10/21 07:51 BP 135/73 07/10/21 07:51 Pulse Ox 97 07/10/21 07:51 BMI result Body Mass Index 30.2 Gen: in no acute distress HEENT: sclera anicteric, moist mucus membranes Neck: supple Lungs: clear to auscultation bilaterally Heart: regular rate and rhythm, no murmurs Abd: soft, non-tender, non-distended Ext: no edema Skin: warm/well-perfused Neuro: alert and oriented x3, no focal findings Psych: appropriate affect DS: Data Data Completed and Pending Completed studies during hospitalization [Text1]: Laboratory Results WBC 5.6 X10*3/uL (4.8-10.8) 07/07/21 06:28 RBC 4.05 X10*6/uL (4.20-5.50) L D 07/07/21 06:28 Hgb 12.2 g/dl (12.0-16.0) D 07/07/21 06:28 Hct 36.2 % (37.0-47.0) L D 07/07/21 06:28 MCV 89.4 fL (80.0-98.0) 07/07/21 06:28 MCH 30.1 pg (27.0-33.0) 07/07/21 06:28 MCHC 33.7 g/dl (31.0-35.0) 07/07/21 06:28 RDW 13.2 % (11.0-16.0) 07/07/21 06:28 Plt Count 206 X10*3/uL (160-400) D 07/07/21 06:28 MPV 10.2 fL (9.4-12.3) 07/07/21 06:28 Immature Gran % (Auto) 0.4 % (0.0-0.4) 07/06/21 07:58 Neut % (Auto) 89.1 % (45-73) H 07/06/21 07:58 Lymph % (Auto) 4.6 % (20-40) L 07/06/21 07:58 [place] % (Auto) 5.3 % (2-11) 07/06/21 07:58 Eos % (Auto) 0.3 % (0-4) 07/06/21 07:58 Baso % (Auto) 0.3 % (0-2) 07/06/21 07:58 Lymph # (Auto) 0.9 X10*3/uL (1.2-4.9) L 07/06/21 07:58 [place] # (Auto) 1.0 X10*3/uL (0.1-1.2) 07/06/21 07:58 Eos # (Auto) 0.1 X10*3/uL (0.0-0.4) 07/06/21 07:58 Baso # (Auto) 0.1 X10*3/uL (0.0-0.2) 07/06/21 07:58 Abs Immat Gran (auto) 0.08 X10*3/uL (0.00-0.03) H 07/06/21 07:58 Absolute Neuts (auto) 17.2 x10*3/uL (2.0-8.3) H 07/06/21 07:58 Absolute Nucleated RBC 0.000 X10*3/uL (0.0-0.012) 07/07/21 06:28 Nucleated RBC % (auto) 0.0 /100WBC (0.0-0.2) 07/07/21 06:28 Sodium 141 mmol/L (135-145) 07/09/21 05:57 Potassium 3.8 mmol/L (3.3-5.1) 07/09/21 05:57 Chloride 108 mmol/L (96-108) 07/09/21 05:57 Carbon Dioxide 27 mmol/L (22-29) 07/09/21 05:57 Anion Gap 10 (12-20) L 07/09/21 05:57 BUN 5 mg/dL (9-16) L 07/09/21 05:57 Creatinine 0.72 mg/dL (0.5-1.4) 07/09/21 05:57 Estim Creat Clear Calc 72.3 07/09/21 05:57 Estimated GFR > 60 07/09/21 05:57 Random Glucose 100 mg/dL (60-115) 07/09/21 05:57 Calcium 8.9 mg/dL (8.4-10.2) 07/09/21 05:57 Total Bilirubin 0.7 mg/dL (0.0-1.0) 07/09/21 05:57 Direct Bilirubin 0.5 mg/dL (0.0-0.5) 07/07/21 06:28 AST 64 U/L (5-31) H 07/09/21 05:57 ALT 170 U/L (0-31) H 07/09/21 05:57 Alkaline Phosphatase 120 U/L (39-117) H 07/09/21 05:57 C-Reactive Protein 1.04 mg/dL (< or = 0.50) H 07/09/21 05:57 Total Protein 5.7 g/dL (6.5-8.0) L 07/09/21 05:57 Albumin 3.3 g/dL (3.5-5.0) L 07/09/21 05:57 Lipase 31 U/L (8-78) 07/06/21 07:25 Urine Color YELLOW 07/06/21 19:26 Urine Appearance CLEAR 07/06/21 19:26 Urine pH 6.0 (5.0-8.0) 07/06/21 19:26 Ur Specific [place] >= 1.030 (1.005-1.025) H 07/06/21 19:26 Urine Protein NEG MG/DL (NEG-TRACE) 07/06/21 19:26 Urine Glucose (UA) NEG MG/DL (NEG) 07/06/21 19:26 Urine Ketones NEG MG/DL (NEG) 07/06/21 19:26 Urine Blood NEG (NEG) 07/06/21 19:26 Urine Nitrite NEG (NEG) 07/06/21 19:26 Ur Leukocyte Esterase NEG (NEG) 07/06/21 19:26 Urine RBC 1-4 /HPF (0) 07/06/21 19:26 Urine WBC 0-2 /HPF (0-4) 07/06/21 19:26 Ur Squamous Epith Cells 1+ /LPF 07/06/21 19:26 Urine Bacteria 1+ /LPF 07/06/21 19:26 Stool Leukocytes, Qual NEGATIVE (NEGATIVE) 07/06/21 20:44 C. difficile Tox B Gene NEGATIVE (Negative) 07/06/21 20:44 COVID-19 (BETO) Negative (Negative) 07/06/21 11:20 COVID-19 Clin Com See Note 07/06/21 11:20 Hep Bs Antigen Negative (Negative) 07/08/21 08:23 Hep Bs Antibody REACTIVE (Nonreactive) 07/08/21 08:23 Hep B Core Total Ab Nonreactive (Nonreactive) 07/08/21 08:23 Hepatitis C Ab (EIA) Nonreactive (Nonreactive) 07/08/21 08:23 Impressions Abdomen/Pelvis CT 07/06/21 08:50 IMPRESSION: Short segment dilated loop of small bowel in the mid abdomen measuring up to 3.8 cm. Ileus and partial obstruction should be considered. The small bowel is otherwise normal. Increased sacculations in the colon, particularly the transverse colon. Underdistended left colon and sigmoid colon. It is difficult to exclude mild colitis. Fleischner guidelines were followed. Discharge Plan Discharge Patient Disposition: Home, Self-Care Discharge Diagnosis: gastroenteritis, partial small bowel obstruction Referrals: Shiloh Hyatt MD [Primary Care Provider] - 1 Week Discharge Medications: New ondansetron 4 mg tablet,disintegrating 4 mg PO Q6H PRN (Reason: nausea and vomiting) Qty: 10 0RF Continued omeprazole 20 mg capsule,delayed release(DR/EC) 20 mg PO DAILY PRN (Reason: Dyspepsia) 0RF cholecalciferol (vitamin D3) [Vitamin D3] 25 mcg (1,000 unit) Tablet 25 mcg PO DAILY 0RF ascorbic acid (vitamin C) [Vitamin C] 1,000 mg Tablet 1,000 mg PO DAILY 0RF amlodipine 5 mg tablet 5 mg PO DAILY 0RF Discharge Orders: Discharge Order (Routine); Ordered 07/10/21 Ordered By: Giulia Morales Diet: advance to usual diet Activity on Discharge: As tolerated Stand Alone Forms: Patient Portal Discharge page Other Ambulatory Orders: Liver Panel (Routine) Timeframe: 1 Week Facility: [facility] - Location: Laboratory Ordered By: Giulia Morales Care Plan Goals: GI health Health Concerns: gastroenteritis, partial small bowel obstruction Plan of Treatment: advance diet gradually ondansetron as needed for nausea/vomiting return to hospital if you have worsening abdominal pain see primary care doctor in 1 week Assessment: See Discharge Summary Patient Instructions: Gastroenteritis (DC)
--- NOTE | 2021-07-10 12:06 | MHC.CM.PN ---
HOME TODAY - SELF CARE RN AWARE OF PLAN. IMM 07/08 IN CHART
== END 2021-07-10 12:45 | disposition home or self-care (01) | DRG 390 ==
LOC: HO.ED 10:54 → HO.EDOVER 07-07 07:33 → HO.S3 07-07 16:04
PROVIDERS: Admitting Provider Physician Assistant Medical; Emergency Provider Emergency Medicine; PCP Internal Medicine; Visit Provider Family Medicine
DX: K91.31 Postprocedural partial intestinal obstruction (principal); M79.7 Fibromyalgia; I10 Essential (primary) hypertension; K52.9 Noninfective gastroenteritis and colitis, unspecified; K75.81 Nonalcoholic steatohepatitis (NASH); Z20.822 Contact with and (suspected) exposure to COVID-19; Z98.51 Tubal ligation status; Z90.49 Acquired absence of other specified parts of digestive tract; Z87.891 Personal history of nicotine dependence; Z87.892 Personal history of anaphylaxis; Z88.6 Allergy status to analgesic agent; Z79.899 Other long term (current) drug therapy
CPT/HCPCS: 36415; 74177; 80048; 80053; 80076; 81001; 83690; 85025; 85027; 86140; 86704; 86706; 86803; 87045; 87046; 87340; 87493; 87635; 89055; 96361; 96374; 96375; 99218; 99285; J1170; J1956; J2270; J2405; Q9967

== ENCOUNTER 2021-08-14 16:25 | Emergency (ER) | payer OTHER, MEDICAID, SELFPAY ==
--- NOTE | ~2021-08-14 | XR_ITS ---
EXAMINATION: XR CHEST CLINICAL INFORMATION: Cough COMPARISON: 02/15/2021 TECHNIQUE: Frontal view of the chest was obtained. FINDINGS: The lungs are well expanded. There is no focal consolidation, edema, or effusion. No pneumothorax. The cardiomediastinal silhouette is within normal limits. No acute osseous abnormality. XR/XR chest 1V IMPRESSION: Unremarkable examination.
[2021-08-14 16:35] VITALS: BP 173/63; PULSE 71; RESP 16; TEMP 36.6; O2SAT 98; BMI 30.2
[2021-08-14 18:02] LABS: Influenza A PCR NEGATIVE (Negative); Influenza B PCR NEGATIVE (Negative); Resp Syncy Virus RNA Qual PCR NEGATIVE (Negative); SARS COV2 PCR INHOUSE NEGATIVE (Negative)
--- NOTE | 2021-08-14 23:01 | PC.NURSE ---
ambulatory with no sob. unlabored. no cough.
--- NOTE | 2021-08-14 23:32 | ED.GENADULT ---
HPI - General Adult General Chief complaint: General Medical Stated complaint: diff breathing Time Seen by Provider: 08/14/21 23:32 Source: patient Limitations: no limitations History of Present Illness HPI narrative: This is a 55-year-old female who had COVID in January and since then has had a feeling of intermittent dyspnea, as well as the intermittent dry cough. The patient is she does have some allergy symptoms including itchy eyes, rhinorrhea. She did try Flonase today. She denies any pain or swelling in her legs. She denies any recent fever. She denies any chest pain. She has not tried any cough medicine, or allergy medicine except the Flonase Related Data Home Medications Medication Instructions Recorded Confirmed amlodipine 5 mg tablet 5 mg PO DAILY 06/14/20 07/06/21 ascorbic acid (vitamin C) 1,000 mg 1,000 mg PO DAILY 07/06/21 07/06/21 tablet (Vitamin C) cholecalciferol (vitamin D3) 25 25 mcg PO DAILY 07/06/21 07/06/21 mcg (1,000 unit) tablet (Vitamin D3) omeprazole 20 mg capsule,delayed 20 mg PO DAILY PRN 07/06/21 07/06/21 release Previous Rx's Medication Instructions Recorded ondansetron 4 mg disintegrating 4 mg PO Q6H PRN #10 tab 07/10/21 tablet dextromethorphan-guaifenesin 5 10 ml PO Q4-8H PRN #237 ml 08/14/21 mg-100 mg/5 mL oral liquid (Robitussin Cough-Chest Congestion DM) loratadine 10 mg tablet (Claritin) 10 mg PO DAILY #30 tab 08/14/21 prednisone 20 mg tablet 20 mg PO DAILY #5 tab 08/14/21 Allergies Allergy/AdvReac Type Severity Reaction Status Date / Time ibuprofen Allergy Severe RASH, Verified 04/18/21 08:53 SWELLING, anaphylaxis, swelling Review of Systems Constitutional: Constitutional: Denies fever(s) Eyes: Eyes: Reports itchy eyes ENT: Reports nasal congestion Cardiovascular: Cardiovascular: Reports no additional cardiovascular complaints and Reports dyspnea Respiratory: Respiratory: Reports cough and Reports dyspnea Gastrointestinal: Gastrointestinal: Reports no additional gastrointestinal complaints Allergic/Immunologic: Allergic/Immunologic: Reports itchy eyes PMFSH Past Medical History Medical History (Updated 08/14/21 @ 23:36 by Froilan Becerra MD) Fibromyalgia Hypertension Nonalcoholic steatohepatitis (WALKER) Pyloric stenosis SBO (small bowel obstruction) Urge incontinence Urgency of micturition Surgical History H/O colonoscopy H/O: hysterectomy History of appendectomy History of endometrial ablation History of esophagogastroduodenoscopy (EGD) History of tubal ligation Hx of cholecystectomy Family History Family History Father No problems noted. Mother No problems noted. Social History Social History Household Members: Spouse Housing: Apartment Do you presently have visiting nurse or other home services: Yes Alcohol intake: never Patient Tobacco Use Status: Former Tobacco user Second Hand Smoke Exposure: No Advance Directives: No service: No Current occupational status: unemployed Sexual orientation: Straight/Heterosexual Gender identity: Female Physical Exam ED Vital Signs: Vital Signs - 24 hr 08/14/21 16:35 Temperature 97.8 F Pulse Rate 71 Respiratory Rate 16 Blood Pressure 173/63 H Pulse Oximetry 98 BMI result Body Mass Index 30.2 Const General: no acute distress Orientation/consciousness: patient oriented x3 HENMT Head: Yes normal to inspection General nose exam: Normal external nose present Mouth: moist mucous membranes Throat: Yes posterior oropharynx normal, Yes tonsils normal and Yes uvula midline Eyes Eyelids: Yes eyelids normal Conjunctivae: conjunctivae normal Pupils: Equal, round and reactive pupils present Neck Neck: Yes supple Resp Effort & Inspection: normal respiratory effort Auscultation: clear to auscultation bilaterally Cardio Rate: regular rate Rhythm: regular rhythm Heart sounds: S1 normal heart sound present, S2 normal heart sound present, no gallops, no murmurs and no rubs GI Inspection: No distended Palpation (GI): Soft to palpation and nontender Auscultation: normal bowel sounds Skin General skin exam: other (Warm and dry) Neuro General: patient oriented x3 and CN's II-XI intact bilaterally Cranial nerves: Yes Equal, round and reactive pupils present Extrem General: Yes no pedal edema Psych Affect: normal affect Attitude: cooperative Medical Decision Making MDM Narrative Medical decision making narrative: Patient with chronic intermittent cough, some sense of dyspnea. Patient seems to have some allergy symptoms. Patient has had symptoms since she had COVID last January. Will trial prednisone, loratadine, Robitussin DM. Chest x-ray negative. COVID test negative Lab Data Labs: Lab Results 08/14/21 Range/Units 17:17 Influenza Type A (PCR) NEGATIVE (Negative) Influenza Type B (PCR) NEGATIVE (Negative) RSV RNA Qual (PCR) NEGATIVE (Negative) SARS-CoV-2 RNA (RT-PCR) NEGATIVE (Negative) Imaging Data Chest x-ray: Radiologist's impression: No acute disease Discharge Plan Discharge Clinical Impression: Chronic cough, Seasonal allergies Patient Disposition: Home, Self-Care Additional Instructions: Continue using Flonase daily for the next 2-3 weeks. Use the loratadine, prednisone, and Robitussin DM as prescribed. Follow up with your primary care physician as needed Prescriptions: New prednisone 20 mg tablet 20 mg PO DAILY Qty: 5 0RF loratadine [Claritin] 10 mg tablet 10 mg PO DAILY Qty: 30 0RF Robitussin Cough-Chest Steven DM 5-100 mg/5 mL liquid 10 ml PO Q4-8H PRN (Reason: cough) Qty: 237 0RF No Action omeprazole 20 mg capsule,delayed release(DR/EC) 20 mg PO DAILY PRN (Reason: Dyspepsia) 0RF cholecalciferol (vitamin D3) [Vitamin D3] 25 mcg (1,000 unit) Tablet 25 mcg PO DAILY 0RF ascorbic acid (vitamin C) [Vitamin C] 1,000 mg Tablet 1,000 mg PO DAILY 0RF ondansetron 4 mg tablet,disintegrating 4 mg PO Q6H PRN (Reason: nausea and vomiting) Qty: 10 0RF amlodipine 5 mg tablet 5 mg PO DAILY 0RF
[2021-08-15 00:22] VITALS: BP 135/68; PULSE 54; RESP 16; O2SAT 98
== END 2021-08-15 00:31 | disposition home or self-care (01) ==
PROVIDERS: Emergency Provider Emergency Medicine; PCP Internal Medicine
DX: R05.3 Chronic cough (principal); J30.2 Other seasonal allergic rhinitis; I10 Essential (primary) hypertension; Z20.822 Contact with and (suspected) exposure to COVID-19
CPT/HCPCS: 0241U; 71045; 99282; 99283

== ENCOUNTER 2021-10-11 19:18 | Emergency (ER) | payer OTHER, SELFPAY ==
[2021-10-11 19:30] VITALS: BP 142/65; BP 142/80; PULSE 67; PULSE 68; RESP 18; TEMP 36.6; O2SAT 98; O2SAT 99; BMI 29.9
--- NOTE | 2021-10-11 22:41 | ED.BACK ---
HPI - Back Pain/Injury General Chief Complaint: Back Pain/Injury Stated Complaint: Back Pain Time Seen by Provider: 10/11/21 22:41 Source: patient Mode of arrival: ambulatory Limitations: no limitations History of Present Illness MD elicited complaint: back pain and back injury Pertinent past history: prior back pain Onset (ago): hour(s) (9) Timing: constant Severity: moderate Similar Symptoms Previously: Yes Quality: spasming and throbbing Location: lumbar spine Radiation: none Exacerbating factors: movement, walking and coughing/sneezing Relieving factors: immobilization Context: bending Associated symptoms: denies other symptoms Treatments prior to arrival: heat therapy Work related injury: No Related Data Home Medications Medication Instructions Recorded Confirmed amlodipine 5 mg tablet 5 mg PO DAILY 06/14/20 07/06/21 ascorbic acid (vitamin C) 1,000 mg 1,000 mg PO DAILY 07/06/21 07/06/21 tablet (Vitamin C) cholecalciferol (vitamin D3) 25 25 mcg PO DAILY 07/06/21 07/06/21 mcg (1,000 unit) tablet (Vitamin D3) omeprazole 20 mg capsule,delayed 20 mg PO DAILY PRN Dyspepsia 07/06/21 07/06/21 release Previous Rx's Medication Instructions Recorded ondansetron 4 mg disintegrating 4 mg PO Q6H PRN nausea and 07/10/21 tablet vomiting #10 tabs dextromethorphan-guaifenesin 5 10 ml PO Q4-8H PRN cough #237 mL 08/14/21 mg-100 mg/5 mL oral liquid (Robitussin Cough-Chest Congestion DM) loratadine 10 mg tablet (Claritin) 10 mg PO DAILY #30 tabs 08/14/21 prednisone 20 mg tablet 20 mg PO DAILY #5 tabs 08/14/21 diazepam 5 mg tablet (Valium) 5 mg PO TID PRN muscle spasm #10 10/11/21 tabs lidocaine 5 % topical patch 1 patch topical DAILY #30 ea 10/11/21 Allergies Allergy/AdvReac Type Severity Reaction Status Date / Time ibuprofen Allergy Severe RASH, Verified 10/11/21 19:30 SWELLING, anaphylaxis, swelling Review of Systems Review of Systems: Constitutional : No Weight loss, No Fever, No Chills, ENT/Mouth : No Hearing loss, No Ear Pain, No Nasal Congestion, No Sinus Pain, No Hoarseness, No sore throat, No Rhinorrhea, No Swallowing Difficulty Cardiovascular : No Chest Pain, No SOB Respiratory : No Cough, No Dyspnea Gastrointestinal : No Nausea, No Vomiting, No Diarrhea, No abdominal Pain, No Hematochezia, No Melena Genitourinary : No Dysuria, No Urinary Frequency, No Hematuria, No Urinary Incontinence, Musculoskeletal : positive back pain Skin : No Skin Lesions, No rash Neuro : No Weakness, No Numbness, No Paresthesias, no loss of bowel or bladder incontinence, no saddle anesthesia [facility] Past Medical History Attestation statement: The following information was validated with the patient. Medical History Fibromyalgia Hypertension Nonalcoholic steatohepatitis (WALKER) Pyloric stenosis SBO (small bowel obstruction) Urge incontinence Urgency of micturition Surgical History H/O colonoscopy H/O: hysterectomy History of appendectomy History of endometrial ablation History of esophagogastroduodenoscopy (EGD) History of tubal ligation Hx of cholecystectomy Family History Family History Father No problems noted. Mother No problems noted. Social History Social History Household Members: Spouse Housing: Apartment Do you presently have visiting nurse or other home services: Yes Alcohol intake: never Patient Tobacco Use Status: Former Tobacco user Second Hand Smoke Exposure: No Advance Directives: No Advance Directives Information Provided: No service: No Current occupational status: unemployed Sexual orientation: Straight/Heterosexual Gender identity: Female Physical Exam Vital Signs: Vital Signs: Last Vital Signs Temp 97.9 F 10/11/21 19:30 Pulse 67 10/11/21 19:30 Resp 18 10/11/21 19:30 BP 142/65 H 10/11/21 19:30 Pulse Ox 99 10/11/21 19:30 O2 Del Method 10/11/21 19:30 BMI result Body Mass Index 29.9 Appearance: Alert. Oriented X3. No acute distress. Eyes: Pupils equal, round and reactive to light. ENT: Pharynx normal. Neck: Normal inspection. Neck supple. CVS: Normal heart rate and rhythm. Pulses normal. Respiratory: No respiratory distress. Breath sounds normal. Abdomen: Soft and nontender. Back: lower lumbar ttp no midline step offs Skin: Skin warm and dry. Normal skin color. Normal skin turgor. Extremities: No lower extremity edema. No calf ttp Neuro: Oriented X 3. No motor deficit. No sensory deficit. SILT inner thigh, no clonus, L5 5/5 bilaterally, reflexes intact, bounding DP pulses MDM - Back Pain/Injury MDM Narrative Medical decision making narrative: 56 yo female with hx of HTN, prior back injury in past was reaching for her cane around 2pm - felt a pull in lower back now in spasm. At this time she is having difficulty walking. No b/b incontinence, no saddle anesthesia, she is NV intact, no signs of CE syndrome. Will start on MRs, lidocaine and tylenol follow up with PCP. Discharge Plan Discharge Clinical Impression: Strain of lumbar region Patient Disposition: Home, Self-Care Instructions: Low Back Strain (ED), Acute Low Back Pain (ED) Additional Instructions: return to ED for any worsening symptoms or concerns take lidocaine patch off in 12 hours if this is not better in 5 days please follow up with your primary care doctor alternate heat and ice for comfort, do not apply heat or ice directly to the skin Prescriptions: New lidocaine 5 % adhesive patch,medicated 1 patch topical DAILY Qty: 30 0RF Rx Instructions: leave on most painful area for up to 12 hrs diazepam [Valium] 5 mg tablet 5 mg PO TID PRN (Reason: muscle spasm) Qty: 10 0RF Rx Instructions: partial fill is okay No Action omeprazole 20 mg capsule,delayed release(DR/EC) 20 mg PO DAILY PRN (Reason: Dyspepsia) cholecalciferol (vitamin D3) [Vitamin D3] 25 mcg (1,000 unit) Tablet 25 mcg PO DAILY ascorbic acid (vitamin C) [Vitamin C] 1,000 mg Tablet 1,000 mg PO DAILY ondansetron 4 mg tablet,disintegrating 4 mg PO Q6H PRN (Reason: nausea and vomiting) Qty: 10 0RF prednisone 20 mg tablet 20 mg PO DAILY Qty: 5 0RF loratadine [Claritin] 10 mg tablet 10 mg PO DAILY Qty: 30 0RF Robitussin Cough-Chest Steven DM 5-100 mg/5 mL liquid 10 ml PO Q4-8H PRN (Reason: cough) Qty: 237 0RF amlodipine 5 mg tablet 5 mg PO DAILY Referrals: Physician,Nonstaff [Primary Care Provider] - 5 days (Primary care doctor if not better)
[2021-10-11] MEDS: Lidocaine 4 % Patch ADH..PATCH 1 PATCH TRANSDERMA (23:09)
[2021-10-11] MEDS: Acetaminophen 325 MG TABLET 650 MG PO (23:10)
[2021-10-11] MEDS: diazePAM 2 MG TABLET 5 MG PO (23:10)
== END 2021-10-11 23:16 | disposition home or self-care (01) ==
PROVIDERS: Emergency Provider Emergency Medicine
DX: S39.012A Strain of muscle, fascia and tendon of lower back, initial encounter (principal); X58.XXXA Exposure to other specified factors, initial encounter; I10 Essential (primary) hypertension; Z87.891 Personal history of nicotine dependence; Y93.9 Activity, unspecified; Y92.9 Unspecified place or not applicable; Y99.9 Unspecified external cause status
CPT/HCPCS: 99283

== ENCOUNTER 2021-12-06 23:58 | Emergency (ER) | payer OTHER, SELFPAY ==
--- NOTE | ~2021-12-06 | XR_ITS ---
EXAMINATION: XR KNEE, LEFT XR KNEE, RIGHT CLINICAL INFORMATION: Pain. Fall. COMPARISON: 12/27/2017 TECHNIQUE: 2 views of each knee. FINDINGS: Left knee: No fracture or subluxation. Compartmental joint spaces are maintained. Moderate tricompartmental marginal osteophytes. Enthesophyte formation of the patella. No joint effusion. Right knee: No fracture or subluxation. Compartmental joint spaces are maintained. Mild to moderate tricompartmental marginal osteophytes. No joint effusion. Enthesophyte formation of the patella. XR/XR knee RT 2V IMPRESSION: Tricompartmental degenerative changes of both knees with marginal osteophytes present.
--- NOTE | ~2021-12-06 | CT_ITS ---
EXAMINATION: CT CHEST WITH CONTRAST CT ABDOMEN AND PELVIS WITH CONTRAST CLINICAL INFORMATION: Left chest wall pain. Fall. Abdominal pain. COMPARISON: CT 07/06/2021 TECHNIQUE: Multidetector volumetric imaging was performed through the chest, abdomen and pelvis following the administration of 85 mL of Omnipaque 350 intravenous contrast. Sagittal and coronal reformatted images were obtained on the technologist's workstation. Axial MIP volume rendering provided. This CT examination was performed using dose optimization techniques as appropriate, variously including the following: *Automated exposure control *Adjustment of mA and/or kV according to patient size (this includes techniques or standardized protocols for targeted exams where dose is matched to indication/reason for exam; i.e. extremities or head) *Use of iterative reconstruction technique DLP: 769 mGy-cm. FINDINGS: CHEST: Lungs: The central airways are patent. No dense consolidation. Mild dependent atelectasis bilaterally. No pleural effusion or pneumothorax. There are no pulmonary parenchymal nodules. Mediastinum: The heart is of normal size. There is no pericardial effusion. Central vascular structures are unremarkable. No hilar or mediastinal lymphadenopathy. Coronary Artery Calcification: None visualized on this study. Chest Wall/Axilla: No lymphadenopathy. No chest wall mass. ABDOMEN/PELVIS: Liver, Gallbladder, Biliary Tree: The liver is normal in size, shape, and attenuation. No biliary ductal dilatation. Hypoattenuating lesion in the right lobe is too small to fully characterize, unchanged from previous. Cholecystectomy. Pancreas: Unremarkable. Spleen: Unremarkable. Adrenal Glands: Unremarkable. Kidneys and Ureters: The kidneys are normal in size, shape, and attenuation. No hydronephrosis, hydroureter or calculi seen. No perinephric stranding. Bladder: Unremarkable. Gastrointestinal Tract: The stomach and small bowel appear unremarkable. No dilated loops of bowel or evidence of obstruction. No diverticulosis. No colonic wall thickening or adjacent inflammatory changes. No free air or free fluid. The appendix is not seen. There is no pericecal inflammation to suggest acute appendicitis. Abdominal Wall: No hernia is demonstrated. Lymphovascular Structures: Lymph nodes: Normal. Vascular: Unremarkable. Pelvic Viscera: The prostate and seminal vesicles are unremarkable. OSSEOUS STRUCTURES: No acute or suspicious osseous abnormality. T11 vertebral body height loss is chronic. Small endplate osteophytes throughout the spine. The ribs are intact. The pelvis is intact. CT/CT abdomen pelvis w IV con IMPRESSION: No acute traumatic finding in the chest, abdomen, or pelvis. No fractures are identified.
--- NOTE | ~2021-12-06 | CT_ITS ---
EXAMINATION: NONCONTRAST HEAD CT NONCONTRAST CERVICAL SPINE CT INDICATION INFORMATION: Fall with head strike COMPARISON: 10/07/2016 TECHNIQUE: Separate noncontrast CT examinations of the head and cervical spine were performed. Coronal and sagittal images were created for each examination at the technologist workstation. This CT examination was performed using dose optimization techniques as appropriate, variously including the following: *Automated exposure control *Adjustment of mA and/or kV according to patient size (this includes techniques or standardized protocols for targeted exams where dose is matched to indication/reason for exam; i.e. extremities or head) *Use of iterative reconstruction technique DLP: 1074 mGy-cm FINDINGS: Head: There is no evidence of acute intracranial hemorrhage or territorial infarction. No abnormal mass effect or midline shift is seen. Pringle to white matter differentiation is well preserved. No extra-axial fluid collections are identified. No hydrocephalus. No significant volume loss. There is no abnormal attenuation within the brain parenchyma. No acute osseous or soft tissue abnormality. The mastoid air cells and visualized portions of the paranasal sinuses are well aerated. Cervical spine: There is anatomic alignment of the vertebral bodies and posterior elements. The atlantoaxial and atlantooccipital articulations are intact. Vertebral body heights are maintained. There is multilevel intervertebral disc space narrowing with endplate osteophyte formation and facet arthropathy. Posterior disc osteophyte complexes at the mid cervical spine resulting in moderate spinal canal narrowing. No evidence of acute fracture. No prevertebral soft tissue swelling. Calcification of the ligamentum nuchae. Visualized portions of the lung apices are unremarkable. The thyroid gland is unremarkable. CT/CT cervical spine wo IV con IMPRESSION: 1. No acute intracranial findings. 2. No fracture or malalignment of the cervical spine. Moderate multilevel degenerative changes with multilevel spinal canal narrowing.
--- NOTE | ~2021-12-06 | XR_ITS ---
EXAMINATION: XR KNEE, LEFT XR KNEE, RIGHT CLINICAL INFORMATION: Pain. Fall. COMPARISON: 12/27/2017 TECHNIQUE: 2 views of each knee. FINDINGS: Left knee: No fracture or subluxation. Compartmental joint spaces are maintained. Moderate tricompartmental marginal osteophytes. Enthesophyte formation of the patella. No joint effusion. Right knee: No fracture or subluxation. Compartmental joint spaces are maintained. Mild to moderate tricompartmental marginal osteophytes. No joint effusion. Enthesophyte formation of the patella. XR/XR knee LT 2V IMPRESSION: Tricompartmental degenerative changes of both knees with marginal osteophytes present.
[2021-12-07 00:23] VITALS: BP 118/70; PULSE 86; BMI 27.4
--- NOTE | 2021-12-07 00:48 | ED_ITS ---
HPI - General Adult General Chief complaint: Fall <ED Loyd - Last Filed: 12/07/21 01:41> Stated complaint: FALL <ED Loyd Last Filed: 12/07/21 01:41> Time Seen by Provider: 12/07/21 00:41 <ED Loyd Last Filed: 12/07/21 01:41> Source: patient and EMS <ED Loyd Last Filed: 12/07/21 01:41> Mode of arrival: EMS <ED Loyd Last Filed: 12/07/21 01:41> Limitations: no limitations <ED Loyd Last Filed: 12/07/21 01:41> History of Present Illness HPI narrative: 56-year-old female with a PMHx of fatty liver, HTN presenting to the ED s/p fall. The patient tells me that she experienced a mechanical fall today, her walker got caught in a wire for a speaker causing her to fall to the ground. She tells me that she landed on both knees, struck the left side of her chest, and her head. She denies LOC. She is not on any blood thinners. She was able to take a few steps after being helped up by EMS on scene. At this time, she is reporting bilateral knee pain, worse on the left side, and left sided chest wall pain. She states that she was feeling a little dizzy prior to the fall, however, tells me that she was drinking this evening and attributes her symptoms to this, no other preceding symptoms. Currently. she denies any dizziness, headache, changes in vision, back pain, neck pain, abdominal pain, n/v/d, chest pain, or shortness of breath. Not on anticoagulation. <ED Loyd Last Filed: 12/07/21 01:41> Related Data Home medications: Home Medications Medication Instructions Recorded Confirmed amlodipine 5 mg tablet 5 mg PO DAILY 06/14/20 07/06/21 ascorbic acid (vitamin C) 1,000 mg 1,000 mg PO DAILY 07/06/21 07/06/21 tablet (Vitamin C) cholecalciferol (vitamin D3) 25 25 mcg PO DAILY 07/06/21 07/06/21 mcg (1,000 unit) tablet (Vitamin D3) omeprazole 20 mg capsule,delayed 20 mg PO DAILY PRN Dyspepsia 07/06/21 07/06/21 release Previous Rx's Medication Instructions Recorded ondansetron 4 mg disintegrating 4 mg PO Q6H PRN nausea and 07/10/21 tablet vomiting #10 tabs dextromethorphan-guaifenesin 5 10 ml PO Q4-8H PRN cough #237 mL 08/14/21 mg-100 mg/5 mL oral liquid (Robitussin Cough-Chest Congestion DM) loratadine 10 mg tablet (Claritin) 10 mg PO DAILY #30 tabs 08/14/21 prednisone 20 mg tablet 20 mg PO DAILY #5 tabs 08/14/21 diazepam 5 mg tablet (Valium) 5 mg PO TID PRN muscle spasm #10 10/11/21 tabs lidocaine 5 % topical patch 1 patch topical DAILY #30 ea 10/11/21 <ED Loyd - Last Filed: 12/07/21 01:41> Allergies/adverse reactions: Allergies Allergy/AdvReac Type Severity Reaction Status Date / Time ibuprofen Allergy Severe RASH, Verified 10/11/21 19:30 SWELLING, anaphylaxis, swelling <ED Loyd Last Filed: 12/07/21 01:41> Review of Systems Review of Systems: Constitutional : No Weight loss, No Fever, No Chills, No Fatigue, No Malaise ENT/Mouth : No sore throat, No Rhinorrhea Eyes: No Eye Pain, No Swelling, No Redness Cardiovascular : No Chest Pain, No SOB, No Dyspnea on Exertion, No Orthopnea, No Edema, No Palpitations Respiratory : No Cough, No Sputum, No Wheezing Gastrointestinal : No Nausea, No Vomiting, No Diarrhea, No Constipation, No abdominal Pain, No Hematochezia, No Melena Genitourinary : No Dysuria, No Urinary Frequency, No Hematuria, Musculoskeletal : + joint pain, + Myalgias, No Joint Swelling Skin : No Skin Lesions, No rash Neuro : No Weakness, No Numbness, No Dizziness, No Headache All other systems reviewed and are negative <ED Loyd Last Filed: 12/07/21 01:41> Yes all other systems are reviewed and are negative <ED Loyd - Last Filed: 12/07/21 01:41> COUNT INCLUDES THE [facility] Past Medical History Attestation statement: The following information was validated with the patient. <ED Loyd - Last Filed: 12/07/21 01:41> Source: old records reviewed and nursing notes reviewed <ED Loyd - Last Filed: 12/07/21 01:41> Medical History: Medical History Fibromyalgia Hypertension Nonalcoholic steatohepatitis (WALKER) Pyloric stenosis SBO (small bowel obstruction) Urge incontinence Urgency of micturition <ED Loyd - Last Filed: 12/07/21 01:41> Surgical History: Surgical History H/O colonoscopy H/O: hysterectomy History of appendectomy History of endometrial ablation History of esophagogastroduodenoscopy (EGD) History of tubal ligation Hx of cholecystectomy <ED Loyd - Last Filed: 12/07/21 01:41> Family History Family History: Family History Father No problems noted. Mother No problems noted. <ED Loyd - Last Filed: 12/07/21 01:41> Social History Social History: Social History Household Members: Spouse Housing: Apartment Do you presently have visiting nurse or other home services: Yes Alcohol intake: never Patient Tobacco Use Status: Former Tobacco user Second Hand Smoke Exposure: No Advance Directives: No Advance Directives Information Provided: No service: No Current occupational status: unemployed Sexual orientation: Straight/Heterosexual Gender identity: Female <ED Loyd - Last Filed: 12/07/21 01:41> Physical Exam ED Vital Signs: Vital Signs - 24 hr 12/07/21 02:31 Pulse Rate 68 Respiratory Rate 18 Blood Pressure 117/60 Pulse Oximetry 96 Oxygen Delivery Method Room Air BMI result Body Mass Index 27.4 VSS <ED Loyd - Last Filed: 12/07/21 01:41> Vital Signs - 24 hr 12/07/21 02:31 Pulse Rate 68 Respiratory Rate 18 Blood Pressure 117/60 Pulse Oximetry 96 Oxygen Delivery Method Room Air BMI result Body Mass Index 27.4 <Savannah Pineda MD - Last Filed: 12/07/21 03:36> Appearance: Alert.? Oriented X3.? No acute distress.? Head: Normocephalic, atraumatic, no step-offs or deformities. No wounds, bruising, or lacerations. Eyes: Pupils equal, round and reactive to light.?EOMI, no nystagmus. Neck: Normal inspection.? Neck supple.?In c-collar. CVS: Normal heart rate and rhythm.? Pulses normal.? Respiratory: No respiratory distress.? Breath sounds normal, equal bilaterally. Abdomen: Soft and nontender.? Skin: Skin warm and dry.? Normal skin color.? Normal skin turgor.?Abrasion to the left hand. Extremities: No lower extremity edema.? No calf ttp. 5/5 strength to bilateral upper and lower extremities. FROM. Pain with palpation of bilateral knees, exquisite pain with palpation of left knee, edema to lateral left knee. No pain with palpation of hips or upper extremities. Pelvis is stable. Back: No midline tenderness, no C-spine tenderness, full range of motion, no CVA tenderness bilaterally Neuro: Oriented X 3.? No motor deficit.? No sensory deficit. CN 2-12 intact. Normal finger to nose, heel to mensah, steady tandem gait w/ normal coordination. GCS 15. NIHSS 0. <ED Loyd - Last Filed: 12/07/21 01:41> Course Reevaluation(s) Reevaluation #1: CBC w/ normal limits. Chemistry without acute findings. . Coags wnl. Xray of b/l knees w. degenerative changes. No Fx or dislocations. Pending trop, EKG and imaging. Signout to Dr. Pineda. <ED Loyd - Last Filed: 12/07/21 01:41> Time: 01:30 <ED Loyd - Last Filed: 12/07/21 01:41> Reevaluation #2: Patient's head, cervical spine, chest and abdomen/pelvis CT scan do not show any acute abnormalities. Troponin negative, EKG shows normal sinus rhythm, heart rate 73, nonspecific T- wave inversion in lead 3, no ST segment depression or elevation, QTC 412 <Savannah Pineda MD - Last Filed: 12/07/21 03:36> Time: 03:32 <Savannah Pineda MD - Last Filed: 12/07/21 03:36> Medical Decision Making MDM Narrative Medical decision making narrative: 00:45 56 y/o F with a PMHx of fatty liver, HTN, presenting to the ED s/p fall. Struck head, bilateral knees. Complaining of bilateral knee pain worse on left, left chest wall tenderness. No thinners. +headstrike, no headache, dizziness. PE remarkable for left knee tenderness to palpation, left chest wall tenderness to palpation. GCS 15 Suspect contusions to knee and chest wall, will rule out acute fractures. Low suspiscion for ICH at this time, will obtain head CT. Unlikley flail chest, pneumothorax, internal bleeding, cervical fx/dislocations or traumatic subluxation. VSS hemodynamically stable. Unlikely stroke/posterior stroke Plan to obtain basic labs, CT head/CT spine, chest/abd/pelvis, bilateral knee x- rays. <ED Loyd - Last Filed: 12/07/21 01:41> Medical Records Medical records reviewed: Yes I reviewed the patient's medical records. <ED Loyd - Last Filed: 12/07/21 01:41> Lab Data Lab results reviewed: Yes I reviewed the patient's lab results. <ED Loyd - Last Filed: 12/07/21 01:41> Result diagrams: : 12/07/21 01:09 12/07/21 01:09 <ED Lyod - Last Filed: 12/07/21 01:41> Labs: Lab Results 12/07/21 12/07/21 12/07/21 Range/Units 01:09 01:09 01:09 WBC 7.1 (4.8-10.8) X10*3/uL RBC 4.56 (4.20-5.50) X10*6/uL Hgb 13.9 (12.0-16.0) g/dl Hct 39.7 (37.0-47.0) % MCV 87.1 (80.0-98.0) fL MCH 30.5 (27.0-33.0) pg MCHC 35.0 (31.0-35.0) g/dl RDW 12.9 (11.0-16.0) % Plt Count 297 D (160-400) X10*3/uL MPV 10.0 (9.4-12.3) fL Immature Gran % (Auto) 1.1 H (0.0-0.4) % Neut % (Auto) 66.4 (45-73) % Lymph % (Auto) 23.6 (20-40) % Whitley % (Auto) 7.9 (2-11) % Eos % (Auto) 0.6 (0-4) % Baso % (Auto) 0.4 (0-2) % Lymph # (Auto) 1.7 (1.2-4.9) X10*3/uL Whitley # (Auto) 0.6 (0.1-1.2) X10*3/uL Eos # (Auto) 0.0 (0.0-0.4) X10*3/uL Baso # (Auto) 0.0 (0.0-0.2) X10*3/uL Abs Immat Gran (auto) 0.08 H (0.00-0.03) X10*3/uL Absolute Neuts (auto) 4.7 (2.0-8.3) x10*3/uL Absolute Nucleated RBC 0.000 (0.0-0.012) X10*3/uL Nucleated RBC % (auto) 0.0 (0.0-0.2) /100WBC PT 10.7 (10.0-13.1) SEC INR 0.9 (0.9-1.1) Sodium Cancelled Potassium Cancelled Chloride Cancelled Carbon Dioxide Cancelled Anion Gap Cancelled BUN Cancelled Creatinine Cancelled Estim Creat Clear Calc Cancelled Estimated GFR Cancelled Random Glucose Cancelled Calcium Cancelled Magnesium Cancelled Total Bilirubin Cancelled AST Cancelled ALT Cancelled Alkaline Phosphatase Cancelled Total Creatine Kinase Cancelled Troponin I High Sens (<3.5-17.0) ng/L Total Protein Cancelled Albumin Cancelled Urine Color Urine Appearance Urine pH (5.0-9.0) Ur Specific [place] (1.005-1.025) Urine Protein (Neg-Trace) mg/dL Urine Glucose (UA) (Negative) mg/dL Urine Ketones (Negative) mg/dL Urine Blood (Negative) Urine Nitrite (Negative) Ur Leukocyte Esterase (Negative) Urine RBC (0-2) /HPF Urine WBC (0-5) /HPF Ur Squamous Epith Cells (0-2) /HPF Urine Bacteria (None Seen) Hyaline Casts (0-2) /LPF Ethyl Alcohol mg/dL COVID-19 (BETO) (Negative) COVID-19 Clin Com 12/07/21 12/07/21 12/07/21 Range/Units 01:09 01:09 01:09 WBC (4.8-10.8) X10*3/uL RBC (4.20-5.50) X10*6/uL Hgb (12.0-16.0) g/dl Hct (37.0-47.0) % MCV (80.0-98.0) fL MCH (27.0-33.0) pg MCHC (31.0-35.0) g/dl RDW (11.0-16.0) % Plt Count (160-400) X10*3/uL MPV (9.4-12.3) fL Immature Gran % (Auto) (0.0-0.4) % Neut % (Auto) (45-73) % Lymph % (Auto) (20-40) % Whitley % (Auto) (2-11) % Eos % (Auto) (0-4) % Baso % (Auto) (0-2) % Lymph # (Auto) (1.2-4.9) X10*3/uL Whitley # (Auto) (0.1-1.2) X10*3/uL Eos # (Auto) (0.0-0.4) X10*3/uL Baso # (Auto) (0.0-0.2) X10*3/uL Abs Immat Gran (auto) (0.00-0.03) X10*3/uL Absolute Neuts (auto) (2.0-8.3) x10*3/uL Absolute Nucleated RBC (0.0-0.012) X10*3/uL Nucleated RBC % (auto) (0.0-0.2) /100WBC PT (10.0-13.1) SEC INR (0.9-1.1) Sodium 144 Potassium 4.4 Chloride 107 Carbon Dioxide 23 Anion Gap 18 BUN 7 L Creatinine 0.70 Estim Creat Clear Calc 88.7 Estimated GFR > 60 Random Glucose 108 Calcium 9.5 D Magnesium 2.1 Total Bilirubin 0.5 AST 28 D ALT 27 Alkaline Phosphatase 103 Total Creatine Kinase 168 H Troponin I High Sens 8.8 (<3.5-17.0) ng/L Total Protein 7.4 D Albumin 4.4 D Urine Color Urine Appearance Urine pH (5.0-9.0) Ur Specific [place] (1.005-1.025) Urine Protein (Neg-Trace) mg/dL Urine Glucose (UA) (Negative) mg/dL Urine Ketones (Negative) mg/dL Urine Blood (Negative) Urine Nitrite (Negative) Ur Leukocyte Esterase (Negative) Urine RBC (0-2) /HPF Urine WBC (0-5) /HPF Ur Squamous Epith Cells (0-2) /HPF Urine Bacteria (None Seen) Hyaline Casts (0-2) /LPF Ethyl Alcohol 34 mg/dL COVID-19 (BETO) Negative (Negative) COVID-19 Clin Com See Note 12/07/21 Range/Units 02:10 WBC (4.8-10.8) X10*3/uL RBC (4.20-5.50) X10*6/uL Hgb (12.0-16.0) g/dl Hct (37.0-47.0) % MCV (80.0-98.0) fL MCH (27.0-33.0) pg MCHC (31.0-35.0) g/dl RDW (11.0-16.0) % Plt Count (160-400) X10*3/uL MPV (9.4-12.3) fL Immature Gran % (Auto) (0.0-0.4) % Neut % (Auto) (45-73) % Lymph % (Auto) (20-40) % Whitley % (Auto) (2-11) % Eos % (Auto) (0-4) % Baso % (Auto) (0-2) % Lymph # (Auto) (1.2-4.9) X10*3/uL Whitley # (Auto) (0.1-1.2) X10*3/uL Eos # (Auto) (0.0-0.4) X10*3/uL Baso # (Auto) (0.0-0.2) X10*3/uL Abs Immat Gran (auto) (0.00-0.03) X10*3/uL Absolute Neuts (auto) (2.0-8.3) x10*3/uL Absolute Nucleated RBC (0.0-0.012) X10*3/uL Nucleated RBC % (auto) (0.0-0.2) /100WBC PT (10.0-13.1) SEC INR (0.9-1.1) Sodium Potassium Chloride Carbon Dioxide Anion Gap BUN Creatinine Estim Creat Clear Calc Estimated GFR Random Glucose Calcium Magnesium Total Bilirubin AST ALT Alkaline Phosphatase Total Creatine Kinase Troponin I High Sens (<3.5-17.0) ng/L Total Protein Albumin Urine Color Yellow Urine Appearance Clear Urine pH 7.5 (5.0-9.0) Ur Specific [place] >= 1.030 H (1.005-1.025) Urine Protein Negative (Neg-Trace) mg/dL Urine Glucose (UA) Negative (Negative) mg/dL Urine Ketones Trace (Negative) mg/dL Urine Blood Negative (Negative) Urine Nitrite Negative (Negative) Ur Leukocyte Esterase Trace H (Negative) Urine RBC 0-2 (0-2) /HPF Urine WBC 0-5 (0-5) /HPF Ur Squamous Epith Cells 3-5 (0-2) /HPF Urine Bacteria None Seen (None Seen) Hyaline Casts 0-2 (0-2) /LPF Ethyl Alcohol mg/dL COVID-19 (BETO) (Negative) COVID-19 Clin Com <ED Loyd - Last Filed: 12/07/21 01:41> Lab Results 12/07/21 12/07/21 12/07/21 Range/Units 01:09 01:09 01:09 WBC 7.1 (4.8-10.8) X10*3/uL RBC 4.56 (4.20-5.50) X10*6/uL Hgb 13.9 (12.0-16.0) g/dl Hct 39.7 (37.0-47.0) % MCV 87.1 (80.0-98.0) fL MCH 30.5 (27.0-33.0) pg MCHC 35.0 (31.0-35.0) g/dl RDW 12.9 (11.0-16.0) % Plt Count 297 D (160-400) X10*3/uL MPV 10.0 (9.4-12.3) fL Immature Gran % (Auto) 1.1 H (0.0-0.4) % Neut % (Auto) 66.4 (45-73) % Lymph % (Auto) 23.6 (20-40) % Whitley % (Auto) 7.9 (2-11) % Eos % (Auto) 0.6 (0-4) % Baso % (Auto) 0.4 (0-2) % Lymph # (Auto) 1.7 (1.2-4.9) X10*3/uL Whitley # (Auto) 0.6 (0.1-1.2) X10*3/uL Eos # (Auto) 0.0 (0.0-0.4) X10*3/uL Baso # (Auto) 0.0 (0.0-0.2) X10*3/uL Abs Immat Gran (auto) 0.08 H (0.00-0.03) X10*3/uL Absolute Neuts (auto) 4.7 (2.0-8.3) x10*3/uL Absolute Nucleated RBC 0.000 (0.0-0.012) X10*3/uL Nucleated RBC % (auto) 0.0 (0.0-0.2) /100WBC PT 10.7 (10.0-13.1) SEC INR 0.9 (0.9-1.1) Sodium Cancelled Potassium Cancelled Chloride Cancelled Carbon Dioxide Cancelled Anion Gap Cancelled BUN Cancelled Creatinine Cancelled Estim Creat Clear Calc Cancelled Estimated GFR Cancelled Random Glucose Cancelled Calcium Cancelled Magnesium Cancelled Total Bilirubin Cancelled AST Cancelled ALT Cancelled Alkaline Phosphatase Cancelled Total Creatine Kinase Cancelled Troponin I High Sens (<3.5-17.0) ng/L Total Protein Cancelled Albumin Cancelled Urine Color Urine Appearance Urine pH (5.0-9.0) Ur Specific [place] (1.005-1.025) Urine Protein (Neg-Trace) mg/dL Urine Glucose (UA) (Negative) mg/dL Urine Ketones (Negative) mg/dL Urine Blood (Negative) Urine Nitrite (Negative) Ur Leukocyte Esterase (Negative) Urine RBC (0-2) /HPF Urine WBC (0-5) /HPF Ur Squamous Epith Cells (0-2) /HPF Urine Bacteria (None Seen) Hyaline Casts (0-2) /LPF Ethyl Alcohol mg/dL COVID-19 (BETO) (Negative) COVID-19 Clin Com 12/07/21 12/07/21 12/07/21 Range/Units 01:09 01:09 01:09 WBC (4.8-10.8) X10*3/uL RBC (4.20-5.50) X10*6/uL Hgb (12.0-16.0) g/dl Hct (37.0-47.0) % MCV (80.0-98.0) fL MCH (27.0-33.0) pg MCHC (31.0-35.0) g/dl RDW (11.0-16.0) % Plt Count (160-400) X10*3/uL MPV (9.4-12.3) fL Immature Gran % (Auto) (0.0-0.4) % Neut % (Auto) (45-73) % Lymph % (Auto) (20-40) % Whitley % (Auto) (2-11) % Eos % (Auto) (0-4) % Baso % (Auto) (0-2) % Lymph # (Auto) (1.2-4.9) X10*3/uL Whitley # (Auto) (0.1-1.2) X10*3/uL Eos # (Auto) (0.0-0.4) X10*3/uL Baso # (Auto) (0.0-0.2) X10*3/uL Abs Immat Gran (auto) (0.00-0.03) X10*3/uL Absolute Neuts (auto) (2.0-8.3) x10*3/uL Absolute Nucleated RBC (0.0-0.012) X10*3/uL Nucleated RBC % (auto) (0.0-0.2) /100WBC PT (10.0-13.1) SEC INR (0.9-1.1) Sodium 144 Potassium 4.4 Chloride 107 Carbon Dioxide 23 Anion Gap 18 BUN 7 L Creatinine 0.70 Estim Creat Clear Calc 88.7 Estimated GFR > 60 Random Glucose 108 Calcium 9.5 D Magnesium 2.1 Total Bilirubin 0.5 AST 28 D ALT 27 Alkaline Phosphatase 103 Total Creatine Kinase 168 H Troponin I High Sens 8.8 (<3.5-17.0) ng/L Total Protein 7.4 D Albumin 4.4 D Urine Color Urine Appearance Urine pH (5.0-9.0) Ur Specific [place] (1.005-1.025) Urine Protein (Neg-Trace) mg/dL Urine Glucose (UA) (Negative) mg/dL Urine Ketones (Negative) mg/dL Urine Blood (Negative) Urine Nitrite (Negative) Ur Leukocyte Esterase (Negative) Urine RBC (0-2) /HPF Urine WBC (0-5) /HPF Ur Squamous Epith Cells (0-2) /HPF Urine Bacteria (None Seen) Hyaline Casts (0-2) /LPF Ethyl Alcohol 34 mg/dL COVID-19 (BETO) Negative (Negative) COVID-19 Clin Com See Note 12/07/21 Range/Units 02:10 WBC (4.8-10.8) X10*3/uL RBC (4.20-5.50) X10*6/uL Hgb (12.0-16.0) g/dl Hct (37.0-47.0) % MCV (80.0-98.0) fL MCH (27.0-33.0) pg MCHC (31.0-35.0) g/dl RDW (11.0-16.0) % Plt Count (160-400) X10*3/uL MPV (9.4-12.3) fL Immature Gran % (Auto) (0.0-0.4) % Neut % (Auto) (45-73) % Lymph % (Auto) (20-40) % Whitley % (Auto) (2-11) % Eos % (Auto) (0-4) % Baso % (Auto) (0-2) % Lymph # (Auto) (1.2-4.9) X10*3/uL Whitley # (Auto) (0.1-1.2) X10*3/uL Eos # (Auto) (0.0-0.4) X10*3/uL Baso # (Auto) (0.0-0.2) X10*3/uL Abs Immat Gran (auto) (0.00-0.03) X10*3/uL Absolute Neuts (auto) (2.0-8.3) x10*3/uL Absolute Nucleated RBC (0.0-0.012) X10*3/uL Nucleated RBC % (auto) (0.0-0.2) /100WBC PT (10.0-13.1) SEC INR (0.9-1.1) Sodium Potassium Chloride Carbon Dioxide Anion Gap BUN Creatinine Estim Creat Clear Calc Estimated GFR Random Glucose Calcium Magnesium Total Bilirubin AST ALT Alkaline Phosphatase Total Creatine Kinase Troponin I High Sens (<3.5-17.0) ng/L Total Protein Albumin Urine Color Yellow Urine Appearance Clear Urine pH 7.5 (5.0-9.0) Ur Specific [place] >= 1.030 H (1.005-1.025) Urine Protein Negative (Neg-Trace) mg/dL Urine Glucose (UA) Negative (Negative) mg/dL Urine Ketones Trace (Negative) mg/dL Urine Blood Negative (Negative) Urine Nitrite Negative (Negative) Ur Leukocyte Esterase Trace H (Negative) Urine RBC 0-2 (0-2) /HPF Urine WBC 0-5 (0-5) /HPF Ur Squamous Epith Cells 3-5 (0-2) /HPF Urine Bacteria None Seen (None Seen) Hyaline Casts 0-2 (0-2) /LPF Ethyl Alcohol mg/dL COVID-19 (BETO) (Negative) COVID-19 Clin Com <Savannah Pineda MD - Last Filed: 12/07/21 03:36> Imaging Data Head and cervical spine CT: Radiologist's impression: FINDINGS: Head: There is no evidence of acute intracranial hemorrhage or territorial infarction. No abnormal mass effect or midline shift is seen. Pringle to white matter differentiation is well preserved. No extra-axial fluid collections are identified. No hydrocephalus. No significant volume loss. There is no abnormal attenuation within the brain parenchyma. No acute osseous or soft tissue abnormality. The mastoid air cells and visualized portions of the paranasal sinuses are well aerated. Cervical spine: There is anatomic alignment of the vertebral bodies and posterior elements. The atlantoaxial and atlantooccipital articulations are intact. Vertebral body heights are maintained. There is multilevel intervertebral disc space narrowing with endplate osteophyte formation and facet arthropathy. Posterior disc osteophyte complexes at the mid cervical spine resulting in moderate spinal canal narrowing. No evidence of acute fracture. No prevertebral soft tissue swelling. Calcification of the ligamentum nuchae. Visualized portions of the lung apices are unremarkable. The thyroid gland is unremarkable. CT/CT head/brain wo IV con IMPRESSION: ? 1. No acute intracranial findings. 2. No fracture or malalignment of the cervical spine. Moderate multilevel degenerative changes with multilevel spinal canal narrowing. <Savannah Pineda MD - Last Filed: 12/07/21 03:36> Chest and abdomen CT: Radiologist's impression: FINDINGS: CHEST: Lungs: The central airways are patent. No dense consolidation. Mild dependent atelectasis bilaterally. No pleural effusion or pneumothorax. There are no pulmonary parenchymal nodules.? Mediastinum: The heart is of normal size. There is no pericardial effusion. Central vascular structures are unremarkable. No hilar or mediastinal lymphadenopathy. ? Coronary Artery Calcification: None visualized on this study. Chest Wall/Axilla: No lymphadenopathy. No chest wall mass.? ABDOMEN/PELVIS: Liver, Gallbladder, Biliary Tree: The liver is normal in size, shape, and attenuation. No biliary ductal dilatation. Hypoattenuating lesion in the right lobe is too small to fully characterize, unchanged from previous. Cholecystectomy.? Pancreas: Unremarkable.? Spleen: Unremarkable.? Adrenal Glands: Unremarkable.? Kidneys and Ureters: The kidneys are normal in size, shape, and attenuation. No hydronephrosis, hydroureter or calculi seen. No perinephric stranding.? Bladder: Unremarkable.? Gastrointestinal Tract: The stomach and small bowel appear unremarkable. No dilated loops of bowel or evidence of obstruction. No diverticulosis. No colonic wall thickening or adjacent inflammatory changes. No free air or free fluid. The appendix is not seen. There is no pericecal inflammation to suggest acute appendicitis.? Abdominal Wall: No hernia is demonstrated.? Lymphovascular Structures:? Lymph nodes: Normal. Vascular: Unremarkable. Pelvic Viscera: The prostate and seminal vesicles are unremarkable.? OSSEOUS STRUCTURES: No acute or suspicious osseous abnormality. T11 vertebral body height loss is chronic. Small endplate osteophytes throughout the spine. The ribs are intact. The pelvis is intact. CT/CT chest w IV con IMPRESSION: No acute traumatic finding in the chest, abdomen, or pelvis. No fractures are identified.? <Savnanah Pineda MD - Last Filed: 12/07/21 03:36> Bilateral knee x-ray: Radiologist's impression: FINDINGS: Left knee: No fracture or subluxation. Compartmental joint spaces are maintained. Moderate tricompartmental marginal osteophytes. Enthesophyte formation of the patella. No joint effusion. Right knee: No fracture or subluxation. Compartmental joint spaces are maintained. Mild to moderate tricompartmental marginal osteophytes. No joint effusion. Enthesophyte formation of the patella.? XR/XR knee RT 2V IMPRESSION: Tricompartmental degenerative changes of both knees with marginal osteophytes present.? <Savannah Pineda MD - Last Filed: 12/07/21 03:36> Critical Care Time Critical Care Time Critical Care Time: No <ED Loyd - Last Filed: 12/07/21 01:41> Discharge Plan Discharge Clinical Impression: Fall, Acute knee pain, Anterior chest wall pain, Concussion, Arthritis <ED Loyd - Last Filed: 12/07/21 01:41> Patient Disposition: Home, Self-Care <ED Loyd - Last Filed: 12/07/21 01:41> Instructions: Knee Pain (ED), Post Concussion Syndrome (ED), Fall Prevention (ED), Chest Wall Pain (ED) <ED Loyd - Last Filed: 12/07/21 01:41> Additional Instructions: Take your medications as prescribed. If you were prescribed antibiotics today, it is important that you take your medication to their entirety, do not skip any doses, do not finish them early. Follow-up with your primary care provider this week. Return to the emergency department with new or worsening symptoms. 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 <ED Loyd - Last Filed: 12/07/21 01:41> Prescriptions: No Action omeprazole 20 mg capsule,delayed release(DR/EC) 20 mg PO DAILY PRN (Reason: Dyspepsia) cholecalciferol (vitamin D3) [Vitamin D3] 25 mcg (1,000 unit) Tablet 25 mcg PO DAILY ascorbic acid (vitamin C) [Vitamin C] 1,000 mg Tablet 1,000 mg PO DAILY ondansetron 4 mg tablet,disintegrating 4 mg PO Q6H PRN (Reason: nausea and vomiting) Qty: 10 0RF prednisone 20 mg tablet 20 mg PO DAILY Qty: 5 0RF loratadine [Claritin] 10 mg tablet 10 mg PO DAILY Qty: 30 0RF Robitussin Cough-Chest Steven DM 5-100 mg/5 mL liquid 10 ml PO Q4-8H PRN (Reason: cough) Qty: 237 0RF lidocaine 5 % adhesive patch,medicated 1 patch topical DAILY Qty: 30 0RF Rx Instructions: leave on most painful area for up to 12 hrs diazepam [Valium] 5 mg tablet 5 mg PO TID PRN (Reason: muscle spasm) Qty: 10 0RF Rx Instructions: partial fill is okay amlodipine 5 mg tablet 5 mg PO DAILY <ED Loyd - Last Filed: 12/07/21 01:41> Referrals: Shiloh Hyatt MD [Primary Care Provider] - 2 days <ED Loyd Last Filed: 12/07/21 01:41>
--- NOTE | 2021-12-07 01:15 | PC.NURSE ---
Pt. in room w/ c-collar in place. IV placed in right AC, labs drawn. Pt. resting in bed, states that as long as she doesn't move, she isn't in pain. Left knee has bruising during an earlier fall. Pt. pending CAT scan.
[2021-12-07 01:17] LABS: MANUAL DIFF FLAG NO
[2021-12-07 01:18] LABS: Basophils Percent Auto 0.4 % (0-2); Eosinophils Percent Auto 0.6 % (0-4); Hematocrit 39.7 % (37.0-47.0); Hemoglobin 13.9 g/dl (12.0-16.0); Imm Gran Abs Auto 0.08 X10*3/uL (0.00-0.03); Imm Gran Pct Auto 1.1 % (0.0-0.4); Lymphocytes Absolute Auto 1.7 X10*3/uL (1.2-4.9); Lymphocytes Percent Auto 23.6 % (20-40); Mean Corpuscular Hemoglobin 30.5 pg (27.0-33.0); Mean Corpuscular Volume 87.1 fL (80.0-98.0); Monocytes Absolute Auto 0.6 X10*3/uL (0.1-1.2); Monocytes Percent Auto 7.9 % (2-11); Neutrophils Absolute Auto 4.7 x10*3/uL (2.0-8.3); Neutrophils Percent Auto 66.4 % (45-73); Platelet Count 297 X10*3/uL (160-400); Red Blood Count 4.56 X10*6/uL (4.20-5.50); Red Cell Distribution Width 12.9 % (11.0-16.0); White Blood Count 7.1 X10*3/uL (4.8-10.8)
[2021-12-07 01:24] LABS: INTERNATIONAL NORM RATIO 0.9 (0.9-1.1); Prothrombin Time 10.7 SEC (10.0-13.1)
--- NOTE | 2021-12-07 01:24 | ECG_ITS ---
Test Reason : FALL Blood Pressure : / mmHG Vent. Rate : 073 BPM Atrial Rate : 073 BPM P-R Int : 142 ms QRS Dur : 076 ms QT Int : 374 ms P-R-T Axes : 052 016 010 degrees QTc Int : 412 ms Normal sinus rhythm Normal ECG When compared with ECG of 11-MAY-2020 20:45, No significant change was found Referred By: Nikolas Ledbetter Electronically Signed By:ANAIS CHAIDEZ
[2021-12-07 01:29] LABS: COVID-19 Test Negative (Negative); IDNOW Serial# 16C4AD1C
[2021-12-07 01:37] LABS: Alanine Aminotransferase 27 U/L (0-31); Albumin Level 4.4 g/dL (3.5-5.0); Alkaline Phosphatase 103 U/L (39-117); Anion Gap 18 (12-20); Aspartate Amino Transferase 28 U/L (5-31); Bilirubin Total 0.5 mg/dL (0.0-1.0); Blood Urea Nitrogen 7 mg/dL (9-16); Calcium 9.5 mg/dL (8.4-10.2); Carbon Dioxide 23 mmol/L (22-29); Chloride 107 mmol/L (96-108); Creatinine Clr Calc Pharmacy 88.7; Estimated Glomerular Filt Rate > 60; Ethanol 34 mg/dL; Glucose Random 108 mg/dL (60-115); Magnesium 2.1 mg/dL (1.6-2.6); Potassium 4.4 mmol/L (3.3-5.1); Sodium 144 mmol/L (135-145); Total Protein 7.4 g/dL (6.5-8.0)
[2021-12-07 01:51] LABS: Troponin-I High Sensitivity 8.8 ng/L (<3.5-17.0)
[2021-12-07 02:19] LABS: Appearance Urine Clear; Color Urine Yellow; Glucose Urine UA Negative (Negative); Leukocyte Esterase Urine Trace (Negative); Nitrite Urine Negative (Negative); PH 7.5 (5.0-9.0); Specific Gravity - Urine >= 1.030 (1.005-1.025); UMIC TRIGGER UACC YES; Urine Blood Negative (Negative); Urine Ketones Trace mg/dL (Negative); Urine Protein Negative (Neg-Trace)
[2021-12-07] MEDS: iohexoL 350 MG/ML 100 ML INFUS..BTL 85 ML IV (02:19)
[2021-12-07 02:24] LABS: Bacteria Urine None Seen (None Seen); Hyaline Casts Urine 0-2 /LPF (0-2); RBC Urine 0-2 /HPF (0-2); WBC Urine 0-5 /HPF (0-5)
[2021-12-07 02:31] VITALS: BP 117/60; PULSE 68; RESP 18; O2SAT 96
[2021-12-07] MEDS: Morphine Sulfate 2 MG/ML CARTRIDGE IVPUSH (03:48)
[2021-12-07] MEDS: Ondansetron ODT 4 MG TAB.RAPDIS TRANSLINGU (03:48)
== END 2021-12-07 04:13 | disposition home or self-care (01) ==
PROVIDERS: Physician Assistant; Emergency Provider Emergency Medicine; PCP Internal Medicine
DX: S06.0X0A Concussion without loss of consciousness, initial encounter (principal); M54.2 Cervicalgia; R51.9 Headache, unspecified; M54.6 Pain in thoracic spine; M25.561 Pain in right knee; M25.562 Pain in left knee; R10.2 Pelvic and perineal pain; X58.XXXA Exposure to other specified factors, initial encounter; Y93.9 Activity, unspecified; Y92.9 Unspecified place or not applicable; Y99.9 Unspecified external cause status; Z20.822 Contact with and (suspected) exposure to COVID-19; Z79.899 Other long term (current) drug therapy
CPT/HCPCS: 36415; 70450; 71260; 72125; 73560; 74177; 80053; 81001; 82077; 82550; 83735; 84484; 85025; 85610; 87635; 93005; 96374; 99284; J2270; Q9967

== ENCOUNTER → 2022-01-23 11:17 | Outpatient (BNVA) | payer OTHER, SELFPAY | PROVIDERS: PCP Internal Medicine; Visit Provider Internal Medicine Gastroenterology | DX: K56.609 Unspecified intestinal obstruction, unspecified as to partial versus complete obstruction (principal); K75.81 Nonalcoholic steatohepatitis (NASH) | CPT/HCPCS: 99212 ==

== ENCOUNTER 2022-05-07 07:48 | Outpatient (REF) | payer OTHER, SELFPAY ==
--- NOTE | ~2022-05-07 | FL_ITS ---
EXAMINATION: XR UPPER GI SERIES WITH SMALL BOWEL CLINICAL INFORMATION: Unspecified intestinal obstruction. COMPARISON: Previous CT of the abdomen and pelvis most recent November 2021. TECHNIQUE: Upper GI was performed using thin and thick barium and effervescent granules. Subsequently, small bowel follow-through was performed. FINDINGS: Esophageal motility/peristalsis is normal. There is a small sliding-type hiatal hernia. No reflux. The stomach and duodenum are normal. No fold thickening, mass, ulcer or stricture. Oral contrast reached the large bowel at 45 minutes. The small bowel mucosal pattern is normal. No dilatation, stricture, fold thickening or mass is appreciated. The terminal ileum is normal. FLUOROSCOPY TIME: 0.7 minutes. DOSE AREA PRODUCT: 29 Gy-cm2 FLUOROSCOPIC IMAGES: 35 saved fluoroscopic images. TOTAL DOSE: 70 uGy FL/FL upper GI small bowel IMPRESSION: Small sliding-type hiatal hernia otherwise unremarkable upper GI and small bowel follow-through.
== END 2022-05-07 07:49 | disposition home or self-care (01) ==
LOC: HO.XRAY 07:48
PROVIDERS: PCP Internal Medicine; Visit Provider Internal Medicine Gastroenterology
DX: K75.81 Nonalcoholic steatohepatitis (NASH) (principal); K56.609 Unspecified intestinal obstruction, unspecified as to partial versus complete obstruction
CPT/HCPCS: 74240; 74248

== ENCOUNTER 2022-06-03 18:48 | Emergency (ER) | payer OTHER, SELFPAY ==
--- NOTE | ~2022-06-03 | XR_ITS ---
EXAMINATION: XR CHEST CLINICAL INFORMATION: Pain. COMPARISON: Most recent CT chest dated 12/07/2021. TECHNIQUE: 2 views of the chest were obtained. FINDINGS: The lungs are clear. The cardiomediastinal silhouette is normal in size. There is no pleural effusion or pneumothorax. No acute osseous abnormality. XR/XR chest 2V IMPRESSION: No acute cardiopulmonary findings.
--- NOTE | 2022-06-03 18:47 | ECG_ITS ---
Test Reason : CHEST PAIN Blood Pressure : / mmHG Vent. Rate : 066 BPM Atrial Rate : 066 BPM P-R Int : 150 ms QRS Dur : 082 ms QT Int : 424 ms P-R-T Axes : 061 045 023 degrees QTc Int : 444 ms Normal sinus rhythm Normal ECG When compared with ECG of 07-DEC-2021 01:39, No significant change was found Referred By: Generic ED Physician Electronically Signed By:MATT PRASAD MD
[2022-06-03 18:58] VITALS: BP 148/90; PULSE 90; O2SAT 97
[2022-06-03 20:03] VITALS: BP 146/73; PULSE 65; RESP 18; TEMP 36.8; O2SAT 98; BMI 30.2
--- OUTSIDE RECORDS SUMMARY | 2022-06-03 21:07 | XMS_ITS | Continuity of Care Document ---
:1965 Author Organization [facility] Address [address] [place] [address]- Care Team Providers Name Role Phone Olena BOYCE, Shiloh Mccrary Primary Care Physician Encounter [facility] Date(s): 12/11/21 - 01/10/22 [facility] [address] [place], [place] [address] Allergies, Adverse Reactions, Alerts Substance Reaction Severity Status ibuprofen tongue swells Active Immunizations Given and Recorded Vaccine Date Status Refusal Reason influenza virus vaccine, inactivated 01/04/19 Given tetanus/diphtheria/pertussis, acel(Tdap)1 06/17/11 Given 1Admin Note: GIVEN W/O INCIDENT VIS SHEET GIVEN (04/07/2011) Medications amLODIPine 5 mg oral tablet 0 Refills, Maintenance, 08/07/20 12:15:00 EDT, Partial fill upon patient request if the prescriptionis for a schedule II opioid drug. Start Date: 08/07/20 Status: Orderedbath bench with back bath bench with back, See Instructions, # 1 units, Refills 0, Tot. Refills 0, Maintenance, dx- old T12 fracture, fibromyalgia, OA knees duration of need- 99, 07/01/12 17:15:31 Start Date: 07/01/12 Status: Orderedcommode commode, See Instructions, # 1 units, Refills 0, Tot. Refills 0, Maintenance, dx- old T 12 fracture,fibromyalgia, OA knees duration of need- 99, 07/01/12 17:15:27 Start Date: 07/01/12 Status: OrderedCrutches See Instructions, # 2 each, Maintenance, 1 pair of crutches dx- injury to knees and foot after fall duration - 3 months, 12/12/21 17:10:00 EDT, Supply Start Date: 12/12/21 Status: Ordereddiclofenac sodium 50 mg oral delayed release tablet 1 tablet = 50 mg, By Mouth, 3 times a day, # 90 tablet, 0 Refills, Maintenance, 12/24/21 9:43:00 EDT, EC Tablet, [facility]/pharmacy #[id number], Partial fill upon patient request if the prescription is for a schedule II opioid drug., 150, cm, 12/24/21 9:11:00 EDT... Start Date: 12/24/21 Status: OrderedFlonase 50 mcg/inh nasal spray 1 sprays, Nares, Both, 2 times a day, # 16 Gm, 5 Refills, Maintenance, 09/18/20 12:22:00 EDT, [facility]/pharmacy #[id number], 1 sprays Nares, Both 2 times a day,x21 days, 150, cm, 08/07/20 11:15:00 EDT, Height Start Date: 09/18/20 Stop Date: 01/22/21 Status: Orderedfluticasone 50 mcg/inh nasal spray 2 sprays, Nares, Both, Daily in AM, # 16 Gm, 0 Refills, Maintenance, 12/14/21 8:32:00 EDT, [place], [facility]/pharmacy #[id number], Partial fill upon patient request if the prescription is for a schedule II opioid drug., 2 sprays Nares, Both Daily in AM, 150, cm, 1... Start Date: 12/14/21 Status: OrderedHigh Toilet seat High Toilet seat, See Instructions, # 1 units, Refills 0, Tot. Refills 0, Maintenance, to use as directed dx- severe osteoarthirits knee, cervical DJD, fibromyalgia, 04/12/12 14:49:14 Start Date: 04/12/12 Status: OrderedHinged Knee Brace Hinged Knee Brace, See Instructions, # 1 units, Refills 0, Tot. Refills 0, Maintenance, use for leftknee as directed dx- acute osteoarthritis flare up, 06/07/18 16:12:48 EDT, Compound Start Date: 06/07/18 Status: OrderedhydrOXYzine hydrochloride 10 mg oral tablet 2 tablet, By Mouth, 3 times a day, PRN NEEDED FOR ANXIETY, # 20 tablet, 0 Refills, Maintenance, 12/12/21 11:43:00 EDT, [id number], 150, cm, 10/30/21 11:39:00 EDT, Height Start Date: 12/12/21 Status: Orderedomeprazole 40 mg oral enteric coated capsule 0 Refills, Maintenance, 11/10/19 13:48:00 EDT Start Date: 11/10/19 Status: Orderedpad inserts pad inserts, See Instructions, # 168 each, Refills 11, Tot. Refills 11, Maintenance, use as [id number] per month diagnosis: fecal incontinence; irritable bowel syndrome length of need: lifetime, 10/31/13 10:56:42, Compound Start Date: 10/31/13 Status: OrderedpredniSONE 20 mg oral tablet 5 each, TAKE 1 TABLET BY MOUTH EVERY DAY, 0 Refills, 12/30/21 16:07:00 EDT, Partial fill upon patient request if the prescription is for a schedule II opioid drug. Start Date: 12/30/21 Status: OrderedProbiotic Formula 1 capsule, By Mouth, Daily, 0 Refills, Maintenance, 10/26/14 13:45:23 Start Date: 10/26/14 Status: OrderedShower Chair See Instructions, # 1 units, Maintenance, to use as directed dx- severe osteoarthirits knee, cervical DJD, fibromyalgia, 04/12/12 14:49:05 Start Date: 04/12/12 Status: OrderedVitamin C By Mouth, Daily, 0 Refills, Maintenance, 11/10/19 13:50:00 EDT Start Date: 11/10/19 Status: Orderedwalker with seat, wheels, brake walker with seat, wheels, brake, See Instructions, # 1 each, Refills 0, Tot. Refills 0, Maintenance,dx- OA knees, back, spine. ( M17.10), fibromyalgia ( M79.18). balance problems ( M17.10) duration -99, 06/29/18 15:29:36 EDT, Compound Start Date: 06/29/18 Status: OrderedZyrTEC 10 mg oral tablet 1 tablet = 10 mg, By Mouth, Daily, # 30 tablet, 0 Refills, Maintenance, 12/14/21 8:33:00 EDT, Tablet, [facility] #[id number], Partial fill upon patient request if the prescription is for a schedule II opioid drug., 150, cm, 12/14/21 8:09:00 EDT, Height Start Date: 12/14/21 Status: Ordered Problem List Condition Confirmation Course Effective Dates Status Health I nformant Status Eustachian tube Confirmed Active dysfunction Esophageal reflux Confirmed 02/24/12 Active (GERD) History of Confirmed Active gastroschisis IBS - Irritable bowel Confirmed Active syndrome Myofascial pain Confirmed Active OA - Osteoarthritis Confirmed Active Obese class I Confirmed Active Hepatic steatosis Confirmed Active Social History Social History Type Response Smoking Status Former smoker; Tobacco user in household: No; Type: Cigarettes; Stopped at age: 23; entered on: 02/08/17 Sex Patient Care team information PersonnelName: Olena BOYCE, Shiloh Mccrary Address: Address: [address] [place] [address] Adult & Pediatric [place], [place] [address]
--- OUTSIDE RECORDS SUMMARY | 2022-06-03 21:07 | XMS_ITS | Continuity of Care Document ---
:[address] [facility] Address [address] [place] [address]- Care Team Providers Name Role Phone Shiloh Hyatt MD Primary Care Physician Encounter [facility] Date(s): 11/20/20 - 11/27/20 [facility] [address] [place], [place] [address] Attending Physician: Shiloh Hyatt MD Allergies, Adverse Reactions, Alerts Substance Reaction Severity [...] 99, 07/01/12 17:15:27 Start Date: 07/01/12 Status: OrderedFlonase 50 mcg/inh nasal spray 1 sprays, Nares, Both, 2 times a day, # 16 Gm, 5 Refills, Maintenance, 09/18/20 12:22:00 EDT, [facility]/pharmacy #[id number], 1 sprays Nares, Both 2 times a day,x21 days, 150, cm, 08/07/20 11:15:00 EDT, Height Start Date: 09/18/20 Stop Date: 01/22/21 Status: OrderedHigh Toilet seat High Toilet seat, [...] 16:12:48 EDT, Compound Start Date: 06/07/18 Status: OrderedLORazepam 0.5 mg oral tablet 1 tablet = 0.5 mg, By Mouth, Daily, PRN as needed for anxiety, may use upto 3 times a week, # 12 tablet, 0 Refills, Maintenance, 04/30/20 12:38:00 EST, [facility]/pharmacy #[id number], Partial fill upon patient request if the prescription is for a schedule II opio... Start Date: 04/30/20 Status: Orderedomeprazole 40 mg oral enteric coated capsule 0 Refills, Maintenance, 11/10/19 13:48:00 EDT Start Date: 11/10/19 Status: Orderedpad inserts pad inserts, See Instructions, # 168 each, Refills 11, Tot. Refills 11, Maintenance, use as [id number] per month diagnosis: fecal incontinence; irritable bowel syndrome length of need: lifetime, 10/31/13 10:56:42, Compound Start Date: 10/31/13 Status: OrderedProbiotic Formula 1 capsule, By Mouth, [...] 15:29:36 EDT, Compound Start Date: 06/29/18 Status: Ordered Problem List Condition Effective Dates Status Health Status Informant Esophageal reflux (GERD)(Confirmed) 02/24/12 Active History of gastroschisis(Confirmed) Active IBS - Irritable bowel Active syndrome(Confirmed) Myofascial pain(Confirmed) Active OA - Osteoarthritis(Confirmed) Active Hepatic steatosis(Confirmed) Active Social History Social History Type Response Smoking Status Former smoker; Tobacco user in household: No; Type: Cigarettes; Stopped at age: 23; entered on: 02/08/17 Sex
--- OUTSIDE RECORDS SUMMARY | 2022-06-03 21:07 | XMS_ITS | Continuity of Care Document ---
:1965 Author Organization [facility] Address [address] [place] [address]- Care Team Providers Name Role Phone Olena BOYCE, Shiloh Mccrary Primary Care Physician Encounter [facility] [place] Date(s): 07/11/21 - 08/10/21 [facility] [address] [place] [address]- Allergies, Adverse Reactions, Alerts Substance Reaction Severity [...] Gm, 5 Refills, Maintenance, 09/18/20 12:22:00 EDT, [facility]/pharmacy #[id number], 1 sprays Nares, Both 2 [...] tablet, 0 Refills, Maintenance, 04/30/20 12:38:00 EST, [facility]/pharmacy #[id number], Partial fill upon patient request if the prescription is for a schedule II opio... Start Date: 04/30/20 Status: Orderedomeprazole 40 mg oral enteric coated capsule 0 Refills, Maintenance, 11/10/19 13:48:00 EDT Start Date: 11/10/19 Status: Orderedpad inserts pad inserts, See Instructions, # 168 each, Refills 11, Tot. Refills 11, Maintenance, use as [id number] per month diagnosis: fecal incontinence; irritable bowel [...]
--- OUTSIDE RECORDS SUMMARY | 2022-06-03 21:07 | XMS_ITS | Continuity of Care Document ---
:1965 Author Organization [facility] Address [address] [place] [address]- Care Team Providers Name Role Phone Olena BOYCE, Shiloh Mccrary Primary Care Physician Encounter [facility] Date(s): 12/26/21 - 01/25/22 [facility] [address] [place], [place] [address] Allergies, Adverse Reactions, Alerts Substance Reaction Severity [...] Refills, Maintenance, 12/24/21 9:43:00 EDT, EC Tablet, [facility]/pharmacy #[id number], Partial fill upon patient request if the prescription is for a schedule II opioid drug., 150, cm, 12/24/21 9:11:00 EDT... Start Date: 12/24/21 Status: OrderedFlonase 50 mcg/inh nasal spray 1 sprays, Nares, Both, 2 times a day, # 16 Gm, 5 Refills, Maintenance, 09/18/20 12:22:00 EDT, [facility]/pharmacy #[id number], 1 sprays Nares, Both 2 times a day,x21 days, 150, cm, 08/07/20 11:15:00 EDT, Height Start Date: 09/18/20 Stop Date: 01/22/21 Status: Orderedfluticasone 50 mcg/inh nasal spray 2 sprays, Nares, Both, Daily in AM, # 16 Gm, 0 Refills, Maintenance, 12/14/21 8:32:00 EDT, [place], [facility]/pharmacy #[id number], Partial fill upon patient request if [...] tablet, 0 Refills, Maintenance, 12/12/21 11:43:00 EDT, [id number], 150, cm, 10/30/21 11:39:00 EDT, Height Start Date: 12/12/21 Status: Orderedomeprazole 40 mg oral enteric coated capsule 0 Refills, Maintenance, 11/10/19 13:48:00 EDT Start Date: 11/10/19 Status: Orderedpad inserts pad inserts, See Instructions, # 168 each, Refills 11, Tot. Refills 11, Maintenance, use as [id number] per month diagnosis: fecal incontinence; irritable bowel [...] Refills, Maintenance, 12/14/21 8:33:00 EDT, Tablet, [id number], Partial fill upon patient request if the [...] on: 02/08/17 Sex Patient Care team information Care Team PersonnelName: Olena BOYEC, Shiloh Mccrary Position: [facility] Primary Care Physician Member Role: PCP Address: Address: [address] [place] [address] Adult [place] [address]- Care Team Related PersonsName: PARAMJIT DEE Address: home [address] [place] [address] [place] [id number]
--- OUTSIDE RECORDS SUMMARY | 2022-06-03 21:08 | XMS_ITS | Continuity of Care Document ---
:1965 Author Organization [facility] Address [address] [place] [address]- Care Team Providers Name Role Phone Olena BOYCE, Shiloh Mccrary Primary Care Physician Encounter [facility] Date(s): 12/14/21 - 01/13/22 [facility] [address] [place] [address]- Attending Physician: Esequiel Elam Admitting Physician: Esequiel Elam Referring Physician: Esequiel Elam Allergies, Adverse Reactions, Alerts Substance Reaction Severity [...] Refills, Maintenance, 12/24/21 9:43:00 EDT, EC Tablet, [facility]/pharmacy #[id number], Partial fill upon patient request if the prescription is for a schedule II opioid drug., 150, cm, 12/24/21 9:11:00 EDT... Start Date: 12/24/21 Status: OrderedFlonase 50 mcg/inh nasal spray 1 sprays, Nares, Both, 2 times a day, # 16 Gm, 5 Refills, Maintenance, 09/18/20 12:22:00 EDT, [id number], 1 sprays Nares, Both 2 times a day,x21 days, 150, cm, 08/07/20 11:15:00 EDT, Height Start Date: 09/18/20 Stop Date: 01/22/21 Status: Orderedfluticasone 50 mcg/inh nasal spray 2 sprays, Nares, Both, Daily in AM, # 16 Gm, 0 Refills, Maintenance, 12/14/21 8:32:00 EDT, [place], [id number], Partial fill upon patient request if [...] tablet, 0 Refills, Maintenance, 12/12/21 11:43:00 EDT, [id number], 150, cm, 10/30/21 11:39:00 EDT, Height Start Date: 12/12/21 Status: Orderedomeprazole 40 mg oral enteric coated capsule 0 Refills, Maintenance, 11/10/19 13:48:00 EDT Start Date: 11/10/19 Status: Orderedpad inserts pad inserts, See Instructions, # 168 each, Refills 11, Tot. Refills 11, Maintenance, use as [id number] per month diagnosis: fecal incontinence; irritable bowel [...] 0 Refills, Maintenance, 12/14/21 8:33:00 EDT, Tablet, [facility]/pharmacy #[id number], Partial fill upon patient request if the [...] PersonnelName: Olena BOYCE, Shiloh Mccrary Address: Address: [address] [place] [address] Adult & Pediatric [place], [place] [address]
--- OUTSIDE RECORDS SUMMARY | 2022-06-03 21:08 | XMS_ITS | Continuity of Care Document ---
:1965 Author Organization [facility] Address [address] [place] [address]- Care Team Providers Name Role Phone Shiloh Hyatt MD Primary Care Phys[id number] Date(s): 04/20/22 - 04/27/22 [facility] [address] [place] [address]- Attending Physician: Shiloh Hyatt MD Allergies, Adverse Reactions, Alerts Substance Reaction Severity Status ibuprofen tongue swells Active Immunizations Given and Recorded Vaccine Date Status Refusal Reason tetanus/diphtheria/pertussis, acel(Tdap) 03/18/22 Given tetanus/diphtheria/pertussis, acel(Tdap)1 06/17/11 Given influenza virus vaccine, inactivated 01/04/19 Given 1Admin Note: GIVEN W/O INCIDENT VIS [...] 17:10:00 EDT, Supply Start Date: 12/12/21 Status: OrderedHigh Toilet seat High Toilet seat, [...] tablet, 0 Refills, Maintenance, 12/12/21 11:43:00 EDT, [id number], 150, cm, 10/30/21 11:39:00 EDT, Height Start Date: 12/12/21 Status: Orderedmethocarbamol 500 mg oral tablet 1 tablet = 500 mg, By Mouth, 3 times a day, PRN Pain , Moderate, # 40 tablet, 0 Refills, Acute 05/04/22 9:42:00 EST, 04/20/22 9:42:00 EST, Tablet, [facility]/pharmacy #[id number], Partial fill upon patient request if the prescription is for a schedule II opioid . Start Date: 04/20/22 Stop Date: 05/04/22 Status: Orderedomeprazole 10 mg oral enteric coated capsule 1 capsule = 10 mg, By Mouth, Daily, # 90 capsule, 0 Refills, Maintenance, 03/18/22 13:48:00 EST, [facility], Partial fill upon patient request if the prescription is for a schedule II opioid drug. Start Date: 03/18/22 Status: Orderedpad inserts pad inserts, See Instructions, # 168 each, Refills 11, Tot. Refills 11, Maintenance, use as [id number] per month diagnosis: fecal incontinence; irritable bowel syndrome length of need: lifetime, 10/31/13 10:56:42, Compound Start Date: 10/31/13 Status: OrderedProbiotic Formula 1 capsule, By Mouth, Daily, 0 Refills, Maintenance, 10/26/14 13:45:23 Start Date: 10/26/14 Status: OrderedShower Chair See Instructions, # 1 units, Maintenance, to use as directed dx- severe osteoarthirits knee, cervical DJD, fibromyalgia, 04/12/12 14:49:05 Start Date: 04/12/12 Status: Orderedturmeric = 500 mg, By Mouth, Daily, 0 Refills, Maintenance, 03/18/22 13:51:00 EST, Partial fill upon patient request if the prescription is for a schedule II opioid drug. Start Date: 03/18/22 Status: OrderedVitamin C By Mouth, Daily, 0 Refills, Maintenance, 11/10/19 13:50:00 EDT Start Date: 11/10/19 Status: OrderedVitamin D3 1000 intl units oral tablet 1 tablet = 25 mcg, By Mouth, Daily, 0 Refills, Maintenance, 03/18/22 13:50:00 EST, Partial fill uponpatient request if the prescription is for a schedule II opioid drug. Start Date: 03/18/22 Status: Orderedwalker with seat, wheels, brake walker [...] 0 Refills, Maintenance, 12/14/21 8:33:00 EDT, Tablet, [facility]/pharmacy #[id number], Partial fill upon patient request if the [...] I Confirmed Active Hepatic steatosis Confirmed Active Vital Signs Most recent to oldest [Reference Range]: 1 Height 150 cm (04/20/22 9:05 AM) Weight 69 kg (04/20/22 9:05 AM) Oxygen Saturation [94-100 %] 99 % (04/20/22 9:05 AM) Pulse Rate [55-90 bpm] 59 bpm (04/20/22 9:05 AM) Body Mass Index [18.5-24.99 kg/m2] 30.67 kg/m2 *>HHI* (04/20/22 9:05 AM) Blood Pressure [90-138/55-84 mm Hg] 130/80 mm Hg (04/20/22 9:05 AM) Mode of Delivery (Oxygen) Room air (04/20/22 9:05 AM) Blood pressure sites Arm, left (04/20/22 9:05 AM) Weight Obtained Via Standing scale (04/20/22 9:05 AM) Social History Social History Type Response Smoking Status Former smoker; Tobacco user in household: No; Type: Cigarettes; Stopped at age: 23; entered on: 02/08/17 Sex Note Frances Elliott: PERFORM, SIGN, VERIFY Event Display: Patient Education/Instruction Authored Date: [id number] [facility] *[facility] Clinical Summary Name VLAD DEE Age 56 Years 1965 PCP Olena BOYCE, Shiloh Mccrary PCP Visit Date 04/20/2022 08:56:00 Additional Instructions: Scheduled Appointments?? Future Appointments ?No Future Appointments Scheduled Follow-Up Instructions ?? Diagnosis Cervicalgia; Low back pain, unspecified; Myalgia, other site Medications: Please continue your medications until treatment is completed or stopped by your provider. Discuss any questions related to medications with your provider. Medications to Continue Taking That Have [facility]anged [id number] [address], [place] [id number], [phone] - Methocarbamol (methocarbamol 500 mg oral tablet) 1 tab(s) Oral 3 times a day as needed Pain , Moderate. Refills: 0. Next Dose: Medications to Continue with No Changes These medications were not printed or sent to your pharmacy Amlodipine (amLODIPine 5 mg oral tablet) Next Dose: Ascorbic Acid (Vitamin C) Oral Daily. Next Dose: bifidobacterium-lactobacillus (Probiotic Formula) 1 capsule Oral Daily. Next Dose: Cetirizine (ZyrTEC 10 mg oral tablet) 1 tab(s) Oral Daily. Refills: 0. Next Dose: Cholecalciferol (Vitamin D3 1000 intl units oral tablet) 1 tab(s) Oral Daily. Next Dose: Durable Medical Equipment (bath bench with back) dx- old T 12 fracture, fibromyalgia, OA knees duration of need- 99. Refills: 0. Next Dose: Durable Medical Equipment (commode) dx- old T 12 fracture, fibromyalgia, OA knees duration of need- 99. Refills: 0. Next Dose: Durable Medical Equipment (Crutches) 1 pair of crutches dx- injury to knees and foot after fall duration - 3 months. Refills: 0. Next Dose: Durable Medical Equipment (High Toilet seat) to use as directed dx- severe osteoarthirits knee, cervical DJD, fibromyalgia. Refills: 0. Next Dose: Durable Medical Equipment (Hinged Knee Brace) use for left knee as directed dx- acute osteoarthritis flare up. Refills: 0. Next Dose: Durable Medical Equipment (pad inserts) use as directed 168 per month diagnosis: fecal incontinence; irritable bowel syndrome length of need: lifetime. Refills: 11. Next Dose: Durable Medical Equipment (Shower Chair) to use as directed dx- severe osteoarthirits knee, cervical DJD, fibromyalgia. Refills: 0. Next Dose: Durable Medical Equipment (walker with seat, wheels, brake) dx- OA knees, back, spine. ( M17.10), fibromyalgia ( M79.18). balance problems ( M17.10) duration -99. Refills: 0. Next Dose: HydrOXYzine (hydrOXYzine hydrochloride 10 mg oral tablet) 2 tab(s) Oral 3 times a day as needed NEEDED FOR ANXIETY. Refills: 0. Next Dose: Omeprazole (omeprazole 10 mg oral enteric coated capsule) 1 capsule Oral Daily. Next Dose: turmeric 500 Milligram Oral Daily. Next Dose: Allergy Info:?? ibuprofen Medications Given This Visit Future Orders ?Cervical Spine 3 Views or Less? Order Date:04/20/22?- Complete on or after?04/20/22 ?Lumbar Spine 2 or 3 Views? Order Date:04/20/22?- Complete on or after?04/20/22 Vital Signs Height 150 cm Weight 69 kg BMI 30.67 kg/m2 Blood Pressure 130 mm Hg/80 mm Hg Temperature Pulse Rate 59 bpm Respiratory Rate 02 Sat Mode of Delivery 99 %/Room air You can now view a summary of your hospital visit from the comfort of your home through a free online portal called wildcraft. wildcraft is a website that allows you to securely view yourmedical information including discharge summary, medications and follow-up visits. ??You can also send a secure electronic message to your doctor???s office to request appointments, renew medications or just ask a question. You can enroll at [email or web address] or register during your next office visit. Disclaimer:?? The information provided is of a general nature and is intended to be used in conjunction with the recommendations and advice of your health care practitioner. ??Every effort has been made to ensure that the information provided is accurate and complete at the time it is provided to you however, as your needs change, or, as new ??information becomes available, different or additional instructions may be required. If you have questions, please consult with your primary care provider or pharmacist, as appropriate.??This information is not intended to serve as substitution for assessment and evaluation by a qualified health care provider. If you do not have a primary care provider, you may find a [facility] provider by calling [email or web address] Link at [phone]. For information about the plan of care including goals and instructions for your diagnosis, please see the patient education orders section of this document. Patient Education Materials?? The content of this educational material or handout may have been modified, supplemented, or adaptedfrom its original content and format to support your individualized medical care. Patient Care team information Care Team PersonnelName: Olena BOYCE, Shiloh Mccrary Position: [facility] Primary Care Physician Member Role: PCP Address: Address: [address] [facility] [place] [address]- Care Team Related PersonsName: PARAMJIT DEE Address: home [address] [place] [address] [place] [id number]
--- OUTSIDE RECORDS SUMMARY | 2022-06-03 21:08 | XMS_ITS | Continuity of Care Document ---
:1965 Author Organization [facility] Address [address] [place] [address]- Care Team Providers Name Role Phone Shiloh Hyatt MD Primary Care Physician [place] [facility]07[place]20 - 08/14/20 [facility] [address] [place], [place] [address] Attending Physician: Shiloh Hyatt MD Allergies, Adverse [...] 2 times a day, # 16 Gm, 1 Refills, Maintenance, 08/07/20 12:22:00 EDT, [facility]/pharmacy #[id number], 1 sprays Nares, Both 2 times a day,x21 days, 150, cm, 08/07/20 11:15:00 EDT, Height Start Date: 08/07/20 Stop Date: 09/18/20 Status: OrderedHigh Toilet seat High Toilet seat, [...] tablet, 0 Refills, Maintenance, 04/30/20 12:38:00 EST, [facility]/pharmacy #[id number], Partial fill upon patient request if the prescription is for a schedule II opio... Start Date: 04/30/20 Status: Orderedmeloxicam 7.5 mg oral tablet 1 tablet = 7.5 mg, By Mouth, Daily, # 30 tablet, 0 Refills, Maintenance, 08/07/20 12:16:00 EDT, [facility]/pharmacy #[id number], 150, cm, 08/07/20 11:15:00 EDT, Height Start Date: 08/07/20 Status: Orderedomeprazole 40 mg oral enteric coated capsule 0 Refills, Maintenance, 11/10/19 13:48:00 EDT Start Date: 11/10/19 Status: Orderedpad inserts pad inserts, See Instructions, # 168 each, Refills 11, Tot. Refills 11, Maintenance, use as [id number] per month diagnosis: fecal incontinence; irritable bowel [...] OA - Osteoarthritis(Confirmed) Active Hepatic steatosis(Confirmed) Active Vital Signs Most recent to oldest [Reference Range]: 1 Height 150 cm (08/07/20 11:15 AM) Weight 70.1 kg (08/07/20 11:15 AM) Oxygen Saturation [94-100 %] 96 % (08/07/20 11:15 AM) Pulse Rate [55-90 bpm] 64 bpm (08/07/20 11:15 AM) Body Mass Index [18.5-24.99] 31.16 *>HHI* (08/07/20 11:15 AM) Blood Pressure [90-138/55-84 mm Hg] 110/72 mm Hg (08/07/20 11:15 AM) Temperature [96.8-100.4 DegF] 98.4 DegF (08/07/20 11:15 AM) Mode of Delivery (Oxygen) Room air (08/07/20 11:15 AM) Blood pressure sites Arm, left (08/07/20 11:15 AM) Temperature Route Temporal (08/07/20 11:15 AM) Weight Obtained Via Standing scale (08/07/20 11:15 AM) Social History Social History Type Response Smoking Status Former smoker; Tobacco user in household: No; Type: Cigarettes; Stopped at age: 23; entered on: 02/08/17 Sex
--- OUTSIDE RECORDS SUMMARY | 2022-06-03 21:08 | XMS_ITS | Continuity of Care Document ---
:1965 Author Organization [facility] Address [address] [place] [address]- Care Team Providers Name Role Phone Olena BOYCE, Shiloh Mccrary Primary Care Physician Encounter [facility] [place] Date(s): 12/30/21 - 01/06/22 [facility] [address] [place] [address]- Encounter Diagnosis Eustachian tube dysfunction (Discharge Diagnosis) - 12/30/21 Attending Physician: Sara Albrecht MD, V Allergies, Adverse Reactions, Alerts Substance Reaction Severity [...] Gm, 0 Refills, Maintenance, 12/14/21 8:32:00 EDT, [place], [id number], Partial fill upon patient request [...] Refills, Maintenance, 12/12/21 11:43:00 EDT, [id number], 150, cm, 10/30/21 11:39:00 EDT, Height Start Date: 12/12/21 Status: Orderedomeprazole 40 mg oral enteric coated capsule 0 Refills, Maintenance, 11/10/19 13:48:00 EDT Start Date: 11/10/19 Status: Orderedpad inserts pad inserts, See Instructions, # 168 each, Refills 11, Tot. Refills 11, Maintenance, use as [id number] per month diagnosis: fecal incontinence; irritable bowel [...] fibromyalgia, 04/12/12 14:49:05 Start Date: 04/12/12 Status: OrderedTussin DM 20 mg-200 mg/10 mL oral liquid 10 mL, By Mouth, Every 6 hours, PRN as needed for cough, for 7 days, not to exceed 6 doses/day, # 280 mL, 0 Refills, Acute 01/09/22 17:18:00 EDT, 01/02/22 17:18:00 EDT, [place], [facility]/pharmacy #[id number], Partial fill upon patient request if the prescription... Start Date: 01/02/22 Stop Date: 01/09/22 Status: OrderedVitamin C By Mouth, Daily, 0 [...] Refills, Maintenance, 12/14/21 8:33:00 EDT, Tablet, [id number], Partial fill upon patient request if the [...] I Confirmed Active Hepatic steatosis Confirmed Active Diagnosis Diagnosis Type Effective Dates Health Clinical Infor mant Status Service Eustachian tube Discharge 12/30/21 dysfunction Diagnosis Vital Signs Most recent to oldest [Reference Range]: 1 Height 150 cm (12/30/21 3:53 PM) Weight 68.6 kg (12/30/21 3:53 PM) Oxygen Saturation [94-100 %] 98 % (12/30/21 3:53 PM) Pulse Rate [55-90 bpm] 74 bpm (12/30/21 3:53 PM) Body Mass Index [18.5-24.99 kg/m2] 30.49 kg/m2 *>HHI* (12/30/21 3:53 PM) Blood Pressure [90-138/55-84 mm Hg] 100/62 mm Hg (12/30/21 3:53 PM) Respiratory Rate [16-30 br/min] 16 br/min (12/30/21 3:53 PM) Temperature [96.8-100.4 DegF] 97.3 DegF (12/30/21 3:53 PM) Mode of Delivery (Oxygen) Room air (12/30/21 3:53 PM) Blood pressure sites Arm, left (12/30/21 3:53 PM) Temperature Route Temporal (12/30/21 3:53 PM) Social History Social History Type Response Smoking Status Former smoker; Tobacco user in household: No; Type: Cigarettes; Stopped at age: 23; entered on: 02/08/17 Sex Patient Care team information PersonnelName: Olena BOYCE, Shiloh Mccrary Address: Address: [address] [place] [address] Adult [facility] Pediatric [address]
--- OUTSIDE RECORDS SUMMARY | 2022-06-03 21:08 | XMS_ITS | Continuity of Care Document ---
:1965 Author Organization [facility] Address [address] [place] [address]- Care Team Providers Name Role Phone Olena BOYCE, Shiloh Mccrary Primary Care Physician [place] [facility] [place](s): 04/04/21 - 05/04/21 [facility] [address] [place], [place] [address] Allergies, Adverse Reactions, Alerts Substance Reaction [...] 5 Refills, Maintenance, 09/18/20 12:22:00 EDT, [facility]/pharmacy #[id number], 1 sprays Nares, Both 2 times [...] tablet, 0 Refills, Maintenance, 04/30/20 12:38:00 EST, [facility]/pharmacy #[id number], Partial fill upon patient request if the prescription is for a schedule II opio... Start Date: 04/30/20 Status: Orderedomeprazole 40 mg oral enteric coated capsule 0 Refills, Maintenance, 11/10/19 13:48:00 EDT Start Date: 11/10/19 Status: Orderedpad inserts pad inserts, See Instructions, # 168 each, Refills 11, Tot. Refills 11, Maintenance, use as [id number] per month diagnosis: fecal incontinence; irritable bowel [...]
--- OUTSIDE RECORDS SUMMARY | 2022-06-03 21:08 | XMS_ITS | Continuity of Care Document ---
:1965 Author Organization [facility] Address [address] [place] [address]- Care Team Providers Name Role Phone Olena BOYCE, Shiloh Mccrary Primary Care Physician Encounter [facility] [place] Date(s): 10/10/19 - 11/09/19 [facility] [address] [place] [address]- [facility] Allergies, Adverse Reactions, Alerts Substance Reaction Severity Status ibuprofen tongue swells Active Immunizations Given and Recorded Vaccine Date Status Refusal Reason influenza virus vaccine, inactivated 01/04/19 Given tetanus/diphtheria/pertussis, acel(Tdap)1 06/17/11 Given 1Admin Note: GIVEN W/O INCIDENT VIS SHEET GIVEN (04/07/2011) Medications bath bench with back bath bench with back, [...] Nares, Both, 2 times a day, # 1 each, 0 Refills, Maintenance, 06/13/18 12:33:19 EDT, 1 sprays Nares, Both 2 times a day,x14 days Start Date: 06/13/18 Stop Date: 06/27/18 Status: Orderedgabapentin 100 mg oral capsule 200 mg, 2, capsule, By Mouth, 3 times a day, # 180 capsule, Refills 2, Tot. Refills 2, Maintenance, 03/17/16 12:14:43, Route to Pharmacy Electronically, [id number], [facility]/pharmacy #[id number] Start Date: 03/17/16 Stop Date: 06/15/16 Status: OrderedHigh Toilet seat High Toilet seat, [...] 1 tablet = 0.5 mg, By Mouth, 2 times a day, PRN as needed for anxiety, by psychiatrist, # 12 tablet,0 Refills, Maintenance, 10/24/18 10:22:18 EDT Start Date: 10/24/18 Status: Orderedomeprazole 20 mg oral delayed release tablet 1 tablet = 20 mg, By Mouth, Daily, # 30 tablet, 2 Refills, Maintenance, 09/06/17 11:50:00 EDT Start Date: 09/06/17 Stop Date: 12/05/17 Status: Orderedpad inserts pad inserts, See Instructions, # 168 each, Refills 11, Tot. Refills 11, Maintenance, use as [id number] per month diagnosis: fecal incontinence; irritable bowel syndrome length of need: lifetime, 10/31/13 10:56:42, Compound Start Date: 10/31/13 Status: OrderedPremarin Vaginal 0.625 mg/gm cream with applicator Vaginally, Every Wednesday and , 0 Refills, Maintenance, 01/18/18 9:50:42 EST Start Date: 01/18/18 Status: OrderedProbiotic Formula 1 capsule, By Mouth, Daily, 0 Refills, Maintenance, 10/26/14 13:45:23 Start Date: 10/26/14 Status: OrderedShower Chair See Instructions, # 1 units, Maintenance, to use as directed dx- severe osteoarthirits knee, cervical DJD, fibromyalgia, 04/12/12 14:49:05 Start Date: 04/12/12 Status: OrderedVitamin E = 400 International_Units, By Mouth, Daily, 0 Refills, Maintenance, 06/15/16 9:23:09 Start Date: 06/15/16 Status: Orderedwalker with seat, wheels, brake walker [...]
--- OUTSIDE RECORDS SUMMARY | 2022-06-03 21:08 | XMS_ITS | Continuity of Care Document ---
:1965 Author Organization [facility] Address [address] [place] [address]- Care Team Providers Name Role Phone Shiloh Hyatt MD Primary Care Physician Encounter [facility] [place] Date(s): 12/15/21 - 12/22/21 [facility] [address] [place] [address]- Attending Physician: Shiloh Hyatt MD Allergies, Adverse [...] 17:10:00 EDT, Supply Start Date: 12/12/21 Status: OrderedFlonase 50 mcg/inh nasal spray 1 [...] Gm, 0 Refills, Maintenance, 12/14/21 8:32:00 EDT, [place], [id number], Partial fill upon patient request [...] Refills, Maintenance, 12/12/21 11:43:00 EDT, [id number], 150, cm, 10/30/21 11:39:00 EDT, Height Start Date: 12/12/21 Status: Orderedmethocarbamol 500 mg oral tablet 1-2 tablet, By Mouth, 3 times a day, PRN Pain , Moderate, # 40 tablet, 0 Refills, Acute 12/29/21 14:25:00 EDT, 12/15/21 14:25:00 EDT, [facility]/pharmacy #[id number], Partial fill upon patient request if the prescription is for a schedule II opioid drug., 150, cm,... Start Date: 12/15/21 Stop Date: 12/29/21 Status: Orderedomeprazole 40 mg oral enteric coated capsule 0 Refills, Maintenance, 11/10/19 13:48:00 EDT Start Date: 11/10/19 Status: Orderedpad inserts pad inserts, See Instructions, # 168 each, Refills 11, Tot. Refills 11, Maintenance, use as [id number] per month diagnosis: fecal incontinence; irritable bowel [...] Refills, Maintenance, 12/14/21 8:33:00 EDT, [place], [id number], Partial fill upon patient request if the prescription is for a schedule II opioid drug., 150, cm, 12/14/21 8:09:00 EDT, Height Start Date: 12/14/21 Status: Ordered Problem List Condition Confirmation Course Effective Dates Status Health I nformant Status Esophageal reflux Confirmed 02/24/12 Active (GERD) History of Confirmed Active gastroschisis IBS - Irritable bowel Confirmed Active syndrome Myofascial pain Confirmed Active OA - Osteoarthritis Confirmed Active Obese class I Confirmed Active Hepatic steatosis Confirmed Active Vital Signs Most recent to oldest [Reference Range]: 1 Height 150 cm (12/15/21 1:34 PM) Weight 67.8 kg (12/15/21 1:34 PM) Oxygen Saturation [94-100 %] 97 % (12/15/21 1:34 PM) Pulse Rate [55-90 bpm] 75 bpm (12/15/21 1:34 PM) Body Mass Index [18.5-24.99 kg/m2] 30.13 kg/m2 *>HHI* (12/15/21 1:34 PM) Blood Pressure [90-138/55-84 mm Hg] 138/74 mm Hg (12/15/21 1:34 PM) Mode of Delivery (Oxygen) Room air (12/15/21 1:34 PM) Blood pressure sites Arm, right (12/15/21 1:34 PM) Weight Obtained Via Standing scale (12/15/21 1:34 PM) Social History Social History Type Response Smoking Status Former smoker; Tobacco user in household: No; Type: Cigarettes; Stopped at age: 23; entered on: 02/08/17 Sex Patient Care team information PersonnelName: Olena BYOCE, Shiloh Mccrary Address: Address: [address] [place] [address] Adult & Pediatric [place], [place] [address]
--- OUTSIDE RECORDS SUMMARY | 2022-06-03 21:08 | XMS_ITS | Continuity of Care Document ---
:1965 Author Organization [facility] Address [address] [place] [address]- Care Team Providers Name Role Phone Olena BOYCE, Shiloh Mccrary Primary Care Physician Encounter [facility] [place] Date(s): 05/10/20 - 05/17/20 [facility] [address] [place] [address]- Encounter Diagnosis Esophageal reflux (GERD) (Discharge Diagnosis) - 05/10/20 Hepatic steatosis (Discharge Diagnosis) - 05/10/20 Myofascial pain (Discharge Diagnosis) - 05/10/20 OA - Osteoarthritis (Discharge Diagnosis) - 05/10/20 Attending Physician: Shiloh Hyatt MD Allergies, Adverse [...] 2 times a day, # 16 Gm, 0 Refills, Maintenance, 11/10/19 14:06:00 EDT, [facility]/pharmacy #[id number], 1 sprays Nares, Both 2 times a day,x21 days, 150, cm, 11/10/19 13:12:00 EDT, Height Start Date: 11/10/19 Stop Date: 12/01/19 Status: OrderedHigh Toilet seat High Toilet seat, [...] tablet, 0 Refills, Maintenance, 04/30/20 12:38:00 EST, [facility]/pharmacy #[id number], Partial fill upon patient request if the prescription is for a schedule II opio... Start Date: 04/30/20 Status: Orderedomeprazole 40 mg oral enteric coated capsule 0 Refills, Maintenance, 11/10/19 13:48:00 EDT Start Date: 11/10/19 Status: Orderedpad inserts pad inserts, See Instructions, # 168 each, Refills 11, Tot. Refills 11, Maintenance, use as per month diagnosis: fecal incontinence; irritable bowel [...] OA - Osteoarthritis(Confirmed) Active Hepatic steatosis(Confirmed) Active Diagnosis Diagnosis Type Effective Dates Health Clinical Infor mant Status Service Esophageal reflux Discharge 05/10/20 (GERD) Diagnosis Hepatic steatosis Discharge 05/10/20 Diagnosis Myofascial pain Discharge 05/10/20 Diagnosis OA - Osteoarthritis Discharge 05/10/20 Diagnosis Social History Social History Type Response Smoking Status Former smoker; Tobacco user in household: No; Type: Cigarettes; Stopped at age: 23; entered on: 02/08/17 Sex
--- OUTSIDE RECORDS SUMMARY | 2022-06-03 21:08 | XMS_ITS | Continuity of Care Document ---
:1965 Author Organization [facility] Address [address] [place] [address]- Care Team Providers Name Role Phone Olena BOYCE, Shiloh Mccrary Primary Care Physician Encounter [facility] Date(s): 01/29/20 - 02/28/20 [facility] [address] [place] [address]- Allergies, Adverse Reactions, Alerts Substance Reaction Severity [...] Gm, 0 Refills, Maintenance, 11/10/19 14:06:00 EDT, [id number], 1 sprays Nares, Both 2 times a day,x21 days, 150, cm, 11/10/19 13:12:00 EDT, Height Start Date: 11/10/19 Stop Date: 12/01/19 Status: OrderedFlonase 50 mcg/inh nasal spray 1 sprays, Nares, Both, 2 times a day, # 1 each, 0 Refills, Maintenance, 06/13/18 12:33:19 EDT, 1 sprays Nares, Both 2 times a day,x14 days Start Date: 06/13/18 Stop Date: 06/27/18 Status: OrderedHigh Toilet seat High Toilet seat, [...] 10/24/18 10:22:18 EDT Start Date: 10/24/18 Status: OrderedLORazepam 0.5 mg oral tablet 1 tablet = 0.5 mg, By Mouth, Daily, PRN as needed for anxiety, may use upto 3 times a week, # 12 tablet, 0 Refills, Maintenance, 02/13/20 16:47:00 EST, [facility]/pharmacy #[id number], Partial fill upon patient request if the prescription is for a schedule II opio... Start Date: 02/13/20 Status: Orderedomeprazole 40 mg oral enteric coated capsule 0 Refills, Maintenance, 11/10/19 13:48:00 EDT Start Date: 11/10/19 Status: Orderedpad inserts pad inserts, See Instructions, # 168 each, Refills 11, Tot. Refills 11, Maintenance, use as [id number] per month diagnosis: fecal incontinence; irritable bowel [...]
--- OUTSIDE RECORDS SUMMARY | 2022-06-03 21:08 | XMS_ITS | Continuity of Care Document ---
:1965 Author Organization [facility] Address [address] [place] [address]- Care Team Providers Name Role Phone Olena BOYCE, Shiloh Mccrary Primary Care Physician Encounter [facility] Date(s): 01/30/20 - 02/29/20 [facility] [address] [place] [address]- Allergies, Adverse Reactions, Alerts Substance Reaction Severity [...] tablet, 0 Refills, Maintenance, 02/13/20 16:47:00 EST, [facility]/pharmacy #[id number], Partial fill upon patient request if the prescription is for a schedule II opio... Start Date: 02/13/20 Status: Orderedomeprazole 40 mg oral enteric coated capsule 0 Refills, Maintenance, 11/10/19 13:48:00 EDT Start Date: 11/10/19 Status: Orderedpad inserts pad inserts, See Instructions, # 168 each, Refills 11, Tot. Refills 11, Maintenance, use as [id number] per month diagnosis: fecal incontinence; irritable bowel [...]
--- OUTSIDE RECORDS SUMMARY | 2022-06-03 21:08 | XMS_ITS | Continuity of Care Document ---
:1965 Author Organization [facility] Address [address] [place] [address]- Care Team Providers Name Role Phone Olena BOYCE, Shiloh Mccrary Primary Care Physician Encounter [facility] [place] [place] Date(s): 05/03/22 - 06/02/22 [facility] [address] [place] [address]- Allergies, Adverse Reactions, Alerts Substance Reaction Severity [...] tablet, 0 Refills, Maintenance, 12/12/21 11:43:00 EDT, [id number], 150, cm, 10/30/21 11:39:00 EDT, Height Start Date: 12/12/21 Status: Orderedomeprazole 10 mg oral enteric coated capsule 1 capsule = 10 mg, By Mouth, Daily, # 90 capsule, 0 Refills, Maintenance, 03/18/22 13:48:00 EST, [facility], Partial fill upon patient request if the prescription is for a schedule II opioid drug. Start Date: 03/18/22 Status: Orderedpad inserts pad inserts, See Instructions, # 168 each, Refills 11, Tot. Refills 11, Maintenance, use as [id number] per month diagnosis: fecal incontinence; irritable bowel syndrome length of need: lifetime, 10/31/13 10:56:42, Compound Start Date: 10/31/13 Status: OrderedProbiotic Formula 1 capsule, By Mouth, Daily, 0 Refills, Maintenance, 10/26/14 13:45:23 Start Date: 10/26/14 Status: OrderedShower Chair See Instructions, # 1 units, Maintenance, to use as directed dx- severe osteoarthirits knee, cervical DJD, fibromyalgia, 04/12/12 14:49:05 Start Date: 1/29/13 Status: Orderedturmeric = 500 mg, By Mouth, [...] 0 Refills, Maintenance, 12/14/21 8:33:00 EDT, Tablet, [facility]/pharmacy #[id number], Partial fill upon patient request if the [...] Team PersonnelName: Olena BOYCE, Shiloh Mccrary Position: [facility] Primary Care Physician Member Role: PCP Address: Address: [address] [place] [address] Adult [place] [address]- Care Team Related PersonsName: DEEPARAMJIT Address: home [address] [place] [address]
--- OUTSIDE RECORDS SUMMARY | 2022-06-03 21:08 | XMS_ITS | Continuity of Care Document ---
:1965 Author Organization [facility] Address [address] [place] [address]- Care Team Providers Name Role Phone Shiloh Hyatt MD Primary Care Physician [place] [facility] [place] 11/10[place]19 - 11/17/19 [facility] [address] [place] [address]- [facility] Attending Physician: Shiloh Hyatt MD Allergies, Adverse [...] 10:22:18 EDT Start Date: 10/24/18 Status: Orderedomeprazole 40 mg oral enteric coated capsule 0 Refills, Maintenance, 11/10/19 13:48:00 EDT Start Date: 11/10/19 Status: Orderedpad inserts pad inserts, See Instructions, # 168 each, Refills 11, Tot. Refills 11, Maintenance, use as [id number] per month diagnosis: fecal incontinence; irritable bowel [...] oldest [Reference Range]: 1 Height 150 cm (11/10/19 1:12 PM) Weight 69.9 kg (11/10/19 1:12 PM) Oxygen Saturation [94-100 %] 99 % (11/10/19 1:12 PM) Pulse Rate [55-90 bpm] 66 bpm (11/10/19 1:12 PM) Body Mass Index [18.5-24.99] 31.07 *>HHI* (11/10/19 1:12 PM) Blood Pressure [90-138/55-84 mm Hg] 110/68 mm Hg (11/10/19 1:12 PM) Temperature [96.8-100.4 DegF] 98.1 DegF (11/10/19 1:12 PM) Mode of Delivery (Oxygen) Room air (11/10/19 1:12 PM) Blood pressure sites Arm, left (11/10/19 1:12 PM) Temperature Route Temporal (11/10/19 1:12 PM) Weight Obtained Via Standing scale (11/10/19 1:12 PM) Social History Social History Type Response Smoking Status Former smoker; Tobacco user in household: No; Type: Cigarettes; Stopped at age: 23; entered on: 02/08/17 Sex
--- OUTSIDE RECORDS SUMMARY | 2022-06-03 21:08 | XMS_ITS | Continuity of Care Document ---
:1965 Author Organization [facility] Address [address] [place] [address]- Care Team Providers Name Role Phone Shiloh Hyatt MD Primary Care Physician Encounter [facility] [place] Date(s): 10/30/21 - 11/06/21 [facility] [address] [place], [place] [address] Attending Physician: Shiloh Hyatt MD Allergies, Adverse [...] Gm, 5 Refills, Maintenance, 09/18/20 12:22:00 EDT, [facility]/pharmacy #[id number], 1 sprays Nares, Both 2 [...] OrderedhydrOXYzine hydrochloride 10 mg oral tablet 2 tablet = 20 mg, By Mouth, 3 times a day, PRN as needed for anxiety, # 20 tablet, 0 Refills, Acute 11/20/21 12:11:00 EDT, 10/30/21 12:11:00 EDT, [facility]/pharmacy #[id number], Partial fill upon patient request if the prescription is for a schedule II opioid alexa... Start Date: 10/30/21 Stop Date: 11/20/21 Status: Orderedlidocaine 5% topical film 1 patch, Topically, Daily, for 14 days, remove patches after 12 hours, # 14 patch, 0 Refills, Acute 11/13/21 12:12:00 EDT, 10/30/21 12:12:00 EDT, [facility]/pharmacy #[id number], Partial fill upon patient request if the prescription is for a schedule II opioid alexa... Start Date: 10/30/21 Stop Date: 11/13/21 Status: Orderedomeprazole 40 mg oral enteric coated capsule 0 Refills, Maintenance, 11/10/19 13:48:00 EDT Start Date: 11/10/19 Status: Orderedpad inserts pad inserts, See Instructions, # 168 each, Refills 11, Tot. Refills 11, Maintenance, use as [id number] per month diagnosis: fecal incontinence; irritable bowel [...] oldest [Reference Range]: 1 Height 150 cm (10/30/21 11:39 AM) Oxygen Saturation [94-100 %] 98 % (10/30/21 11:39 AM) Pulse Rate [55-90 bpm] 60 bpm (10/30/21 11:39 AM) Blood Pressure [90-138/55-84 mm Hg] 144/92 mm Hg *H* (10/30/21 11:39 AM) Mode of Delivery (Oxygen) Room air (10/30/21 11:39 AM) Blood pressure sites Arm, left (10/30/21 11:39 AM) Social History Social History Type Response Smoking Status Former smoker; Tobacco user in household: No; Type: Cigarettes; Stopped at age: 23; entered on: 02/08/17 Sex Care Team PersonnelName: Olena BYOCE, Shiloh Mccrary Address: [address] [place] [address] Adult & Pediatric Med [place], [place] [address]
--- OUTSIDE RECORDS SUMMARY | 2022-06-03 21:08 | XMS_ITS | Continuity of Care Document ---
:1965 Author Organization [facility] Address [address] [place] [address]- Care Team Providers Name Role Phone Olena BOYCE, Shiloh Mccrary Primary Care Physician En[place] [facility] [place] Date(s): 02/13/20 - 03/14/20 [facility] [address] [place] [address]- Allergies, Adverse Reactions, Alerts Substance Reaction Severity [...] tablet, 0 Refills, Maintenance, 02/13/20 16:47:00 EST, [facility]/pharmacy #[id number], Partial fill upon patient request if the prescription is for a schedule II opio... Start Date: 02/13/20 Status: Orderedomeprazole 40 mg oral enteric coated capsule 0 Refills, Maintenance, 11/10/19 13:48:00 EDT Start Date: 11/10/19 Status: Orderedpad inserts pad inserts, See Instructions, # 168 each, Refills 11, Tot. Refills 11, Maintenance, use as [id number] per month diagnosis: fecal incontinence; irritable bowel [...]
--- OUTSIDE RECORDS SUMMARY | 2022-06-03 21:08 | XMS_ITS | Continuity of Care Document ---
:1965 Author Organization [facility] Address [address] [place] [address]- Care Team Providers Name Role Phone Olena BOYCE, Shiloh Mccrary Primary Care Physician [place] [facility] [place] Date(s): 01/24/21 - 02/23/21 [facility] [address] [place] [address]- Allergies, Adverse Reactions, Alerts Substance Reaction Severity [...] Gm, 5 Refills, Maintenance, 09/18/20 12:22:00 EDT, [facility]/pharmacy #[id number], 1 sprays Nares, Both 2 [...] tablet, 0 Refills, Maintenance, 04/30/20 12:38:00 EST, [facility]/pharmacy #[id number], Partial fill upon patient request if the prescription is for a schedule II opio... Start Date: 04/30/20 Status: Orderedomeprazole 40 mg oral enteric coated capsule 0 Refills, Maintenance, 11/10/19 13:48:00 EDT Start Date: 11/10/19 Status: Orderedpad inserts pad inserts, See Instructions, # 168 each, Refills 11, Tot. Refills 11, Maintenance, use as [id number] per month diagnosis: fecal incontinence; irritable bowel [...]
--- OUTSIDE RECORDS SUMMARY | 2022-06-03 21:08 | XMS_ITS | Continuity of Care Document ---
:1965 Author Organization [facility] Address [address] [place] [address]- Care Team Providers Name Role Phone Olena BOYCE, Shiloh Mccrary Primary Care Physician Encounter [facility] [place] Date(s): 02/13/19 - 03/16/19 [facility] [address] [place] [address]- [facility] Referring Physician: Shiloh Hyatt MD Allergies, Adverse Reactions, [...] fracture, fibromyalgia, OA knees duration of need- , 07/01/12 17:15:31 Start Date: 07/01/12 Status: Orderedcommode commode, See Instructions, # 1 units, Refills 0, Tot. Refills 0, Maintenance, dx- old T 12 fracture,fibromyalgia, OA knees duration of need- , 07/01/12 17:15:27 Start Date: 07/01/12 Status: OrderedFlonase [...] Maintenance, 03/17/16 12:14:43, Route to Pharmacy Electronically, [id number], [facility]/pharmacy #[id number] Start Date: 03/17/16 Stop Date: 06/15/16 Status: [...] 11, Tot. Refills 11, Maintenance, use as [id number] per month diagnosis: fecal incontinence; irritable bowel syndrome length of need: lifetime, 10/31/13 10:56:42, Compound Start Date: 10/31/13 Status: OrderedPremarin Vaginal 0.625 mg/gm cream with applicator Vaginally, Every Wednesday and Thursday, 0 Refills, Maintenance, 11/06/18 9:50:42 EST Start Date: 01/18/18 Status: OrderedProbiotic [...]
--- OUTSIDE RECORDS SUMMARY | 2022-06-03 21:08 | XMS_ITS | Continuity of Care Document ---
:1965 Author Organization [facility] Address [address] [place] [address]- Care Team Providers Name Role Phone Olena BOYCE, Shiloh Mccrary Primary Care Physician [place] [facility] [place] 04/29/20 - 05/29/20 [facility] [address] [place] [address]- Allergies, Adverse Reactions, Alerts Substance Reaction Severity [...] tablet, 0 Refills, Maintenance, 04/30/20 12:38:00 EST, [facility]/pharmacy #[id number], Partial fill upon patient request if the prescription is for a schedule II opio... Start Date: 04/30/20 Status: Orderedomeprazole 40 mg oral enteric coated capsule 0 Refills, Maintenance, 11/10/19 13:48:00 EDT Start Date: 11/10/19 Status: Orderedpad inserts pad inserts, See Instructions, # 168 each, Refills 11, Tot. Refills 11, Maintenance, use as [id number] per month diagnosis: fecal incontinence; irritable bowel [...]
--- OUTSIDE RECORDS SUMMARY | 2022-06-03 21:08 | XMS_ITS | Continuity of Care Document ---
:1965 Author Organization [facility] Address [address] [place] [address]- Care Team Providers Name Role Phone Olena BOYCE, Shiloh Mccrary Primary Care Physician [place] [facility] [place](s): 12/24/21 - 12/31/21 [facility] [address] [place] [address]- Encounter Diagnosis Left knee pain (Discharge Diagnosis) - 12/24/21 Attending Physician: Michelle PLATFORM CONSULTANT, [employer] Allergies, Adverse Reactions, Alerts Substance Reaction Severity [...] Gm, 0 Refills, Maintenance, 12/14/21 8:32:00 EDT, [place], [id number], Partial fill upon patient request [...] Refills, Maintenance, 12/12/21 11:43:00 EDT, [id number], 150, cm, 10/30/21 11:39:00 EDT, Height Start Date: 12/12/21 Status: Orderedomeprazole 40 mg oral enteric coated capsule 0 Refills, Maintenance, 11/10/19 13:48:00 EDT Start Date: 11/10/19 Status: Orderedpad inserts pad inserts, See Instructions, # 168 each, Refills 11, Tot. Refills 11, Maintenance, use as [id number] per month diagnosis: fecal incontinence; irritable bowel [...] Refills, Maintenance, 12/14/21 8:33:00 EDT, Tablet, [id number], Partial fill upon patient request if the [...] Active Diagnosis Diagnosis Type Effective Dates Health Status Clinical In formant Service Left knee pain Discharge 12/24/21 Diagnosis Vital Signs Most recent to oldest [Reference Range]: 1 Height 150 cm (12/24/21 9:11 AM) Weight 67.8 kg (12/24/21 9:11 AM) Oxygen Saturation [94-100 %] 97 % (12/24/21 9:11 AM) Pulse Rate [55-90 bpm] 62 bpm (12/24/21 9:11 AM) Body Mass Index [18.5-24.99 kg/m2] 30.13 kg/m2 *>HHI* (12/24/21 9:11 AM) Blood Pressure [90-138/55-84 mm Hg] 128/81 mm Hg (12/24/21 9:11 AM) Temperature [96.8-100.4 DegF] 97.6 DegF (12/24/21 9:11 AM) Blood pressure sites Arm, left (12/24/21 9:11 AM) Temperature Route Temporal (12/24/21 9:11 AM) Dry Weight 67.8 kg (12/24/21 9:11 AM) Weight Obtained Via Patient/family stated (12/24/21 9:11 AM) Social History Social History Type Response Smoking Status Former smoker; Tobacco user in household: No; Type: Cigarettes; Stopped at age: 23; entered on: 02/08/17 Sex Patient Care team information PersonnelName: Olena BOYCE, Shiloh Mccrary Address: Address: [address] [place] [address] Adult & Pediatric [address]
--- OUTSIDE RECORDS SUMMARY | 2022-06-03 21:08 | XMS_ITS | Continuity of Care Document ---
:1965 Author Organization [facility] Address [address] [place] [address]- Care Team Providers Name Role Phone Olena BOYCE, Shiloh Mccrary Primary Care Physician [place] [facility] [place] - 03/26/21 [facility] [address] [place] [address]- Allergies, Adverse Reactions, Alerts Substance Reaction Severity [...] Gm, 5 Refills, Maintenance, 09/18/20 12:22:00 EDT, [facility]/pharmacy #[id number], 1 sprays Nares, Both 2 times [...] tablet, 0 Refills, Maintenance, 04/30/20 12:38:00 EST, [facility]/pharmacy #[id number], Partial fill upon patient request if [...]
--- OUTSIDE RECORDS SUMMARY | 2022-06-03 21:08 | XMS_ITS | Continuity of Care Document ---
:1965 Author Organization [facility] Address [address] [place] [address]- Care Team Providers Name Role Phone Olena BOYCE, Shiloh Mccrary Primary Care Physician En[place] [facility] [place] Date(s): 03/01/20 - 03/31/20 [facility] [address] [place] [address]- Allergies, Adverse Reactions, Alerts Substance Reaction Severity [...] 2 times a day,x21 days, 150, cm, 08/28/20 13:12:00 EDT, Height Start Date: 11/10/19 Stop [...] tablet, 0 Refills, Maintenance, 02/13/20 16:47:00 EST, [facility]/pharmacy #[id number], Partial fill upon patient request if the prescription is for a schedule II opio... Start Date: 02/13/20 Status: Orderedomeprazole 40 mg oral enteric coated capsule 0 Refills, Maintenance, 11/10/19 13:48:00 EDT Start Date: 11/10/19 Status: Orderedpad inserts pad inserts, See Instructions, # 168 each, Refills 11, Tot. Refills 11, Maintenance, use as [id number] per month diagnosis: fecal incontinence; irritable bowel [...]
--- OUTSIDE RECORDS SUMMARY | 2022-06-03 21:08 | XMS_ITS | Continuity of Care Document ---
:1965 Author Organization [facility] Address [address] [place] [address]- Care Team Providers Name Role Phone Olena BOYCE, Shiloh Mccrary Primary Care Physician En[facility] [place] Date(s): 04/29/20 - 05/29/20 [facility] [address] [place] [address]- Allergies, Adverse Reactions, Alerts Substance Reaction Severity [...] tablet, 0 Refills, Maintenance, 04/30/20 12:38:00 EST, [facility]/pharmacy #[id number], Partial fill upon patient request if the prescription is for a schedule II opio... Start Date: 04/30/20 Status: Orderedomeprazole 40 mg oral enteric coated capsule 0 Refills, Maintenance, 11/10/19 13:48:00 EDT Start Date: 11/10/19 Status: Orderedpad inserts pad inserts, See Instructions, # 168 each, Refills 11, Tot. Refills 11, Maintenance, use as [id number] per month diagnosis: fecal incontinence; irritable bowel [...]
--- OUTSIDE RECORDS SUMMARY | 2022-06-03 21:08 | XMS_ITS | Continuity of Care Document ---
:1965 Author Organization [facility] Address [address] [place] [address]- Care Team Providers Name Role Phone Olena BOYCE, Shiloh Mccrary Primary Care Physician [place] [facility] [place]22[place]22 - 04/21/22 [facility] [address] [place] [address]- Allergies, Adverse Reactions, Alerts Substance Reaction Severity [...] Refills, Maintenance, 12/12/21 11:43:00 EDT, [facility], 150, cm, 10/30/21 11:39:00 EDT, Height Start Date: 12/12/21 Status: Orderedmethocarbamol 500 mg oral tablet 1 tablet = 500 mg, By Mouth, 3 times a day, PRN Pain , Moderate, # 40 tablet, 0 Refills, Acute 05/04/22 9:42:00 EST, 04/20/22 9:42:00 EST, Tablet, [facility]/pharmacy #[id number], Partial fill upon patient request if the [...] 11, Tot. Refills 11, Maintenance, use as [id number] per month diagnosis: fecal incontinence; irritable bowel [...] 0 Refills, Maintenance, 12/14/21 8:33:00 EDT, Tablet, [facility]/pharmacy #[id number], Partial fill upon patient request if the [...] Team PersonnelName: Olena BOYCE, Shiloh Mccrary Position: [facility] Primary Care Physician Member Role: PCP Address: Address: [address] [place] [address] Adult [place] [address]- Care Team Related PersonsName: PARAMJIT DEE Address: home [address] [place] [id number]
--- OUTSIDE RECORDS SUMMARY | 2022-06-03 21:08 | XMS_ITS | Continuity of Care Document ---
:1965 Author Organization [facility] Address [address] [place] [address]- Care Team Providers Name Role Phone Olena BOYCE, Shiloh Mccrary Primary Care Physician Encounter [facility] [place] Date(s): 07/16/21 - 07/23/21 [facility] [address] [place] [address]- Encounter Diagnosis SBO (small bowel obstruction) (Discharge Diagnosis) - 07/16/21 Cough (Discharge Diagnosis) - 07/16/21 Nausea (Discharge Diagnosis) - 07/16/21 Attending Physician: Michelle APPLICATION PERFORMANCE ENGINEER, [employer] Allergies, Adverse Reactions, Alerts Substance Reaction [...] Gm, 5 Refills, Maintenance, 09/18/20 12:22:00 EDT, [facility]/pharmacy #[id number], 1 sprays Nares, Both 2 [...] tablet, 0 Refills, Maintenance, 04/30/20 12:38:00 EST, [facility]/pharmacy #[id number], Partial fill upon patient request if the prescription is for a schedule II opio... Start Date: 04/30/20 Status: Orderedomeprazole 40 mg oral enteric coated capsule 0 Refills, Maintenance, 11/10/19 13:48:00 EDT Start Date: 11/10/19 Status: Orderedpad inserts pad inserts, See Instructions, # 168 each, Refills 11, Tot. Refills 11, Maintenance, use as [id number] per month diagnosis: fecal incontinence; irritable bowel [...] Dates Health Status Clinical In formant Service SBO (small bowel Discharge 07/16/21 obstruction) Diagnosis Cough Discharge 07/16/21 Diagnosis Nausea Discharge 07/16/21 Diagnosis Social History Social History Type Response Smoking Status Former smoker; Tobacco user in household: No; Type: Cigarettes; Stopped at age: 23; entered on: 02/08/17 Sex
--- OUTSIDE RECORDS SUMMARY | 2022-06-03 21:08 | XMS_ITS | Continuity of Care Document ---
:1965 Author Organization [facility] Address [address] [place] [address]- Care Team Providers Name Role Phone Olena BOYCE, Shiloh Mccrary Primary Care Physician Encounter [facility] [place] Date(s): 11/20/20 - 12/20/20 [facility] [address] [place], [place] [address] Attending Physician: Esequiel Elam Admitting Physician: AdmEsequiel chi Referring Physician: AdmtrEsequiel Allergies, Adverse Reactions, Alerts Substance Reaction Severity [...] 11, Tot. Refills 11, Maintenance, use as [id number] per month diagnosis: fecal incontinence; irritable bowel [...]
--- OUTSIDE RECORDS SUMMARY | 2022-06-03 21:08 | XMS_ITS | Continuity of Care Document ---
:1965 Author Organization [facility] Address [address] [place] [address]- Care Team Providers Name Role Phone Shiloh Hyatt MD Primary Care Physician Encounter [facility] Date(s): 03/18/22 - 03/25/22 [facility] [address] [place], [place] [address] Attending Physician: Shiloh Hyatt MD Allergies, [...] tablet, 0 Refills, Maintenance, 12/12/21 11:43:00 EDT, [id number], 150, cm, 10/30/21 11:39:00 EDT, Height Start Date: 12/12/21 Status: Orderedmethocarbamol 500 mg oral tablet 0 Refills, Maintenance, 03/18/22 13:50:00 EST, Partial fill upon patient request if the prescriptionis for a schedule II opioid drug. Start Date: 03/18/22 Status: Orderedomeprazole 10 mg oral enteric coated capsule 1 capsule = 10 mg, By Mouth, Daily, # 90 capsule, 0 Refills, Maintenance, 03/18/22 13:48:00 EST, EC Capsule, Partial fill upon patient request if the prescription is for a schedule II opioid drug. Start Date: 03/18/22 Status: Orderedpad inserts pad inserts, See Instructions, # 168 each, Refills 11, Tot. Refills 11, Maintenance, use as [id number] per month diagnosis: fecal incontinence; irritable bowel [...] 0 Refills, Maintenance, 12/14/21 8:33:00 EDT, Tablet, [facility]/pharmacy #[id number], Partial fill upon patient request if the [...] oldest [Reference Range]: 1 Height 150 cm (03/18/22 1:10 PM) Weight 69.3 kg (03/18/22 1:10 PM) Oxygen Saturation [94-100 %] 99 % (03/18/22 1:10 PM) Pulse Rate [55-90 bpm] 63 bpm (03/18/22 1:10 PM) Body Mass Index [18.5-24.99 kg/m2] 30.8 kg/m2 *>HHI* (03/18/22 1:10 PM) Blood Pressure [90-138/55-84 mm Hg] 120/88 mm Hg (03/18/22 1:10 PM) Mode of Delivery (Oxygen) Room air (03/18/22 1:10 PM) Blood pressure sites Arm, left (03/18/22 1:10 PM) Weight Obtained Via Standing scale (03/18/22 1:10 PM) Social History Social History Type Response Smoking Status Former smoker; Tobacco user in household: No; Type: Cigarettes; Stopped at age: 23; entered on: 02/08/17 Sex Note Bharti Shen: PERFORM, SIGN, VERIFY Event Display: Patient Education/Instruction Authored Date: [id number] [facility] *[facility] Clinical Summary Name VLAD DEE Age 56 Years 1965 PCP Shiloh Hyatt MD PCP Visit Date 03/18/2022 13:00:00 Additional Instructions: Scheduled Appointments?? Future Appointments ?*No[facility] ?[address]??[place],??[place],??[address] ?Phone:??--?Fax:??-- ?Appt. Date:??04/20/2022?9:10 AM ?Scheduled Provider:??Shiloh Hyatt MD Follow-Up Instructions ?? Diagnosis Medications: Please continue your medications until treatment is completed or stopped by your provider. Discuss any questions related to medications with your provider. Medications to Continue Taking That Have Changed These medications were not printed or sent to your pharmacy - Omeprazole (omeprazole 10 mg oral enteric coated capsule) 1 capsule Oral Daily. Next Dose: Medications to Continue with No [...] NEEDED FOR ANXIETY. Refills: 0. Next Dose: Methocarbamol (methocarbamol 500 mg oral tablet) Next Dose: turmeric 500 Milligram Oral Daily. Next Dose: No Longer Take the Following Medications Fluticasone Nasal (fluticasone 50 mcg/inh nasal spray) 2 spray(s) Nares, Both Daily in the morning. Refills: 0. PredniSONE (predniSONE 20 mg oral tablet) 5 each, TAKE 1 TABLET BY MOUTH EVERY DAY. Allergy Info:?? ibuprofen Medications Given This Visit Future Orders ?Basic Metabolic Panel? Order Date:03/18/22?- Complete on or after?03/18/22 ?Hepatic Function Panel? Order Date:03/18/22?- Complete on or after?03/18/22 ?Lipid Panel? Order Date:03/18/22?- Complete on or after?03/18/22 Vital Signs Height 150 cm Weight 69.3 kg BMI 30.8 kg/m2 Blood Pressure 120 mm Hg/88 mm Hg Temperature Pulse Rate 63 bpm Respiratory Rate 02 Sat Mode of Delivery 99 %/Room air You can now view a summary of your hospital visit from the comfort of your home through a free online portal called [employer]. [employer] is a website that allows you to securely view yourmedical information including discharge summary, medications and follow-up visits. ??You can also send a secure electronic message to your doctor???s office to request appointments, renew medications or just ask a question. You can enroll at [email or web address] or register during your next office [...] primary care provider, you may find a [facility] provider by calling [facility] Link at [phone]. For information about the plan of care [...] Team PersonnelName: Olena BOYCE, Shiloh Mccrary Position: [facility] Primary Care Physician Member Role: PCP Address: Address: [address] [place] [address] Adult & [place] [address]- Care Team Related PersonsName: PARAMJIT DEE Address: home [address] [place] [address] [place] [id number]
--- OUTSIDE RECORDS SUMMARY | 2022-06-03 21:08 | XMS_ITS | Continuity of Care Document ---
:1965 Author Organization [facility] Address [address] [place] [address]- Care Team Providers Name Role Phone Shiloh Hyatt MD [id number] Date[facility] 12/14/21 - 12/21/21 [facility] [address] [place] [address]- Attending Physician: Gama Webb DO Referring Physician: Shiloh Hyatt MD Allergies, Adverse [...] Gm, 0 Refills, Maintenance, 12/14/21 8:32:00 EDT, [place], [id number], Partial fill upon patient request [...] Refills, Maintenance, 12/12/21 11:43:00 EDT, [id number], 150, cm, 10/30/21 11:39:00 EDT, Height Start Date: 12/12/21 Status: Orderedmethocarbamol 500 mg oral tablet 1-2 tablet, By Mouth, 3 times a day, PRN Pain , Moderate, # 40 tablet, 0 Refills, Acute 12/29/21 14:25:00 EDT, 12/15/21 14:25:00 EDT, [facility]/pharmacy #[id number], Partial fill upon patient request if the prescription is for a schedule II opioid drug., 150, cm,... Start Date: 12/15/21 Stop Date: 12/29/21 Status: Orderedomeprazole 40 mg oral enteric coated capsule 0 Refills, Maintenance, 11/10/19 13:48:00 EDT Start Date: 11/10/19 Status: Orderedpad inserts pad inserts, See Instructions, # 168 each, Refills 11, Tot. Refills 11, Maintenance, use as [id number] per month diagnosis: fecal incontinence; irritable bowel [...] 0 Refills, Maintenance, 12/14/21 8:33:00 EDT, Tablet, [facility]/pharmacy #[id number], Partial fill upon patient request if [...] oldest [Reference Range]: 1 Height 150 cm (12/14/21 8:09 AM) Oxygen Saturation [94-100 %] 100 % (12/14/21 8:09 AM) Pulse Rate [55-90 bpm] 68 bpm (12/14/21 8:09 AM) Blood Pressure [90-138/55-84 mm Hg] 139/58 mm Hg *H* (12/14/21 8:09 AM) Respiratory Rate [16-30 br/min] 18 br/min (12/14/21 8:09 AM) Temperature [96.8-100.4 DegF] 98.5 DegF (12/14/21 8:09 AM) Mode of Delivery (Oxygen) Room air (12/14/21 8:09 AM) Blood pressure sites Arm, right (12/14/21 8:09 AM) Temperature Route Temporal (12/14/21 8:09 AM) Social History Social History Type Response Smoking Status Former smoker; Tobacco user in household: No; Type: Cigarettes; Stopped at age: 23; entered on: 02/08/17 Sex Patient Care team information PersonnelName: Olena BOYCE, Shiloh Mccrary Address: Address: [address] [place] [address] Adult & Pediatric [place], [place] [address]
--- OUTSIDE RECORDS SUMMARY | 2022-06-03 21:08 | XMS_ITS | Continuity of Care Document ---
:1965 Author Organization [facility] Address [address] [place] [address]- Care Team Providers Name Role Phone Shiloh Hyatt MD Primary Care Physician Encounter [facility] Date(s): 03/17/19 - 07/15/19 [facility] [address] [place] [address]- [facility] Attending Physician: Shiloh Hyatt MD Allergies, Adverse [...] Maintenance, 03/17/16 12:14:43, Route to Pharmacy Electronically, [id number], [facility]/pharmacy #[id number] Start Date: 03/17/16 Stop Date: 06/15/16 Status: [...]
--- OUTSIDE RECORDS SUMMARY | 2022-06-03 21:08 | XMS_ITS | Continuity of Care Document ---
:[address] [facility] Address [address] [place] [address]- Care Team Providers Name Role Phone Olena BOYCE, Shiloh Mccrary Primary Care Physician Encounter [facility] Date(s): 07/16/21 - 08/15/21 [facility] [address] [place] [address]- Attending Physician: Esequiel Elam Admitting Physician: Esequiel Elam Referring Physician: AdmtrEsequiel Allergies, Adverse Reactions, Alerts [...] Gm, 5 Refills, Maintenance, 09/18/20 12:22:00 EDT, [facility]/pharmacy #[id number], 1 sprays Nares, Both 2 [...] tablet, 0 Refills, Maintenance, 04/30/20 12:38:00 EST, [facility]/pharmacy #[id number], Partial fill upon patient request if the prescription is for a schedule II opio... Start Date: 04/30/20 Status: Orderedomeprazole 40 mg oral enteric coated capsule 0 Refills, Maintenance, 11/10/19 13:48:00 EDT Start Date: 11/10/19 Status: Orderedpad inserts pad inserts, See Instructions, # 168 each, Refills 11, Tot. Refills 11, Maintenance, use as [id number] per month diagnosis: fecal incontinence; irritable bowel [...]
--- OUTSIDE RECORDS SUMMARY | 2022-06-03 21:09 | XMS_ITS ---
:1965 External Reference #:[id number] Author Care Team Providers Name Role Phone [facility] Referring Provider [phone] Allergies None recorded. Medications Name Status Start Date Stop Date ? ? amlodipine 5 mg tablet Active ? Not avail able TAKE 1 TABLET BY MOUTH EVERY DAY benzonatate 100 mg capsule Active ? Not a vailable TAKE 1 CAPSULE BY MOUTH 3 TIMES A DAY FOR 7 DAYS diazepam 5 mg tablet Active ? Not availab le TAKE 1 TABLET BY MOUTH 3 TIMES A DAY NEEDED FOR MUSCLE SPASM fluconazole 150 mg tablet Active ? Not av ailable TAKE 1 TABLET BY MOUTH ONCE. MAY TAKE S ECOND TABLET IN 3 DAYS IF YOU STILL HAVE SYMPTOMS loratadine 10 mg tablet Active ? Not avai lable TAKE 1 TABLET BY MOUTH EVERY DAY Maalox Advanced 200 mg-200 mg-20 mg/5 mL oral suspension Active ? Not available Take 5 mL every day by oral route for 1 day. metronidazole 0.75 % (37.5 mg/5 gram) vaginal gel Active ? Not available INSERT 1 APPLICATORFULL VAGINALLY DAILY X 5 DAYS omeprazole 20 mg capsule,delayed release Active ? Not available TAKE 1 CAPSULE BY MOUTH EVERY DAY ondansetron 4 mg disintegrating tablet Active ? Not available TAKE 1 TABLET BY MOUTH EVERY 6 HOURS NEEDED FOR NAUSEA AND V OMITING oxycodone 5 mg tablet Active ? Not availa ble TAKE 1 TABLET EVERY 4 HOURS NEEDED F OR PAIN PATIENT MAY REQUEST PARTIAL FILL prednisone 20 mg tablet Active ? Not avai lable TAKE 1 TABLET BY MOUTH EVERY DAY Tussin DM Cough and Chest 5 mg-100 mg/5 mL oral liquid Active ? Not available TAKE 10 MLS BY MOUTH EVERY 4-8 HOURS NEEDED FOR COUGH Problems None recorded. Procedures None recorded. Results Lab Results None recorded. Past Encounters Encounter Date Diagnosis Provider 07/19/2021 Diarrhea Kathy Solorio MD: [address] [place] [address], Ph. Social History None recorded. Vaccine List None recorded. Plan of Care Reminders Provider Appointments None recorded. ? ? Lab None recorded. ? ? Referral None recorded. ? ? Procedures None recorded. ? ? Surgeries None recorded. ? ? Imaging None recorded. ? ? Vitals Blood Pressure 115/73 mm[Hg]
[2022-06-03 21:47] LABS: Influenza A PCR NEGATIVE (Negative); Influenza B PCR NEGATIVE (Negative); Resp Syncy Virus RNA Qual PCR NEGATIVE (Negative); SARS COV2 PCR INHOUSE NEGATIVE (Negative)
--- NOTE | 2022-06-03 21:47 | ED.URI ---
HPI - URI/Sore Throat General Chief Complaint: Upper Respiratory Symptoms Stated Complaint: chest pain, cough x2days Time Seen by Provider: 06/03/22 21:37 Source: patient Mode of arrival: ambulatory Limitations: no limitations History of Present Illness HPI Narrative: Patient with no history of asthma been coughing with wheezing for last 1 week specially in the nighttime no fever no chills slight rhinorrhea no other family member sick Related Data Home Medications Medication Instructions Recorded Confirmed amlodipine 5 mg tablet 5 mg PO DAILY 06/14/20 07/06/21 ascorbic acid (vitamin C) 1,000 mg 1,000 mg PO DAILY 07/06/21 07/06/21 tablet (Vitamin C) cholecalciferol (vitamin D3) 25 25 mcg PO DAILY 07/06/21 07/06/21 mcg (1,000 unit) tablet (Vitamin D3) fluticasone propionate 50 spray intranasal 01/23/22 mcg/actuation nasal spray,suspension Previous Rx's Medication Instructions Recorded ondansetron 4 mg disintegrating 4 mg PO Q6H PRN nausea and 07/10/21 tablet vomiting #10 tabs dextromethorphan-guaifenesin 5 10 ml PO Q4-8H PRN cough #237 mL 08/14/21 mg-100 mg/5 mL oral liquid (Robitussin Cough-Chest Congestion DM) loratadine 10 mg tablet (Claritin) 10 mg PO DAILY #30 tabs 08/14/21 diazepam 5 mg tablet (Valium) 5 mg PO TID PRN muscle spasm #10 10/11/21 tabs lidocaine 5 % topical patch 1 patch topical DAILY #30 ea 10/11/21 omeprazole 10 mg capsule,delayed 10 mg PO DAILY #90 caps 01/23/22 release albuterol sulfate 90 mcg/actuation 2 puff inhalation Q4-6H PRN 06/04/22 aerosol inhaler (ProAir HFA) shortness of breath or wheezing #8.5 grams benzonatate 200 mg capsule 200 mg PO TID PRN cough #30 caps 06/04/22 prednisone 20 mg tablet 40 mg PO DAILY #10 tabs 06/04/22 Allergies Allergy/AdvReac Type Severity Reaction Status Date / Time ibuprofen Allergy Severe RASH, Verified 01/23/22 11:31 SWELLING, anaphylaxis, swelling Review of Systems Review of Systems: Yes all other systems are reviewed and are negative PMFSH Past Medical History Medical History Fibromyalgia Hypertension Nonalcoholic steatohepatitis (WALKER) Pyloric stenosis SBO (small bowel obstruction) Urge incontinence Urgency of micturition Surgical History H/O colonoscopy H/O: hysterectomy History of appendectomy History of endometrial ablation History of esophagogastroduodenoscopy (EGD) History of tubal ligation Hx of cholecystectomy Family History Family History Father No problems noted. Mother No problems noted. Social History Social History Household Members: Spouse Housing: Apartment Do you presently have visiting nurse or other home services: Yes Alcohol intake: never Patient Tobacco Use Status: Former Tobacco user Second Hand Smoke Exposure: No Advance Directives: No Advance Directives Information Provided: No service: No Current occupational status: unemployed Sexual orientation: Straight/Heterosexual Gender identity: Female Physical Exam Vital Signs: Vital Signs: Last Vital Signs Temp 98.2 F 06/03/22 20:03 Pulse 65 06/03/22 20:03 Resp 18 06/03/22 20:03 BP 146/73 H 06/03/22 20:03 Pulse Ox 98 06/03/22 20:03 O2 Del Method 06/03/22 20:03 BMI result Body Mass Index 30.2 Appearance: Alert. Oriented X3. No acute distress. Eyes: PERRLA, No Nystagmus ENT: Pharynx normal. Oral Mucosa moist Neck: Normal inspection. Neck supple. CVS: Normal heart rate and rhythm. Pulses normal. Respiratory: No respiratory distress. Equal air entry bilateral, bilateral rhonchi prolonged expiration no crackles Abdomen: Soft and nontender. Bowel sounds are present, no mass palpable, no CVA tenderness Skin: Skin warm and dry. Normal skin color. Normal skin turgor. Extremities: No lower extremity edema. No calf tenderness Neuro: Oriented X 3. No motor deficit. Medical Decision Making Medical Decision Making MDM Narrative: Patient with acute wheezing no history of asthma acute bronchitis discharge on steroids cough drops inhaler chest x-ray negative COVID/RSV/flu negative Lab Data MDM Lab Attestation statement: I reviewed the patient's lab results. Labs: Lab Results 06/03/22 Range/Units 21:03 Influenza Type A (PCR) NEGATIVE (Negative) Influenza Type B (PCR) NEGATIVE (Negative) RSV RNA Qual (PCR) NEGATIVE (Negative) SARS-CoV-2 RNA (RT-PCR) NEGATIVE (Negative) Discharge Plan Discharge Clinical Impression: Acute bronchitis Patient Disposition: Home, Self-Care Instructions: Acute Bronchitis (ED) Additional Instructions: Inhaler cough drops and prednisone as advised Cold mist, drink plenty of fluids Follow with PCP Prescriptions: New benzonatate 200 mg capsule 200 mg PO TID PRN (Reason: cough) Qty: 30 0RF prednisone 20 mg tablet 40 mg PO DAILY Qty: 10 0RF albuterol sulfate [ProAir HFA] 90 mcg/actuation HFA aerosol inhaler 2 puff inhalation Q4-6H PRN (Reason: shortness of breath or wheezing) Qty: 8.5 0RF No Action cholecalciferol (vitamin D3) [Vitamin D3] 25 mcg (1,000 unit) Tablet 25 mcg PO DAILY ascorbic acid (vitamin C) [Vitamin C] 1,000 mg Tablet 1,000 mg PO DAILY ondansetron 4 mg tablet,disintegrating 4 mg PO Q6H PRN (Reason: nausea and vomiting) Qty: 10 0RF loratadine [Claritin] 10 mg tablet 10 mg PO DAILY Qty: 30 0RF Robitussin Cough-Chest Steven DM 5-100 mg/5 mL liquid 10 ml PO Q4-8H PRN (Reason: cough) Qty: 237 0RF lidocaine 5 % adhesive patch,medicated 1 patch topical DAILY Qty: 30 0RF Rx Instructions: leave on most painful area for up to 12 hrs diazepam [Valium] 5 mg tablet 5 mg PO TID PRN (Reason: muscle spasm) Qty: 10 0RF Rx Instructions: partial fill is okay amlodipine 5 mg tablet 5 mg PO DAILY fluticasone propionate 50 mcg/actuation spray,suspension intranasal omeprazole 10 mg capsule,delayed release(DR/EC) 10 mg PO DAILY Qty: 90 1RF
[2022-06-04] MEDS: Benzonatate 100 MG CAPSULE 200 MG PO (00:51)
[2022-06-04] MEDS: dexAMETHasone 2 MG TABLET 10 MG PO (00:51)
[2022-06-04] MEDS: Albuterol Sulfate 90 MCG 8 GM INHALER 2 PUFF INHALE (00:52)
[2022-06-04 00:54] VITALS: O2SAT 97
[2022-06-04 00:57] VITALS: BP 130/78; PULSE 112; RESP 18; TEMP 37.2; O2SAT 97
== END 2022-06-04 01:03 | disposition home or self-care (01) ==
PROVIDERS: Physician Assistant; Emergency Provider Internal Medicine; PCP Internal Medicine
DX: J20.9 Acute bronchitis, unspecified (principal); I10 Essential (primary) hypertension; Z20.822 Contact with and (suspected) exposure to COVID-19; Z20.828 Contact with and (suspected) exposure to other viral communicable diseases; Z79.899 Other long term (current) drug therapy
CPT/HCPCS: 0241U; 71046; 93005; 99284; 99285; J8540

== ENCOUNTER 2022-06-23 08:56 | Outpatient (REF) | payer OTHER, SELFPAY ==
[2022-06-24 13:00] LABS: BV Int Neg Control Negative (Negative); BV Int Pos Control Positive (Positive)
== END 2022-06-23 08:57 | disposition home or self-care (01) ==
LOC: HO.LAB 08:56
PROVIDERS: PCP Internal Medicine; Visit Provider Advanced Practice Midwife
DX: Z01.419 Encounter for gynecological examination (general) (routine) without abnormal findings (principal); N89.8 Other specified noninflammatory disorders of vagina
CPT/HCPCS: 81003; 87480; 87510; 87660

== ENCOUNTER 2022-07-24 07:20 | Outpatient (REF) | payer OTHER, SELFPAY ==
--- NOTE | ~2022-07-24 | MM_ITS ---
EXAMINATION: MM SCREENING DIGITAL BREAST TOMOSYNTHESIS, BILATERAL CLINICAL INFORMATION: Screening. Asymptomatic. The lifetime risk of breast cancer based on the Tyrer-Cuzick Model is 4%. COMPARISON: Mammography: 05/28/2020, 05/23/2019, 09/07/2017 TECHNIQUE: Digital breast tomosynthesis is performed in both the craniocaudal and mediolateral oblique views along with computer-aided detection (CAD). Synthesized 2D images are generated from the tomosynthesis. FINDINGS: There are scattered areas of fibroglandular density (ACR BI-RADS breast composition Category b). There are no significant masses, abnormal calcifications, or other abnormalities. Parenchymal pattern is similar to prior studies. There is no developing density or architectural abnormality. Probable grouped dermal calcifications again noted anterior 5:00 left breast. Bilateral vascular calcifications again seen. The axilla and skin contours are unremarkable. No significant changes. MM/MM tomosynthesis screening BI IMPRESSION: No mammographic evidence of malignancy. ASSESSMENT: BI-RADS 2: Benign RECOMMENDATION: Routine annual mammography screening. This patient's information was entered into a reminder system with a target due date for their next mammogram.
[2022-07-24 09:35] LABS: MANUAL DIFF FLAG NO
[2022-07-24 09:47] LABS: Basophils Absolute Auto 0.1 X10*3/uL (0.0-0.2); Basophils Percent Auto 0.8 % (0-2); Eosinophils Absolute Auto 0.1 X10*3/uL (0.0-0.4); Eosinophils Percent Auto 1.6 % (0-4); Hematocrit 43.6 % (37.0-47.0); Hemoglobin 14.9 g/dl (12.0-16.0); Imm Gran Abs Auto 0.03 X10*3/uL (0.00-0.03); Imm Gran Pct Auto 0.5 % (0.0-0.4); Lymphocytes Absolute Auto 2.3 X10*3/uL (1.2-4.9); Lymphocytes Percent Auto 36.4 % (20-40); Mean Corpuscular HGB Conc 34.2 g/dl (31.0-35.0); Mean Corpuscular Hemoglobin 29.8 pg (27.0-33.0); Mean Corpuscular Volume 87.2 fL (80.0-98.0); Monocytes Absolute Auto 0.4 X10*3/uL (0.1-1.2); Monocytes Percent Auto 6.3 % (2-11); Neutrophils Absolute Auto 3.5 x10*3/uL (2.0-8.3); Neutrophils Percent Auto 54.4 % (45-73); Platelet Count 305 X10*3/uL (160-400); White Blood Count 6.3 X10*3/uL (4.8-10.8)
[2022-07-24 10:11] LABS: Alanine Aminotransferase 34 U/L (0-31); Albumin Level 4.4 g/dL (3.5-5.0); Alkaline Phosphatase 96 U/L (39-117); Anion Gap 9 (12-20); Aspartate Amino Transferase 23 U/L (5-31); Bilirubin Total 0.8 mg/dL (0.0-1.0); Blood Urea Nitrogen 10 mg/dL (9-16); Calcium 9.7 mg/dL (8.4-10.2); Carbon Dioxide 30 mmol/L (22-29); Chloride 107 mmol/L (96-108); Estimated Glomerular Filt Rate > 60; Glucose Random 105 mg/dL (60-115); Potassium 4.3 mmol/L (3.3-5.1); Sodium 142 mmol/L (135-145); Total Protein 7.2 g/dL (6.5-8.0)
== END 2022-07-24 07:21 | disposition home or self-care (01) ==
LOC: HO.MAMMO 07:20
PROVIDERS: Absent Provider Internal Medicine Gastroenterology; PCP Internal Medicine; Visit Provider Advanced Practice Midwife
DX: Z12.31 Encounter for screening mammogram for malignant neoplasm of breast (principal); K75.81 Nonalcoholic steatohepatitis (NASH); M54.9 Dorsalgia, unspecified; R74.01 Elevation of levels of liver transaminase levels
CPT/HCPCS: 36415; 77063; 77067; 80053; 82550; 85025; 99212

== ENCOUNTER 2022-08-14 09:13 | Outpatient (REF) | payer OTHER, SELFPAY ==
--- NOTE | ~2022-08-14 | US_ITS ---
EXAMINATION: US ABDOMEN LIMITED WITH LIVER ELASTOGRAPHY CLINICAL INFORMATION: Nonalcoholic steatohepatitis. COMPARISON: None available. TECHNIQUE: Real-time imaging of the abdominal viscera. Noninvasive ultrasound liver fibrosis assessment is performed using Adonis ElastPQ point quantification shear wave elastography (2D-SWE) with a C5-2 MHz transducer. Multiple elastography samples are obtained. FINDINGS: PANCREAS: Limited. The visualized pancreatic head and proximal body are normal in appearance. The remainder of the pancreas is obscured from visualization by the overlying bowel gas. LIVER: The liver demonstrates normal size, contour and mildly increased echogenicity. No focal solid lesion or intrahepatic biliary duct dilatation. Within the posterior segment of the right hepatic lobe, a 5 mm simple cyst is seen, with increased through sound transmission. This is consistent with CT findings dated 12/07/2021 (14:175). The right lobe measures 14.4 cm in length. The left lobe measures 10.0 cm in length. Portal flow is towards the liver (hepatopetal). Shear wave liver elastography median stiffness is 1.40 m/s (reference: normal median stiffness is 1.3 m/s or less). IQR/median stiffness to assess sampling precision is 0.11 (reference: good quality data set is IQR/median stiffness of 0.15 or less). GALLBLADDER: Surgically absent. COMMON BILE DUCT: Normal in caliber measuring 0.6 cm in diameter. RIGHT KIDNEY: Normal. No hydronephrosis. No renal calculi or focal parenchymal lesions. The kidney measures 9.9 cm in maximum dimension. FREE FLUID: None. US/US abdomen martinez w elastography IMPRESSION: 1. There is mild generalized increase in hepatic echotexture, consistent with fatty infiltration or hepatocellular disease. Please correlate clinically. No focal hepatic mass or intrahepatic biliary dilatation is seen. 2. Liver elastography: In the absence of other known clinical signs, measurements rule out compensated advanced chronic liver disease. If there are known clinical signs, further testing may be needed for confirmation. 3. A benign, simple right hepatic lobe cyst is incidentally noted. This requires no imaging follow-up. 4. The gallbladder is surgically absent. 5. Technically limited ultrasound examination of the pancreas. REFERENCE: Society of Radiologists in Ultrasound Liver Stiffness Thresholds (2020): LIVER STIFFNESS THRESHOLDS: *Liver Stiffness equal or less than 1.3 m/s: High probability of being normal. *Liver Stiffness less than 1.7 m/s: In the absence of other known clinical signs, rules out compensated advanced chronic liver disease. *Liver Stiffness 1.7-2.1 m/s: Suggestive of compensated advanced chronic liver disease but need further test for confirmation. *Liver Stiffness over 2.1 m/s: Rules in compensated advanced chronic liver disease. *Liver Stiffness over 2.4 m/s: Suggestive of clinically significant portal hypertension. QUALITY OF DATA SET: *IQR/Median value equal or less than 0.15 implies a quality data set. *IQR/Median value over 0.15 implies a poor quality data set. SIGNIFICANT CHANGE FROM PRIOR EXAM: Significant change if liver stiffness measurement is 10% or greater from prior exam. OTHER CONSIDERATIONS: The stage of liver fibrosis may be overestimated in the setting of acute hepatitis, liver inflammation, elevated liver function tests, hepatic vascular congestion, obstructive cholestasis, non-fasting state, and infiltrative diseases such as amyloidosis and lymphoma. In some patients with NAFLD, the liver stiffness thresholds for compensated advanced chronic liver disease may be lower. In causes other than viral hepatitis and NAFLD, liver stiffness thresholds are not well established.
== END 2022-08-14 09:14 | disposition home or self-care (01) ==
LOC: HO.US 09:13
PROVIDERS: PCP Internal Medicine; Visit Provider Internal Medicine Gastroenterology
DX: K74.60 Unspecified cirrhosis of liver (principal); K75.81 Nonalcoholic steatohepatitis (NASH); M54.9 Dorsalgia, unspecified; R74.01 Elevation of levels of liver transaminase levels
CPT/HCPCS: 76705; 76981

== ENCOUNTER → 2022-09-04 09:43 | Outpatient (BNVA) | payer OTHER, SELFPAY | PROVIDERS: PCP Internal Medicine; Visit Provider Registered Nurse Emergency | DX: M79.18 Myalgia, other site (principal); M54.6 Pain in thoracic spine; M50.30 Other cervical disc degeneration, unspecified cervical region; M51.36 Other intervertebral disc degeneration, lumbar region | CPT/HCPCS: 99202 ==

== ENCOUNTER 2022-10-05 12:01 | Emergency (ER) | payer OTHER, SELFPAY ==
--- NOTE | ~2022-10-05 | XR_ITS ---
EXAMINATION: XR CHEST CLINICAL INFORMATION: Pain COMPARISON: Chest 06/03/2022 TECHNIQUE: 2 views of the chest were obtained. FINDINGS: No significant abnormality is noted involving the heart, lungs, mediastinum, bony thorax or soft tissues. XR/XR chest 2V IMPRESSION: No acute cardiopulmonary disease.
[2022-10-05 12:09] VITALS: BP 152/98; PULSE 62; O2SAT 97
--- NOTE | 2022-10-05 12:09 | ED_ITS ---
HPI - General Adult General Chief complaint: Back Pain/Injury Stated complaint: DIZZY, UPPER BACK PAIN PER EMS Time Seen by Provider: 10/05/22 18:37 Related Data Home Medications Medication Instructions Recorded Confirmed amlodipine 5 mg tablet 5 mg PO DAILY 06/14/20 07/06/21 ascorbic acid (vitamin C) 1,000 mg 1,000 mg PO DAILY 07/06/21 07/06/21 tablet (Vitamin C) cholecalciferol (vitamin D3) 25 25 mcg PO DAILY 07/06/21 07/06/21 mcg (1,000 unit) tablet (Vitamin D3) fluticasone propionate 50 spray intranasal 01/23/22 mcg/actuation nasal spray,suspension metronidazole 500 mg tablet 500 mg PO BID 11/09/22 Previous Rx's Medication Instructions Recorded ondansetron 4 mg disintegrating 4 mg PO Q6H PRN nausea and 07/10/21 tablet vomiting #10 tabs diazepam 5 mg tablet (Valium) 5 mg PO TID PRN muscle spasm #10 10/11/21 tabs benzonatate 200 mg capsule 200 mg PO TID PRN cough #30 caps 06/04/22 omeprazole 10 mg capsule,delayed 10 mg PO DAILY #90 caps 07/17/22 release clotrimazole-betamethasone 1 1 appl topical BID PRN itching 7 10/08/22 %-0.05 % topical cream days #45 grams terconazole 0.8 % vaginal cream 1 appful vaginal BEDTIME 3 days 10/10/22 #20 grams baclofen 5 mg tablet 5 mg PO BID #60 tabs 10/30/22 fluconazole 150 mg tablet 150 mg PO DAILY 1 dose #1 tab 11/05/22 (Diflucan) Allergies Allergy/AdvReac Type Severity Reaction Status Date / Time ibuprofen Allergy Severe RASH, Verified 11/09/22 08:56 SWELLING, anaphylaxis, swelling PMFSH Past Medical History Medical History Fibromyalgia Hypertension Nonalcoholic steatohepatitis (WALKER) Pyloric stenosis SBO (small bowel obstruction) Urge incontinence Urgency of micturition Vaginal burning Vaginal irritation Vaginal itching Surgical History H/O colonoscopy H/O: hysterectomy History of appendectomy History of endometrial ablation History of esophagogastroduodenoscopy (EGD) History of tubal ligation Hx of cholecystectomy Family History Family History Father No problems noted. Mother No problems noted. Social History Social History Household Members: Spouse Housing: Apartment Do you presently have visiting nurse or other home services: Yes Alcohol intake: current Alcohol intake frequency: holidays/special occasions only Alcohol type: wine Patient Tobacco Use Status: Current everyday Tobacco user Cigarette Packs Per Day: 0.5 Second Hand Smoke Exposure: No Advance Directives: No Advance Directives Information Provided: Yes service: No Current occupational status: unemployed Sexual orientation: Straight/Heterosexual Gender identity: Female Physical Exam ED Vital Signs: BMI result Body Mass Index 30.5 Medical Decision Making Medical Decision Making MDM Narrative: 57-year-old female presents for evaluation of left upper back pain as well as chest pain that started about 10 minutes ago. Also complains of dizziness. Plan for cardiac workup will Lab Data 10/05/22 14:26 10/05/22 14:26 Labs: Lab Results 10/05/22 10/05/22 10/05/22 Range/Units 14:25 14:26 16:46 WBC 8.3 (4.8-10.8) X10*3/uL RBC 5.26 (4.20-5.50) X10*6/uL Hgb 15.7 (12.0-16.0) g/dl Hct 44.7 (37.0-47.0) % MCV 85.0 (80.0-98.0) fL MCH 29.8 (27.0-33.0) pg MCHC 35.1 H (31.0-35.0) g/dl RDW 12.3 (11.0-16.0) % Plt Count 323 (160-400) X10*3/uL MPV 9.9 (9.4-12.3) fL Immature Gran % (Auto) 0.1 (0.0-0.4) % Neut % (Auto) 65.8 (45-73) % Lymph % (Auto) 27.7 (20-40) % Josephine % (Auto) 5.5 (2-11) % Eos % (Auto) 0.4 (0-4) % Baso % (Auto) 0.5 (0-2) % Lymph # (Auto) 2.3 (1.2-4.9) X10*3/uL [place] # (Auto) 0.5 (0.1-1.2) X10*3/uL Eos # (Auto) 0.0 (0.0-0.4) X10*3/uL Baso # (Auto) 0.0 (0.0-0.2) X10*3/uL Abs Immat Gran (auto) 0.01 (0.00-0.03) X10*3/uL Absolute Neuts (auto) 5.5 (2.0-8.3) x10*3/uL Absolute Nucleated RBC 0.000 (0.0-0.012) X10*3/uL Nucleated RBC % (auto) 0.0 (0.0-0.2) /100WBC PT 11.5 (10.0-13.1) SEC INR 1.0 (0.9-1.1) APTT 29.6 (26.0-36.4) SEC Sodium 143 (135-145) mmol/L Potassium 3.9 (3.3-5.1) mmol/L Chloride 110 H (96-108) mmol/L Carbon Dioxide 26 (22-29) mmol/L Anion Gap 11 L (12-20) BUN 9 (9-16) mg/dL Creatinine 0.74 (0.5-1.4) mg/dL Estim Creat Clear Calc 68.9 Estimated GFR > 60 Random Glucose 102 (60-115) mg/dL Calcium 10.3 H D (8.4-10.2) mg/dL Magnesium 2.2 (1.6-2.6) mg/dL Total Bilirubin 0.8 (0.0-1.0) mg/dL AST 19 (5-31) U/L ALT 27 (0-31) U/L Alkaline Phosphatase 101 (39-117) U/L Troponin I High Sens 2.8 3.3 (<3.5-17.0) ng/L Total Protein 7.9 (6.5-8.0) g/dL Albumin 4.6 (3.5-5.0) g/dL Lipase 26 (8-78) U/L 10/05/ Range/Units 19:31 WBC (4.8-10.8) X10*3/uL RBC (4.20-5.50) X10*6/uL Hgb (12.0-16.0) g/dl Hct (37.0-47.0) % MCV (80.0-98.0) fL MCH (27.0-33.0) pg MCHC (31.0-35.0) g/dl RDW (11.0-16.0) % Plt Count (160-400) X10*3/uL MPV (9.4-12.3) fL Immature Gran % (Auto) (0.0-0.4) % Neut % (Auto) (45-73) % Lymph % (Auto) (20-40) % Joseph[place] % (Auto) (2-11) % Eos % (Auto) (0-4) % Baso % (Auto) (0-2) % Lymph # (Auto) (1.2-4.9) X10*3/uL [place] # (Auto) (0.1-1.2) X10*3/uL Eos # (Auto) (0.0-0.4) X10*3/uL Baso # (Auto) (0.0-0.2) X10*3/uL Abs Immat Gran (auto) (0.00-0.03) X10*3/uL Absolute Neuts (auto) (2.0-8.3) x10*3/uL Absolute Nucleated RBC (0.0-0.012) X10*3/uL Nucleated RBC % (auto) (0.0-0.2) /100WBC PT (10.0-13.1) SEC INR (0.9-1.1) APTT (26.0-36.4) SEC Sodium (135-145) mmol/L Potassium (3.3-5.1) mmol/L Chloride (96-108) mmol/L Carbon Dioxide (22-29) mmol/L Anion Gap (12-20) BUN (9-16) mg/dL Creatinine (0.5-1.4) mg/dL Estim Creat Clear Calc Estimated GFR Random Glucose (60-115) mg/dL Calcium (8.4-10.2) mg/dL Magnesium (1.6-2.6) mg/dL Total Bilirubin (0.0-1.0) mg/dL AST (5-31) U/L ALT (0-31) U/L Alkaline Phosphatase (39-117) U/L Troponin I High Sens < 2.7 (<3.5-17.0) ng/L Total Protein (6.5-8.0) g/dL Albumin (3.5-5.0) g/dL Lipase (8-78) U/L Discharge Plan Discharge Clinical Impression: Back pain, Chest pain Patient Disposition: Home, Self-Care Instructions: Chest Pain (DC), Back Pain (ED) Prescriptions: No Action omeprazole 10 mg capsule,delayed release(DR/EC) 10 mg PO DAILY Qty: 90 1RF terconazole 0.8 % cream 1 appful vaginal BEDTIME 3 Days Qty: 20 0RF baclofen 5 mg tablet 5 mg PO BID Qty: 60 2RF fluconazole [Diflucan] 150 mg tablet 150 mg PO DAILY Qty: 1 0RF Rx Instructions: administer on day 1 of therapy cholecalciferol (vitamin D3) [Vitamin D3] 25 mcg (1,000 unit) Tablet 25 mcg PO DAILY ascorbic acid (vitamin C) [Vitamin C] 1,000 mg Tablet 1,000 mg PO DAILY ondansetron 4 mg tablet,disintegrating 4 mg PO Q6H PRN (Reason: nausea and vomiting) Qty: 10 0RF diazepam [Valium] 5 mg tablet 5 mg PO TID PRN (Reason: muscle spasm) Qty: 10 0RF Rx Instructions: partial fill is okay benzonatate 200 mg capsule 200 mg PO TID PRN (Reason: cough) Qty: 30 0RF amlodipine 5 mg tablet 5 mg PO DAILY fluticasone propionate 50 mcg/actuation spray,suspension intranasal clotrimazole-betamethasone 1-0.05 % cream 1 appl topical BID PRN (Reason: itching) 7 Days Qty: 45 0RF metronidazole 500 mg tablet 500 mg PO BID Referrals: Physician,Unknown J [Primary Care Provider] - 10/07/22 Discharge Date/Time: 10/06/22 03:04
--- NOTE | 2022-10-05 12:09 | ECG_ITS ---
Test Reason : cp Blood Pressure : / mmHG Vent. Rate : 062 BPM Atrial Rate : 062 BPM P-R Int : 144 ms QRS Dur : 086 ms QT Int : 412 ms P-R-T Axes : 027 026 023 degrees QTc Int : 418 ms Normal sinus rhythm Normal ECG When compared with ECG of 03-JUN-2022 19:01, No significant change was found Referred By: Arturo Sung Electronically Signed By:MATT PRASAD MD
[2022-10-05 12:19] VITALS: BP 149/68; PULSE 66; RESP 18; TEMP 36.1; O2SAT 100; BMI 30.5
[2022-10-05 14:00] VITALS: BP 124/70; PULSE 61; RESP 18; TEMP 36; O2SAT 99
[2022-10-05 14:30] LABS: MANUAL DIFF FLAG NO
[2022-10-05 14:35] LABS: Basophils Percent Auto 0.5 % (0-2); Eosinophils Percent Auto 0.4 % (0-4); Hematocrit 44.7 % (37.0-47.0); Hemoglobin 15.7 g/dl (12.0-16.0); Imm Gran Abs Auto 0.01 X10*3/uL (0.00-0.03); Imm Gran Pct Auto 0.1 % (0.0-0.4); Lymphocytes Absolute Auto 2.3 X10*3/uL (1.2-4.9); Lymphocytes Percent Auto 27.7 % (20-40); Mean Corpuscular HGB Conc 35.1 g/dl (31.0-35.0); Mean Corpuscular Hemoglobin 29.8 pg (27.0-33.0); Mean Platelet Volume 9.9 fL (9.4-12.3); Monocytes Absolute Auto 0.5 X10*3/uL (0.1-1.2); Monocytes Percent Auto 5.5 % (2-11); Neutrophils Absolute Auto 5.5 x10*3/uL (2.0-8.3); Neutrophils Percent Auto 65.8 % (45-73); Platelet Count 323 X10*3/uL (160-400); Red Blood Count 5.26 X10*6/uL (4.20-5.50); Red Cell Distribution Width 12.3 % (11.0-16.0); White Blood Count 8.3 X10*3/uL (4.8-10.8)
[2022-10-05 14:39] LABS: Prothrombin Time 11.5 SEC (10.0-13.1)
[2022-10-05 14:41] LABS: Partial Thromboplastin Time 29.6 SEC (26.0-36.4)
[2022-10-05 14:47] LABS: Alanine Aminotransferase 27 U/L (0-31); Albumin Level 4.6 g/dL (3.5-5.0); Alkaline Phosphatase 101 U/L (39-117); Anion Gap 11 (12-20); Aspartate Amino Transferase 19 U/L (5-31); Bilirubin Total 0.8 mg/dL (0.0-1.0); Blood Urea Nitrogen 9 mg/dL (9-16); Calcium 10.3 mg/dL (8.4-10.2); Carbon Dioxide 26 mmol/L (22-29); Chloride 110 mmol/L (96-108); Creatinine Clr Calc Pharmacy 68.9; Estimated Glomerular Filt Rate > 60; Glucose Random 102 mg/dL (60-115); Lipase 26 U/L (8-78); Magnesium 2.2 mg/dL (1.6-2.6); Potassium 3.9 mmol/L (3.3-5.1); Sodium 143 mmol/L (135-145); Total Protein 7.9 g/dL (6.5-8.0)
[2022-10-05 14:54] LABS: Troponin-I High Sensitivity 2.8 ng/L (<3.5-17.0)
[2022-10-05 17:22] LABS: Troponin-I High Sensitivity 3.3 ng/L (<3.5-17.0)
[2022-10-05 19:01] VITALS: BP 148/82; PULSE 58; RESP 18; TEMP 36.7; O2SAT 100
--- NOTE | 2022-10-05 19:22 | ED.BACK ---
HPI - Back Pain/Injury General Chief Complaint: Back Pain/Injury Stated Complaint: DIZZY, UPPER BACK PAIN PER EMS Time Seen by Provider: 10/05/22 18:37 History of Present Illness HPI Narrative: Patient is a 57-year-old female presents today with having bilateral hand spasms. Subsequently followed by having some chest pain. Subsequently followed by having her usual back pain the pain goes down her lower back. She has a history of high cholesterol. History of hypertension. Is not a smoker . Patient has a history of CT scan of the chest abdomen pelvis done last year. There is no evidence of any abdominal aortic aneurysm. Patient has a chronic history of sciatica. Never had a stress test. No diaphoresis associated with this pain. No shortness of breath. Patient from home. Patient claims the chest pain is more mid chest at this point. She is from home. Related Data Home Medications Medication Instructions Recorded Confirmed amlodipine 5 mg tablet 5 mg PO DAILY 06/14/20 07/06/21 ascorbic acid (vitamin C) 1,000 mg 1,000 mg PO DAILY 07/06/21 07/06/21 tablet (Vitamin C) cholecalciferol (vitamin D3) 25 25 mcg PO DAILY 07/06/21 07/06/21 mcg (1,000 unit) tablet (Vitamin D3) fluticasone propionate 50 spray intranasal 01/23/22 mcg/actuation nasal spray,suspension Previous Rx's Medication Instructions Recorded ondansetron 4 mg disintegrating 4 mg PO Q6H PRN nausea and 07/10/21 tablet vomiting #10 tabs loratadine 10 mg tablet (Claritin) 10 mg PO DAILY #30 tabs 08/14/21 diazepam 5 mg tablet (Valium) 5 mg PO TID PRN muscle spasm #10 10/11/21 tabs lidocaine 5 % topical patch 1 patch topical DAILY #30 ea 10/11/21 benzonatate 200 mg capsule 200 mg PO TID PRN cough #30 caps 06/04/22 omeprazole 10 mg capsule,delayed 10 mg PO DAILY #90 caps 07/17/22 release baclofen 5 mg tablet 5 mg PO BID 30 days #60 tabs 09/04/22 Allergies Allergy/AdvReac Type Severity Reaction Status Date / Time ibuprofen Allergy Severe RASH, Verified 10/05/22 12:19 SWELLING, anaphylaxis, swelling Review of Systems Review of Systems: Positive chest pain. Positive back pain Yes all other systems are reviewed and are negative [facility] Past Medical History Attestation statement: The following information was validated with the patient. Medical History Fibromyalgia Hypertension Nonalcoholic steatohepatitis (WALKER) Pyloric stenosis SBO (small bowel obstruction) Urge incontinence Urgency of micturition Surgical History H/O colonoscopy H/O: hysterectomy History of appendectomy History of endometrial ablation History of esophagogastroduodenoscopy (EGD) History of tubal ligation Hx of cholecystectomy Family History Family History Father No problems noted. Mother No problems noted. Social History Social History Household Members: Spouse Housing: Apartment Do you presently have visiting nurse or other home services: Yes Alcohol intake: current Alcohol intake frequency: holidays/special occasions only Alcohol type: wine Patient Tobacco Use Status: Current everyday Tobacco user Cigarette Packs Per Day: 0.5 Second Hand Smoke Exposure: No Advance Directives: No Advance Directives Information Provided: No service: No Current occupational status: unemployed Sexual orientation: Straight/Heterosexual Gender identity: Female Physical Exam Vital Signs: Vital Signs: Last Vital Signs Temp 98.0 F 10/05/22 19:01 Pulse 58 10/05/22 19:01 Resp 18 10/05/22 19:01 BP 148/82 H 10/05/22 19:01 Pulse Ox 100 10/05/22 19:01 O2 Del Method Room Air 10/05/22 19:01 BMI result Body Mass Index 30.5 Appearance: Alert. Oriented X3. No acute distress. Eyes: Pupils equal, round and reactive to light. ENT: Pharynx normal. Neck: Normal inspection. Neck supple. No lymph nodes noted. No crepitus CVS: Normal heart rate and rhythm. Pulses normal. Normal S1 and S2 Respiratory: No respiratory distress. Breath sounds normal. No Wheezing. No rales Abdomen: Soft and nontender. No rigidity. No distention. good BS x4 Skin: Skin warm and dry. Normal skin color. Normal skin turgor. Extremities: No lower extremity edema. Neurovascular intact to all extremities. No Lacerations. No Rash Neuro: Oriented X 3. No motor deficit. No sensory deficit. Moving all extermities. No slurred speech Medical Decision Making Medical Decision Making MDM Narrative: Three sets of cardiac enzymes are negative. In the setting of patient having chest pain since approximately noontime. It is unlikely patient has ACS. Patient had a previous history of having a chest abdomen pelvis CT done last year. Unlikely to have abdominal aortic aneurysm with dissection. My interpretation of patient's EKG showed a sinus rhythm heart rate is 60 AK QRS QT within normal limits there is no acute ST segment elevation noted. Patient's chest x-rays negative for any acute evidence of pneumonia pneumothorax. Lipase is 26 is no evidence for pancreatitis. Normal hemoglobin is 16 there is no evidence for anemia kidney functions are normal. LFTs are normal. No evidence for biliary disease. Medically feels improved with time. Will discharge patient home. Question dehydration. Differential Diagnosis Differential Diagnoses: The differential diagnosis associated with the presentation includes Pneumonia, pneumothorax, dissection, ACS, biliary issues, pancreatitis, sciatica Lab Data MDM Lab Attestation statement: I reviewed the patient's lab results. 10/05/22 14:26 10/05/22 14:26 Labs: Lab Results 10/05/22 10/05/22 10/05/22 Range/Units 14:25 14:26 14:26 WBC 8.3 (4.8-10.8) X10*3/uL RBC 5.26 (4.20-5.50) X10*6/uL Hgb 15.7 (12.0-16.0) g/dl Hct 44.7 (37.0-47.0) % MCV 85.0 (80.0-98.0) fL MCH 29.8 (27.0-33.0) pg MCHC 35.1 H (31.0-35.0) g/dl RDW 12.3 (11.0-16.0) % Plt Count 323 (160-400) X10*3/uL MPV 9.9 (9.4-12.3) fL Immature Gran % (Auto) 0.1 (0.0-0.4) % Neut % (Auto) 65.8 (45-73) % Lymph % (Auto) 27.7 (20-40) % [place] % (Auto) 5.5 (2-11) % Eos % (Auto) 0.4 (0-4) % Baso % (Auto) 0.5 (0-2) % Lymph # (Auto) 2.3 (1.2-4.9) X10*3/uL [place] # (Auto) 0.5 (0.1-1.2) X10*3/uL Eos # (Auto) 0.0 (0.0-0.4) X10*3/uL Baso # (Auto) 0.0 (0.0-0.2) X10*3/uL Abs Immat Gran (auto) 0.01 (0.00-0.03) X10*3/uL Absolute Neuts (auto) 5.5 (2.0-8.3) x10*3/uL Absolute Nucleated RBC 0.000 (0.0-0.012) X10*3/uL Nucleated RBC % (auto) 0.0 (0.0-0.2) /100WBC PT 11.5 (10.0-13.1) SEC INR 1.0 (0.9-1.1) APTT 29.6 (26.0-36.4) SEC Sodium (135-145) mmol/L Potassium (3.3-5.1) mmol/L Chloride (96-108) mmol/L Carbon Dioxide (22-29) mmol/L Anion Gap (12-20) BUN (9-16) mg/dL Creatinine (0.5-1.4) mg/dL Estim Creat Clear Calc Estimated GFR Random Glucose (60-115) mg/dL Calcium (8.4-10.2) mg/dL Magnesium (1.6-2.6) mg/dL Total Bilirubin (0.0-1.0) mg/dL AST (5-31) U/L ALT (0-31) U/L Alkaline Phosphatase (39-117) U/L Troponin I High Sens 2.8 (<3.5-17.0) ng/L Total Protein (6.5-8.0) g/dL Albumin (3.5-5.0) g/dL Lipase (8-78) U/L 10/05/22 10/05/22 10/05/22 Range/Units 14:26 16:46 19:31 WBC (4.8-10.8) X10*3/uL RBC (4.20-5.50) X10*6/uL Hgb (12.0-16.0) g/dl Hct (37.0-47.0) % MCV (80.0-98.0) fL MCH (27.0-33.0) pg MCHC (31.0-35.0) g/dl RDW (11.0-16.0) % Plt Count (160-400) X10*3/uL MPV (9.4-12.3) fL Immature Gran % (Auto) (0.0-0.4) % Neut % (Auto) (45-73) % Lymph % (Auto) (20-40) % [place] % (Auto) (2-11) % Eos % (Auto) (0-4) % Baso % (Auto) (0-2) % Lymph # (Auto) (1.2-4.9) X10*3/uL [place] # (Auto) (0.1-1.2) X10*3/uL Eos # (Auto) (0.0-0.4) X10*3/uL Baso # (Auto) (0.0-0.2) X10*3/uL Abs Immat Gran (auto) (0.00-0.03) X10*3/uL Absolute Neuts (auto) (2.0-8.3) x10*3/uL Absolute Nucleated RBC (0.0-0.012) X10*3/uL Nucleated RBC % (auto) (0.0-0.2) /100WBC PT (10.0-13.1) SEC INR (0.9-1.1) APTT (26.0-36.4) SEC Sodium 143 (135-145) mmol/L Potassium 3.9 (3.3-5.1) mmol/L Chloride 110 H (96-108) mmol/L Carbon Dioxide 26 (22-29) mmol/L Anion Gap 11 L (12-20) BUN 9 (9-16) mg/dL Creatinine 0.74 (0.5-1.4) mg/dL Estim Creat Clear Calc 68.9 Estimated GFR > 60 Random Glucose 102 (60-115) mg/dL Calcium 10.3 H D (8.4-10.2) mg/dL Magnesium 2.2 (1.6-2.6) mg/dL Total Bilirubin 0.8 (0.0-1.0) mg/dL AST 19 (5-31) U/L ALT 27 (0-31) U/L Alkaline Phosphatase 101 (39-117) U/L Troponin I High Sens 3.3 < 2.7 (<3.5-17.0) ng/L Total Protein 7.9 (6.5-8.0) g/dL Albumin 4.6 (3.5-5.0) g/dL Lipase 26 (8-78) U/L Independent Interpretation I performed an independent interpretation of an: EKG and Plain X-Ray Interpretation: My interpretation of patient's EKG showed a sinus rhythm heart rate is 60 AK QRS QT within normal limits is no acute ST segment elevation. Chest x-ray grossly negative no pneumonia no pneumothorax Radiology Impression Discussion of test interpretation with radiology: I have reviewed the radiologist's reading. Independent Historian Clinical information obtained from an independent historian. History obtained from or confirmed by: Spouse External Record Review External record reviewed: Inpatient record Discharge Plan Discharge Clinical Impression: Back pain, Chest pain Patient Disposition: Home, Self-Care Instructions: Back Pain (ED), Chest Pain (DC) Prescriptions: No Action omeprazole 10 mg capsule,delayed release(DR/EC) 10 mg PO DAILY Qty: 90 1RF cholecalciferol (vitamin D3) [Vitamin D3] 25 mcg (1,000 unit) Tablet 25 mcg PO DAILY ascorbic acid (vitamin C) [Vitamin C] 1,000 mg Tablet 1,000 mg PO DAILY ondansetron 4 mg tablet,disintegrating 4 mg PO Q6H PRN (Reason: nausea and vomiting) Qty: 10 0RF loratadine [Claritin] 10 mg tablet 10 mg PO DAILY Qty: 30 0RF lidocaine 5 % adhesive patch,medicated 1 patch topical DAILY Qty: 30 0RF Rx Instructions: leave on most painful area for up to 12 hrs diazepam [Valium] 5 mg tablet 5 mg PO TID PRN (Reason: muscle spasm) Qty: 10 0RF Rx Instructions: partial fill is okay benzonatate 200 mg capsule 200 mg PO TID PRN (Reason: cough) Qty: 30 0RF amlodipine 5 mg tablet 5 mg PO DAILY fluticasone propionate 50 mcg/actuation spray,suspension intranasal baclofen 5 mg tablet 5 mg PO BID 30 Days Qty: 60 0RF Referrals: Physician,Unknown J [Primary Care Provider] - 10/07/22
[2022-10-05 19:57] LABS: Troponin-I High Sensitivity < 2.7 ng/L (<3.5-17.0)
[2022-10-05 20:39] VITALS: BP 145/78; PULSE 64; RESP 16; TEMP 36.7; O2SAT 100
== END 2022-10-06 03:04 | disposition home or self-care (01) ==
PROVIDERS: Physician Assistant; Student in an Organized Health Care Education/Training Program; Emergency Provider Emergency Medicine Emergency Medical Services
DX: R07.9 Chest pain, unspecified (principal); M54.50 Low back pain, unspecified; F17.210 Nicotine dependence, cigarettes, uncomplicated; Z79.899 Other long term (current) drug therapy
CPT/HCPCS: 36415; 71046; 80053; 83690; 83735; 84484; 85025; 85610; 85730; 93005; 99283; 99284

== ENCOUNTER → 2022-10-05 12:09 | Outpatient (BNV) | payer OTHER, SELFPAY | PROVIDERS: Visit Provider Internal Medicine Cardiovascular Disease | DX: R07.9 Chest pain, unspecified (principal) | CPT/HCPCS: 93010 ==

== ENCOUNTER 2022-10-08 14:44 | Outpatient (AMB) | payer OTHER, SELFPAY ==
--- NOTE | 2022-10-08 15:04 | A.OFFVIS_ITS ---
Intake Vital Signs 10/08/22 15:05 Height 4 ft 11 in Weight 151 lb BMI 30.5 BP 120/80 Intake Visit Reasons: ? vaginal infection Intake Note: pt c/o vag itching and burning The patient agreed to use of a nuclear medical tech during this encounter. Scribed for AUGUSTIN Johnson by Cate Morelos nuclear medical tech, on 10/08/2022 at 3:26 pm EST. Phlebotomy Director: Phlebotomy Director Present (Alina) Allergies ibuprofen Allergy (Severe, Verified 10/08/22 15:04) RASH, SWELLING, anaphylaxis, swelling HPI HPI Comments History of Present Illness Details She is here with complaints of vaginal burning, and itching and irritation externally. Currently not sexually active for years. Denies using any new soaps or detergents. STD testing offered; she declines. [facility] Medical History Fibromyalgia Hypertension Nonalcoholic steatohepatitis (WALKER) Pyloric stenosis SBO (small bowel obstruction) Urge incontinence Urgency of micturition Vaginal burning Vaginal irritation Vaginal itching Surgical History H/O colonoscopy H/O: hysterectomy History of appendectomy History of endometrial ablation History of esophagogastroduodenoscopy (EGD) History of tubal ligation Hx of cholecystectomy Family History Father No problems noted. Mother No problems noted. Social History Household Members: Spouse Housing: Apartment Do you presently have visiting nurse or other home services: Yes Alcohol intake: current Alcohol intake frequency: holidays/special occasions only Alcohol type: wine Patient Tobacco Use Status: Current everyday Tobacco user Cigarette Packs Per Day: 0.5 Second Hand Smoke Exposure: No service: No Current occupational status: unemployed Sexual orientation: Straight/Heterosexual Gender identity: Female Physical Exam Vital Signs: Last Vital Signs BP 120/80 10/08/22 15:05 BMI result Body Mass Index 30.5 Const General: cooperative, healthy appearing, comfortable, no acute distress, well developed, alert and awake GI Other: non tender Other: labial erythema General: Yes bladder normal to palpation Speculum Exam - Vagina: normal appearance of the vagina, normal palpation, abnormal vaginal discharge (scant white ), vagina atrophic and other (vag cuff; no lesions , no nodules) Speculum Exam - Cervix: normal palpation and Cervix absent Bimanual exam- vagina & uterus: normal bimanual exam, normal palpation, bladder normal to palpation, normal palpation and uterus absent Bimanual Exam- Adnexa, other: normal adnexae and no masses Results AMB Urinalysis, Automated UA Leukoctes 0.5 [place]/uL Last Edit by Stephanie Shepherd [facility] on 10/08/22 15:1 9 UA Nitrite Negative Last Edit by Stephanie Shepherd [facility] on 10/08/22 15:19 UA Urobilinogen 0 mg/dL Last Edit by Stephanie Shepherd [facility] on 10/08/22 15:1 9 UA Protein 0 mg/dL Last Edit by Stephanie Shepherd [facility] on 10/08/22 15:19 UA pH 7.5 Last Edit by Stephanie Shepherd [facility] on 10/08/22 15:19 UA Blood 0 [place]/uL Last Edit by Stephanie Shepherd [facility] on 10/08/22 15:19 UA Specific [place] 1.010 Last Edit by Stephanie Shepherd [facility] on 10/08/22 15:19 UA Ketone Negative Last Edit by Stephanie Shepherd [facility] on 10/08/22 15:19 UA Bilirubin 0 mg/dL Last Edit by Stephanie Shepherd [facility] on 10/08/22 15:19 UA Glucose 0 mg/dL Last Edit by Stephanie Shepherd [facility] on 10/08/22 15:19 Results Reviewed Results Reviewed: Laboratory Last Values Urine pH (Auto) 7.5 10/08/22 15:18 Specific [place] (Auto) 1.010 10/08/22 15:18 Urine Protein (Auto) 0 mg/dL 10/08/22 15:18 Glucose (UA)(Auto) 0 mg/dL 10/08/22 15:18 Urine Ketones (Auto) Negative 10/08/22 15:18 Urine Blood (Auto) 0 [place]/uL 10/08/22 15:18 Urine Nitrite (Auto) Negative 10/08/22 15:18 Urine Bilirubin (Auto) 0 mg/dL 10/08/22 15:18 Urine Urobilinogen (Auto) 0 mg/dL 10/08/22 15:18 Leukocyte Esterase (Auto) 0.5 [place]/uL 10/08/22 15:18 Assessment & Plan Assessment & Plan (1) Vaginal irritation: Code(s): N89.8 - Other specified noninflammatory disorders of vagina Plan: Discussed: Hydrate well with water. Advised to clean with water only, no soaps to the area, dry well, and wear cotton underwear. Rx sent to pharmacy with instructions for topical use. BV testing done today. Await results and treat accordingly. All of her questions and concerns were addressed to the best of my ability and shared decision making. She is agreeable to plan of care. (2) Vaginal itching: Code(s): N89.8 - Other specified noninflammatory disorders of vagina (3) Vaginal burning: Code(s): N94.9 - Unspecified condition associated with female genital organs and menstrual cycle Orders: Orders Bacterial Vaginosis Panel Today N89.8 - Other specified noninflammatory disorders of vagina, N94.9 - Unspecified condition associated with female genital organs and menstrual cycle AMB Urinalysis Automated Today N94.9 - Unspecified condition associated with female genital organs and menstrual cycle Medications: New clotrimazole-betamethasone 1-0.05 % 1 appl topical BID PRN 45 grams 0RF itching 7 days Coding Level of Care Code Est Pt Level 3 (00236) Diagnoses Vaginal irritation N89.8 Vaginal itching N89.8 Vaginal burning N94.9
[2022-10-08 15:05] VITALS: BP 120/80; BMI 30.5
== END 2022-10-08 15:34 | disposition home or self-care (01) ==
LOC: HO.HWS 14:44
PROVIDERS: PCP Internal Medicine; Visit Provider Advanced Practice Midwife
DX: N89.8 Other specified noninflammatory disorders of vagina (principal); N94.9 Unspecified condition associated with female genital organs and menstrual cycle
CPT/HCPCS: 99213

== ENCOUNTER 2022-10-08 14:44 | Outpatient (REF) | payer OTHER, SELFPAY ==
[2022-10-09 13:19] LABS: BV Int Neg Control Negative (Negative); BV Int Pos Control Positive (Positive)
== END 2022-10-08 14:45 | disposition home or self-care (01) ==
LOC: HO.LAB 14:44
PROVIDERS: PCP Internal Medicine; Visit Provider Advanced Practice Midwife
DX: N89.8 Other specified noninflammatory disorders of vagina (principal); N94.9 Unspecified condition associated with female genital organs and menstrual cycle
CPT/HCPCS: 81003; 87480; 87510; 87660; 99212

== ENCOUNTER 2022-11-09 08:55 | Outpatient (AMB) | payer OTHER, SELFPAY ==
--- NOTE | 2022-11-09 08:56 | A.OFFVIS_ITS ---
Intake Intake Visit Reasons: Follow Up US Intake Note: Darlyn presents as a video call today for a follow up US. CC: She state she has pains in her intestines and she denies any irregular bowel movements. Allergies ibuprofen Allergy (Severe, Verified 11/09/22 08:56) RASH, SWELLING, anaphylaxis, swelling HPI Follow Up US HPI Details 57 yr old f being called for f/u for WALKER/NAFLD RECAP: ? I had seen her at [facility] some time ago for WALKER ? she was on vit E but has stopped this as she claimed difficulty in finding pure form of this ? she had appendectomy 2018 and has had bowel obstruction a week after ? she felt healing had taken its time ? LFT 02/2019--LFT were normal ? LFT 04/2019---LFt nml LFT 01/2020-- nml ? CT 02/2019-- normal appearin gliver, no acute pathology (was in ED for abdo pain) ? US--04/2019--calcified area in liver, F2-3 by elastography, nml enhancement she had admission 07/2020 with partial bowel obstruction, improved wt conservative mx, CT with liver steatosis, osteopenia and bowel obstruction further admission 06/2021- SBO again LFT 11/2021---normal she had upper GI series 04/2022 and it was normal--she was feeling food was taking a long time to go down LFT 10/04: nml US: steatosis, elastography 1.4 had been 1.7 before ? INTERIM: she has issues with hunger pains, she had ABx for a stomach infection ?H pylori she has ongoing back pain and nerve pain she has been trying to lose weight but loves her bread ' occ alcohol, twice a month maybe with wine EXAM: GENERAL: The patient is well developed and nontoxic- A/P 1. WALKER (nonalcoholic steatohepatitis) with nml LFT ?2. hx of small bowel obstruction, umbilical pain--upper GI series normal, no mass or stricture--?h pylori treatment PLAN: 1/ LFT had been good, repeat as well as US in 1 year or so, 2/ cont with weight loss and exercise as possible 3/ re refer Dr Pennings for her spinal issues? ? 4/ check h pylori breath test and treat if pos PFSH Medical History Fibromyalgia Hypertension Nonalcoholic steatohepatitis (WALKER) Pyloric stenosis SBO (small bowel obstruction) Urge incontinence Urgency of micturition Vaginal burning Vaginal irritation Vaginal itching Surgical History H/O colonoscopy H/O: hysterectomy History of appendectomy History of endometrial ablation History of esophagogastroduodenoscopy (EGD) History of tubal ligation Hx of cholecystectomy Family History Father No problems noted. Mother No problems noted. Social History Household Members: Spouse Housing: Apartment Do you presently have visiting nurse or other home services: Yes Alcohol intake: current Alcohol intake frequency: holidays/special occasions only Alcohol type: wine Patient Tobacco Use Status: Current everyday Tobacco user Cigarette Packs Per Day: 0.5 Second Hand Smoke Exposure: No service: No Current occupational status: unemployed Sexual orientation: Straight/Heterosexual Gender identity: Female Assessment & Plan Assessment & Plan (1) Spinal pain: Code(s): M54.9 - Dorsalgia, unspecified (2) Nonalcoholic steatohepatitis (WALKER): Code(s): K75.81 - Nonalcoholic steatohepatitis (WALKER) Telehealth Telehealth Location of provider rendering services: practice address Location of patient: address on file Patient Identification confirmed using: Name, : Yes Telehealth method: video Patient verbally consented to treatment: Yes Patient verbally consented to billing insurance company: Yes Patient informed of any privacy concerns related to visit: Yes Minutes spent on Phone/Video with Pt.: 8 Coding Level of Care Code Tele Est Pt Level 3 (46616) Diagnoses Spinal pain M54.9 Nonalcoholic steatohepatitis (WALKER) K75.81
== END 2022-11-09 10:29 | disposition home or self-care (01) ==
LOC: HO.HGI 08:55
PROVIDERS: PCP Internal Medicine; Visit Provider Internal Medicine Gastroenterology
DX: M54.9 Dorsalgia, unspecified (principal); K75.81 Nonalcoholic steatohepatitis (NASH)
CPT/HCPCS: 99213

== ENCOUNTER → 2022-11-09 08:55 | Outpatient (BNVA) | payer OTHER, SELFPAY | PROVIDERS: PCP Internal Medicine; Visit Provider Internal Medicine Gastroenterology | DX: K75.81 Nonalcoholic steatohepatitis (NASH) (principal); M54.9 Dorsalgia, unspecified | CPT/HCPCS: Q3014 ==

== ENCOUNTER 2022-11-09 15:41 | Emergency (ER) | payer OTHER, SELFPAY ==
--- NOTE | ~2022-11-09 | XR_ITS ---
EXAMINATION: XR WRIST, RIGHT XR HAND, RIGHT CLINICAL INFORMATION: Right hand and wrist pain status post trauma. COMPARISON: None available. TECHNIQUE: PA, lateral, and oblique views of the right wrist and PA, lateral, and oblique views of the right hand. Indicator arrow points to the first metacarpal. FINDINGS: RIGHT WRIST: The bones and soft tissues are normal. No fracture. Alignment is anatomic. Joint spaces are maintained. No erosions or soft tissue calcifications. RIGHT HAND: The bones and soft tissues are normal. No fracture. Alignment is anatomic. Joint spaces are maintained. No erosions or soft tissue calcifications. XR/XR hand wrist RT IMPRESSION: Unremarkable right hand and wrist.
[2022-11-09 15:53] VITALS: BP 148/76; PULSE 61; RESP 16; TEMP 37.3; O2SAT 97; BMI 30.5
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
== END 2022-11-09 17:47 | disposition home or self-care (01) ==
PROVIDERS: Emergency Provider Student in an Organized Health Care Education/Training Program; PCP Internal Medicine
DX: S60.211A Contusion of right wrist, initial encounter (principal); M25.531 Pain in right wrist; Y29.XXXA Contact with blunt object, undetermined intent, initial encounter; Y93.9 Activity, unspecified; Y92.512 Supermarket, store or market as the place of occurrence of the external cause; Y99.9 Unspecified external cause status; Z79.899 Other long term (current) drug therapy; F17.210 Nicotine dependence, cigarettes, uncomplicated; Z71.6 Tobacco abuse counseling
CPT/HCPCS: 73110; 73130; 99282; 99283

== ENCOUNTER 2023-03-01 14:56 | Outpatient (REF) | payer OTHER, SELFPAY | END 2023-03-01 14:57 | disposition home or self-care (01) | LOC: HO.LAB 14:56 | PROVIDERS: PCP Internal Medicine; Visit Provider Advanced Practice Midwife | DX: N95.2 Postmenopausal atrophic vaginitis (principal); N94.89 Other specified conditions associated with female genital organs and menstrual cycle | CPT/HCPCS: 81003; 99212 ==

== ENCOUNTER 2023-03-01 14:56 | Outpatient (AMB) | payer OTHER, SELFPAY ==
[2023-03-01 15:46] VITALS: BP 122/68; BMI 29.9
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
== END 2023-03-01 16:25 | disposition home or self-care (01) ==
PROVIDERS: PCP Internal Medicine; Visit Provider Advanced Practice Midwife
DX: N95.2 Postmenopausal atrophic vaginitis (principal); N94.89 Other specified conditions associated with female genital organs and menstrual cycle; N94.9 Unspecified condition associated with female genital organs and menstrual cycle
CPT/HCPCS: 99213

== ENCOUNTER 2023-03-01 15:58 | Outpatient (REF) | payer OTHER, SELFPAY ==
[2023-03-02 05:43] LABS: CT PCR NOT DETECTED (Not Detect.); NG PCR NOT DETECTED (Not Detect.)
[2023-03-02 16:14] LABS: BV Int Neg Control Negative (Negative); BV Int Pos Control Positive (Positive)
== END 2023-03-01 15:59 | disposition home or self-care (01) ==
LOC: HO.LNP 15:58
PROVIDERS: Visit Provider Advanced Practice Midwife
DX: N94.89 Other specified conditions associated with female genital organs and menstrual cycle (principal); N89.8 Other specified noninflammatory disorders of vagina; Z20.2 Contact with and (suspected) exposure to infections with a predominantly sexual mode of transmission
CPT/HCPCS: 0353U; 87480; 87510; 87660

== ENCOUNTER 2023-04-26 10:24 | Outpatient (REF) | payer OTHER, SELFPAY ==
[2023-04-26 11:46] LABS: MANUAL DIFF FLAG NO
[2023-04-26 12:48] LABS: Basophils Percent Auto 0.6 % (0-2); Eosinophils Absolute Auto 0.1 X10*3/uL (0.0-0.4); Eosinophils Percent Auto 0.7 % (0-4); Hematocrit 43.2 % (37.0-47.0); Hemoglobin 14.6 g/dl (12.0-16.0); Imm Gran Abs Auto 0.03 X10*3/uL (0.00-0.03); Imm Gran Pct Auto 0.4 % (0.0-0.4); Lymphocytes Absolute Auto 2.1 X10*3/uL (1.2-4.9); Lymphocytes Percent Auto 31.2 % (20-40); Mean Corpuscular HGB Conc 33.8 g/dl (31.0-35.0); Mean Corpuscular Hemoglobin 29.5 pg (27.0-33.0); Mean Corpuscular Volume 87.3 fL (80.0-98.0); Monocytes Absolute Auto 0.4 X10*3/uL (0.1-1.2); Monocytes Percent Auto 5.8 % (2-11); Neutrophils Absolute Auto 4.1 x10*3/uL (2.0-8.3); Neutrophils Percent Auto 61.3 % (45-73); Platelet Count 337 X10*3/uL (160-400); Red Blood Count 4.95 X10*6/uL (4.20-5.50); Red Cell Distribution Width 12.9 % (11.0-16.0); White Blood Count 6.8 X10*3/uL (4.8-10.8)
[2023-04-26 13:16] LABS: Alanine Aminotransferase 24 U/L (0-31); Albumin Level 4.2 g/dL (3.5-5.0); Alkaline Phosphatase 105 U/L (39-117); Anion Gap 13 (12-20); Aspartate Amino Transferase 18 U/L (5-31); Bilirubin Total 0.7 mg/dL (0.0-1.0); Blood Urea Nitrogen 8 mg/dL (9-16); Calcium 9.6 mg/dL (8.4-10.2); Carbon Dioxide 26 mmol/L (22-29); Chloride 106 mmol/L (96-108); Estimated Glomerular Filt Rate > 60; Glucose Random 100 mg/dL (60-115); Potassium 3.7 mmol/L (3.3-5.1); Sodium 141 mmol/L (135-145); Total Protein 7.5 g/dL (6.5-8.0)
== END 2023-04-26 10:25 | disposition home or self-care (01) ==
LOC: HO.LAB 10:24
PROVIDERS: PCP Internal Medicine; Visit Provider Internal Medicine Gastroenterology
DX: K75.81 Nonalcoholic steatohepatitis (NASH) (principal); R74.01 Elevation of levels of liver transaminase levels
CPT/HCPCS: 36415; 80053; 85025; 99212

== ENCOUNTER 2023-04-26 10:24 | Outpatient (AMB) | payer OTHER, SELFPAY ==
[2023-04-26 10:33] VITALS: BP 127/67; PULSE 65; BMI 28.9
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
== END 2023-04-26 11:14 | disposition home or self-care (01) ==
PROVIDERS: PCP Internal Medicine; Visit Provider Internal Medicine Gastroenterology
DX: R74.01 Elevation of levels of liver transaminase levels (principal); K75.81 Nonalcoholic steatohepatitis (NASH)
CPT/HCPCS: 99213

== ENCOUNTER 2023-06-07 07:47 | Outpatient (REF) | payer OTHER, SELFPAY ==
--- NOTE | ~2023-06-07 | US_ITS ---
EXAMINATION: US ABDOMEN LIMITED WITH LIVER ELASTOGRAPHY CLINICAL INFORMATION: Nonalcoholic steatohepatitis COMPARISON: Abdominal ultrasound with the left hypertrophy 08/14/2022 TECHNIQUE: Real-time imaging of the abdominal viscera. Noninvasive ultrasound liver fibrosis assessment is performed using Adonis ElastPQ point quantification shear wave elastography (2D-SWE) with a C5-2 MHz transducer. Multiple elastography samples are obtained. FINDINGS: PANCREAS: The visualized pancreatic head and body are normal in appearance. The remainder of the pancreas is obscured from visualization by the overlying bowel gas. LIVER: The liver demonstrates normal size and contour with mildly increased echogenicity. There is a hyperechoic 2.3 x 0.9 x 0.9 cm lesion in the right liver lobe. No intrahepatic biliary duct dilatation. The right lobe measures 11.9 cm in length. The left lobe measures 8.7 cm in length. Portal flow is towards the liver (hepatopetal). Shear wave liver elastography median stiffness is 1.68 m/s, previously 1.4 (reference: normal median stiffness is 1.3 m/s or less). IQR/median stiffness to assess sampling precision is 0.05 (reference: good quality data set is IQR/median stiffness of 0.15 or less). GALLBLADDER: Surgically absent. COMMON BILE DUCT: Normal in caliber measuring 0.6 cm in diameter. RIGHT KIDNEY: No hydronephrosis. No renal calculi or focal parenchymal lesions. The kidney measures 10.1 cm in maximum dimension. FREE FLUID: None. US/US abdomen martinez w elastography IMPRESSION: 1. Diffuse increased liver echogenicity suggesting infiltrative hepatocellular disease such as steatosis. 2. Liver elastography: In the absence of other known clinical signs, measurements rule out compensated advanced chronic liver disease. If there are known clinical signs, further testing may be needed for confirmation. When compared with prior exam, there is a statistically significant increase in liver stiffness (increase at least 10%). 3. There is a hyperechoic 2.3 cm right liver lobe lesion, not previously seen and favored to represent a benign entity such as hemangioma.
== END 2023-06-07 07:48 | disposition home or self-care (01) ==
LOC: HO.US 07:47
PROVIDERS: PCP Internal Medicine; Visit Provider Internal Medicine Gastroenterology
DX: K75.81 Nonalcoholic steatohepatitis (NASH) (principal); K74.60 Unspecified cirrhosis of liver
CPT/HCPCS: 76705; 76981

== ENCOUNTER 2023-07-01 07:17 | Outpatient (REF) | payer OTHER, SELFPAY | END 2023-07-01 07:18 | disposition home or self-care (01) | LOC: HO.LAB 07:17 | PROVIDERS: Visit Provider Advanced Practice Midwife | DX: Z13.89 Encounter for screening for other disorder (principal) ==

== ENCOUNTER 2023-07-01 07:17 | Outpatient (AMB) | payer OTHER, SELFPAY ==
--- NOTE | 2023-07-01 07:47 | A.OFFVIS_ITS ---
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 She is doing well with no concerns. Attempting to eat a healthy diet with calcium and vitamin D and stays active with exercise. Currently not sexually active, . Denies any vaginal dryness or irritation today, uses francisca oil for external itching and boric acid prn for yeast (burning)symptoms. She feels what she has been doing this very helpful are already. Last mammogram; 2022. Colonoscopy is UTD. Denies any family history of breast, ovarian or colon cancer. [facility] Medical History Vaginal burning Vaginal itching Vaginal irritation Fibromyalgia Urgency of micturition Urge incontinence Nonalcoholic steatohepatitis (WALKER) Hypertension Pyloric stenosis SBO (small bowel obstruction) Surgical History History of esophagogastroduodenoscopy (EGD) H/O colonoscopy History of tubal ligation History of endometrial ablation H/O: hysterectomy History of appendectomy Hx of cholecystectomy Family History Father No problems noted. Mother No problems noted. Social History Household Members: Spouse Housing: Apartment Do you presently have visiting nurse or other home services: Yes Alcohol intake: current Alcohol intake frequency: holidays/special occasions only Alcohol type: wine Patient Tobacco Use Status: Former Tobacco user Cigarette Packs Per Day: 0.5 Second Hand Smoke Exposure: No service: No Current occupational status: unemployed Sexual orientation: Straight/Heterosexual Gender identity: Female Female Reproductive History Menstrual Menopause type: surgical Total pregnancies: 6 Full term: 4 Number of Living Children: 4 Date of last pap smear: 04/01/16 (neg pap and hpv) Date of Mammogram: 07/24/22 (Birad 2) Review of Systems Const All systems reviewed & are unremarkable except as noted in HPI and below Reports as per HPI Eyes Reports no additional complaints ENT Reports no additional complaints Card Reports no additional complaints Resp Reports no additional complaints GI Reports as per HPI and Reports no additional complaints Reports as per HPI Musc Reports no additional complaints Skin/Breast Reports as per HPI Neuro Reports no additional complaints Psych Reports no additional complaints Endo Reports no additional complaints Lenny/Lymph Reports no additional complaints Aller/Immun Reports no additional complaints Physical Exam Vital Signs: Last Vital Signs BP 130/78 07/01/23 07:49 BMI result Body Mass Index 28.3 Const General: cooperative, healthy appearing, no acute distress, well developed and alert Orientation/consciousness: patient oriented x3 HEENT Head: Yes normal to inspection Eyes General: appearance normal, both eyes and all related structures Neck Neck: Yes normal visual inspection Thyroid: Thyroid normal Chest Chest palpation & inspection: normal inspection of the chest and other (no puc kering, dimpling, peau de orange, retraction, discharge, masses) Breast/axilla inspection: normal inspection of the breasts Breast/axilla palpation: normal palpation of the breasts Resp Effort & Inspection: normal respiratory effort GI Inspection: Yes normal to inspection and Yes scar Palpation (GI): Soft to palpation Rectal Exam - Female: deferred Other: Small excoriation in the lower left labia (admits to scratching that region). General: Yes bladder normal to palpation External Female Exam: normal external appearance and normal appearance of the urethra Speculum Exam - Vagina: normal appearance of the vagina, normal palpation and normal vaginal discharge Speculum Exam - Cervix: normal appearance of the cervix and Cervix absent (Vaginal cuff no lesions or nodules) Bimanual exam- vagina & uterus: normal bimanual exam, normal palpation, bladder normal to palpation and uterus absent Bimanual Exam- Adnexa, other: no masses Skin General skin exam: no rashes or lesions noted Rashes: no rashes Neuro General: patient oriented x3 Cognition (Neuro): normal cognition Extrem General: Yes normal to inspection Psych Attitude: cooperative Thought process: Normal thought process present Assessment & Plan Assessment & Plan (1) Encounter for well woman exam with routine gynecological exam: Code(s): Z01.419 - Encounter for gynecological examination (general) (routine) without abnormal findings Plan Discussed: Current recommendations for pap smears per ASCCP guidelines. Breast awareness, periodic self breast exams and yearly mammogram. Maintain a healthy lifestyle, well balanced diet including Calcium 1,200 mg and Vitamin D 600 IU daily, and routine exercise. BV panel obtained await results for plan of care. Discuss changes in menopause can mimic some of the changes from a bacterial yeast infection with burning follow-up and return to the office to discuss. Patient verbalizes understanding and agrees to the plan of care. She was given opportunity to ask questions and all questions were answered to the best of my ability. RTO in 1 year for annual windows systems engineer exam. This note is constructed using voice recognition software. While every effort has been made to ensure accuracy, trouble dispatcher errors may have been included. Orders: Orders Bacterial Vaginosis Panel Today N89.8 - Other specified noninflammatory disorders of vagina Coding Level of Care Code Est Pt Prev Care 40-64y(50051) Diagnoses Encounter for well woman exam with routine gynecological exam Z01.419
[2023-07-01 07:49] VITALS: BP 130/78; BMI 28.3
== END 2023-07-01 08:46 | disposition home or self-care (01) ==
PROVIDERS: Visit Provider Advanced Practice Midwife
DX: Z01.419 Encounter for gynecological examination (general) (routine) without abnormal findings (principal)
CPT/HCPCS: 99396

== ENCOUNTER 2023-07-01 15:56 | Outpatient (REF) | payer OTHER, SELFPAY ==
[2023-07-02 12:19] LABS: BV Int Neg Control Negative (Negative); BV Int Pos Control Positive (Positive)
== END 2023-07-01 15:57 | disposition home or self-care (01) ==
LOC: HO.LNP 15:56
PROVIDERS: Visit Provider Advanced Practice Midwife
DX: N89.8 Other specified noninflammatory disorders of vagina (principal)
CPT/HCPCS: 87480; 87510; 87660

== ENCOUNTER 2023-07-17 16:38 | Inpatient (IN) | payer OTHER, SELFPAY ==
--- NOTE | ~2023-07-17 | CT_ITS ---
EXAMINATION: CT ABDOMEN AND PELVIS WITH CONTRAST CLINICAL INFORMATION: Abdominal pain COMPARISON: CT abdomen pelvis 12/07/2021. TECHNIQUE: Multidetector volumetric images were obtained from the superior aspect of the liver through the pubic symphysis following administration 85 mL of Omnipaque 350 intravenous contrast. Sagittal and coronal reformatted images were obtained on the technologist's workstation. Oral contrast: No This CT examination was performed using dose optimization techniques as appropriate, variously including the following: *Automated exposure control *Adjustment of mA and/or kV according to patient size (this includes techniques or standardized protocols for targeted exams where dose is matched to indication/reason for exam; i.e. extremities or head) *Use of iterative reconstruction technique DLP: 456 mGy-cm FINDINGS: LUNG BASES: Unremarkable. LIVER AND BILIARY TREE: Redemonstrated right hepatic lobe simple cyst. Mild central intrahepatic and common bile duct dilation, measuring up to 9 mm at the upper intrapancreatic portion, which extends to the ampulla of Vater without discrete obstructing lesion identified. GALLBLADDER: Status post cholecystectomy. PANCREAS: Pancreas divisum anatomy. No main pancreatic duct dilation. Pancreas otherwise unremarkable. SPLEEN: Unremarkable. ADRENAL GLANDS: Unremarkable. KIDNEYS AND URETERS: Unremarkable. GASTROINTESTINAL TRACT: Focal short segment dilation of a loop of small bowel bowel in the ventral mid abdomen, deep to patient's abdominal wall surgical scar, measuring up to 4.0 cm in diameter, with fecalization of internal contents and abrupt caliber change (series 6, image 19). Minimal adjacent perienteric fat stranding without bowel wall mucosal nonenhancement or perienteric fluid/gas. No evidence of closed loop configuration. VASCULAR: Unremarkable LYMPH NODES: No lymphadenopathy. PERITONEUM: No ascites. BLADDER: Unremarkable. PELVIC VISCERA: Unremarkable. ABDOMINAL AND PELVIC WALL: Ventral mid abdominal wall surgical incisional scar again seen. OSSEOUS STRUCTURES: Unremarkable. CT/CT abdomen pelvis w IV con IMPRESSION: 1. Evidence of low-grade or early small bowel obstruction with transition point in the ventral mid abdomen deep to patient's abdominal wall incisional scar. No evidence of perforation, ischemia, or closed loop morphology. 2. Mild central intrahepatic and extrahepatic biliary duct dilation, which extends to the Ampulla of Vater without discrete obstructing lesion identified, altogether nonspecific and may be normal in the postcholecystectomy state. Correlate with any clinical/laboratory evidence of cholestasis and if present dedicated MRCP may be considered.
[2023-07-17 16:48] VITALS: BP 130/66; BP 170/100; PULSE 70; PULSE 74; RESP 18; TEMP 36.8; O2SAT 98; BMI 29.3
--- NOTE | 2023-07-17 16:50 | ED_ITS ---
HPI - General Adult General Chief complaint: Abdominal Pain Stated complaint: abdominal pain radiating to back 12/22 Time Seen by Provider: 07/17/23 16:50 Source: patient Mode of arrival: ambulatory Limitations: no limitations History of Present Illness HPI narrative: Patient is a 57 year old assigned female at with a history of bowel obstructions presenting to the emergency department today with abdominal pain and concern that she is obstructed again. Patient states that last night she had a normal bowel movement but this morning she woke up with severe abdominal pain, unable to pass gas. Patient denies any dizziness, lightheadedness, nausea, vomiting, fever, chills, blurry vision, double vision, loss of vision, chest pain, difficulty breathing, shortness of breath, back pain, night sweats, pain with urination, increased urinary frequency, increased urinary urgency, blood in her urine or stool, syncope or a near syncopal episode, recent trauma or falls, bowel incontinence, bladder incontinence, bowel retention, bladder retention, or any other complaints at this time. Onset (ago): hour(s) Location: abdomen Radiation: non-radiation Severity: moderate Severity scale (1-10): 5 Quality: aching Pain Consistency: constant Relieving factors: none Exacerbating factors: none Associated symptoms: denies other symptoms Treatments prior to arrival: none Related Data Home Medications ?Medication ?Instructions ?Recorded ?Confirmed amlodipine 5 mg tablet 5 mg PO DAILY 06/14/20 07/06/21 ascorbic acid (vitamin C) 1,000 mg 1,000 mg PO DAILY 07/06/21 07/06/21 tablet (Vitamin C) cholecalciferol (vitamin D3) 25 25 mcg PO DAILY 07/06/21 07/06/21 mcg (1,000 unit) tablet (Vitamin D3) fluticasone propionate 50 spray intranasal 07/01/23 mcg/actuation nasal spray,suspension lorazepam 0.5 mg tablet mg PO 07/01/23 Previous Rx's ?Medication ?Instructions ?Recorded clotrimazole-betamethasone 1 1 appl topical BID PRN itching 7 10/08/ %-0.05 % topical cream days #45 grams Allergies Allergy/AdvReac Type Severity Reaction Status Date / Time ibuprofen Allergy Severe RASH, Verified 07/17/23 16:52 SWELLING, anaphylaxis, swelling Review of Systems 2 Constitutional: Constitutional: Reports no additional constitutional complaints, Denies chills, Denies fever(s) and Denies night sweats Eyes: Eyes: Reports no additional eye complaints, Denies blurry vision, Denies change in vision, Denies diplopia, Denies eye discharge, Denies loss of vision and Denies eye pain ENT: Denies dizziness Cardiovascular: Cardiovascular: Reports no additional cardiovascular complaints, Denies chest pain, Denies lightheadedness, Denies Loss of Consciousness and Denies dyspnea Respiratory: Respiratory: Reports no additional respiratory complaints and Denies dyspnea Gastrointestinal: Gastrointestinal: Reports no additional gastrointestinal complaints, Reports abdominal pain, Denies melena, Denies hematochezia, Denies change in bowel habits and Denies change in stool character Genitourinary: Genitourinary: Denies hematuria, Denies urinary frequency, Denies dysuria, Denies urinary incontinence, Denies urinary hesitancy and Denies urinary urgency Musculoskeletal: Musculoskeletal: Reports no additional musculoskeletal complaints, Denies numbness and Denies tingling Neurologic: Denies dizziness, Denies loss of vision, Denies numbness and Denies tingling Psychiatric: Psychiatric: Reports no additional psychiatric complaints Endocrine: Endocrine: Reports no additional endocrine complaints Hematologic/Lymphatic: Hematologic/Lymphatic: Reports no additional hematologic/lymphatic complaints Allergic/Immunologic: Allergic/Immunologic: Reports no additional allergic/immunologic complaints [facility] Past Medical History Attestation statement: The following information was validated with the patient. Source: old records reviewed and nursing notes reviewed Medical History Vaginal burning Vaginal itching Vaginal irritation Fibromyalgia Urgency of micturition Urge incontinence Nonalcoholic steatohepatitis (WALKER) Hypertension Pyloric stenosis SBO (small bowel obstruction) Surgical History History of esophagogastroduodenoscopy (EGD) H/O colonoscopy History of tubal ligation History of endometrial ablation H/O: hysterectomy History of appendectomy Hx of cholecystectomy Family History Family History Father No problems noted. Mother No problems noted. Social History Social History Household Members: Spouse Housing: Apartment Do you presently have visiting nurse or other home services: Yes Alcohol intake: current Alcohol intake frequency: holidays/special occasions only Alcohol type: wine Patient Tobacco Use Status: Current everyday Tobacco user Cigarette Packs Per Day: 0.5 Smoked in Last 30 Days: No Second Hand Smoke Exposure: No Use of substances other than those prescribed or required for medical reasons: No Advance Directives: No Advance Directives Information Provided: No service: No Current occupational status: unemployed Sexual orientation: Straight/Heterosexual Gender identity: Female Physical Exam ED Vital Signs: Vital Signs - 24 hr 07/17/23 16:48 07/17/23 19:45 Temperature 98.2 F 97.9 F Pulse Rate 70 59 Respiratory Rate 18 16 Blood Pressure 130/66 115/66 Pulse Oximetry 98 98 Oxygen Delivery Method Room Air Room Air BMI result Body Mass Index 29.3 Const General: cooperative, no acute distress, alert and awake Nutritional Appearance: well nourished Orientation/consciousness: patient oriented x3 Limitations: no limitations HENMT Head: Yes normal to inspection and Yes atraumatic Ears: hearing grossly normal bilaterally and external ears normal General nose exam: Normal external nose present, no nasal discharge noted and no epistaxis Face and sinus: Yes normal facial exam, No abrasion and No laceration Mouth: Normal oral and palatal mucosa present, no drooling and no muffled voice Eyes General: appearance normal, both eyes and all related structures Periorbital: periorbital findings normal Eyelids: Yes eyelids normal Conjunctivae: conjunctivae normal Pupils: Equal, round and reactive pupils present EOM: EOMs intact bilaterally Neck Neck: Yes normal visual inspection, Yes full ROM and Yes no lymphadenopathy Chest Chest palpation & inspection: normal inspection of the chest Resp Effort & Inspection: normal respiratory effort and able to speak in complete sentences GI Inspection: Yes normal to inspection Palpation (GI): Soft to palpation, not firm, Tenderness to palpation present (GI) (diffuse) and no guarding Neuro General: patient oriented x3 and moves all extremities Cranial nerves: Yes Equal, round and reactive pupils present Cognition (Neuro): normal cognition Motor exam (neuro): 5/5 motor strength present throughout Sensory Exam: Normal double simultaneous stimulation for sensation Coordination: [id number] test normal Extrem General: Yes normal to inspection, Yes full ROM and Yes capillary refill normal Psych Appearance: grossly normal Mental Status: mental status grossly normal Affect: normal affect Attitude: cooperative Thought process: Normal thought process present Thought content: Normal thought content present Insight: Good insight present (Psych) Medications Administered Generic Name Dose Route Start Last Admin Trade Name Freq PRN Reason Stop Dose Admin Dextrose/Sodium Chloride 1,000 mls @ 100 mls/hr 07/17/23 20:45 07/17/23 21:23 D5ns IVCONT 100 mls/hr .Q10H OMARI Administration Morphine Sulfate 2 mg 07/17/23 20:34 07/17/23 22:17 Morphine Sulfate 4 Mg/Ml Cartridge IVPUSH 2 mg Q3H PRN Administration Pain, Severe (Pain Scale 7-10) Protocol Ondansetron HCl 4 mg 07/17/23 20:34 07/17/23 22:18 Ondansetron Hcl 4 Mg/2 Ml Vial IVPUSH 4 mg Q8H PRN Administration nausea Discontinued Medications Generic Name Dose Route Start Last Admin Trade Name Freq PRN Reason Stop Dose Admin Iohexol 100 ml 07/17/23 18:36 07/17/23 18:36 Iohexol 350 Mg/Ml 100 Ml Infus..Btl IV 07/17/23 18:37 85 ml ONCE ONE Administration Morphine Sulfate 4 mg 07/17/23 17:01 07/17/23 17:10 Morphine Sulfate 4 Mg/Ml Cartridge IVPUSH 07/17/23 17:02 4 mg ONCE ONE Administration Protocol Ondansetron HCl 4 mg 07/17/23 17:01 07/17/23 17:10 Ondansetron Hcl 4 Mg/2 Ml Vial IVPUSH 07/17/23 17:02 4 mg ONCE ONE Administration Medical Decision Making Medical Decision Making MDM Narrative: Patient is a 57 year old assigned female at with a history of bowel obstructions and HTN presenting to the emergency department today with abdominal pain. Patient's physical exam was as noted in the physical exam portion of this note. Patient's blood work was unremarkable. Patient's urine showed no acute process. Patient's abdomen/pelvis CT showed an early SBO. I spoke to the surgical team who recommended admission to their service. I explained my physical exam findings as well as all test results to the patient. I answered all questions asked by the patient. Patient verbalized agreement and understanding with this treatment plan and admission. Differential Diagnosis Differential Diagnoses: The differential diagnosis associated with the presentation includes SBO Abdominal pain Admission/Observation Consideration of admission/observation: Escalation of care including admission/observation considered Patient admitted. Consult Healthcare Provider Management of the patient was discussed with: Cathode Ray Tube Salvage Processor (spoke to the surgeon as noted in the MDM Rationale portion of this note.) Lab Data [facility] Lab Attestation statement: I reviewed the patient's lab results. My interpretation of these results are in the MDM Rationale portion of this note. 07/17/23 17:22 07/17/23 17:49 Labs: Lab Results 07/17/23 07/17/23 07/17/23 Range/Units 17:22 17:49 19:39 WBC 8.3 (4.8-10.8) X10*3/uL RBC 5.10 (4.20-5.50) X10*6/uL Hgb 15.5 (12.0-16.0) g/dl Hct 43.3 (37.0-47.0) % MCV 84.9 (80.0-98.0) fL MCH 30.4 (27.0-33.0) pg MCHC 35.8 H (31.0-35.0) g/dl RDW 12.6 (11.0-16.0) % Plt Count 296 (160-400) X10*3/uL MPV 9.6 (9.4-12.3) fL Immature Gran % (Auto) 0.4 (0.0-0.4) % Neut % (Auto) 74.0 H (45-73) % Lymph % (Auto) 20.0 (20-40) % Callahan % (Auto) 4.7 (2-11) % Eos % (Auto) 0.4 (0-4) % Baso % (Auto) 0.5 (0-2) % Lymph # (Auto) 1.7 (1.2-4.9) X10*3/uL Callahan # (Auto) 0.4 (0.1-1.2) X10*3/uL Eos # (Auto) 0.0 (0.0-0.4) X10*3/uL Baso # (Auto) 0.0 (0.0-0.2) X10*3/uL Abs Immat Gran (auto) 0.03 (0.00-0.03) X10*3/uL Absolute Neuts (auto) 6.1 (2.0-8.3) x10*3/uL Absolute Nucleated RBC 0.000 (0.0-0.012) X10*3/uL Nucleated RBC % (auto) 0.0 (0.0-0.2) /100WBC PT 12.3 (11.1-13.3) SEC INR 1.0 (0.9-1.1) APTT 30.5 (26.0-36.8) SEC Sodium 142 (135-145) mmol/L Potassium 3.8 (3.3-5.1) mmol/L Chloride 106 (96-108) mmol/L Carbon Dioxide 24 (22-29) mmol/L Anion Gap 16 (12-20) BUN 9 (9-16) mg/dL Creatinine 0.75 (0.5-1.4) mg/dL Estim Creat Clear Calc 66.6 Estimated GFR > 60 Random Glucose 102 (60-115) mg/dL Calcium 10.5 H D (8.4-10.2) mg/dL Magnesium 1.9 (1.6-2.6) mg/dL Total Bilirubin 0.8 (0.0-1.0) mg/dL AST 18 (5-31) U/L ALT 19 (0-31) U/L Alkaline Phosphatase 95 (39-117) U/L Troponin I High Sens < 2.7 (<3.5-17.0) ng/L Total Protein 7.6 (6.5-8.0) g/dL Albumin 4.3 (3.5-5.0) g/dL Urine Color Yellow Urine Appearance Clear Urine pH 5.5 (5.0-9.0) Ur Specific Reading >= 1.030 H (1.005-1.025) Urine Protein Trace (Neg-Trace) mg/dL Urine Glucose (UA) Negative (Negative) mg/dL Urine Ketones 15 (Negative) mg/dL Urine Blood Negative (Negative) Urine Nitrite Negative (Negative) Ur Leukocyte Esterase Negative (Negative) Influenza Type A (PCR) NEGATIVE (Negative) Influenza Type B (PCR) NEGATIVE (Negative) RSV RNA Qual (PCR) NEGATIVE (Negative) SARS-CoV-2 RNA (RT-PCR) NEGATIVE (Negative) Independent Interpretation I performed an independent interpretation of an: CT Scan Interpretation: My interpretation is in agreement with the radiologist's impression of this imaging study. - EXAMINATION: CT ABDOMEN AND PELVIS WITH CONTRAST CLINICAL INFORMATION: Abdominal pain COMPARISON: CT abdomen pelvis 12/07/2021. TECHNIQUE: Multidetector volumetric images were obtained from the superior aspect of the liver through the pubic symphysis following administration 85 mL of Omnipaque 350 intravenous contrast. Sagittal and coronal reformatted images were obtained on the technologist's workstation. Oral contrast: No This CT examination was performed using dose optimization techniques as appropriate, variously including the following: *Automated exposure control *Adjustment of mA and/or kV according to patient size (this includes techniques or standardized protocols for targeted exams where dose is matched to indication/reason for exam; i.e. extremities or head) *Use of iterative reconstruction technique DLP: 456 mGy-cm FINDINGS: LUNG BASES: Unremarkable. LIVER AND BILIARY TREE: Redemonstrated right hepatic lobe simple cyst. Mild central intrahepatic and common bile duct dilation, measuring up to 9 mm at the upper intrapancreatic portion, which extends to the ampulla of Vater without discrete obstructing lesion identified. GALLBLADDER: Status post cholecystectomy. PANCREAS: Pancreas divisum anatomy. No main pancreatic duct dilation. Pancreas otherwise unremarkable. SPLEEN: Unremarkable. ADRENAL GLANDS: Unremarkable. KIDNEYS AND URETERS: Unremarkable. GASTROINTESTINAL TRACT: Focal short segment dilation of a loop of small bowel bowel in the ventral mid abdomen, deep to patient's abdominal wall surgical scar, measuring up to 4.0 cm in diameter, with fecalization of internal contents and abrupt caliber change (series 6, image 19). Minimal adjacent perienteric fat stranding without bowel wall mucosal nonenhancement or perienteric fluid/gas. No evidence of closed loop configuration. VASCULAR: Unremarkable LYMPH NODES: No lymphadenopathy. PERITONEUM: No ascites. BLADDER: Unremarkable. PELVIC VISCERA: Unremarkable. ABDOMINAL AND PELVIC WALL: Ventral mid abdominal wall surgical incisional scar again seen. OSSEOUS STRUCTURES: Unremarkable. CT/CT abdomen pelvis w IV con IMPRESSION: 1. Evidence of low-grade or early small bowel obstruction with transition point in the ventral mid abdomen deep to patient's abdominal wall incisional scar. No evidence of perforation, ischemia, or closed loop morphology. 2. Mild central intrahepatic and extrahepatic biliary duct dilation, which extends to the Ampulla of Vater without discrete obstructing lesion identified, altogether nonspecific and may be normal in the postcholecystectomy state. Correlate with any clinical/laboratory evidence of cholestasis and if present dedicated MRCP may be considered. Dictated By: Kaleb Ventura MD Signed By: Electronically signed by Kaleb Ventura MD 07/17/232006 Radiology Impression Discussion of test interpretation with radiology: I have reviewed the radiologist's reading. Chronic Conditions Patient?s care impacted by: Hypertension Critical Care Time Critical Care Time Critical Care Time: Yes Total Critical Care Time: 144 Attestation: I spent 144 minutes of Critical Care Time with this patient. This does not include time spent on separately reported billable procedures. Discharge Plan Discharge Clinical Impression: Small bowel obstruction Patient Disposition: Admitted As Inpatient
[2023-07-17] MEDS: ondansetron HCL 4 MG/2 ML VIAL IVPUSH ×2 (17:10→22:18)
[2023-07-17] MEDS: Morphine Sulfate 4 MG/ML CARTRIDGE IVPUSH (17:10)
[2023-07-17 17:25] LABS: MANUAL DIFF FLAG NO
[2023-07-17 17:30] LABS: Basophils Percent Auto 0.5 % (0-2); Eosinophils Percent Auto 0.4 % (0-4); Hematocrit 43.3 % (37.0-47.0); Hemoglobin 15.5 g/dl (12.0-16.0); Imm Gran Abs Auto 0.03 X10*3/uL (0.00-0.03); Imm Gran Pct Auto 0.4 % (0.0-0.4); Lymphocytes Absolute Auto 1.7 X10*3/uL (1.2-4.9); Mean Corpuscular HGB Conc 35.8 g/dl (31.0-35.0); Mean Corpuscular Hemoglobin 30.4 pg (27.0-33.0); Mean Corpuscular Volume 84.9 fL (80.0-98.0); Mean Platelet Volume 9.6 fL (9.4-12.3); Monocytes Absolute Auto 0.4 X10*3/uL (0.1-1.2); Monocytes Percent Auto 4.7 % (2-11); Neutrophils Absolute Auto 6.1 x10*3/uL (2.0-8.3); Platelet Count 296 X10*3/uL (160-400); Red Cell Distribution Width 12.6 % (11.0-16.0); White Blood Count 8.3 X10*3/uL (4.8-10.8)
--- NOTE | 2023-07-17 17:35 | MHC.EDTECH ---
I sent first set of blood, which was drawn off line by rn
[2023-07-17 18:04] LABS: Prothrombin Time 12.3 SEC (11.1-13.3)
[2023-07-17 18:07] LABS: Partial Thromboplastin Time 30.5 SEC (26.0-36.8)
[2023-07-17 18:11] LABS: Alanine Aminotransferase 19 U/L (0-31); Albumin Level 4.3 g/dL (3.5-5.0); Alkaline Phosphatase 95 U/L (39-117); Anion Gap 16 (12-20); Aspartate Amino Transferase 18 U/L (5-31); Bilirubin Total 0.8 mg/dL (0.0-1.0); Blood Urea Nitrogen 9 mg/dL (9-16); Calcium 10.5 mg/dL (8.4-10.2); Carbon Dioxide 24 mmol/L (22-29); Chloride 106 mmol/L (96-108); Creatinine Clr Calc Pharmacy 66.6; Estimated Glomerular Filt Rate > 60; Glucose Random 102 mg/dL (60-115); Magnesium 1.9 mg/dL (1.6-2.6); Potassium 3.8 mmol/L (3.3-5.1); Sodium 142 mmol/L (135-145); Total Protein 7.6 g/dL (6.5-8.0)
[2023-07-17 18:14] LABS: Influenza A PCR NEGATIVE (Negative); Influenza B PCR NEGATIVE (Negative); Resp Syncy Virus RNA Qual PCR NEGATIVE (Negative); SARS COV2 PCR INHOUSE NEGATIVE (Negative)
[2023-07-17 18:19] LABS: Troponin-I High Sensitivity < 2.7 ng/L (<3.5-17.0)
[2023-07-17] MEDS: iohexoL 350 MG/ML 100 ML INFUS..BTL IV (18:36)
[2023-07-17 19:45] VITALS: BP 115/66; PULSE 59; RESP 16; TEMP 36.6; O2SAT 98
[2023-07-17 19:45] LABS: Appearance Urine Clear; Color Urine Yellow; Glucose Urine UA Negative (Negative); Leukocyte Esterase Urine Negative (Negative); Nitrite Urine Negative (Negative); PH 5.5 (5.0-9.0); Specific Gravity - Urine >= 1.030 (1.005-1.025); Urine Blood Negative (Negative); Urine Ketones 15 mg/dL (Negative); Urine Protein Trace mg/dL (Neg-Trace)
[2023-07-17] MEDS: Dextrose 5 % and 0.9 % NaCl 1,000 ML 100 ML IVCONT (21:23)
[2023-07-17 22:08] VITALS: BP 117/52; PULSE 51; RESP 14; TEMP 36.6; O2SAT 97
[2023-07-17] MEDS: Morphine Sulfate 4 MG/ML CARTRIDGE 2 MG IVPUSH (22:17)
[2023-07-18 01:35] VITALS: BP 131/61; PULSE 53; RESP 16; TEMP 36; O2SAT 97
[2023-07-18] MEDS: Morphine Sulfate 4 MG/ML CARTRIDGE 2 MG IVPUSH ×3 (03:03→15:07)
[2023-07-18] MEDS: Dextrose 5 % and 0.9 % NaCl 1,000 ML 100 ML IVCONT ×2 (06:43→16:56)
[2023-07-18 07:04] LABS: Hematocrit 38.7 % (37.0-47.0); Hemoglobin 13.4 g/dl (12.0-16.0); Mean Corpuscular HGB Conc 34.6 g/dl (31.0-35.0); Mean Corpuscular Hemoglobin 30.4 pg (27.0-33.0); Mean Corpuscular Volume 87.8 fL (80.0-98.0); Mean Platelet Volume 9.9 fL (9.4-12.3); Platelet Count 270 X10*3/uL (160-400); Red Blood Count 4.41 X10*6/uL (4.20-5.50); Red Cell Distribution Width 12.8 % (11.0-16.0); White Blood Count 6.8 X10*3/uL (4.8-10.8)
[2023-07-18 07:13] VITALS: BP 130/60; PULSE 50; RESP 16; TEMP 36.2; O2SAT 98
[2023-07-18 07:16] LABS: Anion Gap 13 (12-20); Blood Urea Nitrogen 7 mg/dL (9-16); Calcium 9.4 mg/dL (8.4-10.2); Carbon Dioxide 26 mmol/L (22-29); Chloride 107 mmol/L (96-108); Creatinine Clr Calc Pharmacy 65.7; Estimated Glomerular Filt Rate > 60; Glucose Random 119 mg/dL (60-115); Potassium 4.1 mmol/L (3.3-5.1); Sodium 142 mmol/L (135-145)
[2023-07-18 09:11] VITALS: BP 130/60
[2023-07-18] MEDS: Heparin Sodium,Porcine 5,000 UNIT/ML VIAL 5000 UNIT SUBCUT ×2 (09:11→17:36)
[2023-07-18] MEDS: amLODIPine Besylate 5 MG TABLET PO (09:11)
[2023-07-18] MEDS: ondansetron HCL 4 MG/2 ML VIAL IVPUSH (09:11)
--- NOTE | 2023-07-18 09:15 | PHA.MEDREC ---
Pharmacy Consult ? Medication Reconciliation Pharmacy has completed the medication reconciliation.
--- NOTE | 2023-07-18 09:18 | P.HPGS_ITS ---
History of Present Illness History of Present Illness Date of Service: 07/23/23 Chief complaint: Small bowel obstruction Narrative: Darlyn Villarreal is a 57 year old female who has had multiple previous surgeries including surgery for pyloric stenosis, appendectomy and cholecystectomy who was admitted last night for abdominal pain. She says she started to have abdominal pain mostly on the upper abdomen yesterday. She denies vomitting but says she had been nauseous. She was concerned about another episdoe of small bowel obstruction so she came to the ED last night. Review of her records shows she had been admitted in 2020 and 2021 for partial small bowel obstruction and had NGT placement then because of vomitting. She says she has been passing flatus. She had a bowel movement the night of July 15. She denies diarrhea. She says her pain is similar to her previous episodes in the past. Review of Systems Constitutional: Constitutional: Denies chills and Denies fever(s) Cardiovascular: Cardiovascular: Denies chest pain, Denies dyspnea and Denies dyspnea on exertion Respiratory: Respiratory: Denies cough, Denies dyspnea and Denies dyspnea on exertion Gastrointestinal: Gastrointestinal: Denies hematochezia and Denies change in bowel habits Genitourinary: Genitourinary: Denies hematuria Musculoskeletal: Musculoskeletal: Denies back pain and Denies limited range of motion Neurologic: Denies focal weakness and Denies convulsions Psychiatric: Psychiatric: Denies depression and Denies mood swings PMF Past Medical History Medical History Vaginal burning Vaginal itching Vaginal irritation Fibromyalgia Urgency of micturition Urge incontinence Nonalcoholic steatohepatitis (WALKER) Hypertension Pyloric stenosis SBO (small bowel obstruction) Family History Family History Father No problems noted. Mother No problems noted. Surgical History Surgical History History of esophagogastroduodenoscopy (EGD) H/O colonoscopy History of tubal ligation History of endometrial ablation H/O: hysterectomy History of appendectomy Hx of cholecystectomy 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 nurse or other home services: Yes ([employer] daily) Alcohol intake: current Alcohol intake frequency: holidays/special occasions only Alcohol type: wine Patient Tobacco Use Status: Never used Tobacco Cigarette Packs Per Day: 0.5 Second Hand Smoke Exposure: No service: No Current occupational status: unemployed Sexual orientation: Straight/Heterosexual Gender identity: Female Meds Allergies Allergy/AdvReac Type Severity Reaction Status Date / Time ibuprofen Allergy Severe RASH, Verified 07/17/23 16:52 SWELLING, anaphylaxis, swelling Active Medications: Current Medications Amlodipine Besylate (Amlodipine Besylate 5 Mg Tablet) 5 mg PO DAILY [facility]; Protocol Heparin Sodium (Porcine) (Heparin Sodium,Porcine 5,000 Unit/Ml Vial) 5,000 unit SUBCUT Q8H OMARI Dextrose/Sodium Chloride (D5ns) 1,000 mls @ 100 mls/hr IVCONT .Q10H [facility] Last Admin: 07/18/23 06:43 Dose: 100 mls/hr Morphine Sulfate (Morphine Sulfate 4 Mg/Ml Cartridge) 2 mg IVPUSH Q3H PRN; Protocol PRN Reason: Pain, Severe (Pain Scale 7-10) Last Admin: 07/18/23 03:03 Dose: 2 mg Ondansetron HCl (Ondansetron Hcl 4 Mg/2 Ml Vial) 4 mg IVPUSH Q8H PRN PRN Reason: nausea Last Admin: 07/17/23 22:18 Dose: 4 mg Sodium Chloride (0.9 % Sodium Chloride Flush 3 Ml Syringe) 3 ml IVFLUSH QSHIFT [facility] Last Admin: 07/18/23 01:11 Dose: Not Given Home Medications ?Medication ?Instructions ?Recorded ?Confirmed ?Last Taken ?Type amlodipine 5 mg tablet 5 mg PO DAILY 06/14/20 07/18/23 07/17/23 History ascorbic acid (vitamin C) 1,000 mg 1,000 mg PO DAILY 07/06/21 07/18/23 07/17/23 History tablet (Vitamin C) cholecalciferol (vitamin D3) 25 25 mcg PO DAILY 07/06/21 07/18/23 07/17/23 History mcg (1,000 unit) tablet (Vitamin D3) lorazepam 0.5 mg tablet 0.5 mg PO BID PRN Anxiety 07/01/23 07/18/23 Unknown History fluticasone propionate 50 1 spray intranasal DAILY PRN 07/18/23 07/18/23 Unknown History mcg/actuation nasal Allergy Symptoms spray,suspension vitamin E 268 mg (400 unit) capsule 268 mg PO DAILY 07/18/23 07/18/23 07/17/23 History Physical Exam Vital Signs: Vital Signs: Last Vital Signs Temp 97.1 F 07/18/23 07:13 Pulse 50 07/18/23 07:13 Resp 16 07/18/23 07:13 BP 130/60 07/18/23 07:13 Pulse Ox 98 07/18/23 07:13 O2 Del Method Room Air 07/18/23 07:13 BMI result Body Mass Index 29.3 Const: Other: not toxic looking General: comfortable and no acute distress Orientation/consciousness: patient oriented x3 Neck: Neck: Yes no lymphadenopathy Resp: Auscultation: clear to auscultation bilaterally Cardio: Rhythm: regular rhythm GI: Other: tender on the upper abdomen Inspection: No distended Palpation (GI): Soft to palpation, not firm, Tenderness to palpation present (GI) and no guarding Neuro: General: patient oriented x3 Results Results Labs: Short CBC 07/17/23 07/18/23 Range/Units 17:22 06:48 WBC 8.3 6.8 (4.8-10.8) X10*3/uL Hgb 15.5 13.4 (12.0-16.0) g/dl Hct 43.3 38.7 (37.0-47.0) % Plt Count 296 270 (160-400) X10*3/uL BMP 07/17/23 07/18/23 17:49 06:48 Sodium 142 142 Potassium 3.8 4.1 Chloride 106 107 Carbon Dioxide 24 26 BUN 9 7 L Creatinine 0.75 0.76 Calcium 10.5 H D 9.4 D Liver Function 07/17/23 Range/Units 17:49 Total Bilirubin 0.8 (0.0-1.0) mg/dL AST 18 (5-31) U/L ALT 19 (0-31) U/L Alkaline Phosphatase 95 (39-117) U/L Albumin 4.3 (3.5-5.0) g/dL Urine 07/17/23 Range/Units 19:39 Urine Color Yellow Urine Appearance Clear Urine pH 5.5 (5.0-9.0) Ur Specific [place] >= 1.030 H (1.005-1.025) Urine Protein Trace (Neg-Trace) mg/dL Urine Glucose (UA) Negative (Negative) mg/dL Abdomen CT scan report/results: report reviewed and image reviewed CT scan - pelvis: report reviewed and image reviewed Additional studies: Laboratory Results WBC 6.8 X10*3/uL (4.8-10.8) 07/18/23 06:48 RBC 4.41 X10*6/uL (4.20-5.50) 07/18/23 06:48 Hgb 13.4 g/dl (12.0-16.0) 07/18/23 06:48 Hct 38.7 % (37.0-47.0) 07/18/23 06:48 MCV 87.8 fL (80.0-98.0) 07/18/23 06:48 MCH 30.4 pg (27.0-33.0) 07/18/23 06:48 MCHC 34.6 g/dl (31.0-35.0) 07/18/23 06:48 RDW 12.8 % (11.0-16.0) 07/18/23 06:48 Plt Count 270 X10*3/uL (160-400) 07/18/23 06:48 MPV 9.9 fL (9.4-12.3) 07/18/23 06:48 Immature Gran % (Auto) 0.4 % (0.0-0.4) 07/17/23 17:22 Neut % (Auto) 74.0 % (45-73) H 07/17/23 17:22 Lymph % (Auto) 20.0 % (20-40) 07/17/23 17:22 [place] % (Auto) 4.7 % (2-11) 07/17/23 17:22 Eos % (Auto) 0.4 % (0-4) 07/17/23 17:22 Baso % (Auto) 0.5 % (0-2) 07/17/23 17:22 Lymph # (Auto) 1.7 X10*3/uL (1.2-4.9) 07/17/23 17:22 [place] # (Auto) 0.4 X10*3/uL (0.1-1.2) 07/17/23 17:22 Eos # (Auto) 0.0 X10*3/uL (0.0-0.4) 07/17/23 17:22 Baso # (Auto) 0.0 X10*3/uL (0.0-0.2) 07/17/23 17:22 Abs Immat Gran (auto) 0.03 X10*3/uL (0.00-0.03) 07/17/23 17:22 Absolute Neuts (auto) 6.1 x10*3/uL (2.0-8.3) 07/17/23 17:22 Absolute Nucleated RBC 0.000 X10*3/uL (0.0-0.012) 07/18/23 06:48 Nucleated RBC % (auto) 0.0 /100WBC (0.0-0.2) 07/18/23 06:48 PT 12.3 SEC (11.1-13.3) 07/17/23 17:49 INR 1.0 (0.9-1.1) 07/17/23 17:49 APTT 30.5 SEC (26.0-36.8) 07/17/23 17:49 Sodium 142 mmol/L (135-145) 07/18/23 06:48 Potassium 4.1 mmol/L (3.3-5.1) 07/18/23 06:48 Chloride 107 mmol/L (96-108) 07/18/23 06:48 Carbon Dioxide 26 mmol/L (22-29) 07/18/23 06:48 Anion Gap 13 (12-20) 07/18/23 06:48 BUN 7 mg/dL (9-16) L 07/18/23 06:48 Creatinine 0.76 mg/dL (0.5-1.4) 07/18/23 06:48 Estim Creat Clear Calc 65.7 07/18/23 06:48 Estimated GFR > 60 07/18/23 06:48 Random Glucose 119 mg/dL (60-115) H 07/18/23 06:48 Calcium 9.4 mg/dL (8.4-10.2) D 07/18/23 06:48 Magnesium 1.9 mg/dL (1.6-2.6) 07/17/23 17:49 Total Bilirubin 0.8 mg/dL (0.0-1.0) 07/17/23 17:49 AST 18 U/L (5-31) 07/17/23 17:49 ALT 19 U/L (0-31) 07/17/23 17:49 Alkaline Phosphatase 95 U/L (39-117) 07/17/23 17:49 Troponin I High Sens < 2.7 ng/L (<3.5-17.0) 07/17/23 17:49 Total Protein 7.6 g/dL (6.5-8.0) 07/17/23 17:49 Albumin 4.3 g/dL (3.5-5.0) 07/17/23 17:49 Urine Color Yellow 07/17/23 19:39 Urine Appearance Clear 07/17/23 19:39 Urine pH 5.5 (5.0-9.0) 07/17/23 19:39 Ur Specific [place] >= 1.030 (1.005-1.025) H 07/17/23 19:39 Urine Protein Trace mg/dL (Neg-Trace) 07/17/23 19:39 Urine Glucose (UA) Negative mg/dL (Negative) 07/17/23 19:39 Urine Ketones 15 mg/dL (Negative) 07/17/23 19:39 Urine Blood Negative (Negative) 07/17/23 19:39 Urine Nitrite Negative (Negative) 07/17/23 19:39 Ur Leukocyte Esterase Negative (Negative) 07/17/23 19:39 Influenza Type A (PCR) NEGATIVE (Negative) 07/17/23 17:22 Influenza Type B (PCR) NEGATIVE (Negative) 07/17/23 17:22 RSV RNA Qual (PCR) NEGATIVE (Negative) 07/17/23 17:22 SARS-CoV-2 RNA (RT-PCR) NEGATIVE (Negative) 07/17/23 17:22 Impressions Abdomen/Pelvis CT 07/17/23 18:41 IMPRESSION: 1. Evidence of low-grade or early small bowel obstruction with transition point in the ventral mid abdomen deep to patient's abdominal wall incisional scar. No evidence of perforation, ischemia, or closed loop morphology. 2. Mild central intrahepatic and extrahepatic biliary duct dilation, which extends to the Ampulla of Vater without discrete obstructing lesion identified, altogether nonspecific and may be normal in the postcholecystectomy state. Correlate with any clinical/laboratory evidence of cholestasis and if present dedicated MRCP may be considered. Assessment and Plan (1) Small bowel obstruction: Status: Acute Plan 57F with a history of multiple abdominal surgeries, admitted last night for abdominal pain. Review of her CT scan shows short dilated small bowel loops suggestive of partial small bowel obstruction, likely from postop adhesions. She has had previous similar episodes. The dilated segment appears to be the same compared to her CT scan from 2021, and this is in the midabdomen at the midline. She still has tenderness but her exam is otherwise benign. Her labs are unremarkable. I have encouraged her to ambulate. We keep her on bowel rest. She does not appear to require NGT placement for now. I did explain to her that if she develops worsening or non-improvement after a reasonable amount of time, she may benefit from laparotomy, alhtough this seems unlikely at this time. Quality Stroke Does the patient have a stroke diagnosis?: No VTE Prior VTE?: No VTE Risk Level:: Medical - moderate - high VTE Device Contraindication: N/A - Device Ordered VTE Drug Contraindication: N/A - Med Ordered Procedures Date of Service Date of Service: 07/23/23
--- NOTE | 2023-07-18 10:39 | MHC.CM.PN ---
IMM delivered. Patient lives in an apartment alone. 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 Uses different AD's depending on how she's feeling. Has: crutches, cane, walker. Also uses electric w/c when in community. PCP Dr Hyatt Completed HCP naming agents 1) son Surinder, 2) daughter Lisa DP: Goal is home, resume [employer] services, son to transport. CM will continue to follow.
[2023-07-18] MEDS: Omeprazole 20 MG CAPSULE.DR PO ×2 (11:31→16:56)
[2023-07-18 14:54] VITALS: BP 124/63; PULSE 57; RESP 18; TEMP 36.4; O2SAT 99
[2023-07-18] MEDS: 0.9 % Sodium Chloride Flush 3 ML SYRINGE IVFLUSH ×2 (15:08→20:53)
[2023-07-18 19:50] VITALS: BP 136/63; PULSE 56; RESP 18; TEMP 36.1; O2SAT 98
--- NOTE | 2023-07-18 23:22 | PC.NURSE ---
Assumed care of patient at 19:15. Please see shift assessment, associated tasks, and MAR for full details. Handoff report given to oncoming RN 23:10.
[2023-07-18 23:37] VITALS: BP 115/61; PULSE 52; RESP 18; TEMP 36.6; O2SAT 97
[2023-07-19] MEDS: Heparin Sodium,Porcine 5,000 UNIT/ML VIAL 5000 UNIT SUBCUT ×2 (02:08→10:20)
[2023-07-19] MEDS: Dextrose 5 % and 0.9 % NaCl 1,000 ML 100 ML IVCONT (02:10)
[2023-07-19] MEDS: Omeprazole 20 MG CAPSULE.DR PO (06:55)
[2023-07-19 07:21] VITALS: BP 126/67; PULSE 57; RESP 14; TEMP 36.9; O2SAT 97
[2023-07-19 07:52] VITALS: BP 126/67
[2023-07-19] MEDS: amLODIPine Besylate 5 MG TABLET PO (07:52)
--- NOTE | 2023-07-19 07:57 | P.PNGS_ITS ---
Subjective Subjective Date of Service: 07/23/23 Interval history: Feels well this morning Denies any pain Passing flatus No nausea or vomiting Says she feels ready to go home Physical Exam 2 Vital Signs: Vital Signs: Last Vital Signs Temp 98.5 F 07/19/23 07:21 Pulse 57 07/19/23 07:21 Resp 14 07/19/23 07:21 BP 126/67 07/19/23 07:52 Pulse Ox 97 07/19/23 07:21 O2 Del Method Room Air 07/19/23 07:21 BMI result Body Mass Index 29.3 Const: General: comfortable and no acute distress Resp: Effort & Inspection: normal respiratory effort Cardio: Rate: regular rate GI: Palpation (GI): Soft to palpation, not firm, nontender and no guarding Objective Data Active Medications Amlodipine Besylate (Amlodipine Besylate 5 Mg Tablet) 5 mg PO DAILY [facility]; Protocol Last Admin: 07/19/23 07:52 Dose: 5 mg Documented By: NAYELY Heparin Sodium (Porcine) (Heparin Sodium,Porcine 5,000 Unit/Ml Vial) 5,000 unit SUBCUT Q8H [facility] Last Admin: 07/19/23 02:08 Dose: 5,000 unit Documented By: RUBY Dextrose/Sodium Chloride (D5ns) 1,000 mls @ 100 mls/hr IVCONT .Q10H [facility] Last Admin: 07/19/23 02:10 Dose: 100 mls/hr Documented By: RUBY Morphine Sulfate (Morphine Sulfate 4 Mg/Ml Cartridge) 2 mg IVPUSH Q3H PRN; Protocol PRN Reason: Pain, Severe (Pain Scale 7-10) Last Admin: 07/18/23 15:07 Dose: 2 mg Documented By: ZULAY Omeprazole (Omeprazole 20 Mg Capsule.Dr) 20 mg PO BID@0630,1630 [facility] Last Admin: 07/19/23 06:55 Dose: 20 mg Documented By: RUBY Ondansetron HCl (Ondansetron Hcl 4 Mg/2 Ml Vial) 4 mg IVPUSH Q8H PRN PRN Reason: nausea Last Admin: 07/18/23 09:11 Dose: 4 mg Documented By: ZULAY Sodium Chloride (0.9 % Sodium Chloride Flush 3 Ml Syringe) 3 ml IVFLUSH QSHIFT [facility] Last Admin: 07/19/23 07:47 Dose: Not Given Documented By: NAYELY Non-Admin Reason: IV Running Labs 07/18/23 06:48 07/18/23 06:48 Procedures Date of Service Date of Service: 07/23/23 Progress Note: A&P Assessment and plan (1) Small bowel obstruction: Status: Acute Assessment and Plan: Symptoms resolved completely Abdomen soft, benign and nontender She feels ready to eat and have regular food If tolerating liquid diet today, possible DC home this afternoon She looks well overall Time Spent With Patient Time: Total time managing care of this patient today ____ minutes. Quality Stroke Does the patient have a stroke diagnosis?: No VTE Prior VTE?: No VTE Risk Level:: Medical - moderate - high VTE Device Contraindication: N/A - Device Ordered VTE Drug Contraindication: N/A - Med Ordered
--- NOTE | 2023-07-19 13:25 | PC.NURSE ---
Approximately 1230- patient had small, soft semi-formed bowel movement. Patient continues to pass flatus. Denies abdominal pain or discomfort. Denies nausea or vomiting. Tolerated current diet well.
--- NOTE | 2023-07-19 13:46 | MHC.CM.PN ---
EMR REVIEWED AND PER MD ROUNDS, PT MAY BE READY TO GO HOME TODAY IF TOLERATED DIET. CM WILL CONTINUE TO FOLLOW FOR ANY CHANGE IN DC PLAN.
[2023-07-19 15:29] VITALS: BP 132/67; PULSE 67; RESP 20; TEMP 36.4; O2SAT 96
--- NOTE | 2023-07-19 16:39 | PM.EVENT ---
Event Note Date of Service: 07/19/23 Event Note: Tolerating diet Passing flatus Had BMs Denies abdominal pain Looks well overall Okay to DC home today Time Spent With Patient Time: Total time managing care of this patient today ____ minutes.
--- NOTE | 2023-07-27 12:36 | P.DS_ITS ---
DS: Providers Provider Date of Service: 07/19/23 Date of admission: 07/17/23 20:35 Date of discharge: 07/19/23 Primary care physician: Shiloh Hyatt MD Attending physician on admission: Patel Staton Attending physician on discharge: Patel Staton DS: Diagnosis Discharge Diagnosis (1) Small bowel obstruction: Status: Resolved DS: Summary Hospital Course Hospital Course: HPI AT ADMISSION: Darlyn Villarreal is a 57 year old female who has had multiple previous surgeries including surgery for pyloric stenosis, appendectomy and cholecystectomy who was admitted last night for abdominal pain. She says she started to have abdominal pain mostly on the upper abdomen yesterday. She denies vomitting but says she had been nauseous. She was concerned about another episdoe of small bowel obstruction so she came to the ED last night. Review of her records shows she had been admitted in 2020 and 2021 for partial small bowel obstruction and had NGT placement then because of vomiting. She says she has been passing flatus. She had a bowel movement the night of July 15. She denies diarrhea. She says her pain is similar to her previous episodes in the past. Review of her CT scan shows short dilated small bowel loops suggestive of partial small bowel obstruction. HOSPITAL COURSE: She was admitted to the surgical service for further treatment of the SBO. She was mildly tender but otherwise had a benign exam. Supportive measures were continued with IV hydration, PRN analgesics. She was encouraged to ambulate. The patient had improvement and resolution in her symptoms with conservative measures. She began to pass flatus. Her diet was advanced to solids. She was reassessed later in the day and was tolerating a solid diet without any nausea, vomiting or abdominal pain and was moving her bowels. Her abdomen remained benign. She felt ready for discharge. She was discharged to home on 07/19/23 in stable condition. Status at Discharge Functional status at discharge: independent ambulation Time Attestation Discharge Coordination Time (in mins): 30 Quality: Safe Use of Opioids Does Pt have an Active Cancer Diagnosis on the Problem List?: No Quality: Stroke Does the patient have a stroke diagnosis?: No Physical Exam Vital Signs: Vital Signs: Last Vital Signs Temp 97.5 F 07/19/23 15:29 Pulse 67 07/19/23 15:29 Resp 20 07/19/23 15:29 BP 132/67 07/19/23 15:29 Pulse Ox 96 07/19/23 15:29 O2 Del Method Room Air 07/19/23 15:29 BMI result Body Mass Index 29.3 Const: General: comfortable and no acute distress GI: Inspection: No distended Palpation (GI): Soft to palpation and nontender DS: Data Data Completed and Pending Completed studies during hospitalization [Text1]: Procedures Insertion of Infusion Device into Upper Vein, Percutaneous Approach (07/06/21) Discharge Plan Discharge Anticipated Discharge Date/Time: 07/19/23 16:24 Patient Disposition: Home, Self-Care Discharge Diagnosis: small bowel obstruction Referrals: Shiloh Hyatt MD [Primary Care Provider] - 1 Week Discharge Medications: Continued cholecalciferol (vitamin D3) [Vitamin D3] 25 mcg (1,000 unit) Tablet 25 mcg PO DAILY ascorbic acid (vitamin C) [Vitamin C] 1,000 mg Tablet 1,000 mg PO DAILY fluticasone propionate 50 mcg/actuation spray,suspension 1 spray intranasal DAILY PRN (Reason: Allergy Symptoms) vitamin E 268 mg (400 unit) Capsule 268 mg PO DAILY amlodipine 5 mg tablet 5 mg PO DAILY lorazepam 0.5 mg tablet 0.5 mg PO BID PRN (Reason: Anxiety) Discharge Orders: Discharge Order (Routine); Ordered 07/19/23 Ordered By: Patel Staton Activity on Discharge: As tolerated Stand Alone Forms: Patient Portal Discharge page Print Language: Lithuanian Care Plan Goals: return to baseline Health Concerns: recurrent obstruction Plan of Treatment: ffup with PCP Assessment: doing very well Discharge Date/Time: 07/19/23 17:05
== END 2023-07-19 17:05 | disposition home or self-care (01) | DRG 390 ==
LOC: HO.ED 20:35 → HO.EDOVER 20:54 → HO.S3 07-18 00:09
PROVIDERS: Physician Assistant Medical; Admitting Provider Surgery; Emergency Provider Emergency Medicine Emergency Medical Services; PCP Internal Medicine; Visit Provider Surgery
DX: K56.609 Unspecified intestinal obstruction, unspecified as to partial versus complete obstruction (principal); Z20.822 Contact with and (suspected) exposure to COVID-19; Z79.899 Other long term (current) drug therapy
CPT/HCPCS: 0241U; 36415; 74177; 80048; 80053; 81003; 83735; 84484; 85025; 85027; 85610; 85730; 99285; J1644; J2270; J2405; Q9967

== ENCOUNTER → 2023-07-17 20:35 | Outpatient (BNV) | payer OTHER, SELFPAY | PROVIDERS: Admitting Provider Surgery; Emergency Provider Emergency Medicine Emergency Medical Services; PCP Internal Medicine; Visit Provider Surgery | DX: K56.609 Unspecified intestinal obstruction, unspecified as to partial versus complete obstruction (principal) | CPT/HCPCS: 99222; 99238; 99499 ==

== ENCOUNTER 2023-07-30 07:03 | Outpatient (REF) | payer OTHER, SELFPAY | END 2023-07-30 07:04 | disposition home or self-care (01) | LOC: HO.MAMMO 07:03 | PROVIDERS: PCP Internal Medicine; Visit Provider Internal Medicine | DX: Z12.31 Encounter for screening mammogram for malignant neoplasm of breast (principal) | CPT/HCPCS: 77063; 77067 ==

== ENCOUNTER → 2023-07-30 07:30 | Outpatient (BNV) | payer OTHER, SELFPAY | PROVIDERS: PCP Internal Medicine; Visit Provider Radiology Diagnostic Radiology | DX: Z12.31 Encounter for screening mammogram for malignant neoplasm of breast (principal) | CPT/HCPCS: 77063; 77067 ==

== ENCOUNTER 2023-08-30 07:14 | Outpatient (REF) | payer OTHER, SELFPAY ==
--- NOTE | ~2023-08-30 | MR_ITS ---
EXAMINATION: MR ABDOMEN WITHOUT AND WITH CONTRAST CLINICAL INFORMATION: Nonalcoholic steatohepatitis. COMPARISON: CT abdomen/pelvis 07/17/2023 Right upper quadrant ultrasound 06/07/2023 TECHNIQUE: MR abdomen was performed without and with use of 6.5 mL intravenous Gadavist gadolinium contrast. Postcontrast images are performed in multiphase dynamic sequences. Imaging was performed in 3 planes. FINDINGS: LUNG BASES: No pleural or pericardial effusion. LIVER, GALLBLADDER, AND BILIARY TREE: Hepatic steatosis. 7 mm right hepatic lipoma with chemical shift artifact. No suspicious hepatic lesion or biliary ductal dilatation is present. The gallbladder is surgically absent. PANCREAS: Pancreas divisum. No ductal dilatation. SPLEEN: Not enlarged. ADRENAL GLANDS: No adrenal mass. KIDNEYS AND URETERS: The kidneys are symmetric in size and enhance normally. No hydronephrosis. No perinephric stranding. GASTROINTESTINAL TRACT: No bowel obstruction. No ascites or fluid collection. LYMPH NODES: No bulky lymphadenopathy. VASCULAR: Normal caliber abdominal aorta. MR/MR abdomen wo/w con IMPRESSION: Hepatic steatosis. 7 mm right hepatic lipoma with chemical shift artifact may correspond to the abnormality seen on the recent ultrasound. No suspicious hepatic lesion.
[2023-08-30] MEDS: gadobutroL 7.5 ML VIAL IVPUSH (09:07)
== END 2023-08-30 07:15 | disposition home or self-care (01) ==
LOC: HO.MRI 07:14
PROVIDERS: PCP Internal Medicine; Visit Provider Internal Medicine Gastroenterology
DX: K75.81 Nonalcoholic steatohepatitis (NASH) (principal)
CPT/HCPCS: 74183; A9585

== ENCOUNTER 2024-02-14 23:47 | Emergency (ER) | payer OTHER, SELFPAY ==
--- NOTE | ~2024-02-14 | XR_ITS ---
EXAMINATION: XR TIBIA AND FIBULA, LEFT CLINICAL INFORMATION: Pain. COMPARISON: None available. TECHNIQUE: AP and lateral views of the left tibia and fibula were obtained. FINDINGS: The bone mineralization is normal. No fracture is seen. There is mild tricompartmental knee degenerative change. The soft tissues are unremarkable XR/XR tibia fibula LT 2V IMPRESSION: 1. No fracture or dislocation. 2. Mild tricompartmental knee degenerative change. Electronically signed by: Gavin Sharma MD 02/15/2024 02:26 AM LAURO STEELE
[2024-02-14 23:56] VITALS: BP 127/70; PULSE 66; RESP 16; TEMP 36.8; O2SAT 95; BMI 27.6
[2024-02-15 02:27] VITALS: BP 135/72; PULSE 63; RESP 15; TEMP 36.8; O2SAT 97
--- NOTE | 2024-02-15 02:41 | PC.NURSE ---
Pt brought to [facility] for treatment, assumed care of pt at this time. Pt A&Ox3 skin pwd respirations even unlabored. Endorsing left mensah pain non traumative beginning yesterday worsening tonight. Pain burning in nature radiating from knee down mensah. +csm. Denies injury. Pain worse with ambulation. Awaiting primary provider eval, aware of plan of care.
--- NOTE | 2024-02-15 03:42 | ED_ITS ---
HPI - Extremity Injury (Lower) General Chief Complaint: Extremity Injury, Lower Stated Complaint: L leg pain Time Seen by Provider: 02/15/24 03:35 Source: patient Mode of arrival: ambulatory Limitations: no limitations History of Present Illness ED Provider: Dr. Savannah Pineda HPI Narrative: Patient comes to the emergency room complaining of left lower extremity pain in addition. Patient denies any injury. Patient states that is right over the bone on the mensah. Patient denies any calf pain, no leg swelling. Patient has been taking Tylenol without any significant relief. Patient states that sometimes she has random pains throughout her joints or bones. Related Data Home Medications ?Medication ?Instructions ?Recorded ?Confirmed amlodipine 5 mg tablet 5 mg PO DAILY 06/14/20 07/18/23 ascorbic acid (vitamin C) 1,000 mg 1,000 mg PO DAILY 07/06/21 07/18/23 tablet (Vitamin C) cholecalciferol (vitamin D3) 25 25 mcg PO DAILY 07/06/21 07/18/23 mcg (1,000 unit) tablet (Vitamin D3) lorazepam 0.5 mg tablet 0.5 mg PO BID PRN Anxiety 07/01/23 07/18/23 fluticasone propionate 50 1 spray intranasal DAILY PRN 07/18/23 07/18/23 mcg/actuation nasal Allergy Symptoms spray,suspension vitamin E 268 mg (400 unit) capsule 268 mg PO DAILY 07/18/23 07/18/23 Previous Rx's ?Medication ?Instructions ?Recorded oxycodone 5 mg tablet 5 mg PO BID PRN pain #6 tabs 02/15/24 Allergies Allergy/AdvReac Type Severity Reaction Status Date / Time ibuprofen Allergy Severe RASH, Verified 02/14/24 23:59 SWELLING, anaphylaxis, swelling Review of Systems Review of Systems: Constitutional : No Weight loss, No Fever, No Chills, No Night Sweats, No Fatigue, No Malaise ENT/Mouth : No Hearing loss, No Ear Pain, No Nasal Congestion, No Sinus Pain, No Hoarseness, No sore throat, No Rhinorrhea, No Swallowing Difficulty Eyes: No Eye Pain, No Swelling, No Redness, No Foreign Body, No Discharge, No Vision Changes Cardiovascular : No Chest Pain, No SOB, No Dyspnea on Exertion, No Orthopnea, No Edema, No Palpitations Respiratory : No Cough, No Sputum, No Wheezing, No Smoke Exposure, No Dyspnea Gastrointestinal : No Nausea, No Vomiting, No Diarrhea, No Constipation, No abdominal Pain, No Hematochezia, No Melena Genitourinary : no irregular bleeding, No Dysuria, No Urinary Frequency, No Hematuria, No Urinary Incontinence, No Urgency, No Flank Pain, No Urinary Flow Changes, No Hesitancy Musculoskeletal : complaining of pain in the mensah area on the left leg, No joint pain, No Myalgias, No Joint Swelling Skin : No Skin Lesions, No rash Neuro : No Weakness, No Numbness, No Paresthesias, No Loss of Consciousness, No Dizziness, No Headache Psych : No Anxiety/Panic, No Depression, No SI/HI/AH/VH, No Social Issues, Heme/Lymph: No Bruising, No Bleeding,No Lymphadenopathy Endocrine : No Polyuria, No Polydipsia, No Temperature Intolerance PMFSH Past Medical History Medical History Vaginal burning Vaginal itching Vaginal irritation Fibromyalgia Urgency of micturition Urge incontinence Nonalcoholic steatohepatitis (WALKER) Hypertension Pyloric stenosis SBO (small bowel obstruction) Surgical History History of esophagogastroduodenoscopy (EGD) H/O colonoscopy History of tubal ligation History of endometrial ablation H/O: hysterectomy History of appendectomy Hx of cholecystectomy Family History Family History Father No problems noted. Mother No problems noted. 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) Alcohol intake: current Alcohol intake frequency: a few times a week Alcohol type: wine Patient Tobacco Use Status: Never used Tobacco Cigarette Packs Per Day: 0.5 Smoked in Last 30 Days: No Second Hand Smoke Exposure: No Use of substances other than those prescribed or required for medical reasons: No Advance Directives: No Advance Directives Information Provided: Yes Do you have a plan to hurt others: No Plan Patient : No service: No Current occupational status: unemployed Sexual orientation: Straight/Heterosexual Gender identity: Female Physical Exam Vital Signs: Vital Signs: Last Vital Signs Temp 98.3 F 02/15/24 02:27 Pulse 63 02/15/24 02:27 Resp 15 02/15/24 02:27 BP 135/72 02/15/24 02:27 Pulse Ox 97 02/15/24 02:27 O2 Del Method Room Air 02/15/24 02:27 BMI result Body Mass Index 27.6 Const: Other: Appearance: Alert. Oriented X3. No acute distress. Eyes: Pupils equal, round and reactive to light. ENT: Pharynx normal. Neck: Normal inspection. Neck supple. No lymph nodes noted. No crepitus CVS: Normal heart rate and rhythm. Pulses normal. Normal S1 and S2 Respiratory: No respiratory distress. Breath sounds normal. No Wheezing. No rales Abdomen: Soft and nontender. No rigidity. No distention. Skin: Skin warm and dry. Normal skin color. Normal skin turgor. Extremities: No lower extremity edema. No Lacerations. No Rash. The left and right lower extremity looks symmetric, no swelling, on the left leg there is no pain in the foot ankle calf or upper extremity, normal capillary refill in the toes /toenails, reproducible pain to palpation over the mensah area only, no pain to the lateral aspects of the calf or the actual calf. Neuro: Oriented X 3. No motor deficit. No sensory deficit. Moving all extremities. No slurred speech. CN 2 through 12 grossly intact Psych: calm, cooperative, normal affect Medical Decision Making Medical Decision Making MDM Narrative: X-rays negative for fracture patient is allergic to NSAIDs , acetaminophen not helping -patient likely Possibly has arthritis. - patient was given IM morphine 2 mg in the ED. Patient will follow-up with her primary care physician and eventually with hematology Independent Interpretation I performed an independent interpretation of an: Plain X-Ray Radiology Impression Discussion of test interpretation with radiology: I have reviewed the radiologist's reading. Radiologist Impression: The bone mineralization is normal. No fracture is seen. There is mild tricompartmental knee degenerative change. The soft tissues are unremarkable XR/XR tibia fibula LT 2V IMPRESSION: 1. No fracture or dislocation. 2. Mild tricompartmental knee degenerative change. Discharge Plan Discharge Clinical Impression: Pain in left mensah Patient Disposition: Home, Self-Care Instructions: Leg Pain (ED) Additional Instructions: Please follow-up with your primary care physician tomorrow. If you have any worsening or new symptoms, please return to the emergency room or call 911 Prescriptions: New oxycodone 5 mg tablet 5 mg PO BID PRN (Reason: pain) Qty: 6 0RF Rx Instructions: Partial Fill upon patient request. No Action cholecalciferol (vitamin D3) [Vitamin D3] 25 mcg (1,000 unit) Tablet 25 mcg PO DAILY ascorbic acid (vitamin C) [Vitamin C] 1,000 mg Tablet 1,000 mg PO DAILY fluticasone propionate 50 mcg/actuation spray,suspension 1 spray intranasal DAILY PRN (Reason: Allergy Symptoms) vitamin E 268 mg (400 unit) Capsule 268 mg PO DAILY amlodipine 5 mg tablet 5 mg PO DAILY lorazepam 0.5 mg tablet 0.5 mg PO BID PRN (Reason: Anxiety) Print Language: Hebrew
[2024-02-15] MEDS: Morphine Sulfate 2 MG/ML CARTRIDGE IM (03:53)
[2024-02-15 04:06] VITALS: BP 135/72; PULSE 63; RESP 15; TEMP 36.8; O2SAT 97
== END 2024-02-15 04:07 | disposition home or self-care (01) ==
PROVIDERS: Emergency Provider Emergency Medicine; PCP Internal Medicine
DX: M79.605 Pain in left leg (principal); Z79.899 Other long term (current) drug therapy
CPT/HCPCS: 73590; 96372; 99284; J2270

== ENCOUNTER 2024-02-16 15:44 | Emergency (ER) | payer OTHER, SELFPAY ==
[2024-02-16 15:55] VITALS: BP 139/78; PULSE 65; RESP 18; TEMP 36.6; O2SAT 95; BMI 28.1
--- NOTE | 2024-02-16 15:55 | ED_ITS ---
HPI - Abdominal Pain General Chief Complaint: Abdominal Pain Stated Complaint: Abdominal pain and nausea Related Data Home Medications ?Medication ?Instructions ?Recorded ?Confirmed amlodipine 5 mg tablet 5 mg PO DAILY 06/14/20 07/18/23 ascorbic acid (vitamin C) 1,000 mg 1,000 mg PO DAILY 07/06/21 07/18/23 tablet (Vitamin C) cholecalciferol (vitamin D3) 25 25 mcg PO DAILY 07/06/21 07/18/23 mcg (1,000 unit) tablet (Vitamin D3) lorazepam 0.5 mg tablet 0.5 mg PO BID PRN Anxiety 07/01/23 07/18/23 fluticasone propionate 50 1 spray intranasal DAILY PRN 07/18/23 07/18/23 mcg/actuation nasal Allergy Symptoms spray,suspension vitamin E 268 mg (400 unit) capsule 268 mg PO DAILY 07/18/23 07/18/23 Previous Rx's ?Medication ?Instructions ?Recorded oxycodone 5 mg tablet 5 mg PO BID PRN pain #6 tabs 02/15/24 Allergies Allergy/AdvReac Type Severity Reaction Status Date / Time ibuprofen Allergy Severe RASH, Verified 02/16/24 15:57 SWELLING, anaphylaxis, swelling PMFSH Past Medical History Medical History Vaginal burning Vaginal itching Vaginal irritation Fibromyalgia Urgency of micturition Urge incontinence Nonalcoholic steatohepatitis (WALKER) Hypertension Pyloric stenosis SBO (small bowel obstruction) Surgical History History of esophagogastroduodenoscopy (EGD) H/O colonoscopy History of tubal ligation History of endometrial ablation H/O: hysterectomy History of appendectomy Hx of cholecystectomy Family History Family History Father No problems noted. Mother No problems noted. 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) Alcohol intake: current Alcohol intake frequency: a few times a week Alcohol type: wine Patient Tobacco Use Status: Never used Tobacco Cigarette Packs Per Day: 0.5 Second Hand Smoke Exposure: No Advance Directives: Yes Advance Directives on File: Yes Advance Directives Date on File: 07/20/23 Do you have a plan to hurt others: No Plan service: No Current occupational status: unemployed Sexual orientation: Straight/Heterosexual Gender identity: Female Physical Exam ED Vital Signs: BMI result Body Mass Index 28.1 Course Course Course Narrative: This is a Rapid Medical Exam performed in triage by Nichol Leija PA-C. Full HPI, ROS and PE to be performed by primary ED provider. 58-year-old female with a past medical history transaminitis, gastroenteritis, presenting to the ED c/o abdominal pain, nausea x yesterday PE: Abdomen soft with RLQ/lower abdominal tenderness, no rebound or guarding Plan: labs, UA Medical Decision Making Lab Data 02/16/24 18:02 02/16/24 17:21 Labs: Lab Results 02/16/24 02/16/24 Range/Units 17:21 18:02 WBC 9.5 (4.8-10.8) X10*3/uL RBC 5.04 (4.20-5.50) X10*6/uL Hgb 15.2 (12.0-16.0) g/dl Hct 43.3 (37.0-47.0) % MCV 85.9 (80.0-98.0) fL MCH 30.2 (27.0-33.0) pg MCHC 35.1 H (31.0-35.0) g/dl RDW 12.7 (11.0-16.0) % Plt Count 306 (160-400) X10*3/uL MPV 9.6 (9.4-12.3) fL Immature Gran % (Auto) 0.3 (0.0-0.4) % Neut % (Auto) 64.0 (45-73) % Lymph % (Auto) 28.4 (20-40) % [place] % (Auto) 6.3 (2-11) % Eos % (Auto) 0.5 (0-4) % Baso % (Auto) 0.5 (0-2) % Lymph # (Auto) 2.7 (1.2-4.9) X10*3/uL [place] # (Auto) 0.6 (0.1-1.2) X10*3/uL Eos # (Auto) 0.1 (0.0-0.4) X10*3/uL Baso # (Auto) 0.1 (0.0-0.2) X10*3/uL Abs Immat Gran (auto) 0.03 (0.00-0.03) X10*3/uL Absolute Neuts (auto) 6.1 (2.0-8.3) x10*3/uL Absolute Nucleated RBC 0.000 (0.0-0.012) X10*3/uL Nucleated RBC % (auto) 0.0 (0.0-0.2) /100WBC Sodium 142 (135-145) mmol/L Potassium 4.3 (3.3-5.1) mmol/L Chloride 109 H (96-108) mmol/L Carbon Dioxide 26 (22-29) mmol/L Anion Gap 11 L (12-20) BUN 8 L (9-16) mg/dL Creatinine 0.70 (0.5-1.4) mg/dL Estim Creat Clear Calc 69.0 Estimated GFR > 60 Random Glucose 105 (60-115) mg/dL Calcium 9.6 (8.4-10.2) mg/dL Magnesium 2.3 (1.6-2.6) mg/dL Total Bilirubin 0.6 (0.0-1.0) mg/dL Direct Bilirubin 0.2 (0.0-0.5) mg/dL AST 63 H (5-31) U/L ALT 87 H (0-31) U/L Alkaline Phosphatase 107 (39-117) U/L Total Protein 7.5 (6.5-8.0) g/dL Albumin 4.2 (3.5-5.0) g/dL Lipase 29 (8-78) U/L Urine Color Yellow Urine Appearance Clear Urine pH 6.5 (5.0-9.0) Ur Specific [place] 1.020 (1.005-1.025) Urine Protein Negative (Neg-Trace) mg/dL Urine Glucose (UA) Negative (Negative) mg/dL Urine Ketones Trace (Negative) mg/dL Urine Blood Negative (Negative) Urine Nitrite Negative (Negative) Ur Leukocyte Esterase Moderate (2+) H (Negative) Urine RBC 0-2 (0-2) /HPF Urine WBC 6-10 H (0-5) /HPF Ur Squamous Epith Cells 11-20 (0-2) /HPF Urine Bacteria Trace (None Seen) Hyaline Casts 0-2 (0-2) /LPF Discharge Plan Discharge Clinical Impression: Abdominal pain Patient Disposition: Left W/O Completing Treatment Prescriptions: No Action cholecalciferol (vitamin D3) [Vitamin D3] 25 mcg (1,000 unit) Tablet 25 mcg PO DAILY ascorbic acid (vitamin C) [Vitamin C] 1,000 mg Tablet 1,000 mg PO DAILY oxycodone 5 mg tablet 5 mg PO BID PRN (Reason: pain) Qty: 6 0RF Rx Instructions: Partial Fill upon patient request. fluticasone propionate 50 mcg/actuation spray,suspension 1 spray intranasal DAILY PRN (Reason: Allergy Symptoms) vitamin E 268 mg (400 unit) Capsule 268 mg PO DAILY amlodipine 5 mg tablet 5 mg PO DAILY lorazepam 0.5 mg tablet 0.5 mg PO BID PRN (Reason: Anxiety) Discharge Date/Time: 02/16/24 21:34
[2024-02-16 17:32] LABS: Appearance Urine Clear; Color Urine Yellow; Glucose Urine UA Negative (Negative); Leukocyte Esterase Urine Moderate (2+) (Negative); Nitrite Urine Negative (Negative); PH 6.5 (5.0-9.0); UMIC TRIGGER UACC YES; Urine Blood Negative (Negative); Urine Ketones Trace mg/dL (Negative); Urine Protein Negative (Neg-Trace)
[2024-02-16 17:45] LABS: Bacteria Urine Trace (None Seen); Hyaline Casts Urine 0-2 /LPF (0-2); RBC Urine 0-2 /HPF (0-2); UACC Culture Trigger YES
[2024-02-16 17:58] LABS: Alanine Aminotransferase 87 U/L (0-31); Albumin Level 4.2 g/dL (3.5-5.0); Alkaline Phosphatase 107 U/L (39-117); Anion Gap 11 (12-20); Aspartate Amino Transferase 63 U/L (5-31); Bilirubin Direct 0.2 mg/dL (0.0-0.5); Bilirubin Total 0.6 mg/dL (0.0-1.0); Blood Urea Nitrogen 8 mg/dL (9-16); Calcium 9.6 mg/dL (8.4-10.2); Carbon Dioxide 26 mmol/L (22-29); Chloride 109 mmol/L (96-108); Estimated Glomerular Filt Rate > 60; Glucose Random 105 mg/dL (60-115); Lipase 29 U/L (8-78); Magnesium 2.3 mg/dL (1.6-2.6); Potassium 4.3 mmol/L (3.3-5.1); Sodium 142 mmol/L (135-145); Total Protein 7.5 g/dL (6.5-8.0)
[2024-02-16 18:09] LABS: Basophils Absolute Auto 0.1 X10*3/uL (0.0-0.2); Basophils Percent Auto 0.5 % (0-2); Eosinophils Absolute Auto 0.1 X10*3/uL (0.0-0.4); Eosinophils Percent Auto 0.5 % (0-4); Hematocrit 43.3 % (37.0-47.0); Hemoglobin 15.2 g/dl (12.0-16.0); Imm Gran Abs Auto 0.03 X10*3/uL (0.00-0.03); Imm Gran Pct Auto 0.3 % (0.0-0.4); Lymphocytes Absolute Auto 2.7 X10*3/uL (1.2-4.9); Lymphocytes Percent Auto 28.4 % (20-40); Mean Corpuscular HGB Conc 35.1 g/dl (31.0-35.0); Mean Corpuscular Hemoglobin 30.2 pg (27.0-33.0); Mean Corpuscular Volume 85.9 fL (80.0-98.0); Mean Platelet Volume 9.6 fL (9.4-12.3); Monocytes Absolute Auto 0.6 X10*3/uL (0.1-1.2); Monocytes Percent Auto 6.3 % (2-11); Neutrophils Absolute Auto 6.1 x10*3/uL (2.0-8.3); Platelet Count 306 X10*3/uL (160-400); Red Blood Count 5.04 X10*6/uL (4.20-5.50); Red Cell Distribution Width 12.7 % (11.0-16.0); White Blood Count 9.5 X10*3/uL (4.8-10.8)
[2024-02-16 18:23] LABS: MANUAL DIFF FLAG NO
== END 2024-02-16 21:34 | disposition left against medical advice (07) ==
PROVIDERS: Physician Assistant; Emergency Provider Emergency Medicine Emergency Medical Services; PCP Internal Medicine
DX: R10.9 Unspecified abdominal pain (principal); I10 Essential (primary) hypertension; Z79.899 Other long term (current) drug therapy
CPT/HCPCS: 36415; 80048; 80076; 81001; 83690; 83735; 85025; 87086; 99282; 99283

== ENCOUNTER 2024-05-12 18:58 | Emergency (ER) | payer OTHER, SELFPAY ==
--- NOTE | ~2024-05-12 | CT_ITS ---
CLINICAL HISTORY: Neck pain CT HEAD WITHOUT CONTRAST CTA HEAD WITH CONTRAST, 3D POSTPROCESSING CTA NECK WITH CONTRAST, WITH 3D POSTPROCESSING Comparison: CT/REG/SR - CT HEAD/BRAIN WO IV CON - 12/07/21 01:40 EDT Findings: CT head: No acute intracranial hemorrhage, extra-axial fluid collection, hydrocephalus or midline shift. Mild atrophy. No significant white matter disease. No evidence for acute large territorial infarct. Orbits: Unremarkable as visualized. Calvarium: No fracture. CTA head and neck: Aortic arch: Three-vessel arch with patent branch origins. Vertebral arteries: No occlusion or dissection. Extracranial carotid arteries: No occlusion, significant stenosis, aneurysm or dissection. Intracranial carotid arteries: No occlusion or significant stenosis. Vertebrobasilar system: Patent. Cerebellar arteries: Patent. Posterior cerebral arteries: Patent. No occlusion or aneurysm. Persistent origin on the left is a normal variant. Anterior cerebral arteries: Patent. No occlusion or aneurysm. Middle cerebral arteries: Patent. No occlusion or aneurysm. No enhancing intracranial mass lesion. Dural venous sinuses are patent. No enhancing cervical mass or fluid collection. Thyroid gland appears unremarkable. No acute abnormalities in the included lungs. No acute osseous abnormalities. Impression: 1. CT head/brain: No acute process. 2. CTA head and neck: No large vessel occlusion or flow-limiting stenosis. This document has been electronically signed by: Ana Daniels DO on 05/12/2024 23:22:12
--- NOTE | ~2024-05-12 | XR_ITS ---
CLINICAL HISTORY: chest pain 2 view chest x-ray Comparison: 10/05/2022 Findings: The lungs are clear. Normal size heart. No acute fracture. IMPRESSION: 1. No acute findings. This document has been electronically signed by: Prince Kessler MD on 05/12/2024 22:26:40
[2024-05-12 19:04] VITALS: BP 157/66; BP 180/100; PULSE 75; RESP 16; TEMP 37; O2SAT 100; O2SAT 99; BMI 29.0
[2024-05-12 19:12] VITALS: RESP 16
--- NOTE | 2024-05-12 19:12 | ECG_ITS ---
Test Reason : CHEST PAIN Blood Pressure : */* mmHG Vent. Rate : 71 BPM Atrial Rate : 71 BPM P-R Int : 144 ms QRS Dur : 92 ms QT Int : 402 ms P-R-T Axes : 25 19 26 degrees QTcB Int : 436 ms Normal sinus rhythm Normal ECG When compared with ECG of 05-Oct-2022 12:17, No significant change was found Referred By: Generic ED Physician Electronically Signed By: Jose F Duarte
[2024-05-12 20:00] VITALS: BP 156/66; PULSE 78; RESP 18
[2024-05-12 20:03] LABS: MANUAL DIFF FLAG NO
[2024-05-12 20:05] LABS: Basophils Absolute Auto 0.1 X10*3/uL (0.0-0.2); Basophils Percent Auto 0.8 % (0-2); Eosinophils Absolute Auto 0.1 X10*3/uL (0.0-0.4); Eosinophils Percent Auto 0.6 % (0-4); Hematocrit 41.7 % (37.0-47.0); Hemoglobin 14.6 g/dl (12.0-16.0); Imm Gran Abs Auto 0.03 X10*3/uL (0.00-0.03); Imm Gran Pct Auto 0.4 % (0.0-0.4); Lymphocytes Absolute Auto 1.6 X10*3/uL (1.2-4.9); Lymphocytes Percent Auto 19.8 % (20-40); Mean Corpuscular Volume 85.6 fL (80.0-98.0); Mean Platelet Volume 9.8 fL (9.4-12.3); Monocytes Absolute Auto 0.6 X10*3/uL (0.1-1.2); Monocytes Percent Auto 7.3 % (2-11); Neutrophils Absolute Auto 5.7 x10*3/uL (2.0-8.3); Neutrophils Percent Auto 71.1 % (45-73); Platelet Count 279 X10*3/uL (160-400); Red Blood Count 4.87 X10*6/uL (4.20-5.50); Red Cell Distribution Width 12.6 % (11.0-16.0)
[2024-05-12 20:07] LABS: Appearance Urine Clear; Color Urine Yellow; Glucose Urine UA Negative (Negative); Leukocyte Esterase Urine Small (1+) (Negative); Nitrite Urine Negative (Negative); Specific Gravity - Urine <= 1.005 (1.005-1.025); UMIC TRIGGER UACC YES; Urine Blood Negative (Negative); Urine Ketones Negative (Negative); Urine Protein Negative (Neg-Trace)
[2024-05-12 20:26] LABS: Bacteria Urine None Seen (None Seen); Hyaline Casts Urine 0-2 /LPF (0-2); RBC Urine 0-2 /HPF (0-2); Troponin-I High Sensitivity < 2.7 ng/L (<3.5-17.0); UACC Culture Trigger YES
[2024-05-12 20:41] LABS: Influenza A PCR NEGATIVE (Negative); Influenza B PCR NEGATIVE (Negative); Resp Syncy Virus RNA Qual PCR NEGATIVE (Negative); SARS COV2 PCR INHOUSE NEGATIVE (Negative)
[2024-05-12 21:46] LABS: Anion Gap 15 (12-20); Blood Urea Nitrogen 8 mg/dL (9-16); Calcium 9.6 mg/dL (8.4-10.2); Carbon Dioxide 23 mmol/L (22-29); Chloride 107 mmol/L (96-108); Creatinine Clr Calc Pharmacy 72.2; Estimated Glomerular Filt Rate > 60; Glucose Random 117 mg/dL (60-115); Potassium 3.6 mmol/L (3.3-5.1); Sodium 141 mmol/L (135-145)
[2024-05-12 21:51] LABS: B Type Natriuretic Peptide 13 pg/mL (<100)
[2024-05-12 21:54] LABS: HCG Quantitative < 2 mIU/mL
[2024-05-12] MEDS: iohexoL 350 MG/ML 100 ML INFUS..BTL IV (22:29)
[2024-05-12 23:31] VITALS: BP 143/76; PULSE 62; RESP 20; TEMP 36.8; O2SAT 95
[2024-05-13 00:31] LABS: Troponin-I High Sensitivity < 2.7 ng/L (<3.5-17.0)
[2024-05-13] MEDS: Acetaminophen 325 MG TABLET 975 MG PO (00:34)
--- NOTE | 2024-05-13 00:47 | ED.GENADULT ---
HPI - General Adult General Chief complaint: General Medical Stated complaint: back, chest pain hx yesterday Time Seen by Provider: 05/12/24 20:47 Source: patient Mode of arrival: ambulatory Limitations: no limitations History of Present Illness ED Provider: Darius BERNARD narrative: 58 year old female presenting for left-sided chest pain. Patient states that yesterday she began experiencing left-sided chest pain that radiates to her neck and upper back. She denies shortness of breath, fevers, chills, cough nausea, vomiting, abdominal pain. She states that the chest pain has since subsided however she is still experiencing neck pain and upper back pain. Related Data Home Medications ?Medication ?Instructions ?Recorded ?Confirmed amlodipine 5 mg tablet 5 mg PO DAILY 06/14/20 07/18/23 ascorbic acid (vitamin C) 1,000 mg 1,000 mg PO DAILY 07/06/21 07/18/23 tablet (Vitamin C) cholecalciferol (vitamin D3) 25 25 mcg PO DAILY 07/06/21 07/18/23 mcg (1,000 unit) tablet (Vitamin D3) lorazepam 0.5 mg tablet 0.5 mg PO BID PRN Anxiety 07/01/23 07/18/23 fluticasone propionate 50 1 spray intranasal DAILY PRN 07/18/23 07/18/23 mcg/actuation nasal Allergy Symptoms spray,suspension vitamin E 268 mg (400 unit) capsule 268 mg PO DAILY 07/18/23 07/18/23 Previous Rx's ?Medication ?Instructions ?Recorded oxycodone 5 mg tablet 5 mg PO BID PRN pain #6 tabs 02/15/24 Allergies Allergy/AdvReac Type Severity Reaction Status Date / Time ibuprofen Allergy Severe RASH, Verified 05/12/24 19:08 SWELLING, anaphylaxis, swelling Review of Systems Review of Systems: Yes all other systems are reviewed and are negative PMFSH Past Medical History Medical History Vaginal burning Vaginal itching Vaginal irritation Fibromyalgia Urgency of micturition Urge incontinence Nonalcoholic steatohepatitis (WALKER) Hypertension Pyloric stenosis SBO (small bowel obstruction) Surgical History History of esophagogastroduodenoscopy (EGD) H/O colonoscopy History of tubal ligation History of endometrial ablation H/O: hysterectomy History of appendectomy Hx of cholecystectomy Family History Family History Father No problems noted. Mother No problems noted. 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) Alcohol intake: current Alcohol intake frequency: a few times a week Alcohol type: wine Patient Tobacco Use Status: Never used Tobacco Cigarette Packs Per Day: 0.5 Second Hand Smoke Exposure: No Advance Directives Date on File: 07/20/23 service: No Current occupational status: unemployed Sexual orientation: Straight/Heterosexual Gender identity: Female Physical Exam ED Vital Signs: Vital Signs - 24 hr 05/12/24 19:04 05/12/24 19:12 05/12/24 20:00 Temperature 98.6 F Pulse Rate 75 78 Respiratory Rate 16 16 18 Blood Pressure 157/66 H 156/66 H Pulse Oximetry 99 Oxygen Delivery Method Room Air 05/12/24 23:31 Temperature 98.3 F Pulse Rate 62 Respiratory Rate 20 Blood Pressure 143/76 H Pulse Oximetry 95 Oxygen Delivery Method Room Air BMI result Body Mass Index 29.0 Well-appearing female in no acute distress A&O x4; normal speech and cognition No midline C-spine tenderness to palpation; neck is supple without cervical lymphadenopathy Lungs clear to auscultation bilaterally Normal S1-S2 regular rate rhythm Abdomen is soft nontender nondistended Bedside echo performed and demonstrated the following; no pericardial effusion, good ejection fraction, aortic root of 3.1, nondilated RV, nonplethoric IVC Medications Administered Discontinued Medications Generic Name Dose Route Start Last Admin Trade Name Freq PRN Reason Stop Dose Admin Acetaminophen 975 mg 05/12/24 23:13 05/13/24 00:34 Acetaminophen 325 Mg Tablet PO 05/12/24 23:14 975 mg ONCE ONE Administration Iohexol 100 ml 05/12/24 22:28 05/12/24 22:29 Iohexol 350 Mg/Ml 100 Ml Infus..Btl IV 05/12/24 22:29 70 ml ONCE ONE Administration Medical Decision Making Medical Decision Making MDM Narrative: 58-year-old female presenting for chest pain, neck pain and upper back pain -I am concerned for musculoskeletal pain however I am also considering the following; ACS and carotid dissection -labs and imaging studies ordered Lab and imaging interpretation: -negative troponin x2, electrolytes within normal limits, normal WBC and H&H -clean UA -no consolidation on chest x-ray; the radiology impression reads no acute findings -I do not appreciate obstruction on patient's CTA head and neck; radiology impression is negative for vessel obstruction -no signs of ischemia patient's ECG On Lab Data 05/12/24 19:59 05/12/24 21:20 Labs: Lab Results 05/12/24 05/12/24 05/12/24 Range/Units 19:59 21:20 23:45 WBC 8.0 (4.8-10.8) X10*3/uL RBC 4.87 (4.20-5.50) X10*6/uL Hgb 14.6 (12.0-16.0) g/dl Hct 41.7 (37.0-47.0) % MCV 85.6 (80.0-98.0) fL MCH 30.0 (27.0-33.0) pg MCHC 35.0 (31.0-35.0) g/dl RDW 12.6 (11.0-16.0) % Plt Count 279 (160-400) X10*3/uL MPV 9.8 (9.4-12.3) fL Immature Gran % (Auto) 0.4 (0.0-0.4) % Neut % (Auto) 71.1 (45-73) % Lymph % (Auto) 19.8 L (20-40) % [place] % (Auto) 7.3 (2-11) % Eos % (Auto) 0.6 (0-4) % Baso % (Auto) 0.8 (0-2) % Lymph # (Auto) 1.6 (1.2-4.9) X10*3/uL [place] # (Auto) 0.6 (0.1-1.2) X10*3/uL Eos # (Auto) 0.1 (0.0-0.4) X10*3/uL Baso # (Auto) 0.1 (0.0-0.2) X10*3/uL Abs Immat Gran (auto) 0.03 (0.00-0.03) X10*3/uL Absolute Neuts (auto) 5.7 (2.0-8.3) x10*3/uL Absolute Nucleated RBC 0.000 (0.0-0.012) X10*3/uL Nucleated RBC % (auto) 0.0 (0.0-0.2) /100WBC Sodium 141 (135-145) mmol/L Potassium 3.6 (3.3-5.1) mmol/L Chloride 107 (96-108) mmol/L Carbon Dioxide 23 (22-29) mmol/L Anion Gap 15 (12-20) BUN 8 L (9-16) mg/dL Creatinine 0.68 (0.5-1.4) mg/dL Estim Creat Clear Calc 72.2 Estimated GFR > 60 Random Glucose 117 H (60-115) mg/dL Calcium 9.6 (8.4-10.2) mg/dL Troponin I High Sens < 2.7 < 2.7 (<3.5-17.0) ng/L B-Natriuretic Peptide 13 (<100) pg/mL Beta HCG, Quant < 2 mIU/mL Urine Color Yellow Urine Appearance Clear Urine pH 8.0 (5.0-9.0) Ur Specific [place] <= 1.005 (1.005-1.025) Urine Protein Negative (Neg-Trace) mg/dL Urine Glucose (UA) Negative (Negative) mg/dL Urine Ketones Negative (Negative) mg/dL Urine Blood Negative (Negative) Urine Nitrite Negative (Negative) Ur Leukocyte Esterase Small (1+) H (Negative) Urine RBC 0-2 (0-2) /HPF Urine WBC 6-10 (0-5) /HPF Ur Squamous Epith Cells 3-5 (0-2) /HPF Urine Bacteria None Seen (None Seen) Hyaline Casts 0-2 (0-2) /LPF Influenza Type A (PCR) NEGATIVE (Negative) Influenza Type B (PCR) NEGATIVE (Negative) RSV RNA Qual (PCR) NEGATIVE (Negative) SARS-CoV-2 RNA (RT-PCR) NEGATIVE (Negative) Discharge Plan Discharge Clinical Impression: Acute neck pain Patient Disposition: Home, Self-Care Instructions: Acute Neck Pain (ED) Additional Instructions: You can take Tylenol for pain management. Please follow up with the primary care provider in the next 24-48 hours for reassessment. If you develop any new or worsening symptoms please return to the emergency department. Prescriptions: No Action cholecalciferol (vitamin D3) [Vitamin D3] 25 mcg (1,000 unit) Tablet 25 mcg PO DAILY ascorbic acid (vitamin C) [Vitamin C] 1,000 mg Tablet 1,000 mg PO DAILY oxycodone 5 mg tablet 5 mg PO BID PRN (Reason: pain) Qty: 6 0RF Rx Instructions: Partial Fill upon patient request. fluticasone propionate 50 mcg/actuation spray,suspension 1 spray intranasal DAILY PRN (Reason: Allergy Symptoms) vitamin E 268 mg (400 unit) Capsule 268 mg PO DAILY amlodipine 5 mg tablet 5 mg PO DAILY lorazepam 0.5 mg tablet 0.5 mg PO BID PRN (Reason: Anxiety) Print Language: Irish
[2024-05-13 00:52] VITALS: BP 143/76; PULSE 62; RESP 20; TEMP 36.8; O2SAT 95
== END 2024-05-13 00:53 | disposition home or self-care (01) ==
PROVIDERS: Emergency Provider Student in an Organized Health Care Education/Training Program; PCP Internal Medicine
DX: M54.2 Cervicalgia (principal); R07.89 Other chest pain; R10.2 Pelvic and perineal pain; Z79.899 Other long term (current) drug therapy; Z03.818 Encounter for observation for suspected exposure to other biological agents ruled out
CPT/HCPCS: 0241U; 36415; 70496; 70498; 71046; 80048; 81001; 83880; 84484; 84702; 85025; 87086; 93005; 99284; 99285; Q9967

== ENCOUNTER → 2024-05-12 19:12 | Outpatient (BNV) | payer OTHER, SELFPAY | PROVIDERS: Emergency Provider Student in an Organized Health Care Education/Training Program; PCP Internal Medicine; Visit Provider Internal Medicine Cardiovascular Disease | DX: R07.9 Chest pain, unspecified (principal) | CPT/HCPCS: 93010 ==

== ENCOUNTER → 2024-05-12 20:48 | Outpatient (BNV) | payer OTHER, SELFPAY | PROVIDERS: Emergency Provider Student in an Organized Health Care Education/Training Program; PCP Internal Medicine; Visit Provider Specialist | DX: M54.2 Cervicalgia (principal); R07.9 Chest pain, unspecified | CPT/HCPCS: 70496; 70498; 71046 ==

== ENCOUNTER 2024-07-05 07:14 | Outpatient (AMB) | payer OTHER, SELFPAY ==
--- NOTE | 2024-07-05 07:39 | A.OFFVIS_ITS ---
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 She is doing well with no electricity trader concerns. Currently not sexually active. STI testing offered; she declined. Attempting to eat a healthy diet with calcium and vitamin D and stays active with exercise. Last mammogram; 2023. Colonoscopy is UTD. Denies any family history of breast, ovarian or colon cancer. REPLACED BY [facility] Medical History Vaginal burning Vaginal itching Vaginal irritation Fibromyalgia Urgency of micturition Urge incontinence Nonalcoholic steatohepatitis (WALKER) Hypertension Pyloric stenosis SBO (small bowel obstruction) Surgical History History of esophagogastroduodenoscopy (EGD) H/O colonoscopy History of tubal ligation History of endometrial ablation H/O: hysterectomy History of appendectomy Hx of cholecystectomy Family History Father No problems noted. Mother No problems noted. 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) Alcohol intake: current Alcohol intake frequency: a few times a week Alcohol type: wine Patient Tobacco Use Status: Never used Tobacco Cigarette Packs Per Day: 0.5 Second Hand Smoke Exposure: No Advance Directives Date on File: 07/20/23 service: No Current occupational status: unemployed Sexual orientation: Straight/Heterosexual Gender identity: Female Female Reproductive History Menstrual Menopause type: surgical Total pregnancies: 6 Full term: 4 Number of Living Children: 4 Date of last pap smear: 04/01/16 (neg pap and hpv) Date of Mammogram: 07/30/23 (Birad 1) Review of Systems Const All systems reviewed & are unremarkable except as noted in HPI and below Reports as per HPI Eyes Reports no additional complaints ENT Reports no additional complaints Card Reports no additional complaints Resp Reports no additional complaints GI Reports as per HPI and Reports no additional complaints Reports as per HPI Musc Reports no additional complaints Skin/Breast Reports as per HPI Neuro Reports no additional complaints Psych Reports no additional complaints Endo Reports no additional complaints Lenny/Lymph Reports no additional complaints Aller/Immun Reports no additional complaints Physical Exam Vital Signs: Last Vital Signs BP 110/70 07/05/24 07:40 BMI result Body Mass Index 28.7 Const General: cooperative, healthy appearing, no acute distress, well developed and alert Orientation/consciousness: patient oriented x3 HEENT Head: Yes normal to inspection Eyes General: appearance normal, both eyes and all related structures Neck Neck: Yes normal visual inspection Thyroid: Thyroid normal Chest Chest palpation & inspection: normal inspection of the chest and other (no puckering, dimpling, peau de orange, retraction, discharge, masses) Breast/axilla inspection: normal inspection of the breasts Breast/axilla palpation: normal palpation of the breasts Resp Effort & Inspection: normal respiratory effort GI Inspection: Yes normal to inspection and Yes scar Palpation (GI): Soft to palpation Rectal Exam - Female: deferred General: Yes bladder normal to palpation External Female Exam: normal external appearance and normal appearance of the urethra Speculum Exam - Vagina: normal appearance of the vagina, normal palpation, normal vaginal discharge and vagina atrophic Speculum Exam - Cervix: Cervix absent (Vaginal cuff no lesions or nodules) Bimanual exam- vagina & uterus: normal bimanual exam, normal palpation, uterine size normal, bladder normal to palpation and non-tender Bimanual Exam- Adnexa, other: no masses Skin General skin exam: no rashes or lesions noted Rashes: no rashes Neuro General: patient oriented x3 Cognition (Neuro): normal cognition Extrem General: Yes normal to inspection Psych Attitude: cooperative Thought process: Normal thought process present Assessment & Plan Assessment & Plan (1) Encounter for well woman exam with routine gynecological exam: Code(s): Z01.419 - Encounter for gynecological examination (general) (routine) without abnormal findings Category: Medical Plan Discussed: Current recommendations for pap smears per ASCCP guidelines. Breast awareness, periodic self breast exams and yearly mammogram. Maintain a healthy lifestyle, well balanced diet including Calcium 1,200 mg and Vitamin D 600 IU daily, and routine exercise. Patient verbalizes understanding and agrees to the plan of care. She was given opportunity to ask questions and all questions were answered to the best of my ability. RTO in 1 year for annual electricity trader exam. This note is constructed using voice recognition software. While every effort has been made to ensure accuracy, supervisor liquefaction errors may have been included. Coding Level of Care Code Est Pt Prev Care 40-64y(74814) Diagnoses Encounter for well woman exam with routine gynecological exam Z01.419
[2024-07-05 07:40] VITALS: BP 110/70; BMI 28.7
== END 2024-07-05 08:18 | disposition home or self-care (01) ==
LOC: HO.HWS 07:14
PROVIDERS: PCP Internal Medicine; Visit Provider Advanced Practice Midwife
DX: Z01.419 Encounter for gynecological examination (general) (routine) without abnormal findings (principal)
CPT/HCPCS: 99396; 99459

== ENCOUNTER → 2024-07-05 07:14 | Outpatient (BNVA) | payer OTHER, SELFPAY | PROVIDERS: PCP Internal Medicine; Visit Provider Advanced Practice Midwife | DX: Z01.419 Encounter for gynecological examination (general) (routine) without abnormal findings (principal) | CPT/HCPCS: 99396; 99459 ==

== ENCOUNTER 2024-07-08 12:08 | Inpatient (IN) | payer OTHER, SELFPAY ==
--- NOTE | ~2024-07-08 | CT_ITS ---
CLINICAL HISTORY: abdominal pain, history of SBO CT abdomen and pelvis with contrast Comparison: CT/REG/AL/SR - CT ABDOMEN PELVIS W IV CON - 07/17/23 18:33 EDT Findings: The visualized portions of the lungs are normal in appearance. The liver is normal in size without suspicious focal hepatic lesions. Small hypodensity in the right lobe of the liver could represent a cyst. Stable mild intrahepatic or extrahepatic ductal dilatation is seen. The hepatic and portal veins are patent. Cholecystectomy. Pancreas, spleen and adrenals are normal in appearance. No suspicious focal lesion of the kidneys. No hydronephrosis or calculi. The abdominal aorta demonstrates no evidence of aneurysmal dilatation or dissection. The colon is normal in appearance and without wall thickening or inflammatory change. Appendix is not visualized. Oral contrast is visualized in the stomach and in the jejunum. There is area of small-bowel wall thickening in the central abdomen axial image 48 and coronal image 16. There is dilation of the small bowel proximal to this area measuring up to 3.4 cm in diameter. Post hysterectomy. No intraperitoneal free air or fluid is visualized. No pathologic lymphadenopathy is seen. There are no osseous or soft tissue abnormalities. IMPRESSION: Evidence of small-bowel obstruction of the same location from prior CT with the transitional zone in the central abdomen. Additional findings as above. This document has been electronically signed by: Carmelita Chambers MD on 07/08/2024 16:54:18
[2024-07-08 12:29] VITALS: BP 141/64; PULSE 65; RESP 18; TEMP 36.9; O2SAT 96; BMI 28.8
--- NOTE | 2024-07-08 12:29 | ED.GENADULT ---
HPI - General Adult General Chief complaint: Abdominal Pain Stated complaint: bowel pain Time Seen by Provider: 07/08/24 12:44 Source: patient Mode of arrival: ambulatory Limitations: no limitations History of Present Illness ED Provider: Julieta Perales APRN HPI narrative: 58 year-old female with PMhx of fibromyalgia, arthritis, WALKER, hx of SBO presents to the ED due to abdominal pain. She states the pain begain last night and endorses drinking one [place] iced tea prior to the onset of pain. She states the pain has worsened in intensity this morning prompting her to seek care. She states the pain is associated with nausea but has not vomited, and some mild burning of the distal esophagus. Her last BM was this morning which she states was medium in size and solid. She took Maalox for pain without effect, and began belching. She denies fever, bloody or bilious vomiting, diarrhea, black or bloody stool, chest pain, or SOB. MD complaint: abdominal pain Related Data Home Medications ?Medication ?Instructions ?Recorded ?Confirmed amlodipine 5 mg tablet 5 mg PO DAILY 06/14/20 07/08/24 ascorbic acid (vitamin C) 1,000 mg 1,000 mg PO DAILY 07/06/21 07/08/24 tablet (Vitamin C) cholecalciferol (vitamin D3) 25 25 mcg PO DAILY 07/06/21 07/08/24 mcg (1,000 unit) tablet (Vitamin D3) lorazepam 0.5 mg tablet 0.5 mg PO BID PRN Anxiety 07/01/23 07/08/24 vitamin E 268 mg (400 unit) capsule 268 mg PO DAILY 07/18/23 07/08/24 fluticasone propionate 50 1 spray intranasal BID PRN 07/08/24 07/08/24 mcg/actuation nasal allergies spray,suspension Allergies Allergy/AdvReac Type Severity Reaction Status Date / Time ibuprofen Allergy Severe RASH, Verified 07/08/24 12:31 SWELLING, anaphylaxis, swelling Review of Systems Review of Systems: Yes all other systems are reviewed and are negative Constitutional: Constitutional: Reports no additional constitutional complaints, Denies body ache(s), Denies chills, Denies fever(s), Denies headache(s) and Denies weakness Eyes: Eyes: Reports no additional eye complaints and Denies change in vision ENT: Reports system reviewed and no additional complaints, except as documented, Denies dizziness, Denies headache(s), Denies nasal congestion, Denies nasal discharge and Denies neck pain Cardiovascular: Cardiovascular: Reports no additional cardiovascular complaints, Denies chest pain, Denies leg edema and Denies dyspnea Respiratory: Respiratory: Reports no additional respiratory complaints, Denies cough and Denies dyspnea Gastrointestinal: Gastrointestinal: Reports no additional gastrointestinal complaints, Reports abdominal pain (diffuse ), Reports heartburn (burning distal esophagus), Denies diarrhea, Reports nausea and Denies vomiting Genitourinary: Genitourinary: Reports no additional female genitourinary complaints and Denies urinary incontinence Musculoskeletal: Musculoskeletal: Reports no additional musculoskeletal complaints, Denies back pain, Denies arthralgias, Denies joint swelling, Denies neck pain, Denies numbness and Denies tingling Integumentary/Breasts: Skin/Breast: Reports system reviewed and no additional complaints, except as docu and Denies rash Neurologic: Reports system reviewed and no additional complaints, except as documented, Denies Abnormal speech present, Denies dizziness, Denies headache(s), Denies numbness, Denies tingling and Denies weakness COUNTS INCLUDE 234 BEDS AT THE [facility] Past Medical History Attestation statement: The following information was validated with the patient. Source: old records reviewed and nursing notes reviewed Medical History Vaginal burning Vaginal itching Vaginal irritation Fibromyalgia Urgency of micturition Urge incontinence Nonalcoholic steatohepatitis (WALKER) Hypertension Pyloric stenosis SBO (small bowel obstruction) Surgical History History of esophagogastroduodenoscopy (EGD) H/O colonoscopy History of tubal ligation History of endometrial ablation H/O: hysterectomy History of appendectomy Hx of cholecystectomy Family History Family History Father No problems noted. Mother No problems noted. 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 nurse or other home services: Yes (CASINO PORTER daily) Alcohol intake: current Alcohol intake frequency: holidays/special occasions only Alcohol type: wine Patient Tobacco Use Status: Never used Tobacco Cigarette Packs Per Day: 0.5 Smoked in Last 30 Days: No Second Hand Smoke Exposure: No Use of substances other than those prescribed or required for medical reasons: No Advance Directives: No Advance Directives Information Provided: No Advance Directives Date on File: 07/20/23 Patient : No service: No Current occupational status: unemployed Sexual orientation: Straight/Heterosexual Gender identity: Female Physical Exam ED Vital Signs: Vital Signs - 24 hr 07/08/24 12:29 07/08/24 14:15 07/08/24 17:09 Temperature 98.5 F 97.7 F 98.1 F Pulse Rate 65 59 60 Respiratory Rate 18 18 16 Blood Pressure 141/64 H 130/68 133/72 Pulse Oximetry 96 96 96 Oxygen Delivery Method Room Air Room Air Room Air BMI result Body Mass Index 28.8 Const General: cooperative, healthy appearing and no acute distress Orientation/consciousness: patient oriented x3 Limitations: no limitations HENMT Head: Yes normal to inspection Ears: hearing grossly normal bilaterally General nose exam: Normal external nose present Face and sinus: Yes normal facial exam Mouth: Normal oral and palatal mucosa present Throat: Yes posterior oropharynx normal Eyes General: appearance normal, both eyes and all related structures Pupils: Equal, round and reactive pupils present Neck Neck: Yes normal visual inspection and Yes full ROM Chest Chest palpation & inspection: normal inspection of the chest Resp Effort & Inspection: normal respiratory effort Auscultation: clear to auscultation bilaterally Cardio Rate: regular rate Rhythm: regular rhythm Peripheral pulses: Peripheral pulses 2+ throughout GI Inspection: Yes normal to inspection Palpation (GI): Soft to palpation, Tenderness to palpation present (GI) (diffuse) with no rebound tenderness and no guarding Auscultation: normal bowel sounds Back/Spine/Pelvis Thoracic/Lumbar Spine: thoracic and lumbar spine normal to inspection Skin General skin exam: no rashes or lesions noted Neuro General: patient oriented x3, no focal motor deficits and normal sensation to monofilament Cranial nerves: Yes Equal, round and reactive pupils present Cognition (Neuro): normal cognition Speech: No Abnormal speech present Gait exam (Neuro): Normal gait present Motor exam (neuro): 5/5 motor strength present throughout Extrem General: Yes normal to inspection Course Course Course Narrative: RME, this is a rapid medical exam performed by Wilfrid Sung please refer to primary provider for complete H&P- 58 year old female presents for evaluation of abdominal pain that started when she woke up this morning. She does have a history of bowel obstruction and states this feels similar. However, she did have a solid bowel movement this morning. Plan for labs and a UA. We will defer any potential advanced imaging to primary ER provider Reevaluation(s) Reevaluation #1: 1700-Ct shows SBO. Call out to general surgery to discuss. Medications Administered Discontinued Medications Generic Name Dose Route Start Last Admin Trade Name Freq PRN Reason Stop Dose Admin Diatrizoate Meglum/Diatrizoate Sod 30 ml 07/08/24 15:26 07/08/24 15:26 Diatrizoate Meglumine, Sodium 30 Ml Solution PO 07/08/24 15:27 30 ml ONCE ONE Administration Famotidine 20 mg 07/08/24 13:26 07/08/24 13:46 Famotidine/Pf 20 Mg/2 Ml Vial IVPUSH 07/08/24 13:27 20 mg ONCE ONE Administration Hydromorphone HCl 0.5 mg 07/08/24 13:26 07/08/24 13:45 Hydromorphone Hcl 0.5 Mg/0.5 Ml Syringe IVPUSH 07/08/24 13:27 0.5 mg ONCE ONE Administration Protocol Hydromorphone HCl 0.5 mg 07/08/24 17:03 07/08/24 17:10 Hydromorphone Hcl 0.5 Mg/0.5 Ml Syringe IVPUSH 07/08/24 17:04 0.5 mg ONCE ONE Administration Protocol Sodium Chloride 1,000 mls @ 999 mls/hr 07/08/24 13:26 07/08/24 15:29 Ns IV 07/08/24 14:26 Infused .Q1H1M STA Infusion Iohexol 100 ml 07/08/24 15:07/08/24 15:26 Iohexol 350 Mg/Ml 100 Ml Infus..Btl IV 07/08/24 15:27 85 ml ONCE ONE Administration Ondansetron HCl 4 mg 07/08/24 13:26 07/08/24 13:46 Ondansetron Hcl 4 Mg/2 Ml Vial IVPUSH 07/08/24 13:27 4 mg ONCE ONE Administration Ondansetron HCl 4 mg 07/08/24 17:12 07/08/24 17:14 Ondansetron Hcl 4 Mg/2 Ml Vial IVPUSH 07/08/24 17:13 4 mg ONCE ONE Administration Medical Decision Making Medical Decision Making [facility] Narrative: 58 year-old female with PMhx of fibromyalgia, arthritis, WALKER, hx of SBO presents to the ED due to abdominal pain. She states the pain begain last night and endorses drinking one [place] iced tea prior to the onset of pain. She states the pain has worsened in intensity this morning prompting her to seek care. She states the pain is associated with nausea but has not vomited, and some mild burning of the distal esophagus. Her last BM was this morning which she states was medium in size and solid. She took Maalox for pain without effect, and began belching. She denies fever, bloody or bilious vomiting, diarrhea, black or bloody stool, chest pain, or SOB. Patients vitals signs stable, in no acute distress, non-toxic appearing. Physical exam reveals diffuse abdominal pain with no rebound tenderness or guarding. Bowel sounds present in all quadrants but due to history of SBO will obtain CT scan of abdomen pelvis with oral contrast to evaluate. Will obtain labs, lipase, UA. will give IV fluids, antiemetic, analgesia and re-evaluate. Differential Diagnosis Differential Diagnoses: The differential diagnosis associated with the presentation includes SBO, pancreatitis, gastritis, GERD, Diverticulitis, AAA Admission/Observation Consideration of admission/observation: Escalation of care including admission/observation considered Consult Healthcare Provider Management of the patient was discussed with: Director Of Field Service Venessa (accepted and admitted patient) Lab Data [facility] Lab Attestation statement: I reviewed the patient's lab results. 07/08/24 12:42 07/08/24 12:42 Labs: Lab Results 07/08/24 Range/Units 12:42 WBC 8.5 (4.8-10.8) X10*3/uL RBC 5.11 (4.20-5.50) X10*6/uL Hgb 15.0 (12.0-16.0) g/dl Hct 43.8 (37.0-47.0) % MCV 85.7 (80.0-98.0) fL MCH 29.4 (27.0-33.0) pg MCHC 34.2 (31.0-35.0) g/dl RDW 13.0 (11.0-16.0) % Plt Count 310 (160-400) X10*3/uL MPV 9.9 (9.4-12.3) fL Immature Gran % (Auto) 0.4 (0.0-0.4) % Neut % (Auto) 71.7 (45-73) % Lymph % (Auto) 20.8 (20-40) % [place] % (Auto) 5.9 (2-11) % Eos % (Auto) 0.5 (0-4) % Baso % (Auto) 0.7 (0-2) % Lymph # (Auto) 1.8 (1.2-4.9) X10*3/uL [place] # (Auto) 0.5 (0.1-1.2) X10*3/uL Eos # (Auto) 0.0 (0.0-0.4) X10*3/uL Baso # (Auto) 0.1 (0.0-0.2) X10*3/uL Abs Immat Gran (auto) 0.03 (0.00-0.03) X10*3/uL Absolute Neuts (auto) 6.1 (2.0-8.3) x10*3/uL Absolute Nucleated RBC 0.000 (0.0-0.012) X10*3/uL Nucleated RBC % (auto) 0.0 (0.0-0.2) /100WBC Sodium 140 (135-145) mmol/L Potassium 3.8 (3.3-5.1) mmol/L Chloride 103 (96-108) mmol/L Carbon Dioxide 29 (22-29) mmol/L Anion Gap 12 (12-20) BUN 11 (9-16) mg/dL Creatinine 0.71 (0.5-1.4) mg/dL Estim Creat Clear Calc 68.9 Estimated GFR > 60 Random Glucose 103 (60-115) mg/dL Lactic Acid 1.1 (0.5-2.0) mmol/L Calcium 10.0 (8.4-10.2) mg/dL Total Bilirubin 0.8 (0.0-1.0) mg/dL AST 27 (5-31) U/L ALT 28 (0-31) U/L Alkaline Phosphatase 101 (39-117) U/L Total Protein 7.8 (6.5-8.0) g/dL Albumin 4.4 (3.5-5.0) g/dL Lipase 22 (8-78) U/L Urine Color Yellow Urine Appearance Clear Urine pH 6.0 (5.0-9.0) Ur Specific [place] >= 1.030 H (1.005-1.025) Urine Protein Negative (Neg-Trace) mg/dL Urine Glucose (UA) Negative (Negative) mg/dL Urine Ketones 15 (Negative) mg/dL Urine Blood Negative (Negative) Urine Nitrite Negative (Negative) Ur Leukocyte Esterase Trace H (Negative) Urine RBC 0-2 (0-2) /HPF Urine WBC 0-5 (0-5) /HPF Ur Squamous Epith Cells 6-10 (0-2) /HPF Urine Bacteria Trace (None Seen) Hyaline Casts 0-2 (0-2) /LPF Independent Interpretation I performed an independent interpretation of an: CT Scan Interpretation: I have independently reviewed the CT scan agree with the radiologist's report Radiology Impression Discussion of test interpretation with radiology: I have reviewed the radiologist's reading. Radiologist Impression: [place] [id number] CT Scan Report Signed Patient: Darlyn Villarreal MR#: [id number] : 1965 Acct:[id number] Age/Sex: 58 / F ADM Date: 07/08/24 Loc: .ED Attending Dr: Ordering Physician: Julieta Perales NP Date of Service: 07/08/24 Procedure(s): CT abdomen pelvis w IV con Accession Number(s): [id number] cc: Julieta Perales NP; Physician,Unknown ~ Report Number: [id number]: Total DLP = 494.00 mGy-cm CLINICAL HISTORY: abdominal pain, history of SBO CT abdomen and pelvis with contrast Comparison: CT/REG/NM/SR - CT ABDOMEN PELVIS W IV CON - 07/17/23 18:33 EDT Findings: The visualized portions of the lungs are normal in appearance. The liver is normal in size without suspicious focal hepatic lesions. Small hypodensity in the right lobe of the liver could represent a cyst. Stable mild intrahepatic or extrahepatic ductal dilatation is seen. The hepatic and portal veins are patent. Cholecystectomy. Pancreas, spleen and adrenals are normal in appearance. No suspicious focal lesion of the kidneys. No hydronephrosis or calculi. The abdominal aorta demonstrates no evidence of aneurysmal dilatation or dissection. The colon is normal in appearance and without wall thickening or inflammatory change. Appendix is not visualized. Oral contrast is visualized in the stomach and in the jejunum. There is area of small-bowel wall thickening in the central abdomen axial image 48 and coronal image 16. There is dilation of the small bowel proximal to this area measuring up to 3.4 cm in diameter. Post hysterectomy. No intraperitoneal free air or fluid is visualized. No pathologic lymphadenopathy is seen. There are no osseous or soft tissue abnormalities. IMPRESSION: Evidence of small-bowel obstruction of the same location from prior CT with the transitional zone in the central abdomen. Additional findings as above. This document has been electronically signed by: Carmelita Chambers MD on 07/08/2024 16:54:18 External Record Review External record reviewed: Inpatient record and Outpatient record Critical Care Time Critical Care Time Critical Care Time: Yes Total Critical Care Time: 60 Attestation: Acute abdomen, requiring consultation with general surgery and admit Discharge Plan Discharge Clinical Impression: Small bowel obstruction Patient Disposition: Admitted As Inpatient
[2024-07-08 12:50] LABS: MANUAL DIFF FLAG NO
[2024-07-08 12:53] LABS: Basophils Absolute Auto 0.1 X10*3/uL (0.0-0.2); Basophils Percent Auto 0.7 % (0-2); Eosinophils Percent Auto 0.5 % (0-4); Hematocrit 43.8 % (37.0-47.0); Imm Gran Abs Auto 0.03 X10*3/uL (0.00-0.03); Imm Gran Pct Auto 0.4 % (0.0-0.4); Lymphocytes Absolute Auto 1.8 X10*3/uL (1.2-4.9); Lymphocytes Percent Auto 20.8 % (20-40); Mean Corpuscular HGB Conc 34.2 g/dl (31.0-35.0); Mean Corpuscular Hemoglobin 29.4 pg (27.0-33.0); Mean Corpuscular Volume 85.7 fL (80.0-98.0); Mean Platelet Volume 9.9 fL (9.4-12.3); Monocytes Absolute Auto 0.5 X10*3/uL (0.1-1.2); Monocytes Percent Auto 5.9 % (2-11); Neutrophils Absolute Auto 6.1 x10*3/uL (2.0-8.3); Neutrophils Percent Auto 71.7 % (45-73); Platelet Count 310 X10*3/uL (160-400); Red Blood Count 5.11 X10*6/uL (4.20-5.50); White Blood Count 8.5 X10*3/uL (4.8-10.8)
[2024-07-08 12:59] LABS: Appearance Urine Clear; Color Urine Yellow; Glucose Urine UA Negative (Negative); Leukocyte Esterase Urine Trace (Negative); Nitrite Urine Negative (Negative); Specific Gravity - Urine >= 1.030 (1.005-1.025); UMIC TRIGGER UACC YES; Urine Blood Negative (Negative); Urine Ketones 15 mg/dL (Negative); Urine Protein Negative (Neg-Trace)
[2024-07-08 13:04] LABS: Bacteria Urine Trace (None Seen); Hyaline Casts Urine 0-2 /LPF (0-2); RBC Urine 0-2 /HPF (0-2); WBC Urine 0-5 /HPF (0-5)
[2024-07-08 13:06] LABS: Lactic Acid 1.1 mmol/L (0.5-2.0)
[2024-07-08 13:07] LABS: Alanine Aminotransferase 28 U/L (0-31); Albumin Level 4.4 g/dL (3.5-5.0); Alkaline Phosphatase 101 U/L (39-117); Anion Gap 12 (12-20); Aspartate Amino Transferase 27 U/L (5-31); Bilirubin Total 0.8 mg/dL (0.0-1.0); Blood Urea Nitrogen 11 mg/dL (9-16); Carbon Dioxide 29 mmol/L (22-29); Chloride 103 mmol/L (96-108); Creatinine Clr Calc Pharmacy 68.9; Estimated Glomerular Filt Rate > 60; Glucose Random 103 mg/dL (60-115); Lipase 22 U/L (8-78); Potassium 3.8 mmol/L (3.3-5.1); Sodium 140 mmol/L (135-145); Total Protein 7.8 g/dL (6.5-8.0)
--- OUTSIDE RECORDS SUMMARY | 2024-07-08 13:09 | XMS_ITS | Clinical Summary ---
Author Organization [facility] Facility Address [address] [address] Care Team Providers Care Tumbler Plater Name Role Phone Shiloh Hyatt MD Primary Care Provider [phone] Medications amLODIPine (NORVASC) 5 MG tablet TAKE 1 TABLET BY MOUTH EVERY DAY 90 tablet 3 05/02/2022 Active Family History Medical History Relation Comments Cancer Mother Liver cancer 70s Dementia Mother Heart disease Mother Angina Hypertension Mother 40 or 50 Stroke Mother 60s Relation Status Comments Father Alive Mother Social History Tobacco Use Types Packs/Day Years Used Date Smoking Tobacco: Never Alcohol Use Standard Drinks/Week Comments No 0 (1 standard drink = 0.6 oz pur e alcohol) Comments Unknown Sex and Gender Information Value Date Recorded Sex Assigned at Not on file Legal Sex Female 4:56 PM EST Gender Identity Not on file Sexual Orientation Not on file Last Filed Vital Signs Vital Sign Reading Time Taken Comments Blood Pressure 146/84 03/21/2019 12:01 PM EST Pulse 74 03/21/2019 12:01 PM EST Temperature - - Respiratory Rate - - Oxygen Saturation 99% 03/21/2019 12:01 PM EST Inhaled Oxygen Concentration - - Weight 67.6 kg (149 lb) 03/21/2019 12:01 PM EST Height 149.9 cm (4' 11 ) 03/21/2019 12:01 PM EST Body Mass Index 30.09 03/21/2019 12:01 PM EST Plan of Treatment Health Maintenance Due Date Last Done Comments Breast Cancer Screening 1965 Colorectal Cancer Screening: Annual FOBT 10/02/2012 Colorectal Cancer Screening: Colonoscopy 10/02/2012 Colorectal Cancer Screening: Sigmoidoscopy 10/02/2012 Pneumococcal Vaccine: 50+ Ye ars (1 of 1 - PCV) 10/02/2013 Influenza Vaccine (Season Ended) 2024 Hepatitis B Vaccine Aged Out No longe r eligible based on patient's age to complete this topic Care Teams Tumbler Plater Relationship Specialty Start Date End Date Shiloh Hyatt MD [facility] [place], [place] PCP - General 03/25/20
--- OUTSIDE RECORDS SUMMARY | 2024-07-08 13:09 | XMS_ITS | Data Portability ---
Author Organization [employer] In in - [employer] Address [address] [place] [address] Care Team Providers Care Livestock Speculator Name Role Phone [facility] Referring Provider [facility] OTHER Assessment Encounter Date Assessment Date Assessment LastModified by Organization Details LastModified Time 01/13/2023 01/13/2023 I provided real -time medical direction via phone for this encounter and was available for additional phone-based assistance as needed. I have reviewed and agree with the Assessment and Plan as documented by the Psychologist Industrial Organizational. Patient given the opportunity to ask questions. As per above, patient with approximately one week of a non-productive cough and improving nasal congestion. Denies F/C/N/V/CP/SOB/whe ezing. Has taken decongestants with improvement. Wanted a COVID test that is negative. Asks for a cough surpressant and a Rx for Tessalon Pearls was sent to her pharmacy. We discussed the diagnostic uncertainty of home visits and the risk associated with this. In this case, the patient and I felt this to be an acceptable and reasonable amount of risk given the benefit of avoiding an ED visit. We discussed the need to seek care urgently/emergentl y in the setting of any new or worsening serious symptoms, particularly fever chills lightheadedness altered mental status [email or web address] Not available 01/13/2023 17:14:50 01/20/2023 01/20/2023 I provided real -time medical direction via phone for this encounter, and was available for additional phone based assistance as needed. I have reviewed and agree with the Assessment and Plan as documented by the Psychologist Industrial Organizational 57-year-old female is seen for several days of popping sensation in right here with associated discomfort. Denies vertigo or other focal neurologic symptoms. Ear canal not impacted or inflamed with no pain on manipulation per machine dyer. Hemodynamically well and afebrile/well appearing per report. No change in hearing. No fevers or chills. Low suspicion for significant bacterial ENT infection. Will advised close monitoring of symptoms and follow-up with care team should she fail to improve. [email or web address] Not available 03/04/2023 12:55:26 Plan of Treatment Reminders Order Date Submit Date Provider Last Modified By Organization Details Last Modified Time Details Appointments None recorded. Lab rapid SARS CoV 2 Ag, QL IA, respiratory specimen 2022 023 [email or web address] [facility], [address] [place] [address], [phone] 3 17:14:39 Referral None recorded. Procedures None recorded. Surgeries None recorded. Imaging None recorded. Medication Orders Tessalon Perles 100 mg capsule 2022 023 [facility]/Pharmacy #[id number], [address] [place], [address], 3 17:14:39 Augmentin 875 mg-125 mg tablet 2022 023 [id number] [address] [place], [address], 3 10:51:34 fluticasone propionate 50 mcg/actuati on nasal spray,suspe nsion 2022 023 [id number] [address] [place], [address], 3 10:51:34 Maalox Advanced 200 mg-200 mg-20 mg/5 mL oral suspension 2021 022 [email or web address] Not available 20:12:03 Patient TargetsNo targets recorded. Patient InstructionsNo instructions recorded. Reason for Referral None Reported. Results Created Date Observation Date Name Description Value Unit Range Abnormal Flag Note LastModifiedBy Organization Detail LastModifiedTime 01/14/20 23 01/13/2023 rapid SARS CoV 2 Ag, QL IA, respi rator y speci men rapid SARS CoV 2 Ag, QL IA, respiratory specimen negati ve Not Available Main - [facility] ed [address] [place], [address] 01/13/2023 17:11:29 Result Notes None recorded. Medical Equipment None Reported. Allergies Allergen ID Allergen Name Allergen Category Reaction Reaction Severity Criticality Documentation Date Start Date Code Code System Note Provider Name and Address Organization Details Recorded Time 8974 ibuprofen medicatio n Not available Not available Not available 01/11/2024 5640 RxNorm Not Available [facility] - production 4 03:48:08 Medications Name Sig Start Date Stop Date Status Note LastModified by Organization Details LastModified Time methocarbamo l 500 mg tablet TAKE 1 TABLET BY MOUTH 3 TIMES A DAY NEEDED FOR PAIN active Not Available Not Available No t Available cetirizine 10 mg tablet TAKE 1 TABLET BY MOUTH EVERY DAY active Not Available Not Available No t Available fluconazole 150 mg tablet TAKE 1 TABLET ORALLY DAILY FOR 1 DOSE, ADMINISTER ON DAY 1 OF THERAPY active Not Available Not Available No t Available benzonatate 200 mg capsule TAKE 1 CAPSULE ORALLY 3 TIMES A DAY NEEDED FOR COUGH active Not Available Not Available No t Available ketotifen 0.025 % (0.035 %) eye drops INSTILL 1 DROP INTO BOTH EYES EVERY 12 HOURS active Not Available Not Available No t Available metronidazol e 0.75 % (37.5 mg/5 gram) vaginal gel INSERT 1 APPLICATORF ULL VAGINALLY DAILY X 5 DAYS active Not Available Not Available No t Available prednisone 20 mg tablet TAKE 2 TABS ORALLY DAILY active Not Available Not Available No t Available terconazole 0.8 % vaginal cream INSERT 1 APPFUL VAGINALLY BEDTIME FOR 3 DAYS active Not Available Not Available No t Available metronidazol e 500 mg tablet TAKE 1 TABLET BY MOUTH TWICE A DAY FOR 7 DAYS active Not Available Not Available No t Available amlodipine 5 mg tablet TAKE 1 TABLET BY MOUTH EVERY DAY active Not Available Not Available No t Available amoxicillin 875 mg tablet TAKE 1 TABLET BY MOUTH TWICE A DAY active Not Available Not Available No t Available omeprazole 10 mg capsule,luisa yed release TAKE 1 CAPSULE ORALLY DAILY active Not Available Not Available No t Available benzonatate 100 mg capsule TAKE 1 CAPSULE BY MOUTH THREE TIMES A DAY FOR 10 DAYS active Not Available Not Available Not Available clotrimazole -betamethaso ne 1 %-0.05 % topical cream APPLY TOPICALLY 2 TIMES A DAY NEEDED FOR ITCHING FOR 7 DAYS active Not Available Not Available N ot Available omeprazole 20 mg capsule,luisa yed release TAKE 1 CAPSULE BY MOUTH EVERY DAY active Not Available Not Available No t Available diclofenac sodium 75 mg tablet,delay ed release TAKE 1 TABLET BY MOUTH TWICE A DAY WITH FOOD FOR 14 DAYS active Not Available Not Available No t Available diclofenac sodium 50 mg tablet,delay ed release TAKE 1 TABLET BY MOUTH 3 TIMES A DAY active Not Available Not Available Not Available albuterol sulfate HFA 90 mcg/actuatio n aerosol inhaler INHALE 2 PUFFS BY MOUTH EVERY 4 TO 6 HOURS NEEDED FOR SHORTNESS OF BREATH OR FOR WHEEZE active Not Available Not Available No t Available hydroxyzine HCl 10 mg tablet TAKE 2 TABLETS BY MOUTH 3 TIMES A DAY NEEDED FOR ANXIETY active Not Available Not Available Not Available ondansetron 4 mg disintegrati ng tablet TAKE 1 TABLET BY MOUTH EVERY 6 HOURS NEEDED FOR NAUSEA AND VOMITING active Not Available Not Available No t Available fluticasone propionate 50 mcg/actuatio n nasal spray,suspen vivien SPRAY 1 SPRAY INTO BOTH NARES 2 TIMES A DAY X 21 DAYS active Not Available Not Available No t Available loratadine 10 mg tablet TAKE 1 TABLET BY MOUTH EVERY DAY active Not Available Not Available No t Available diazepam 5 mg tablet TAKE 1 TABLET BY MOUTH 3 TIMES A DAY NEEDED FOR MUSCLE SPASM active Not Available Not Available No t Available amoxicillin 875 mg-potassium clavulanate 125 mg tablet TAKE 1 TABLET BY MOUTH EVERY 12 HOURS FOR 7 DAYS active Not Available Not Available N ot Available oxycodone 5 mg tablet TAKE 1 TABLET EVERY 4 HOURS NEEDED FOR PAIN PATIENT MAY REQUEST PARTIAL FILL active Not Available Not Available No t Available diclofenac 1 % topical gel TAKE 2 GRAMS (TOPICAL) 4 TIMES PER DAY FOR 10 DAYS active Not Available Not Available No t Available Maalox Advanced 200 mg-200 mg-20 mg/5 mL oral suspension Take 5 mL every day by oral route for 1 day. 2021 active Not Available Not Available Not Avai lable baclofen 5 mg tablet TAKE 1 TABLET BY MOUTH TWICE A DAY active Not Available Not Available No t Available Scott DM Cough and Chest 5 mg-100 mg/5 mL oral liquid TAKE 10 MLS BY MOUTH EVERY 4-8 HOURS NEEDED FOR COUGH active Not Available Not Available No t Available Vitals Date Recorded Body temperature Heart rate Body weight Respiratory rate Oxygen saturation Oxygen saturation in Arterial blood by Pulse oximetry Body height Systolic blood pressure Diastolic blood pressure Provider Name and Address Organization Details Last Updated DateTime 3 98.4 [degF] 68 /min 45380.8 g 18 /min 98 % 98 % 157.48 cm 116 mm[Hg] 78 mm[Hg] Not Available [facility] - production 3 17:10:53 Date Recorded Body temperature Heart rate Respiratory rate Oxygen saturation Oxygen saturation in Arterial blood by Pulse oximetry Body weight Systolic blood pressure Diastolic blood pressure Provider Name and Address Organization Details Last Updated DateTime 3 98.2 [degF] 72 /min 18 /min 99 % 99 % 57390.7 6 g 144 mm[Hg] 84 mm[Hg] Not Available [facility] - production 3 10:39:00 Date Recorded Heart rate Respiratory rate Oxygen saturation Oxygen saturation in Arterial blood by Pulse oximetry Body temperature Systolic blood pressure Diastolic blood pressure Provider Name and Address Organization Details Last Updated DateTime 2 65 /min 18 /min 96 % 96 % 98.49 [degF] 115 mm[Hg] 73 mm[Hg] Kathy Solorio MD [address] [place] [address],[address] [place], [address], [place] - [facility] [place] 2 16:22:23 Date Recorded Heart rate Oxygen saturation Oxygen saturation in Arterial blood by Pulse oximetry Body weight Respiratory rate Body temperature Body weight Body temperature Oxygen saturation Oxygen saturation in Arterial blood by Pulse oximetry Heart rate Respiratory rate Systolic blood pressure Diastolic blood pressure Systolic blood pressure Diastolic blood pressure Provider Name and Address Organization Details Last Updated DateTime 3 60 /min 98 % 98 % 74995.8 8 g 16 /min 98 [degF] 48167.8 8 g 98 [degF] 98 % 98 % 60 /min 16 /min 150 mm[Hg] 80 mm[Hg] 150 mm[Hg] 80 mm[Hg] Not Available [facility] - production 3 10:42:13 Date Recorded Heart rate Body temperature Body weight Respiratory rate Oxygen saturation Oxygen saturation in Arterial blood by Pulse oximetry Systolic blood pressure Diastolic blood pressure Provider Name and Address Organization Details Last Updated DateTime 3 65 /min 98.2 [degF] 04222.8 8 g 16 /min 98 % 98 % 129 mm[Hg] 78 mm[Hg] Not Available [facility] - production 3 13:07:48 Social History None recorded. Functional Status None recorded. Mental Status None recorded. Family History Nothing Reported. Medical History No medical history recorded. Gynecological HistoryNo gynecological history recorded. Obstetrics History GPAL:G 0 P 0 0 0 0 Past Encounters Encounter ID Performer Location Encounter Start Date Encounter Closed Date Diagnosis/Indication Diagnosis SNOMED-CT Code Diagnosis ICD10 Code Diagnosis Note [id number] Kathy Solorio MD Main - [facility] [address] [place] [id number] 07/19/2021 14:26:41 11/10/2021 15:23:20 Diarrhea 30637688 R19.7 55 year old female being evaluated for diarrhea and epigastric pain with nausea since this morning. Per data gathered by machine dyer, patient with normal vital signs, mild tenderness on abdominal exam without distension , reporting epigastric pain radiating to the back, and multiple episodes of brown watery stool since this morning. Patient nauseous but able to take PO fluids, although hasn't been eating. Denies sick contacts.S ymptoms suggestive of viral gastroente ritis vs pancreatit is/PUD/dys pepsia. No evidence of dehydratio n, given short duration of symptoms thus far. Encouraged continued PO hydration, zofran if needed, with a trial of maalox provided on scene. FU if epigastric pain worsens in coming days. [id number] [facility] [address] [place] [phone] 06/07/2022 10:33:27 06/09/2022 08:47:45 Acute otitis media [id number] H65.01 As noted, we were called to see this patient regarding concerns of otitis media in the context of a URI, with a likely sick contact with a viral syndrome. Evaluation in the field was performed by my machine dyer colleague, as noted above, I provided real-time direction and supervisio n for this visit. The evaluation revealed a well-appea ring woman with stable VS and with apparent otitis media on otoscopy, photos of which I reviewed. Of note, she previously had OM with a URI, and this feels identical. At that time she was treated with amoxicilli n. Pain is 6-7/10 and radiates to jaw/neck. Only allergy is to ibuprofen Discussed pros and cons of abx vs supportive care, and pros and cons of amox-clav vs amoxicilli n alone. Reviewed side effect profile of amox-clav and she is taking probiotic and eats yogurt daily. Impression :Acute otitis media in the context of a generalize d URI, with a prior episode that became severe and required abx. Plan:Augme ntin 875 BID x 7.Refilled flonase, as this will likely help decompress the eustachian tubesDiscu ssed short-term afrin can also helpf/u PRN Primary care, considerch oneil-in call this week. Dispositio n:We discussed the diagnostic uncertaint y of home visits and the risk associated with this. In this case, the patient and I felt this to be an acceptable and reasonable amount of risk given the benefit of avoiding an ED visit. We discussed the need to seek care urgently/e mergently in the setting of any new or worsening serious symptoms, particular ly hearing loss, fever, worsening pain extending beyond the ear. [id number] Nomi Vora MD Main - [facility] [address] [place] [phone] 06/10/2022 13:07:38 06/15/2022 09:50:04 Acute sinusitis [id number] J01.90 This 56-year-ol d female is seen for follow-up of acute sinusitis treated with antibiotic s and prednisone . Her symptoms have resolved and she is feeling much better. She will follow-up with her PCP for any recurring problems. The patient agreed with this plan. [id number] Lily Dahl MD Main - [facility] [address] [place] [phone] 01/13/2023 17:10:51 01/13/2023 22:25:46 Cough [id number] R05.9 [id number] Richie Kohli MD Main - [facility] [address] [place] [phone] 01/20/2023 10:38:58 03/09/2023 11:08:49 Pain of ear [id number] H92.09 Health Concerns Section Related Observation LastModified by Organization Detai ls LastModified Time None Recorded Concern Status LastModified by Organization Details LastModified Time None Recorded Advance Directives Directive None Recorded Payers Encounter Date Sequence Insurance Name Policy Number Policy Hoover Covered Member ID Hoover Member ID Guarantor Name 07/19/2021 1 [facility] [employer] - DOS PRIOR TO 2022 - DUAL ELIGIBLE (MEDICARE REPLACEMENT/ADV ANTAGE - HMO) Darlyn Villarreal [id number] Darlyn Villarreal 06/07/2022 1 [facility] [employer] - DOS PRIOR TO 2022 - DUAL ELIGIBLE (MEDICARE REPLACEMENT/ADV ANTAGE - HMO) Darlyn Villarreal [id number] Darlyn Villarreal 06/10/2022 1 [facility] [employer] - DOS PRIOR TO 2022 - DUAL ELIGIBLE (MEDICARE REPLACEMENT/ADV ANTAGE - HMO) Darlyn Villarreal [id number] Darlyn Villarreal 01/13/2023 1 [facility] [employer] - DOS ON OR AFTER 2022 - DUAL ELIGIBLE - SENIOR LIVING OPTIONS AND ONE CARE (MEDICARE REPLACEMENT/ADV ANTAGE - HMO) Darlyn Villarreal [id number] Darlyn Villarreal 01/20/[address] [facility] - DOS ON OR AFTER 2022 - DUAL ELIGIBLE - SENIOR LIVING OPTIONS AND ONE CARE (MEDICARE REPLACEMENT/ADV ANTAGE - HMO) Darlyn Villarreal [id number] Darlyn Villarreal Notes Date Note Type Note Provider Name and Address Organization Details Recorded Time 07/19/2021 text/html Request notes: Member C/o abd pain and loose stool this am . Member denies fever but does have chills , Member does have a h/o IBS, no medication for this . Member denies vomiting but does have nausea . Member has h/o bowel obstruction was just d/c for partial bowel obstruction this week, treated with IV hydration and antibioticsAllergy to Ibuprofen Psychologist Industrial Organizational notes: Sent to a call for a pt complaining of abd pain and diarrhea. SC6 arrives on scene, pt is found sitting upright on couch. Pt is alert and oriented. Airway is patent. Pt complains of sharp epigastric pain and diarrhea starting this morning at approx 8am. Pt has had 5 bowel movements since 8am. Pt denies headache, dizziness, cp, sob, vomiting, blood in stool, black tarry stool or loc. Pt was discharged from the hospital last following a partial bowel obstruction. Pt has chronic nausea and IBS. Pt states she has not take prescribed Zofran because she doesn't like to take medication. Vitals uploaded to [facility]. BP:112/73, P:65, RR:18, SpO2:96%, T:98.5 Lung sounds: clear bilaterally, Abdomen: soft, non-tender, non-distended. No change with pain on palpation. Pt states pain radiates to back, but nowhere else. [facility] orders Mylanta administration. Pt advised to follow up with care team if she does not improve over the weekend. Pt advised to stay hydrated. Red flags discussed. Pt has no further questions. Kathy Solorio MD [address] [facility],[address], [place], [address], [employer] [facility] 07/19/2021 20:12:13 06/07/2022 text/html [facility] Nursing Asse ssment: Reason For Request: Ear pain Chief Complaints: Pain PMH: Hypertension Comments: Member calling in to place a referral, identified via /name. Member recently dx with bronchitis, was prescribed prednisone, albuterol inhaler and tessalon pearles. Per member URI has improved, but now her right ear is clogged and painful, fear of ear infection. Denies headache or dizziness. Denies fever/chills, no n/v/d. Would like to be evaluated for possible abx and a refill of her flonase. Arturo Morales MD [address] [facility],[address], [place], [phone], [facility] 06/07/2022 10:59:08 06/10/2022 text/html [facility] Nursing Asse ssment: Reason For Request: Pt states wednesday emt had arrived and prescribed an antibiotic since. PT states they have no more prednisone and is complaining of wheezing. Wheezing began this morning>took 2 pumps of albuterol>wheezing persists. ear infection>congested. States they are taking Robitussin for the congestion. PT states when they breathe in they hear the whistle. Patient Reports: History of asthma, increased use of inhaler; Cough; Shortness of breath with exertion Denies: Cough, fever greater than 2 days Lower extremity swelling COPD COVID Exposure Sputum increase Pain with inspiration Chief Complaints: URI PMH: Hypertension Allergies: Ibuprofen Comments: Member calling in to place a referral, identified via /name. Member prescribed abx on Wednesday, but still having cough, congestion wheezing, post nasal drip and mild sob, as well as ear pain. Member still taking abx, finished an existing script for Prednisone yesterday, used her albuterol inhaler x2 this morning with some relief, she took OTC Sincere DM at 10a. Denies fever/chills. Member would like to be re-evaluated. Nomi Vora MD [address] [facility],[address], [place], [address], [facility] 06/10/2022 13:10:55 01/13/2023 text/html [facility] Nursing Asse ssment: Reason For Request: Pt reporting her itchy throat that leads to coughing all night long with dryness; alongside stuffy nose>[facility]>denies fever, denies headache>pain in her sinus area. Chief Complaints: Cough PMH: Hypertension Allergies: Ibuprofen Comments: Reports symptoms of nasal congestion, post nasal drip, non-productive cough. Denies sore throat. Symptoms going on for 4 days. No known fevers. Taking Flonase and Multivitamin powder (Vit C, E and Zinc). Started feeling symptom improvement yesterday. But then started feeling worse after orthodoxy yesterday. Lily Dahl MD [address] [facility],[address], [place], [address], [facility] 01/13/2023 17:15:09 01/20/2023 text/html [facility] Nursing Asse ssment: Reason For Request: Right ear pain Chief Complaints: ENT, Pain PMH: Hypertension Allergies: Ibuprofen Comments: Member calling in to place a referral, identified via /name. Member with head cold last week. Per member the last couple of days she has started with right ear pain. She denies drainage, no external redness or swelling, she feels like her ear pops when she blows her nose and swallows, it is a constant throbbing pain. She denies fever/chills, no headache or jaw pain, no sore throat. Member would like to be evaluated and possible treated before it gets worse. ....................... ....................... ....................... ....................... ....................... ....................... ... Psychologist Industrial Organizational Note From Rufus Shepherd: Pt c/o right ear pain off and on for two days..sts feelings of popping in ear. Pt seen for cough by [facility] a few days ago and was given RX. Pt denies Cp sob fever nausea dizziness, vertigo headache or diarrhea. Baseline vitals assessed. Inner ear inspected no signs of inflammation/irritation or redness. Pt sts had no pain during visit/eval. C contacted advised to monitor symptoms and call back if symptoms worsen. Pt educated on signs that would indicate ER. Psychologist Industrial Organizational Allergies: Ibuprofen ....................... ....................... ....................... ....................... ....................... ....................... ... Disposition: Fulfilled Richie Kohli MD [address] [facility],[address], [place], [phone], [employer] 03/04/2023 12:55:39 OBGyn Episode No OBEpisode recorded.
[2024-07-08] MEDS: 0.9 % Sodium Chloride 1,000 ML 999 ML IV (13:42)
[2024-07-08] MEDS: HYDROmorphone HCl 0.5 MG/0.5 ML SYRINGE IVPUSH ×2 (13:45→17:10)
[2024-07-08] MEDS: Famotidine/PF 20 MG/2 ML VIAL IVPUSH (13:46)
[2024-07-08] MEDS: ondansetron HCL 4 MG/2 ML VIAL IVPUSH ×2 (13:46→17:14)
--- NOTE | 2024-07-08 13:59 | PC.NURSE ---
IV established. Meds given per may. IV fluids running. pt has contract drink at bedside
[2024-07-08 14:15] VITALS: BP 130/68; PULSE 59; RESP 18; TEMP 36.5; O2SAT 96
--- NOTE | 2024-07-08 14:38 | PC.NURSE ---
Pt states pain is at a 0. Pt tolerating contrast drink
[2024-07-08] MEDS: iohexoL 350 MG/ML 100 ML INFUS..BTL IV (15:26)
[2024-07-08] MEDS: Diatrizoate Meglumine, Sodium 30 ML SOLUTION PO (15:26)
[2024-07-08 17:09] VITALS: BP 133/72; PULSE 60; RESP 16; TEMP 36.7; O2SAT 96
--- NOTE | 2024-07-08 17:42 | PM.HPGS ---
History of Present Illness History of Present Illness Date of Service: 07/13/24 Chief complaint: bowel pain Narrative: The patient is a 57 year old female who has had multiple previous surgeries including surgery for pyloric stenosis, appendectomy and cholecystectomy here in the ER because of abdominal pain. She says she started to have abdominal pain mostly on the sometime late last night. She describes this is having started after she had 1 drink of [place] ice tea. She describes having some nausea. She denies any vomiting. She has a history of multiple admissions for small-bowel obstruction.Review of her records shows she had been admitted in 2020 and 2021 for partial small bowel obstruction and had NGT placement then because of vomitting. She was admitted last Jul, 2023 for small bowel obstruction and did not require a NG-tube at that time. She passed flatus this morning. She says she had bowel movement this morning. She denies diarrhea. She says her pain is similar to her previous episodes in the past. She also says that her abdominal pain has improved significantly since she had been in the ER although she did get pain medications earlier. Review of Systems Constitutional: Constitutional: Denies chills and Denies fever(s) Cardiovascular: Cardiovascular: Denies chest pain, Denies dyspnea and Denies dyspnea on exertion Respiratory: Respiratory: Denies cough, Denies dyspnea and Denies dyspnea on exertion Gastrointestinal: Gastrointestinal: Denies hematochezia and Denies change in bowel habits Genitourinary: Genitourinary: Denies hematuria Musculoskeletal: Musculoskeletal: Denies back pain and Denies limited range of motion Neurologic: Denies focal weakness and Denies convulsions Psychiatric: Psychiatric: Denies depression and Denies mood swings [facility] Past Medical History Medical History Vaginal burning Vaginal itching Vaginal irritation Fibromyalgia Urgency of micturition Urge incontinence Nonalcoholic steatohepatitis (WALKER) Hypertension Pyloric stenosis SBO (small bowel obstruction) Family History Family History Father No problems noted. Mother No problems noted. Surgical History Surgical History History of esophagogastroduodenoscopy (EGD) H/O colonoscopy History of tubal ligation History of endometrial ablation H/O: hysterectomy History of appendectomy Hx of cholecystectomy Social History Social History Household Members: Family and Children Housing: House Do you presently have visiting nurse or other home services: Yes ([employer]- son) Alcohol intake: current Alcohol intake frequency: holidays/special occasions only Alcohol type: wine Patient Tobacco Use Status: Never used Tobacco Cigarette Packs Per Day: 0.5 Second Hand Smoke Exposure: No Advance Directives Date on File: 07/20/23 service: No Current occupational status: unemployed Sexual orientation: Straight/Heterosexual Gender identity: Female Meds Allergies Allergy/AdvReac Type Severity Reaction Status Date / Time ibuprofen Allergy Severe RASH, Verified 07/08/24 12:31 SWELLING, anaphylaxis, swelling Home Medications ?Medication ?Instructions ?Recorded ?Confirmed ?Last Taken ?Type amlodipine 5 mg tablet 5 mg PO DAILY 06/14/20 07/08/24 07/17/23 History ascorbic acid (vitamin C) 1,000 mg 1,000 mg PO DAILY 07/06/21 07/08/24 07/17/23 History tablet (Vitamin C) cholecalciferol (vitamin D3) 25 25 mcg PO DAILY 07/06/21 07/08/24 07/17/23 History mcg (1,000 unit) tablet (Vitamin D3) lorazepam 0.5 mg tablet 0.5 mg PO BID PRN Anxiety 07/01/23 07/08/24 Unknown History vitamin E 268 mg (400 unit) capsule 268 mg PO DAILY 07/18/23 07/08/24 07/17/23 History fluticasone propionate 50 1 spray intranasal BID PRN 07/08/24 07/08/24 Unknown History mcg/actuation nasal allergies spray,suspension Physical Exam Vital Signs: Vital Signs: Last Vital Signs Temp 98.1 F 07/08/24 17:09 Pulse 60 07/08/24 17:09 Resp 16 07/08/24 17:09 BP 133/72 07/08/24 17:09 Pulse Ox 96 07/08/24 17:09 O2 Del Method Room Air 07/08/24 17:09 BMI result Body Mass Index 28.8 Const: General: comfortable and no acute distress Orientation/consciousness: patient oriented x3 Neck: Neck: Yes no lymphadenopathy Resp: Auscultation: clear to auscultation bilaterally Cardio: Rhythm: regular rhythm GI: Inspection: No distended Palpation (GI): Soft to palpation, Tenderness to palpation present (GI) ( Mild diffuse tenderness), no guarding and not rigid Neuro: General: patient oriented x3 Results Results Labs: Short CBC 07/08/24 Range/Units 12:42 WBC 8.5 (4.8-10.8) X10*3/uL Hgb 15.0 (12.0-16.0) g/dl Hct 43.8 (37.0-47.0) % Plt Count 310 (160-400) X10*3/uL BMP 07/08/24 12:42 Sodium 140 Potassium 3.8 Chloride 103 Carbon Dioxide 29 BUN 11 Creatinine 0.71 Calcium 10.0 Liver Function 07/08/24 Range/Units 12:42 Total Bilirubin 0.8 (0.0-1.0) mg/dL AST 27 (5-31) U/L ALT 28 (0-31) U/L Alkaline Phosphatase 101 (39-117) U/L Albumin 4.4 (3.5-5.0) g/dL Urine 07/08/24 Range/Units 12:42 Urine Color Yellow Urine Appearance Clear Urine pH 6.0 (5.0-9.0) Ur Specific [place] >= 1.030 H (1.005-1.025) Urine Protein Negative (Neg-Trace) mg/dL Urine Glucose (UA) Negative (Negative) mg/dL CT abdomen and pelvis with contrast Comparison: CT/REG/MA/SR - CT ABDOMEN PELVIS W IV CON - 07/17/23 18:33 EDT Findings: The visualized portions of the lungs are normal in appearance. The liver is normal in size without suspicious focal hepatic lesions. Small hypodensity in the right lobe of the liver could represent a cyst. Stable mild intrahepatic or extrahepatic ductal dilatation is seen. The hepatic and portal veins are patent. Cholecystectomy. Pancreas, spleen and adrenals are normal in appearance. No suspicious focal lesion of the kidneys. No hydronephrosis or calculi. The abdominal aorta demonstrates no evidence of aneurysmal dilatation or dissection. The colon is normal in appearance and without wall thickening or inflammatory change. Appendix is not visualized. Oral contrast is visualized in the stomach and in the jejunum. There is area of small-bowel wall thickening in the central abdomen axial image 48 and coronal image 16. There is dilation of the small bowel proximal to this area measuring up to 3.4 cm in diameter. Post hysterectomy. No intraperitoneal free air or fluid is visualized. No pathologic lymphadenopathy is seen. There are no osseous or soft tissue abnormalities. IMPRESSION: Evidence of small-bowel obstruction of the same location from prior CT with the transitional zone in the central abdomen. Additional findings as above. Abdomen CT scan report/results: report reviewed and image reviewed CT scan - pelvis: report reviewed and image reviewed Assessment and Plan (1) Small bowel obstruction: Status: Resolved 58-year-old female with multiple abdominal surgeries, now in the ER for abdominal pain and nausea. I have reviewed her CAT scan and this shows some dilated small bowel loops with wall thickening and decreased caliber distally consistent with partial small-bowel obstruction. This seems to be similar to her previous episodes over the years.She had good amounts of air stool in the colon. Her pain has improved significantly since she has been in the ER. She is refusing NG tube so we will hold off on this. I told her that if she starts to have vomiting, we will to place an NG-tube. We will keep her on bowel rest with NPO. We will hydrate her with IV fluids. She will be given Dilaudid for pain. Her abdominal exam is otherwise benign. Her labs are unremarkable. She understands the plan well. She also understands that if she develops worsening, nonresolution within a reasonable period of time, she may require laparotomy although this appears to be unlikely. I have discussed the above with the ER staff. Quality Stroke Does the patient have a stroke diagnosis?: No VTE Prior VTE?: No VTE Risk Level:: Medical - moderate - high VTE Device Contraindication: N/A - Device Ordered VTE Drug Contraindication: N/A - Med Ordered Procedures Date of Service Date of Service: 07/13/24
--- NOTE | 2024-07-08 18:44 | PHA.MEDREC ---
Pharmacy Consult ? Medication Reconciliation Pharmacy has completed the medication reconciliation. Patient states she is still on ativan however claims are from 05/2023 per PDMP. will let provider know.
[2024-07-08] MEDS: Lactated Ringers 1,000 ML 100 ML IVCONT (18:50)
[2024-07-08 19:15] VITALS: BP 129/66; PULSE 59; RESP 18; TEMP 36.8; O2SAT 94
[2024-07-09] VITALS (8 sets, daily range): BP systolic 100–139; BP diastolic 54–78; PULSE 56–69; RESP 16–20; TEMP 36.6–37.2; O2SAT 95–98; BMI 30.1
[2024-07-09] MEDS: Calcium Carbonate 750 MG TAB.CHEW PO (01:52)
[2024-07-09] MEDS: Melatonin 3 MG TABLET 6 MG PO (01:52)
--- NOTE | 2024-07-09 05:33 | PC.NURSE ---
Pt ambulates to the bathroom independently with a steady. Report medium size BM that then turned into a diarrhea episode. Denies any blood in the stool. Denies any discomfort at this time. Monitoring is ongoing.
[2024-07-09] MEDS: Lactated Ringers 1,000 ML 100 ML IVCONT ×2 (06:43→16:13)
[2024-07-09 07:27] LABS: Hematocrit 38.3 % (37.0-47.0); Mean Corpuscular HGB Conc 33.9 g/dl (31.0-35.0); Mean Corpuscular Hemoglobin 29.7 pg (27.0-33.0); Mean Corpuscular Volume 87.4 fL (80.0-98.0); Mean Platelet Volume 10.1 fL (9.4-12.3); Platelet Count 266 X10*3/uL (160-400); Red Blood Count 4.38 X10*6/uL (4.20-5.50); White Blood Count 8.6 X10*3/uL (4.8-10.8)
--- NOTE | 2024-07-09 07:27 | P.PNGS_ITS ---
Subjective Subjective Date of Service: 07/10/24 Interval history: She says she had a good night She says she now has having watery stools and flatus She denies abdominal pain States she feels much better this morning Physical Exam 2 Vital Signs: Vital Signs: Last Vital Signs Temp 98.0 F 07/09/24 06:22 Pulse 60 07/09/24 06:22 Resp 20 07/09/24 06:22 BP 110/65 07/09/24 06:22 Pulse Ox 96 07/09/24 06:22 O2 Del Method Room Air 07/09/24 06:22 BMI result Body Mass Index 28.8 Const: Other: Looks well General: comfortable and no acute distress Resp: Effort & Inspection: normal respiratory effort Cardio: Rate: regular rate GI: Palpation (GI): Soft to palpation, not firm, nontender and no guarding Objective Data Active Medications Acetaminophen (Acetaminophen 325 Mg Tablet) 650 mg PO Q6H PRN PRN Reason: Pain, Mild 1-3,fever,headache Amlodipine Besylate (Amlodipine Besylate 5 Mg Tablet) 5 mg PO DAILY [facility]; Protocol Calcium Carbonate (Calcium Carbonate 750 Mg Tab.Chew) 750 mg PO Q4H PRN PRN Reason: Heartburn Last Admin: 07/09/24 01:52 Dose: 750 mg Documented By: FRANCIS Heparin Sodium (Porcine) (Heparin Sodium,Porcine 5,000 Unit/Ml Vial) 5,000 unit SUBCUT Q8H [facility] Hydromorphone HCl (Hydromorphone Hcl 1 Mg/Ml Syringe) 0.5 mg IVPUSH Q4H PRN; Protocol PRN Reason: Pain, Severe (Pain Scale 7-10) Lactated Ringer's (Lr) 1,000 mls @ 100 mls/hr IVCONT .Q10H [facility] Last Admin: 07/09/24 06:43 Dose: 100 mls/hr Documented By: FRANCIS Lorazepam (Lorazepam 0.5 Mg Tablet) 0.5 mg PO BID PRN PRN Reason: Anxiety Melatonin (Melatonin 3 Mg Tablet) 6 mg PO BEDTIME PRN PRN Reason: Insomnia Last Admin: 07/09/24 01:52 Dose: 6 mg Documented By: FRANCIS Ondansetron HCl (Ondansetron Hcl 4 Mg/2 Ml Vial) 4 mg IVPUSH Q8H PRN PRN Reason: Nausea and Vomiting Sodium Chloride (0.9 % Sodium Chloride Flush 3 Ml Syringe) 3 ml IVFLUSH QSHIFT OMARI Last Admin: 07/08/24 23:27 Dose: Not Given Documented By: FRANCIS Non-Admin Reason: IV Running Labs 07/09/24 06:52 07/09/24 06:52 Labs: Laboratory Results - last 24 hr 07/08/24 12:42 MCV 85.7 MCH 29.4 MCHC 34.2 RDW 13.0 Plt Count 310 MPV 9.9 Immature Gran % (Auto) 0.4 Neut % (Auto) 71.7 Lymph % (Auto) 20.8 [place] % (Auto) 5.9 Eos % (Auto) 0.5 Baso % (Auto) 0.7 Lymph # (Auto) 1.8 [place] # (Auto) 0.5 Eos # (Auto) 0.0 Baso # (Auto) 0.1 Abs Immat Gran (auto) 0.03 Absolute Neuts (auto) 6.1 Absolute Nucleated RBC 0.000 Nucleated RBC % (auto) 0.0 Anion Gap 12 Estim Creat Clear Calc 68.9 Estimated GFR > 60 Random Glucose 103 Lactic Acid 1.1 Calcium 10.0 Total Bilirubin 0.8 AST 27 ALT 28 Alkaline Phosphatase 101 Total Protein 7.8 Albumin 4.4 Lipase 22 Urine Color Yellow Urine Appearance Clear Urine pH 6.0 Ur Specific [place] >= 1.030 H Urine Protein Negative Urine Glucose (UA) Negative Urine Ketones 15 Urine Blood Negative Urine Nitrite Negative Ur Leukocyte Esterase Trace H Urine RBC 0-2 Urine WBC 0-5 Ur Squamous Epith Cells 6-10 Urine Bacteria Trace Hyaline Casts 0-2 Procedures Date of Service Date of Service: 07/10/24 Progress Note: A&P Assessment and plan (1) Small bowel obstruction: Status: Acute Assessment and Plan: Her symptoms have resolved She looks well Denies any abdominal pain Abdomen is soft, benign and nontender Follow up labs pending We will start on clear liquids and plan to advance as tolerated Time Spent With Patient Time: Total time managing care of this patient today ____ minutes. Quality Stroke Does the patient have a stroke diagnosis?: No VTE Prior VTE?: No VTE Risk Level:: Medical - moderate - high VTE Device Contraindication: N/A - Device Ordered VTE Drug Contraindication: N/A - Med Ordered
[2024-07-09 07:33] LABS: Anion Gap 12 (12-20); Blood Urea Nitrogen 9 mg/dL (9-16); Calcium 9.9 mg/dL (8.4-10.2); Carbon Dioxide 27 mmol/L (22-29); Chloride 105 mmol/L (96-108); Creatinine Clr Calc Pharmacy 71.8; Estimated Glomerular Filt Rate > 60; Glucose Random 95 mg/dL (60-115); Potassium 4.2 mmol/L (3.3-5.1); Sodium 140 mmol/L (135-145)
[2024-07-09] MEDS: amLODIPine Besylate 5 MG TABLET PO (08:40)
--- NOTE | 2024-07-09 11:29 | MHC.CM.PN ---
PT LIVES W/ CHILDREN HAS A MAIL INSERTER AND [facility] PT S CAR IS IN PARKING LOT SHE WILL DRIVE HERSELF HOME DC PL;AN HOME N/S
[2024-07-09] MEDS: Heparin Sodium,Porcine 5,000 UNIT/ML VIAL 5000 UNIT SUBCUT (13:00)
--- NOTE | 2024-07-09 13:21 | PM.EVENT ---
Event Note Date of Service: 07/09/24 Event Note: Seen on afternoon rounds Denies abdominal pain Tolerating clear liquids No nausea or vomiting Abdomen is soft, no guarding, no rebound, nontender We will start on regular diet for supper She says she wants to go home and feels ready I told her that we plan on discharging her tomorrow if she continues to do well Time Spent With Patient Time: Total time managing care of this patient today ____ minutes.
[2024-07-10 03:12] VITALS: BP 126/62; PULSE 67; RESP 18; TEMP 36.4; O2SAT 95
[2024-07-10] MEDS: Lactated Ringers 1,000 ML 100 ML IVCONT (06:15)
--- NOTE | 2024-07-10 06:59 | P.PNGS_ITS ---
Subjective Subjective Date of Service: 07/10/24 Patient reports: feels better, tolerating a regular diet and flatus Interval history: Doing well this morning. She notes improvement. She denies any pain. States she had liquid stools all day yesterday. She denies any formed stools yesterday or today. Endorses passing flatus throughout the night and morning. She is tolerating full diet. Physical Exam 2 Vital Signs: Vital Signs: Last Vital Signs Temp 97.6 F 07/10/24 03:12 Pulse 67 07/10/24 03:12 Resp 18 07/10/24 03:12 BP 126/62 07/10/24 03:12 Pulse Ox 95 07/10/24 03:12 O2 Del Method Room Air 07/10/24 03:12 BMI result Body Mass Index 30.1 Const: General: comfortable and no acute distress O rientation/consciousness: patient oriented x3 Resp: Effort & Inspection: normal respiratory effort GI: Inspection: Yes normal to inspection and Yes scar Palpation (GI): Soft to palpation, nontender and no guarding Percussion: Yes normal to percussion Neuro: General: patient oriented x3 Objective Data Active Medications Acetaminophen (Acetaminophen 325 Mg Tablet) 650 mg PO Q6H PRN PRN Reason: Pain, Mild 1-3,fever,headache Amlodipine Besylate (Amlodipine Besylate 5 Mg Tablet) 5 mg PO DAILY [facility]; Protocol Last Admin: 07/09/24 08:40 Dose: 5 mg Documented By: DION Calcium Carbonate (Calcium Carbonate 750 Mg Tab.Chew) 750 mg PO Q4H PRN PRN Reason: Heartburn Last Admin: 07/09/24 01:52 Dose: 750 mg Documented By: FRANCIS Heparin Sodium (Porcine) (Heparin Sodium,Porcine 5,000 Unit/Ml Vial) 5,000 unit SUBCUT Q8H [facility] Last Admin: 07/10/24 05:27 Dose: Not Given Documented By: ELVIS Non-Admin Reason: Patient Refused Hydromorphone HCl (Hydromorphone Hcl 1 Mg/Ml Syringe) 0.5 mg IVPUSH Q4H PRN; Protocol PRN Reason: Pain, Severe (Pain Scale 7-10) Lactated Ringer's (Lr) 1,000 mls @ 100 mls/hr IVCONT .Q10H [facility] Last Admin: 07/10/24 06:15 Dose: 100 mls/hr Documented By: ELVIS Lorazepam (Lorazepam 0.5 Mg Tablet) 0.5 mg PO BID PRN PRN Reason: Anxiety Melatonin (Melatonin 3 Mg Tablet) 6 mg PO BEDTIME PRN PRN Reason: Insomnia Last Admin: 07/09/24 01:52 Dose: 6 mg Documented By: FRANCIS Ondansetron HCl (Ondansetron Hcl 4 Mg/2 Ml Vial) 4 mg IVPUSH Q8H PRN PRN Reason: Nausea and Vomiting Sodium Chloride (0.9 % Sodium Chloride Flush 3 Ml Syringe) 3 ml IVFLUSH QSHIFT [facility] Last Admin: 07/10/24 01:33 Dose: Not Given Documented By: EVLIS Non-Admin Reason: IV Running Labs 07/09/24 06:52 07/09/24 06:52 Labs: Laboratory Results - last 24 hr 07/09/24 06:52 MCV 87.4 MCH 29.7 MCHC 33.9 RDW 13.0 Plt Count 266 MPV 10.1 Absolute Nucleated RBC 0.000 Nucleated RBC % (auto) 0.0 Anion Gap 12 Estim Creat Clear Calc 71.8 Estimated GFR > 60 Random Glucose 95 Calcium 9.9 Procedures Date of Service Date of Service: 07/10/24 Progress Note: A&P Assessment and plan (1) Small bowel obstruction: Status: Acute Plan 58 year old female admitted for SBO. Patient continues to have no pain. She is tolerating full diet. Abdominal exam is unremarkable. Will revisit this afternoon for d/c Time Spent With Patient Time: Total time managing care of this patient today ____ minutes. Quality Stroke Does the patient have a stroke diagnosis?: No VTE Prior VTE?: No VTE Risk Level:: Medical - moderate - high VTE Device Contraindication: N/A - Device Ordered VTE Drug Contraindication: N/A - Med Ordered
[2024-07-10 07:27] VITALS: BP 121/65; PULSE 55; TEMP 36.2; O2SAT 95
--- NOTE | 2024-07-10 09:01 | MHC.CM.PN ---
PT WILL DC HOME TODAY, WITH NO NEW SERVICES, VIA SELF TRANSPORT
--- NOTE | 2024-07-10 13:02 | PM.DS ---
DS: Providers Provider Date of Service: 07/10/24 Date of admission: 07/08/24 17:51 Date of discharge: 07/10/24 Primary care physician: Unknown Physician Attending physician on admission: Patel Staton Attending physician on discharge: Patel Staton DS: Diagnosis Discharge Diagnosis (1) Small bowel obstruction: Status: Acute DS: Summary Hospital Course Hospital Course: HPI AT ADMISSION: The patient is a 57 year old female who has had multiple previous surgeries including surgery for pyloric stenosis, appendectomy and cholecystectomy here in the ER because of abdominal pain. She says she started to have abdominal pain mostly on the sometime late last night. She describes this is having started after she had 1 drink of [place] ice tea. She describes having some nausea. She denies any vomiting. She has a history of multiple admissions for small-bowel obstruction.Review of her records shows she had been admitted in 2020 and 2021 for partial small bowel obstruction and had NGT placement then because of vomitting. She was admitted last Jul, 2023 for small bowel obstruction and did not require a NG-tube at that time. She passed flatus this morning. She says she had bowel movement this morning. She denies diarrhea. She says her pain is similar to her previous episodes in the past. She also says that her abdominal pain has improved significantly since she had been in the ER although she did get pain medications earlier. CAT scan and this shows some dilated small bowel loops with wall thickening and decreased caliber distally consistent with partial small-bowel obstruction. This seems to be similar to her previous episodes over the years. She had good amounts of air stool in the colon. HOSPITAL COURSE: She was admitted to the surgical service for further treatment of the SBO. Her abdominal exam was benign. Her labs were unremarkable. She felt improved with decreasing symptoms and conservative measures were continued. She was refusing NG tube so this was held off. Bowel rest was continued with NPO status and IVF continued. She had an uneventful hospital course. Her symptoms continued to improve with resolution of her abdominal pain and began to pass flatus and have liquid BMs. Her diet was advanced to clear liquids and then solids. On the day of discharge she was tolerating a solid diet without nausea or vomiting. She had no abdominal pain. She had good GI function. Her abdomen was benign and soft, nontender. She was discharged to home on 07/10/24 in stable condition. Status at Discharge Functional status at discharge: independent ambulation Overall status at discharge: patient is progressing back to baseline Time Attestation Discharge Coordination Time (in mins): 25 Quality: Safe Use of Opioids Does Pt have an Active Cancer Diagnosis on the Problem List?: No Quality: Stroke Does the patient have a stroke diagnosis?: No Physical Exam Vital Signs: Vital Signs: Last Vital Signs Temp 97.2 F 07/10/24 07:27 Pulse 55 07/10/24 07:27 Resp 18 07/10/24 03:12 BP 121/65 07/10/24 07:27 Pulse Ox 95 07/10/24 07:27 O2 Del Method Room Air 07/10/24 07:27 BMI result Body Mass Index 30.1 Const: General: comfortable, no acute distress and alert Resp: Effort & Inspection: normal respiratory effort GI: Inspection: No distended Palpation (GI): Soft to palpation and nontender Skin: General skin exam: no rashes or lesions noted DS: Data Data Completed and Pending Completed studies during hospitalization [Text1]: Procedures Insertion of Infusion Device into Upper Vein, Percutaneous Approach (07/06/21) Discharge Plan Discharge Anticipated Discharge Date/Time: 07/10/24 05:46 Patient Disposition: Home, Self-Care Discharge Diagnosis: PSBO Referrals: Physician,Unknown J [Primary Care Provider] - 1 Week Discharge Medications: Continued cholecalciferol (vitamin D3) [Vitamin D3] 25 mcg (1,000 unit) Tablet 25 mcg PO DAILY ascorbic acid (vitamin C) [Vitamin C] 1,000 mg Tablet 1,000 mg PO DAILY fluticasone propionate 50 mcg/actuation spray,suspension 1 spray intranasal BID PRN (Reason: allergies) vitamin E 268 mg (400 unit) Capsule 268 mg PO DAILY amlodipine 5 mg tablet 5 mg PO DAILY lorazepam 0.5 mg tablet 0.5 mg PO BID PRN (Reason: Anxiety) Discharge Orders: Discharge Order (Routine); Ordered 07/10/24 Ordered By: Ginger Lu Diet: Advance to usual diet Activity on Discharge: As tolerated Stand Alone Forms: Patient Portal Discharge page Print Language: Surinamese Activity Restrictions/Additional Instructions: Follow up with your PCP upon discharge. Call Your Doctor If Or Return To ED If: ? ? -Your temperature exceeds 101? F? ? ? -You experience excessive abdominal pain or swelling ? ? -You have an unexpected reaction to medication ? ? -You experience continued vomiting/nausea Care Plan Goals: Return to baseline health and resume normal activities. Health Concerns: hx of multiple abdominal surgeries, PSBO Plan of Treatment: supportive with bowel rest, IVF F/u with PCP Assessment: Improved Discharge Date/Time: 07/10/24 09:06
== END 2024-07-10 09:06 | disposition home or self-care (01) | DRG 390 ==
LOC: HO.ED 17:45 → HO.EDOVER 18:42 → HO.S3 07-09 08:31
PROVIDERS: Physician Assistant; Admitting Provider Surgery; Emergency Provider Emergency Medicine; Visit Provider Surgery
DX: K56.600 Partial intestinal obstruction, unspecified as to cause (principal); K75.81 Nonalcoholic steatohepatitis (NASH); M79.7 Fibromyalgia; Z79.899 Other long term (current) drug therapy
CPT/HCPCS: 36415; 74177; 80048; 80053; 81001; 83605; 83690; 85025; 85027; 99285; J1171; J1308; J1644; J2405; J7120; Q9967

== ENCOUNTER → 2024-07-08 13:24 | Outpatient (BNV) | payer OTHER, SELFPAY | PROVIDERS: Emergency Provider Emergency Medicine; Visit Provider Nuclear Medicine | DX: K56.609 Unspecified intestinal obstruction, unspecified as to partial versus complete obstruction (principal) | CPT/HCPCS: 74177 ==

== ENCOUNTER → 2024-07-08 17:51 | Outpatient (BNV) | payer OTHER, SELFPAY | PROVIDERS: Admitting Provider Surgery; Emergency Provider Emergency Medicine; Visit Provider Surgery | DX: K56.609 Unspecified intestinal obstruction, unspecified as to partial versus complete obstruction (principal) | CPT/HCPCS: 99222; 99232; 99238; 99499 ==

== ENCOUNTER 2024-08-18 07:19 | Outpatient (REF) | payer OTHER, SELFPAY ==
--- NOTE | ~2024-08-18 | MM_ITS ---
EXAMINATION: MM SCREENING DIGITAL BREAST TOMOSYNTHESIS, BILATERAL CLINICAL INFORMATION: Screening. Asymptomatic. COMPARISON: Mammography: Comparison is made with available priors TECHNIQUE: Digital breast mammography with tomosynthesis is performed in both the craniocaudal and mediolateral oblique views along with computer-aided detection (CAD). FINDINGS: There are scattered areas of fibroglandular density (ACR BI-RADS breast composition Category b). There are no significant masses, abnormal calcifications, or other abnormalities. MM/MM tomosynthesis screening BI IMPRESSION: No mammographic evidence of malignancy. ASSESSMENT: BI-RADS BI-RADS 1 - Negative RECOMMENDATION: Routine annual mammography screening. 1 year F/U This examination should not preclude the clinical evaluation of a suspicious palpable abnormality. This patient's information was entered into a reminder system with a target due date for their next mammogram. Electronically signed by: Julia Noe DO 08/22/2024 05:50 PM EDT
== END 2024-08-18 07:20 | disposition home or self-care (01) ==
LOC: HO.MAMMO 07:19
PROVIDERS: PCP Internal Medicine; Visit Provider Internal Medicine
DX: Z12.31 Encounter for screening mammogram for malignant neoplasm of breast (principal)
CPT/HCPCS: 77063; 77067

== ENCOUNTER → 2024-08-18 07:30 | Outpatient (BNV) | payer OTHER, SELFPAY | PROVIDERS: PCP Internal Medicine; Visit Provider Internal Medicine | DX: Z12.31 Encounter for screening mammogram for malignant neoplasm of breast (principal) | CPT/HCPCS: 77063; 77067 ==

== ENCOUNTER 2025-01-01 13:06 | Emergency (ER) | payer OTHER, SELFPAY ==
--- NOTE | ~2025-01-01 | XR_ITS ---
CLINICAL HISTORY: cp 1 view chest x-ray Comparison: CR - XR CHEST 2V - 05/12/24 22:18 EST Findings: The lungs are clear. Prominent cardiac silhouette. No acute fracture. IMPRESSION: 1. No acute findings. This document has been electronically signed by: Parmjit Betancourt MD on 01/01/2025 20:30:49
--- NOTE | 2025-01-01 13:08 | ECG_ITS ---
Test Reason : CHEST PAIN Blood Pressure : */* mmHG Vent. Rate : 69 BPM Atrial Rate : 69 BPM P-R Int : 146 ms QRS Dur : 82 ms QT Int : 386 ms P-R-T Axes : 31 24 20 degrees QTcB Int : 413 ms Normal sinus rhythm Normal ECG When compared with ECG of 12-May-2024 19:26, No significant change was found Referred By: Generic ED Physician Electronically Signed By: MATT PRASAD MD
[2025-01-01 13:19] VITALS: BP 157/69; PULSE 73; RESP 16; TEMP 36.6; O2SAT 96; BMI 28.6
--- NOTE | 2025-01-01 13:24 | ED.GENADULT ---
HPI - General Adult General Chief complaint: Dizziness Stated complaint: CP, L arm pain Time Seen by Provider: 01/01/25 18:44 Related Data Home Medications ?Medication ?Instructions ?Recorded ?Confirmed amlodipine 5 mg tablet 5 mg PO DAILY 06/14/20 07/08/24 ascorbic acid (vitamin C) 1,000 mg 1,000 mg PO DAILY 07/06/21 07/08/24 tablet (Vitamin C) cholecalciferol (vitamin D3) 25 25 mcg PO DAILY 07/06/21 07/08/24 mcg (1,000 unit) tablet (Vitamin D3) lorazepam 0.5 mg tablet 0.5 mg PO BID PRN Anxiety 07/01/23 07/08/24 vitamin E 268 mg (400 unit) capsule 268 mg PO DAILY 07/18/23 07/08/24 fluticasone propionate 50 1 spray intranasal BID PRN 07/08/24 07/08/24 mcg/actuation nasal allergies spray,suspension Allergies Allergy/AdvReac Type Severity Reaction Status Date / Time ibuprofen Allergy Severe RASH, Verified 01/01/25 13:22 SWELLING, anaphylaxis, swelling PMFSH Past Medical History Medical History Vaginal burning Vaginal itching Vaginal irritation Fibromyalgia Urgency of micturition Urge incontinence Nonalcoholic steatohepatitis (WALKER) Hypertension Pyloric stenosis SBO (small bowel obstruction) Surgical History History of esophagogastroduodenoscopy (EGD) H/O colonoscopy History of tubal ligation History of endometrial ablation H/O: hysterectomy History of appendectomy Hx of cholecystectomy Family History Family History Father No problems noted. Mother No problems noted. Social History Social History Household Members: Family and Children Housing: House Do you presently have visiting nurse or other home services: Yes ([employer]- son) Alcohol intake: current Alcohol intake frequency: holidays/special occasions only Alcohol type: wine Patient Tobacco Use Status: Never used Tobacco Cigarette Packs Per Day: 0.5 Second Hand Smoke Exposure: No Advance Directives: No Advance Directives Information Provided: Yes Advance Directives Date on File: 07/20/23 service: No Current occupational status: unemployed Sexual orientation: Straight/Heterosexual Gender identity: Female Physical Exam ED Vital Signs: Vital Signs - 24 hr 01/01/25 13:19 01/01/25 19:38 Temperature 98 F 97.8 F Pulse Rate 73 60 Respiratory Rate 16 16 Blood Pressure 157/69 H 145/62 H Pulse Oximetry 96 100 Oxygen Delivery Method Room Air Room Air BMI result Body Mass Index 28.6 Course Course Course Narrative: RME, this is a rapid medical exam performed by Wilfrid Sung please refer to primary provider for complete H&P- 59-year-old female presents for evaluation of chest pain that radiates to her left arm. She had demonstrated dizziness earlier today. Plan for cardiac workup Medications Administered Discontinued Medications Generic Name Dose Route Start Last Admin Trade Name Freq PRN Reason Stop Dose Admin Acetaminophen 975 mg 01/01/25 19:08 01/01/25 19:38 Acetaminophen 325 Mg Tablet PO 01/01/25 19:09 975 mg ONCE ONE Administration Medical Decision Making Lab Data 01/01/25 14:42 01/01/25 14:42 Labs: Lab Results 01/01/25 01/01/25 Range/Units 14:42 20:02 WBC 7.0 (4.8-10.8) X10*3/uL RBC 5.05 (4.20-5.50) X10*6/uL Hgb 15.0 (12.0-16.0) g/dl Hct 43.9 (37.0-47.0) % MCV 86.9 (80.0-98.0) fL MCH 29.7 (27.0-33.0) pg MCHC 34.2 (31.0-35.0) g/dl RDW 12.9 (11.0-16.0) % Plt Count 299 (160-400) X10*3/uL MPV 9.7 (9.4-12.3) fL Immature Gran % (Auto) 0.3 (0.0-0.4) % Neut % (Auto) 67.0 (45-73) % Lymph % (Auto) 24.5 (20-40) % [place] % (Auto) 6.6 (2-11) % Eos % (Auto) 1.0 (0-4) % Baso % (Auto) 0.6 (0-2) % Lymph # (Auto) 1.7 (1.2-4.9) X10*3/uL [place] # (Auto) 0.5 (0.1-1.2) X10*3/uL Eos # (Auto) 0.1 (0.0-0.4) X10*3/uL Baso # (Auto) 0.0 (0.0-0.2) X10*3/uL Abs Immat Gran (auto) 0.02 (0.00-0.03) X10*3/uL Absolute Neuts (auto) 4.7 (2.0-8.3) x10*3/uL Absolute Nucleated RBC 0.000 (0.0-0.012) X10*3/uL Nucleated RBC % (auto) 0.0 (0.0-0.2) /100WBC D-Dimer High Sensitivty < 150 NG/ML Sodium 141 (135-145) mmol/L Potassium 3.8 (3.3-5.1) mmol/L Chloride 104 (96-108) mmol/L Carbon Dioxide 28 (22-29) mmol/L Anion Gap 13 (12-20) BUN 11 (9-16) mg/dL Creatinine 0.98 (0.5-1.4) mg/dL Estim Creat Clear Calc 49.1 Estimated GFR 58 Random Glucose 101 (60-115) mg/dL Calcium 9.4 (8.4-10.2) mg/dL Troponin I High Sens < 2.7 < 2.7 (<3.5-17.0) ng/L Urine Color Yellow Urine Appearance Clear Urine pH 7.5 (5.0-9.0) Ur Specific [place] 1.025 (1.005-1.025) Urine Protein Negative (Neg-Trace) mg/dL Urine Glucose (UA) Negative (Negative) mg/dL Urine Ketones Trace (Negative) mg/dL Urine Blood Negative (Negative) Urine Nitrite Negative (Negative) Ur Leukocyte Esterase Trace H (Negative) Urine RBC 0-2 (0-2) /HPF Urine WBC 0-5 (0-5) /HPF Ur Squamous Epith Cells 11-20 (0-2) /HPF Urine Bacteria 1+ (None Seen) Hyaline Casts 0-2 (0-2) /LPF Discharge Plan Discharge Clinical Impression: Atypical chest pain, Left tennis elbow Patient Disposition: Home, Self-Care Instructions: Chest Pain (ED), Tennis Elbow (ED) Prescriptions: No Action cholecalciferol (vitamin D3) [Vitamin D3] 25 mcg (1,000 unit) Tablet 25 mcg PO DAILY ascorbic acid (vitamin C) [Vitamin C] 1,000 mg Tablet 1,000 mg PO DAILY fluticasone propionate 50 mcg/actuation spray,suspension 1 spray intranasal BID PRN (Reason: allergies) vitamin E 268 mg (400 unit) Capsule 268 mg PO DAILY amlodipine 5 mg tablet 5 mg PO DAILY lorazepam 0.5 mg tablet 0.5 mg PO BID PRN (Reason: Anxiety) Referrals: Lam Bowen MD [Physician, Orthopedics] - 1 week Shiloh Hyatt MD [Primary Care Provider, Internal Medicine] - 3 days Ryan Nobles MD [Physician, Cardiology] - 5 days Print Language: Swedish
[2025-01-01 14:48] LABS: MANUAL DIFF FLAG NO
[2025-01-01 14:52] LABS: Hematocrit 43.9 % (37.0-47.0); Hemoglobin 15.0 g/dl (12.0-16.0); Imm Gran Abs Auto 0.02 X10*3/uL (0.00-0.03); Imm Gran Pct Auto 0.3 % (0.0-0.4); Lymphocytes Absolute Auto 1.7 X10*3/uL (1.2-4.9); Mean Corpuscular HGB Conc 34.2 g/dl (31.0-35.0); Mean Corpuscular Hemoglobin 29.7 pg (27.0-33.0); Mean Corpuscular Volume 86.9 fL (80.0-98.0); NRBC Abs Auto 0.000 X10*3/uL (0.0-0.012); NRBC Pct Auto 0.0 /100WBC (0.0-0.2); Platelet Count 299 X10*3/uL (160-400); Red Blood Count 5.05 X10*6/uL (4.20-5.50); White Blood Count 7.0 X10*3/uL (4.8-10.8)
[2025-01-01 15:09] LABS: Anion Gap 13 (12-20); Blood Urea Nitrogen 11 mg/dL (9-16); Calcium 9.4 mg/dL (8.4-10.2); Carbon Dioxide 28 mmol/L (22-29); Chloride 104 mmol/L (96-108); Creatinine Clr Calc Pharmacy 49.1; Estimated Glomerular Filt Rate 58; Potassium 3.8 mmol/L (3.3-5.1); Sodium 141 mmol/L (135-145)
[2025-01-01 15:19] LABS: Troponin-I High Sensitivity < 2.7 ng/L (<3.5-17.0)
--- NOTE | 2025-01-01 19:05 | ED.GENADULT ---
HPI - General Adult General Chief complaint: Dizziness Stated complaint: CP, L arm pain Time Seen by Provider: 01/01/25 18:44 Related Data Home Medications ?Medication ?Instructions ?Recorded ?Confirmed amlodipine 5 mg tablet 5 mg PO DAILY 06/14/20 07/08/24 ascorbic acid (vitamin C) 1,000 mg 1,000 mg PO DAILY 07/06/21 07/08/24 tablet (Vitamin C) cholecalciferol (vitamin D3) 25 25 mcg PO DAILY 07/06/21 07/08/24 mcg (1,000 unit) tablet (Vitamin D3) lorazepam 0.5 mg tablet 0.5 mg PO BID PRN Anxiety 07/01/23 07/08/24 vitamin E 268 mg (400 unit) capsule 268 mg PO DAILY 07/18/23 07/08/24 fluticasone propionate 50 1 spray intranasal BID PRN 07/08/24 07/08/24 mcg/actuation nasal allergies spray,suspension Allergies Allergy/AdvReac Type Severity Reaction Status Date / Time ibuprofen Allergy Severe RASH, Verified 01/01/25 13:22 SWELLING, anaphylaxis, swelling PMFSH Past Medical History Medical History Vaginal burning Vaginal itching Vaginal irritation Fibromyalgia Urgency of micturition Urge incontinence Nonalcoholic steatohepatitis (WALKER) Hypertension Pyloric stenosis SBO (small bowel obstruction) Surgical History History of esophagogastroduodenoscopy (EGD) H/O colonoscopy History of tubal ligation History of endometrial ablation H/O: hysterectomy History of appendectomy Hx of cholecystectomy Family History Family History Father No problems noted. Mother No problems noted. 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) Alcohol intake: current Alcohol intake frequency: holidays/special occasions only Alcohol type: wine Patient Tobacco Use Status: Never used Tobacco Cigarette Packs Per Day: 0.5 Second Hand Smoke Exposure: No Advance Directives: No Advance Directives Information Provided: Yes Advance Directives Date on File: 07/20/23 service: No Current occupational status: unemployed Sexual orientation: Straight/Heterosexual Gender identity: Female Physical Exam ED Vital Signs: Vital Signs - 24 hr 01/01/25 13:19 01/01/25 19:38 Temperature 98 F 97.8 F Pulse Rate 73 60 Respiratory Rate 16 16 Blood Pressure 157/69 H 145/62 H Pulse Oximetry 96 100 Oxygen Delivery Method Room Air Room Air BMI result Body Mass Index 28.6 Medications Administered Discontinued Medications Generic Name Dose Route Start Last Admin Trade Name Vickie PRN Reason Stop Dose Admin Acetaminophen 975 mg 01/01/25 19:08 01/01/25 19:38 Acetaminophen 325 Mg Tablet PO 01/01/25 19:09 975 mg ONCE ONE Administration Medical Decision Making Medical Decision Making [facility] Narrative: Patient's chest pain atypical for ACS. Has constant pain that is been ongoing. Has a sharp pain has no risk factors for PE. Is a little overweight. No history of IN positive history of hypertension no family history of ACS troponin x2 sets negative patient's heart score less than 3. Will discharge patient home. Patient D-dimer negative. In the setting of low risk unlikely to have PE. My interpretation patient's chest x-ray is negative for pneumonia no pneumothorax. Will discharge patient home patient also has pain to the lateral aspect of the elbow. On exam patient has a positive Coffey test. On extension of the wrist there is pain that was reproduced in the lateral epicondyle. Symptoms consistent with having tennis elbow. Will have patient take NSAIDs. Follow-up on an outpatient basis. In stable condition. Differential Diagnosis Differential Diagnoses: The differential diagnosis associated with the presentation includes Atypical chest pain, ACS, pneumonia, pneumothorax, PE, tennis elbow, fracture Admission/Observation Consideration of admission/observation: Escalation of care including admission/observation considered Lab Data [facility] Lab Attestation statement: I reviewed the patient's lab results. 01/01/25 14:42 01/01/25 14:42 Labs: Lab Results 01/01/25 01/01/25 Range/Units 14:42 20:02 WBC 7.0 (4.8-10.8) X10*3/uL RBC 5.05 (4.20-5.50) X10*6/uL Hgb 15.0 (12.0-16.0) g/dl Hct 43.9 (37.0-47.0) % MCV 86.9 (80.0-98.0) fL MCH 29.7 (27.0-33.0) pg MCHC 34.2 (31.0-35.0) g/dl RDW 12.9 (11.0-16.0) % Plt Count 299 (160-400) X10*3/uL MPV 9.7 (9.4-12.3) fL Immature Gran % (Auto) 0.3 (0.0-0.4) % Neut % (Auto) 67.0 (45-73) % Lymph % (Auto) 24.5 (20-40) % [place] % (Auto) 6.6 (2-11) % Eos % (Auto) 1.0 (0-4) % Baso % (Auto) 0.6 (0-2) % Lymph # (Auto) 1.7 (1.2-4.9) X10*3/uL [place] # (Auto) 0.5 (0.1-1.2) X10*3/uL Eos # (Auto) 0.1 (0.0-0.4) X10*3/uL Baso # (Auto) 0.0 (0.0-0.2) X10*3/uL Abs Immat Gran (auto) 0.02 (0.00-0.03) X10*3/uL Absolute Neuts (auto) 4.7 (2.0-8.3) x10*3/uL Absolute Nucleated RBC 0.000 (0.0-0.012) X10*3/uL Nucleated RBC % (auto) 0.0 (0.0-0.2) /100WBC D-Dimer High Sensitivty < 150 NG/ML Sodium 141 (135-145) mmol/L Potassium 3.8 (3.3-5.1) mmol/L Chloride 104 (96-108) mmol/L Carbon Dioxide 28 (22-29) mmol/L Anion Gap 13 (12-20) BUN 11 (9-16) mg/dL Creatinine 0.98 (0.5-1.4) mg/dL Estim Creat Clear Calc 49.1 Estimated GFR 58 Random Glucose 101 (60-115) mg/dL Calcium 9.4 (8.4-10.2) mg/dL Troponin I High Sens < 2.7 < 2.7 (<3.5-17.0) ng/L Urine Color Yellow Urine Appearance Clear Urine pH 7.5 (5.0-9.0) Ur Specific [place] 1.025 (1.005-1.025) Urine Protein Negative (Neg-Trace) mg/dL Urine Glucose (UA) Negative (Negative) mg/dL Urine Ketones Trace (Negative) mg/dL Urine Blood Negative (Negative) Urine Nitrite Negative (Negative) Ur Leukocyte Esterase Trace H (Negative) Urine RBC 0-2 (0-2) /HPF Urine WBC 0-5 (0-5) /HPF Ur Squamous Epith Cells 11-20 (0-2) /HPF Urine Bacteria 1+ (None Seen) Hyaline Casts 0-2 (0-2) /LPF Independent Interpretation I performed an independent interpretation of an: Plain X-Ray (Chest x-ray negative for pneumonia no pneumothorax) Radiology Impression Discussion of test interpretation with radiology: I have reviewed the radiologist's reading. External Record Review External record reviewed: Inpatient record Chronic Conditions Patient?s care impacted by: Hypertension Social Determinants Patient?s care significantly limited by Social Determinants of Health including: Problems related to primary support group Discharge Plan Discharge Clinical Impression: Atypical chest pain, Left tennis elbow Patient Disposition: Home, Self-Care Instructions: Chest Pain (ED), Tennis Elbow (ED) Prescriptions: No Action cholecalciferol (vitamin D3) [Vitamin D3] 25 mcg (1,000 unit) Tablet 25 mcg PO DAILY ascorbic acid (vitamin C) [Vitamin C] 1,000 mg Tablet 1,000 mg PO DAILY fluticasone propionate 50 mcg/actuation spray,suspension 1 spray intranasal BID PRN (Reason: allergies) vitamin E 268 mg (400 unit) Capsule 268 mg PO DAILY amlodipine 5 mg tablet 5 mg PO DAILY lorazepam 0.5 mg tablet 0.5 mg PO BID PRN (Reason: Anxiety) Referrals: Shiloh Hyatt MD [Primary Care Provider, Internal Medicine] - 3 days Ryan Nobles MD [Physician, Cardiology] - 5 days Lam Bowen MD [Physician, Orthopedics] - 1 week Print Language: Kinyarwanda
[2025-01-01 19:38] VITALS: BP 145/62; PULSE 60; RESP 16; TEMP 36.6; O2SAT 100
[2025-01-01 20:09] LABS: Appearance Urine Clear; Glucose Urine UA Negative (Negative); PH 7.5 (5.0-9.0); Specific Gravity - Urine 1.025 (1.005-1.025); UMIC TRIGGER UACC YES
[2025-01-01 20:17] LABS: D Dimer High Sensitivity < 150 NG/ML
[2025-01-01 20:39] LABS: Troponin-I High Sensitivity < 2.7 ng/L (<3.5-17.0)
--- OUTSIDE RECORDS SUMMARY | 2025-01-01 21:07 | XMS_ITS | Clinical Summary ---
Author Organization [facility] Facility Address [address] [address] Care Team Providers Care Personal Development Educator Name Role Phone Shiloh Hyatt MD Primary Care Provider [phone] Medications amLODIPine (NORVASC) 5 MG tablet TAKE [...] of 1 - PCV) 10/02/2013 Influenza Vaccine (#1) 2024 Hepatitis B Vaccine Aged Out No longe r eligible based on patient's age to complete this topic Care Teams Personal Development Educator Relationship Specialty Start Date End Date Shiloh Hyatt MD [facility] [place], [place] PCP - General 03/25/20
[2025-01-01 21:18] VITALS: BP 137/65; PULSE 56; RESP 16; TEMP 36.6; O2SAT 97
== END 2025-01-01 21:20 | disposition home or self-care (01) ==
PROVIDERS: Emergency Provider Emergency Medicine Emergency Medical Services; PCP Internal Medicine
DX: R07.89 Other chest pain (principal); M77.12 Lateral epicondylitis, left elbow; R42 Dizziness and giddiness; M79.602 Pain in left arm; Z79.899 Other long term (current) drug therapy
CPT/HCPCS: 36415; 71045; 80048; 81001; 84484; 85025; 85379; 93005; 99283; 99285

== ENCOUNTER → 2025-01-01 13:08 | Outpatient (BNV) | payer OTHER, SELFPAY | PROVIDERS: PCP Internal Medicine; Visit Provider Internal Medicine Cardiovascular Disease | DX: R07.89 Other chest pain (principal) | CPT/HCPCS: 93010 ==

== ENCOUNTER → 2025-01-01 19:02 | Outpatient (BNV) | payer OTHER, SELFPAY | PROVIDERS: Emergency Provider Emergency Medicine Emergency Medical Services; PCP Internal Medicine; Visit Provider Radiology Diagnostic Radiology | DX: R07.9 Chest pain, unspecified (principal) | CPT/HCPCS: 71045 ==

== ENCOUNTER 2025-03-02 08:18 | Outpatient (AMB) | payer OTHER, SELFPAY ==
--- OUTSIDE RECORDS SUMMARY | 2025-03-02 08:23 | XMS_ITS | Data Portability ---
Author Organization [facility] Address [address] [place] [address] Care Team Providers Care Feed Mill Manager Name Role Phone HIM CCA OTHER WALE MATTHEWS Primary Care Provider Assessment Encounter Date Assessment Date Assessment LastModified by Organization Details LastModified Time 01/20/2023 01/20/2023 I provided real -time medical direction via phone for this encounter, and was available for additional phone based assistance as needed. I have reviewed and agree with the Assessment and Plan as documented by the Manager Mechanical 57-year-old female is seen for several days of popping sensation in right here with associated discomfort. Denies vertigo or other focal neurologic symptoms. Ear canal not impacted or inflamed with no pain on manipulation per linseed oil refiner. Hemodynamically well and afebrile/well appearing per report. No change in hearing. No fevers or chills. Low suspicion for significant bacterial ENT infection. Will advised close monitoring of symptoms and follow-up with care team should she fail to improve. [email or web address] Not available 03/04/2023 12:55:26 07/22/2024 07/22/2024 Ms. Villarreal is a 58 yo F with Hypertension, Fibromyalgia who is calling today about URI sx. Per patient and medic, has been endorsing about 3 days of sinus congestion and cold like sx. Also with some i tchy eyes. Non productive cough. But feels like she c an t get it out. Croupy and barky like cough. Breath sounds are clear. No fevers but endorsing chills. COVID and flu negative with medic. No sore throat. Vitals stable with medic. Given the patient's presenting sx, sounds most c/w viral syndrome. Even with the duration of sx and vitals. Reassuring. Lungs are clear and lower suspicion for PNA. OTC medications attempted and will continue to counseling department chair on safe use for tylenol and/or motrin as needed. Considered also seasonal allergies, but other sick contacts at home. COVID/flu tests with medic are negative. Plan for tessalon perles with medic and rx, and guaifenisin and rx for that. I provided real -time medical direction via phone for this encounter, and was available for additional phone based assistance as needed. I have reviewed and agree with the Assessment and Plan as documented by the Manager Mechanical. We discussed the diagnostic uncertainty of home visits and the risk associated with this. In this case the patient and I felt this to be an acceptable and reasonable amount of risk given the benefit of avoiding an ED visit. The patient given the opportunity to ask questions. Follow up with primary care was recommended, as needed. Advised if develops CP/severe SOB/turning blue/uncontrolled n/v/d or black/bloody emesis or stool/ AMS/ syncope/ high fever unresponsive to APAP to call 911- verbalized understanding of instruction. [email or web address] Not available 07/22/2024 10:00:16 12/04/2024 12/04/2024 I provided real -time medical direction via phone for this encounter and was available for additional phone-based assistance as needed. I have reviewed and agree with the Assessment and Plan as documented by the Manager Mechanical. Patient given the opportunity to ask questions. Our service contacted for an assessment of: BACK pain As per above, patient with back pain related to overuse. No red flag S&S. No bowel/bladder symptoms. No new gait abnl. No new neurological signs, symptoms or deficits. Per linseed oil refiner on the scene, VSS, non-toxic. Neuro grossly intact. No CKI and not on blood thinners. Allergic to NSAIDs. Impression: Acute LBP related to overuse Plan: Tylenol 1000 mg times one. Patient will picker packer OTC later todayF/u with PCP. Red flags to be discussed as to when to seek a higher level of care. We discussed the diagnostic uncertainty of home visits and the risk associated with this. In this case, the patient and I felt this to be an acceptable and reasonable amount of risk given the benefit of avoiding an ED visit. We discussed the need to seek care urgently/emergentl y in the setting of any new or worsening serious symptoms [email or web address] Not available 12/04/2024 17:01:54 Plan of Treatment Reminders Order Date Submit Date Provider Last Modified By Organization Details Last Modified Time Details Appointments None recorded. Lab rapid strep group A, throat 2024 025 [facility], [address] [place] [address], [id number] 17:47:48 rapid flu (A+B) 2024 025 [facility], [address] [place] [address], [id number] 17:48:23 rapid SARS CoV 2 Ag, QL IA, respiratory specimen 2024 [facility], [address] [place] [address], [id number] 17:48:37 streptococc us group A, culture, throat 2024 [place] [facility] (Centralized Electronic Ordering - All Locations), Patient Can Go To The Location Of Their Choice, [address] 14:05:47 rapid flu (A+B) [address] [place] [address], [address] [place] [address], [id number] 09:59:06 rapid SARS CoV 2 Ag, QL IA, respiratory specimen [address] [place] [address], [address] [place] [address], [id number] 09:59:06 Referral None recorded. Procedures None recorded. Surgeries None recorded. Imaging None recorded. Medication Orders acetaminoph en 500 mg tablet 2024 025 [email or web address] [facility]/Pharmacy #[id number], [address] [place], [address], 17:01:54 Cepacol Sore Throat (benzocaine -menthol) 15 mg-3.6 mg lozenges 2024 025 [facility], [address] [facility] [place], [address], 5 05:01:03 acetaminoph en 500 mg tablet 2024 025 [facility] [address] [place], [address], 5 05:01:41 acetaminoph en 500 mg tablet 2024 025 [id number] [address] [facility] [place], [address], 5 05:01:41 loratadine 10 mg tablet 2024 025 [facility] [address] [facility] [place], [address], 5 16:16:47 Flonase Allergy Relief 50 mcg/actuati on nasal spray,suspe nsion 2024 025 [facility] [address] [facility] [place], [address], 5 05:01:03 cephalexin 500 mg capsule [facility]24 [email or web address] [address] [place], [address], 5 16:41:52 cephalexin 500 mg capsule 2024 025 [facility] [address] [place], [address], 5 16:41:53 benzonatate 200 mg capsule 2024 025 [email or web address] [address] [place], [address], 5 09:59:06 guaifenesin ER 600 mg tablet, extended release 12 hr 2024 025 [facility] [address] [place], [address], 09:59:08 benzonatate 100 mg capsule 2024 025 [facility], [address] [facility], [place], [address], 09:59:08 Patient TargetsNo targets recorded. Patient InstructionsNo instructions recorded. Reason for Referral None Reported. Results Created Date Observation Date Name Description Value Unit Range Abnormal Flag Note LastModifiedBy Organization Detail LastModifiedTime 01/14/2001/13/2023 rapid SARS CoV 2 Ag, QL IA, respi rator y speci men rapid SARS CoV 2 Ag, QL IA, respiratory specimen negati ve Not Available [facility] ed [address] [place] [address], [id number] 01/13/2023 17:11:29 07/23/1907/22/2024 rapid SARS CoV 2 Ag, QL IA, respi rator y speci men rapid SARS CoV 2 Ag, QL IA, respiratory specimen negati ve Not Available [facility] ed [address] [place] [address], [id number] 07/22/2024 09:58:53 07/23/1907/22/2024 rapid flu (A+B) Flu negati ve Not Available [facility] ed [address] [place] [address], [id number] 07/22/2024 09:58:52 10/08/19 25 10/09/2024 NTI VIRAL TRANS PORT nti viral transport Commen t Dear Docto r, The requi sitio n we recei chaka for the above patie nt has no test indic ated on the reque st form for one or more of the speci mens submi tted. [place] requi res a writt en and alonzo d reque st be forwa rded to the testi ng labor atory follo wing the verba l order of a labor atory test. Pleas e compl ete the follo wing and fax to [phone] to exped ite testi ng. Requi red test name( s)___ ___ Requi red test numbe r(s)_ ___ Physi elena signa ture_ __ Date_ __ Diagn osis Code: __ In order to maint ain sampl e integ rity, sampl es will be store d for two to seven days from the date of recei pt. A viral trans port was recei chaka with no test indic ated. If testi ng is requi red on this speci men, pleas e conta ct the [facility] Clien t Inqui ry/Te chnic al Servi inessa Depar tment to obtai n a Reque st for Writt en Autho rizat ion Form. Not Available [facility] ([facility]) [address] [place], [address], 10/09/2024 12:05:40 10/08/1910/09/2024 BETA STREP GP A CULTU RE beta strep gp A culture COMMEN T Test not perfo rmed. No bacte rial trans port swab recei chaka. Refer ence Range : Negat [place] Not Available [facility] ([facility]) [address] [place], [address], 10/09/2024 14:05:47 10/08/1910/09/[address] PROBL EM request problem COMMEN T Test not perfo rmed. No bacte rial trans port swab recei chaka. TEST: 90183 9 Beta Strep Gp A Cultu re Not Available [facility] ([facility]) [address] [facility], [place], [address], 10/09/2024 14:05:48 Result Notes None recorded. Medical Equipment None Reported. Allergies Allergen ID Allergen Name Allergen Category Reaction Reaction Severity Criticality Documentation Date Start Date Code Code System Note Provider Name and Address Organization Details Recorded Time 8974 ibuprofen medicatio n Not available Not available Not available 01/11/2024 5640 RxNorm Not Available [facility] - production 03:48:08 Medications Name Sig Start Date Stop Date Status Note LastModified by Organization Details LastModified Time methocarbam ol 500 mg tablet TAKE 1 TABLET BY MOUTH 3 TIMES A DAY NEEDED FOR PAIN active Not Available Not Available No t Available cetirizine 10 mg tablet TAKE 1 TABLET BY MOUTH EVERY DAY active Not Available Not Available No t Available fluconazole 150 mg tablet TAKE 1 TABLET ORALLY DAILY FOR 1 DOSE, ADMINISTE R ON DAY 1 OF THERAPY active Not Available Not Available No t Available benzonatate 200 mg capsule TAKE 1 CAPSULE ORALLY 3 TIMES A DAY NEEDED FOR COUGH active Not Available Not Available No t Available ketotifen 0.025 % (0.035 %) eye drops INSTILL 1 DROP INTO BOTH EYES EVERY 12 HOURS active Not Available Not Available No t Available metronidazo le 0.75 % (37.5 mg/5 gram) vaginal gel INSERT 1 APPLICATO RFULL VAGINALLY DAILY X 5 DAYS active Not Available Not Available No t Available prednisone 20 mg tablet TAKE 2 TABS ORALLY DAILY active Not Available Not Available No t Available terconazole 0.8 % vaginal cream INSERT 1 APPFUL VAGINALLY BEDTIME FOR 3 DAYS active Not Available Not Available No t Available Flonase 50 mcg/actuati on nasal spray,suspe nsion SPRAY 1 SPRAY EVERY DAY BY INTRANASA L ROUTE FOR 5 DAYS. active Not Available Not Available No t Available metronidazo le 500 mg tablet TAKE 1 TABLET BY MOUTH TWICE A DAY FOR 7 DAYS active Not Available Not Available No t Available amlodipine 5 mg tablet TAKE 1 TABLET BY MOUTH EVERY DAY active Not Available Not Available No t Available acetaminoph en 500 mg tablet Take 2 tablets every 8 hours by oral route as needed for 10 days. 10/24 completed Not Available Not Available Not Available amoxicillin 875 mg tablet TAKE 1 TABLET BY MOUTH TWICE A DAY active Not Available Not Available No t Available omeprazole 10 mg capsule,del ayed release TAKE 1 CAPSULE ORALLY DAILY active Not Available Not Available No t Available lorazepam 0.5 mg tablet TAKE 1 TABLET BY MOUTH TWICE A DAY NEEDED FOR ANXIETY active Not Available Not Available No t Available benzonatate 100 mg capsule TAKE 1 CAPSULE 3 TIMES A DAY BY ORAL ROUTE NEEDED FOR 7 DAYS. active Not Available Not Available No t Available cephalexin 500 mg capsule TAKE 1 CAPSULE BY MOUTH EVERY 6 HOURS FOR 5 DAYS active Not Available Not Available No t Available clotrimazol e-betametha sone 1 %-0.05 % topical cream APPLY TOPICALLY 2 TIMES A DAY NEEDED FOR ITCHING FOR 7 DAYS active Not Available Not Available No t Available omeprazole 20 mg capsule,del ayed release TAKE 1 CAPSULE BY MOUTH EVERY DAY active Not Available Not Available No t Available diclofenac sodium 75 mg tablet,luisa yed release TAKE 1 TABLET BY MOUTH TWICE A DAY WITH FOOD FOR 14 DAYS active Not Available Not Available No t Available diclofenac sodium 50 mg tablet,luisa yed release TAKE 1 TABLET BY MOUTH 3 TIMES A DAY active Not Available Not Available No t Available albuterol sulfate HFA 90 mcg/actuati on aerosol inhaler INHALE 2 PUFFS BY MOUTH EVERY 4 TO 6 HOURS NEEDED FOR SHORTNESS OF BREATH OR FOR WHEEZE active Not Available Not Available No t Available hydroxyzine HCl 10 mg tablet TAKE 2 TABLETS BY MOUTH 3 TIMES A DAY NEEDED FOR ANXIETY active Not Available Not Available No t Available ondansetron 4 mg disintegrat ing tablet TAKE 1 TABLET BY MOUTH EVERY 6 HOURS NEEDED FOR NAUSEA AND VOMITING active Not Available Not Available No t Available loratadine 10 mg tablet Take 1 tablet(s) every day by oral route for 30 days. active Not Available Not Available No t Available diazepam 5 mg tablet TAKE 1 TABLET BY MOUTH 3 TIMES A DAY NEEDED FOR MUSCLE SPASM active Not Available Not Available No t Available amoxicillin 875 mg-potassiu m clavulanate 125 mg tablet TAKE 1 TABLET BY MOUTH EVERY 12 HOURS FOR 7 DAYS active Not Available Not Available No t Available oxycodone 5 mg tablet TAKE 1 TABLET ORALLY 2 TIMES A DAY NEEDED FOR PAIN PARTIAL FILL UPON PATIENT REQUEST. active Not Available Not Available No t Available Cepacol Sore Throat (benzocaine -menthol) 15 mg-3.6 mg lozenges Take 1 lozenge 6 times a day by mucous route as needed for 5 days. 10/20 completed Not Available Not Available Not Available diclofenac 1 % topical gel TAKE 2 GRAMS (TOPICAL) 4 TIMES PER DAY FOR 10 DAYS active Not Available Not Available No t Available Maalox Advanced 200 mg-200 mg-20 mg/5 mL oral suspension Take 5 mL every day by oral route for 1 day. 2021 active Not Available Not Available Not Avai labjose maria Mucus Relief ER 600 mg tablet, extended release TAKE 1 TABLET BY MOUTH EVERY 12 HOURS FOR 5 DAYS active Not Available Not Available No t Available fluticasone prop.50 mcg spray,suspe n-sod.chlor samantha 0.9% nasal spray kit active Not Available Not Available Not Available baclofen 5 mg tablet TAKE 1 TABLET BY MOUTH TWICE A DAY active Not Available Not Available No t Available Tussin DM Cough and Chest 5 mg-100 mg/5 mL oral liquid TAKE 10 MLS BY MOUTH EVERY 4-8 HOURS NEEDED FOR COUGH active Not Available Not Available No t Available fluticasone furoate 50 mcg-vilante rol 25 mcg/dose inhalation powder active Not Available Not Available Not Available Vitals Date Recorded Respiratory rate Heart rate Oxygen saturation Body temperature Systolic And Diastolic Provider Name and Address Organization Details Last Updated DateTime 5 18 /min 77 /min 98 % 98.2 [degF] 124/82 mm[Hg] Not Available [facility] production 5 09:54:21 Date Recorded Heart rate Oxygen saturation Respiratory rate Body temperature Systolic And Diastolic Provider Name and Address Organization Details Last Updated DateTime 5 72 /min 98 % 18 /min 98.2 [degF] 142/86 mm[Hg] Not Available [facility] - production 5 16:37:22 Date Recorded Respiratory rate Oxygen saturation Heart rate Body temperature Systolic And Diastolic Provider Name and Address Organization Details Last Updated DateTime 5 18 /min 96 % 65 /min 98.2 [degF] 154/82 mm[Hg] Not Available [facility] - production 5 16:05:28 Date Recorded Respiratory rate Heart rate Oxygen saturation Body temperature Systolic And Diastolic Provider Name and Address Organization Details Last Updated DateTime 5 18 /min 64 /min 98 % 98.5 [degF] 122/74 mm[Hg] Not Available [facility] - production 5 16:55:40 Date Recorded Body temperature Heart rate Respiratory rate Oxygen saturation Body weight Systolic And Diastolic Provider Name and Address Organization Details Last Updated DateTime 3 98.2 [degF] 72 /min 18 /min 99 % 75399.7 6 g 144/84 mm[Hg] Not Available [facility] - production 3 10:39:00 Social History None recorded. Functional Status None recorded. Mental Status None recorded. Family History Nothing Reported. Medical History No medical history recorded. Gynecological HistoryNo gynecological history recorded. Obstetrics History GPAL:G 0 P 0 0 0 0 Past Encounters Encounter ID Performer Location Encounter Start Date Encounter Closed Date Diagnosis/Indication Diagnosis SNOMED-CT Code Diagnosis ICD10 Code Diagnosis IMO Codes Diagnosis Note [id number] Kathy Solorio MD Main - [address] [phone] 07/19/2021 14:26:41 11/10/2021 15:23:20 Diarrhea 32166272 R19.7 55 year old female being evaluated for diarrhea and epigastric pain with nausea since this morning. Per data gathered by linseed oil refiner, patient with normal vital signs, mild tenderness [...] days. [id number] Arturo Morales MD Main - [address] [phone] 06/07/2022 10:33:27 06/09/2022 08:47:45 Acute otitis media 5756912 H65.01 As noted, we were called to see this patient regarding concerns of otitis media in the context of a URI, with a likely sick contact with a viral syndrome. Evaluation in the field was performed by my linseed oil refiner colleague, as noted above, I provided real-time [...] [id number] Nomi Vora MD Main - [facility] [address] [place] [phone] 06/10/2022 13:07:38 06/15/2022 09:50:04 Acute sinusitis [id number] J01.90 This 56-year-ol d female is seen for follow-up of acute sinusitis treated with antibiotic s and prednisone . Her symptoms have resolved and she is feeling much better. She will follow-up with her PCP for any recurring problems. The patient agreed with this plan. [id number] Lily Dahl MD Main - [facility] [address] [place] [phone] 01/13/2023 17:10:51 01/13/2023 22:25:46 Cough [id number] R05.9 [id number] Richie Kohli MD Main - [facility] [address] [place] [phone] 01/20/2023 10:38:58 03/09/2023 11:08:49 Pain of ear [id number] H92.09 [id number] YONY BANEGAS MD Main - [facility] [address] [place] [phone] 07/22/2024 09:54:15 07/22/2024 16:11:05 Dry cough [id number] R05.8 [id number] IVANA CHANDRA MD Main - [facility] [address] [place] [phone] 07/29/2024 16:35:57 07/30/2024 18:13:44 Abscess [id number] L02.91 [id number] Evaluation in the field was performed by my linseed oil refiner colleague, as noted above, I provided real-time direction and supervisio n for this visit. The evaluation revealed 58-year-ol d female with a history of hypertensi on and fibromyalg ia presents with concerns for a possible skin infection over the back. The patient reports that ramos torres three nights ago, while attempting to use the bathroom, she stumbled and struck the left-cente r of her back on the edge of her television screen. She is now experienci ng pain and localized tenderness in the area of impact. She denies chest pain, shortness of breath, fever, or any additional falls or trauma. Vital Signs:BP 142/86, HR 72, RR 18, SpO 98% on room air, Temp 98.2 FExam: Patient is alert, awake, and oriented, in no apparent distress, and speaking in full sentences. Neck: No jugular venous distension Lungs: Clear breath sounds bilaterall yBack: On posterior thoracic exam, just left of midline, there is a 1 x 1 subcutaneo us lesion resembling a cyst, with mild surroundin g erythema, no fluctuance , and no signs of drainageAb domen: Soft, non-tender , non-disten dedExtremi ties: No edema or signs of traumaAlle rgies: Reviewed Impression :Localized cellulitis vs early, non-fluctu ant skin abscess at the site of blunt trauma. Plan:-Init iated Cephalexin (Keflex) 500 mg PO QID for 5 days-Pt was instructed to apply warm compresses to promote drainage-S he was advised to monitor for progressio n of symptoms-E mphasized the importance of hygiene and avoiding manipulati on or squeezing of the lesion-Red Flags discussed with patient including : developmen t of fluctuance or purulent drainage, increasing redness, pain, or swelling, fever, chills, or signs of systemic illness, spreading erythema or streaking from the lesion, failure to improve within 48 7 2 hours of starting antibiotic s, rapid growth of the lesion or worsening pain Primary care, consider__ _ Dispositio n: We discussed the diagnostic uncertaint y of home visits and the risk associated with this. In this case, the patient and I felt this to be an acceptable and reasonable amount of risk given the benefit of avoiding an ED visit. We discussed the need to seek care urgently/e mergently in the setting of any new or worsening serious symptoms, particular lydevelopm ent of fluctuance or purulent drainage, increasing redness, pain, or swelling, fever, chills, or signs of systemic illness, spreading erythema or streaking from the lesion, failure to improve within 48 7 2 hours of starting antibiotic s, rapid growth of the lesion or worsening pain [id number] IVANA CHANDRA MD Main-[facility] ED Medical [address] [phone] 10/07/2024 16:05:24 10/08/2024 16:41:47 Sore throat [id number] J02.9 [id number] Evaluation in the field was performed by my linseed oil refiner colleague, as noted above, I provided real-time direction and supervisio n for this visit. The evaluation revealed 59-year-ol d female with a history of hypertensi on and fibromyalg ia, presenting with complaints of sore throat and nasal congestion /dryness. Symptoms began earlier today. She denies difficulty swallowing , fever, chills, facial pain, swelling, chest pain, shortness of breath, or cough. She is tolerating oral intake well. The patient is unsure whether this represents early illness or allergy-re lated symptoms. VS: BP 154/ 82, HR 65, RR 18, SpO2 96%, RA, Temp 98.2 FExam : General: Alert, oriented, no acute distress. Speaking in full sentencesH EENT: No sinus tenderness or facial swelling; nasal mucosa dry; throat pink and moist; no tonsillar erythema, swelling, or exudateRes piratory: Lungs clear to auscultati on bilaterall yExtremiti es: No lower extremity edemaRapid COVID-19: NegativeRa pid Influenza: NegativeRa pid Strep: NegativeAl lergies: Reviewed Impression :Sore throat and nasal congestion Likely related to early viral upper respirator y infection or allergic rhinitis, given the acute onset, absence of systemic symptoms, benign throat exam, and negative viral/stre p testing. Plan:Lili tin 10 mg orally once daily for symptom reliefFlon ase (fluticaso ne) nasal spray, 2 sprays each nostril dailyAceta minophen 1 gram every 8 hours as needed for discomfort (first dose administer ed by linseed oil refiner) Throat culture sent to [facility]; will follow up on resultsSup portive care: gargling with warm salt water, increased fluids, and warm tea with honeyMonit or symptoms and follow up with PCP if not improving within 5 7 daysRed flags discused with the patient including : fever, worsening throat pain or difficulty swallowing , difficulty breathing or speaking, facial swelling or persistent sinus pain, developmen t of cough or chest pain, new rash, symptoms persist beyond 7-10 days or worsen acutely Primary care, consider__ _ Dispositio n: We discussed the diagnostic uncertaint y of home visits and the risk associated with this. In this case, the patient and I felt this to be an acceptable and reasonable amount of risk given the benefit of avoiding an ED visit. We discussed the need to seek care urgently/e mergently in the setting of any new or worsening serious symptoms, particular ly fever, worsening throat pain or difficulty swallowing , difficulty breathing or speaking, facial swelling or persistent sinus pain, developmen t of cough or chest pain, new rash, symptoms persist beyond 7-10 days or worsen acutely [id number] Lily Dahl MD Main-inst ED Medical [address] [address] 12/04/2024 16:55:37 12/05/2024 00:23:52 Problem of low back [id number] M53.9 [id number] Health Concerns Section Related Observation LastModified by Organization Detai ls LastModified Time None Recorded Concern Status LastModified by Organization Details LastModified Time None Recorded Advance Directives Directive None Recorded Payers Insurance Date Sequence Insurance Name Policy Number Policy Hoover Covered Member ID Hoover Member ID Guarantor Name 01/13/2023 1 [facility] - DOS PRIOR TO 2022 - DUAL ELIGIBLE (MEDICARE REPLACEMENT/ADV ANTAGE - HMO) Darlyn Villarreal [id number] Darlyn Villarreal 12/04/2024 1 [facility] - DOS ON OR AFTER 2022 - DUAL ELIGIBLE - [facility] OPTIONS AND ONE CARE (MEDICARE REPLACEMENT/ADV ANTAGE - HMO) Darlyn Villarreal [id number] aDrlyn Villarreal Notes Date Note Type Note Provider Name and Address Organization Details Recorded Time 01/20/2023 text/html CRC Nursing Assessment: Reason For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
--- OUTSIDE RECORDS SUMMARY | 2025-03-02 08:23 | XMS_ITS | Continuity of Care Document ---
Author Organization [employer] [facility], [facility] Address [address] [place] [address] Care Team Providers Care Retail Analyst Name Role Phone HIM CCA OTHER WALE MATTHEWS Primary Care Provider Assessment Encounter Date Assessment Date Assessment LastModified by Organization Details LastModified Time 12/04/2024 12/04/2024 I provided real -time medical direction via phone for this encounter and was available for additional phone-based assistance as needed. I have reviewed and agree with the Assessment and Plan as documented by the Barrel Lathe Operator Inside. Patient given the opportunity to ask questions. Our service contacted for an assessment of: BACK pain As per above, patient with back pain related to overuse. No red flag S&S. No bowel/bladder symptoms. No new gait abnl. No new neurological signs, symptoms or deficits. Per voting machine repairer on the scene, VSS, non-toxic. Neuro grossly intact. No CKI and not on blood thinners. Allergic to NSAIDs. Impression: Acute LBP related to overuse Plan: Tylenol 1000 mg times one. Patient will slat pickler OTC later todayF/u with PCP. Red flags [...] We discussed the need to seek care urgently/emerge ntly in the setting of any new or worsening serious symptoms [email or web address] Not available 12/04/2024 17:01:54 Plan of Treatment Reminders Order Date Submit Date Provider Last Modified By Organization Details Last Modified Time Details Appointments None recorded. Lab None recorded. Referral None recorded. Procedures None recorded. Surgeries None recorded. Imaging None recorded. Medication Orders acetaminoph en 500 mg tablet 2024 025 [email or web address] [id number], [address] [facility], [place], [address], 17:01:54 Patient TargetsNo targets recorded. Patient InstructionsNo instructions recorded. Reason for Referral None Reported. Medical Equipment None Reported. Allergies Allergen ID [...] Not Available Not Available Not Avai lable Mucus Relief ER 600 mg tablet, extended [...] % 98.5 [degF] 122/74 mm[Hg] Not Available Results [employer] 16:55:40 Social History None recorded. Functional Status None recorded. Mental Status None recorded. Family History Nothing Reported. Medical History No medical history recorded. Gynecological HistoryNo gynecological history recorded. Obstetrics History GPAL:G 0 P 0 0 0 0 Past Encounters Encounter ID Performer Location Encounter Start Date Encounter Closed Date Diagnosis/Indication Diagnosis SNOMED-CT Code Diagnosis ICD10 Code Diagnosis IMO Codes Diagnosis Note [id number] Lily Dahl MD Main-inst ED Medical [facility] [address] [place] [address] 12/04/2024 16:55:37 12/05/2024 00:23:52 Problem of low back [id number] M53.9 [id number] Health Concerns Section Related Observation LastModified by Organization Detai ls LastModified Time None Recorded Concern Status LastModified by Organization Details LastModified Time None Recorded Payers Encounter Date Sequence Insurance Name Policy Number Policy Hoover Covered Member ID Hoover Member ID Guarantor Name 12/04/2024 1 [facility] - DOS ON OR AFTER 2022 - DUAL ELIGIBLE - [employer] OPTIONS AND ONE CARE (MEDICARE REPLACEMENT/ADV ANTAGE - HMO) Darlyn Villarreal [id number] Darlyn Villarreal Notes Date Note Type Note Provider Name and Address Organization Details Recorded Time 12/04/2024 text/html CRC Nurse Triage Notes (Zee [...] Hypertension, Fibromyalgia PMH Reviewed at 12/04/2024 - 16:04 Allergies Reviewed at 12/04/2024 - 16:04 Pain [...] of when to seek emergency care. \ .................... .................... .................... .................... .................... .................... .................... . Barrel Lathe Operator Inside Note From Dhiraj Mccall: Encountered patient seated [...] Extremities are free of trauma and edema. [facility] contacted: states patient is not a candidate for Toradol due to her ibuprofen allergy. 1 g of PO Tylenol administered after medication r ights were reconciled with patient. [facility] recommends patient continue to treat her pain with [id number]-[id number] Tylenol. Patient was encouraged to monitor herself for chest pain, shortness of breath, fevers or excruciating pain she no longer tolerate while at home and was encouraged to seek further medical attention, including 911 said symptoms were to develop. Patient verbalizes understanding of the plan and states she is comfortable remaining home today. [facility] Medication Orders: acetaminophen 500 mg tablet: Administered .................... .................... .................... .................... .................... .................... .................... . [facility] Consulted: Hesham, Lily .................... .................... .................... .................... .................... .................... .................... . Disposition: Fulfilled Lily Dahl MD [address] [facility],[address], [place], [address], JENNY [employer] 12/04/2024 17:31:54 OBGyn Episode No OBEpisode recorded.
--- OUTSIDE RECORDS SUMMARY | 2025-03-02 08:23 | XMS_ITS | Clinical Summary ---
Author Organization [facility] Facility Address [address] [address] Care Team Providers Care Numerical Control Nesting Operator Name Role Phone Shiloh Hyatt MD Primary Care Provider [phone] Medications amLODIPine (NORVASC) 5 MG tablet TAKE [...] age to complete this topic Care Teams Numerical Control Nesting Operator Relationship Specialty Start Date End Date Shiloh Hyatt MD [facility] [place], [place] PCP - General 03/25/20
[2025-03-02 08:24] VITALS: BMI 28.5
--- NOTE | 2025-03-02 08:24 | MHC.OFFVIS ---
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 Patient reports her pain presented around the time of her ER visit to [facility]. Denies injury. Her pain travels down to her wrist and at times up to her shoulder. States triggers her shoulder bursitis and tendonitis. Her elbow is tender to the touch. No numbness or tingling. Her pain is becoming more frequent, stating not even when she is using her arm. ED 01/01/25 Allergies ibuprofen Allergy (Severe, Verified 01/01/25 13:22) RASH, SWELLING, anaphylaxis, swelling Medication List - Last Reconciled 03/02/25 by Betina Wolf PA-C amlodipine 5 mg PO DAILY ascorbic acid (vitamin C) (Vitamin C) 1,000 mg PO DAILY cholecalciferol (vitamin D3) (Vitamin D3) 25 mcg PO DAILY diclofenac sodium 1% 4 grams topical QID 30 days fluticasone propionate 50 mcg/actuation 1 spray intranasal BID PRN lorazepam 0.5 mg PO BID PRN vitamin E 268 mg PO DAILY HPI Comments Details: History of Present Illness The patient is a 59 year old female presenting with left elbow pain, which began in December and was severe enough to warrant a visit to the emergency room. She does not recall a specific injury that precipitated the pain. The pain is located on the lateral aspect of the elbow and radiates down to the wrist. Symptoms are exacerbated by rotating her palm up (supination) and lifting her arm high, such as when styling her hair. She denies pain with wrist flexion and extension, and pain from lifting or carrying does not occur during the activity. She does not experience sleep disturbances due to the pain and denies any numbness or tingling in the left arm, elbow, or fingers. This is her first appointment for the elbow and she has not had prior treatments such as anti-inflammatories, injections, or physical therapy. The patient reports a known allergy to ibuprofen, which causes her tongue and face to swell. Social History - Employment: The patient is not currently working. - Handedness: The patient is right-handed. [facility] Medical History Vaginal burning Vaginal itching Vaginal irritation Fibromyalgia Urgency of micturition Urge incontinence Nonalcoholic steatohepatitis (WALKER) Hypertension Pyloric stenosis SBO (small bowel obstruction) Surgical History History of esophagogastroduodenoscopy (EGD) H/O colonoscopy History of tubal ligation History of endometrial ablation H/O: hysterectomy History of appendectomy Hx of cholecystectomy Family History Father No problems noted. Mother No problems noted. Social History (Updated 03/02/25 @ 08:28 by LEONOR Marcano) Household Members: Family and Children Housing: House Do you presently have visiting nurse or other home services: Yes ([employer]- son) Alcohol intake: current Alcohol intake frequency: holidays/special occasions only Alcohol type: wine Patient Tobacco Use Status: Never used Tobacco Cigarette Packs Per Day: 0.5 Second Hand Smoke Exposure: No Advance Directives Date on File: 07/20/23 service: No Current occupational status: unemployed Current occupation: right hand dominant Sexual orientation: Straight/Heterosexual Gender identity: Female Review of Systems Narrative Review of Systems - Musculoskeletal: Reports severe left lateral elbow pain radiating to the wrist, starting in December. - Reports pain with forearm supination. - Denies pain with wrist flexion and extension. - Neurological: Denies numbness or tingling in the left arm, elbow, and fingers. - Constitutional: Denies sleep disturbance from pain. - Allergic/Immunologic: Reports an allergy to ibuprofen, causing tongue and facial swelling. Physical Exam Exam Exam: Physical Exam - Musculoskeletal: On examination of the left upper extremity, the patient has tenderness over the lateral elbow. - There is pain with forearm supination. - Range of motion of the wrist is normal without pain on flexion and extension. Vital Signs: BMI result Body Mass Index 28.5 Const General: cooperative and no acute distress Orientation/consciousness: patient oriented x3 Resp Effort & Inspection: normal respiratory effort and able to speak in complete sentences Cardio Peripheral pulses: Peripheral pulses 2+ throughout Neuro General: patient oriented x3 Assessment & Plan Assessment & Plan (1) Left tennis elbow: Code(s): M77.12 - Lateral epicondylitis, left elbow Category: Medical Plan Plan 1. Left Elbow Tendinitis The patient's symptoms are consistent with tendinitis of the left elbow, an overuse injury from irritation to the tendon. The plan is to manage this conservatively. Due to the patient's allergy to ibuprofen, oral anti-inflammatory medications will be avoided. A prescription for a topical cream will be sent to her pharmacy. An elbow brace will be provided for her to wear during activities to help reduce strain. A referral for occupational therapy will be placed to focus on stretching and strengthening, with information provided for scheduling at the hospital. The patient declined a cortisone injection at this time, but was advised she can call to reconsider this option if her symptoms do not improve. She was informed that gel injections are not used for this condition. Consent Patient was informed and verbally consented to the use of an ambient scribe for clinic note documentation during this visit. Orders: Orders OT Evaluation and Treatment Today M77.12 - Lateral epicondylitis, left elbow Medications: New diclofenac sodium 1% apply 4grams to affected area four times a day as needed 4 grams topical QID 100 grams 6RF 30 days Coding Level of Care Code New Pt Level 3 (25017) Add On Problem Visit Only Diagnoses Left tennis elbow M77.12
== END 2025-03-02 09:55 | disposition home or self-care (01) ==
LOC: HO.HOS 08:18
PROVIDERS: PCP Internal Medicine; Visit Provider Physician Assistant
DX: M77.12 Lateral epicondylitis, left elbow (principal)
CPT/HCPCS: 99203; G2211

== ENCOUNTER → 2025-03-02 08:18 | Outpatient (BNVA) | payer OTHER, SELFPAY | PROVIDERS: PCP Internal Medicine; Visit Provider Physician Assistant | DX: M77.12 Lateral epicondylitis, left elbow (principal) | CPT/HCPCS: 99202 ==